=== PATIENT | female | born 1950 | race Caucasian/White ===

== ENCOUNTER 2019-11-10 22:50 | Inpatient (IN) | payer MEDICARE ==
[~2019-11-10] VITALS: Ht 160 cm; Wt 106.5 kg
[2019-11-10 23:00] VITALS: BP 131/72
[2019-11-10] MEDS ORDERED: SUCCINYLCHOLINE 200 MG/10 ML VIAL. ONE (23:00)
[2019-11-10] MEDS ORDERED: PROPOFOL 10 MG/ML (20ML) VIAL. IV ONE (23:00)
[2019-11-10] MEDS ORDERED: ETOMIDATE 20 MG/10 ML VIAL. IV ONE (23:00)
[2019-11-10 23:45] VITALS: BP 112/58
[2019-11-10 23:59] VITALS: BP 92/88
[2019-11-11] VITALS (24 sets, daily range): BP systolic 91–134; BP diastolic 45–70
[2019-11-11] MEDS: PROPOFOL 100 ML IV PRN ×5 (00:05→21:39)
[2019-11-11] MEDS ORDERED: CITA40TA12 PO (01:50)
[2019-11-11] MEDS ORDERED: SUCR1TAB35 PO (01:50)
[2019-11-11] MEDS ORDERED: METF10007 PO (01:50)
[2019-11-11] MEDS ORDERED: LEVO100T5 PO (01:50)
[2019-11-11] MEDS ORDERED: TRAM50TA PO (01:50)
[2019-11-11] MEDS ORDERED: NIFE30TA15 PO (01:50)
[2019-11-11] MEDS ORDERED: ONDA4TAB7 PO (01:50)
[2019-11-11] MEDS ORDERED: PANT40TA77 PO (01:50)
[2019-11-11] MEDS ORDERED: PRED-220 PO (01:50)
[2019-11-11] MEDS ORDERED: CEVI30CA5 PO (01:50)
[2019-11-11] MEDS ORDERED: FAMO20TA5 PO (01:50)
[2019-11-11] MEDS ORDERED: METH4TAB6 PO (01:50)
[2019-11-11] MEDS ORDERED: 0.9 % SODIUM CHLORIDE 10 ML DISP.SYRIN. IV PRN (02:00)
[2019-11-11] MEDS ORDERED: DEXTROSE 50% 25 GM / 50ML DISP.SYRIN. IV PRN (02:00)
--- NOTE | 2019-11-11 02:05 | RAD ---
AP chest x-ray HISTORY: Endotracheal tube placement, Covid pneumonia. FINDINGS: Endotracheal tube tip 2 cm above the gisela. Nasogastric tube tip left upper quadrant abdomen radiographic region of the stomach. Right jugular central venous catheter tip right atrium. Heart size normal. No pneumothorax. No pleural effusions. Extensive pulmonary opacities bilaterally. IMPRESSION: Lines and tubes as described above. Extensive bilateral pulmonary opacities which could represent pulmonary edema or an infectious/inflammatory process including extensive viral pneumonitis. Electronically signed by: Robbie Hogan MD (11/11/2019 2:02 AM) [facility]
[2019-11-11] MEDS: IV NORMAL SALINE 1000ML BAG 1,000 ML IV SCH ×2 (02:22→16:24)
[2019-11-11] MEDS ORDERED: INFLUENZA VAX SCREEN BY RX. MC ONE (04:45)
[2019-11-11 05:28] LABS: BASO % 0 % (0-3); EOS % 0 % (0-3); HEMATOCRIT 24.6 % (39.0-53.0); LYMPH # 0.5 x10^3/uL (1.0-4.8); LYMPH % 4 % (24-48); MEAN CORPUSCULAR HEMOGLOBIN 26 pg (25-35); MEAN CORPUSCULAR HGB CONC 33 g/dL (31-37); MEAN CORPUSCULAR VOLUME 78 fL (79-100); MONO # 0.7 x10^3/uL (0.0-1.1); MONO % 5 % (0-9); NEUT # 12.4 x10^3/uL (1.8-7.7); NEUT % 91 % (31-73); PLATELET COUNT 298 x10^3/uL (140-400); RED BLOOD COUNT 3.15 x10^6/uL (4.30-5.70); RED CELL DISTRIBUTION WIDTH 15.6 % (11.5-14.5); WHITE BLOOD COUNT 13.6 x10^3/uL (4.0-11.0)
[2019-11-11 05:45] LABS: VANC TR 10.5 mcg/mL (10.0-20.0)
[2019-11-11] MEDS: INSULIN LISPRO 300 UNITS/3 ML VIAL. SQ SCH ×3 (06:00→17:21)
[2019-11-11] MEDS: NIFEdipine 10 MG CAPSULE PO SCH ×3 (06:02→21:41)
[2019-11-11] MEDS: LEVOTHYROXINE 100 MCG TABLET PO SCH (06:07)
[2019-11-11 06:12] LABS: ALBUMIN 2.4 g/dL (3.4-5.0); ALBUMIN/GLOBULIN RATIO 0.6 (1.0-1.7); CREATININE 0.9 mg/dL (0.7-1.3); GFR 83.9; TOTAL BILIRUBIN 0.2 mg/dL (0.2-1.0); TOTAL PROTEIN 6.4 g/dL (6.4-8.2)
[2019-11-11] MEDS: VANCOMYCIN PER PHARMACY MC PRN ×3 (06:30→11:55)
--- NOTE | 2019-11-11 06:38 | NUR ---
Pharmacy Vancomycin Dosing Note S:Consulted to monitor and dose vancomycin started 11/11/19. O:ULI MORALES is a 69 year old M with Pneumonia . Height: 5 feet, 3 inches Weight: 101.6 kg [place] Body Weight: 56.90 Adjusted Body Weight: 74.78 Dosing Weight: Actual Other Antibiotics: LEVOFLOXACIN 750MG IV Q24H LABS: Last BUN: 17 Last Creatinine: 0.9 Creatinine Clearance: 74 mL/min Last WBC: 13.6 Last Procalcitonin: Tmax (past 24 hours): Microbiology: I/O: Drug Levels: Last Trough level: 10.1 on 11/11/19 at 0500 Last dose given 11/10/19 at 1500 Vancomycin Dosing: Loading Dose: NO LOADING DOSE/PT TRANSFERED FROM [facility] x1 Pt is(Covid-19)(+) Dosing Weight: Actual Target Trough: 15-20 A: Based on: Trough, Actual Wt and CrCl P: 1. 11/11/19 0700 Begin Vancomycin 1500 mg IV q12h 2. Follow up Trough level on 11/12/19 at 1830 3. Pharmacy will continue to monitor, follow and adjust therapy as needed. PAWEL DANIELS RPH, 11/11/19 0638 Signed: 11/11/19 at 0640 by PAWEL DANIELS RPH PHA
[2019-11-11] MEDS ORDERED: SUCRALFATE 1 GM TABLET. PO SCH (07:30)
[2019-11-11] MEDS ORDERED: PANTOPRAZOLE IV PUSH 40 MG VIAL. IVP SCH (07:30)
[2019-11-11 07:42] LABS: % LYMPHS 1 % (24-48); % MONOS 2 % (0-10); % SEGS 97 % (35-66); PLT ESTIMATE ADEQUATE (ADEQUATE)
[2019-11-11] MEDS ORDERED: INSULIN LISPRO 300 UNITS/3 ML VIAL. SQ SCH (08:00)
[2019-11-11] MEDS: VANCOMYCIN 1.5 GM in IV NORMAL SALINE 500ML BAG 500 ML IV SCH ×2 (08:13→18:46)
[2019-11-11] MEDS: FAMOTIDINE 20 MG/2 ML VIAL IVP SCH ×2 (08:13→21:40)
[2019-11-11] MEDS: DEXAMETHASONE SOD PHOS 4 MG/ML VIAL IVP SCH (08:13)
[2019-11-11] MEDS: CITALOPRAM 20 MG TABLET. PO SCH (08:14)
[2019-11-11] MEDS: ENOXAPARIN 40 MG/0.4 ML SYRINGE. SQ SCH ×2 (08:14→21:39)
--- NOTE | 2019-11-11 08:22 | RAD ---
EXAM: PORTABLE CHEST 1V 11/11/2019 5:00 AM CLINICAL INDICATION: ETT placement, COVID + COMPARISON:11/11/2019 TECHNIQUE: AP upright chest radiograph FINDINGS: The endotracheal tube terminates 3 cm above the gisela. A NG tube terminates in the gastric fundus. A right IJ catheter is unchanged terminating at the inferior cavoatrial junction. The heart is normal in size. Bilateral pulmonary opacities are redemonstrated, slightly improved on the right. No pleural effusion or pneumothorax. No acute osseous abnormality. IMPRESSION: Unchanged lines and tubes. Bilateral pulmonary opacities, slightly improved on the right. Electronically signed by: Nicole Bernabe MD (11/11/2019 8:19 AM) [id number]
[2019-11-11 08:47] LABS: BASE EXCESS ABG -5 mmol/L (-3-3); HCO3 ABG 20 mmol/L (21-28); PCO2 ABG 36 mmHg (35-46); PO2 ABG 111 mmHg (65-108); SAT O2 ABG 98 % (92-99)
[2019-11-11 08:49] LABS: FIO2 ABG 100
--- NOTE | 2019-11-11 10:38 | PDOC1 ---
History and Physical Date of Admission Date of Admission 11/11/2019 Identification/Chief Complaint Chief Complaint Respiratory failure Source Source: Chart review History of Present Illness History of Present Illness Patient is a 69-year-old female with past medical history of asthma Raynaud's phenomenon syncope history of systemic lupus erythematosus was in her usual state of health until couple days prior to her visit to the ER when she was diagnosed with COVID-19. Apparently the patient had attended a wedding and most likely is where they contracted the disease. Her is at our institution on the ventilator as well as reported by nursing staff. The patient at the time my evaluation is on mechanical ventilation and sedated. Most of this is from review of outside facility documentation. Bill the patient had described in the review of systems at the outside facility that she had some altered taste in her mouth she did not have any headache visual changes blurred vision double vision she did have some shortness of breath and chest discomfort in her chest whenever she took a deep breath otherwise no other complaints she did not have any diarrhea abdominal pain no neurological deficits were reported. Patient is being admitted for further evaluation and treatment Past Medical History Past Medical History Asthma, syncope, Raynaud's phenomenon, history of pneumonia, osteoarthritis, endocrine disorders, systemic lupus erythematous, Past Surgical History Past Surgical History: No pertinent history Family History Family History: No Significant Social History Smoke: No ALCOHOL: none Drugs: None Current Medications Current Medications Current Medications Medications (Trade) Dose Ordered Sig/Diego Start Time Stop Time Status Last Admin Dose Admin Citalopram Hydrobromide (CeleXA) 40 mg DAILY 11/11/19 09:00 11/11/19 08:14 40 MG Dexamethasone Sodium Phosphate (Decadron) 8 mg DAILY 11/11/19 09:00 11/11/19 08:13 8 MG Dextrose (Dextrose 50%-Water Syringe) 12.5 gm PRN Q15MIN PRN 11/11/19 02:00 Enoxaparin Sodium (Lovenox 40mg Syringe) 40 mg Q12HR 11/11/19 09:00 11/11/19 08:14 40 MG Famotidine (Pepcid Vial) 20 mg BID 11/11/19 09:00 11/11/19 08:13 20 MG Fentanyl Citrate 30 ml @ 0 mls/hr CONT PRN 11/10/19 23:45 11/11/19 06:19 2.5 MLS/HR Influenza Virus Vaccine Quadrival (Fluzone Quad Syringe) 0.5 ml ONCE ONCE 11/13/19 09:00 11/13/19 09:01 Info (FLU VACCINE SCREEN per RX) 1 each 1X ONCE 11/11/19 04:45 11/11/19 04:46 UNV Insulin Human Lispro (HumaLOG) 0-5 UNITS Q6HRS 11/11/19 06:00 Levofloxacin/ Dextrose 150 ml @ 100 mls/hr Q24H 11/11/19 20:00 Levothyroxine Sodium (Synthroid) 100 mcg DAILY06 11/11/19 06:00 11/11/19 06:07 100 MCG Midazolam HCl 100 ml @ 0 mls/hr CONT PRN 11/10/19 23:45 Nifedipine (Procardia) 10 mg Q8HRS 11/11/19 06:00 11/11/19 06:02 10 MG Pantoprazole Sodium (PROTONIX VIAL for IV PUSH) 40 mg BIDAC 11/11/19 07:30 11/11/19 08:13 40 MG Propofol 100 ml @ 0 mls/hr CONT PRN 11/10/19 23:45 11/11/19 06:23 21 MLS/HR Sodium Chloride 1,000 ml @ 65 mls/hr [id number] 11/11/19 02:00 11/11/19 02:22 65 MLS/HR Sodium Chloride (Normal Saline Flush) 3 ml QSHIFT PRN 11/11/19 02:00 Sucralfate (Carafate) 1 gm Q6HRS 11/11/19 12:00 Vancomycin HCl (Vanco Per Pharmacy) 1 each PRN DAILY PRN 11/11/19 02:00 11/11/19 06:36 1 EACH Vancomycin HCl (Vancomycin Trough Level) 1 each 1X ONCE 11/12/19 18:30 11/12/19 18:31 Vancomycin HCl 1.5 gm/Sodium Chloride 500 ml @ 250 mls/hr Q12H 11/11/19 07:00 11/11/19 08:13 250 MLS/HR Allergies Allergies Allergies Coded Allergies Type Severity Reaction Last Updated Verified Penicillins Allergy Unknown 11/10/19 Yes Sulfa (Sulfonamide Antibiotics) Allergy Unknown 11/10/19 Yes clindamycin Allergy Unknown 11/10/19 Yes ROS Review of System Unable to obtain due to critical illness only pertinent as per HPI Physical Exam Physical Exam GEN.: No apparent distress. Sedated on mechanical ventilation HEENT: Head is normocephalic, atraumatic NECK: Supple. LUNGS: Coarse breath sounds HEART: RRR, S1, S2 present. Peripheral pulses intact ABDOMEN: Soft, nontender. Positive bowel sounds. EXTREMITIES: Without any cyanosis. NEUROLOGIC: Sedated PSYCHIATRIC: Unable to assess SKIN: No ulcerations Vitals Vitals Vital Signs Date Time Temp Pulse Resp B/P (MAP) Pulse Ox O2 Delivery O2 Flow Rate FiO2 11/11/19 08:15 100 Ventilator 11/11/19 06:02 58 134/70 11/11/19 06:00 18 11/11/19 04:00 98.4 98.4 11/10/19 23:30 10.0 Labs Labs Laboratory Tests Test 11/11/19 05:00 11/11/19 08:00 White Blood Count 13.6 x10^3/uL (4.0-11.0) Red Blood Count 3.15 x10^6/uL (4.30-5.70) Hemoglobin 8.0 g/dL (13.0-17.5) Hematocrit 24.6 % (39.0-53.0) Mean Corpuscular Volume 78 fL (79-100) Mean Corpuscular Hemoglobin 26 pg (25-35) Mean Corpuscular Hemoglobin Concent 33 g/dL (31-37) Red Cell Distribution Width 15.6 % (11.5-14.5) Platelet Count 298 x10^3/uL (140-400) Neutrophils (%) (Auto) 91 % (31-73) Lymphocytes (%) (Auto) 4 % (24-48) Monocytes (%) (Auto) 5 % (0-9) Eosinophils (%) (Auto) 0 % (0-3) Basophils (%) (Auto) 0 % (0-3) Neutrophils # (Auto) 12.4 x10^3/uL (1.8-7.7) Lymphocytes # (Auto) 0.5 x10^3/uL (1.0-4.8) Monocytes # (Auto) 0.7 x10^3/uL (0.0-1.1) Eosinophils # (Auto) 0.0 x10^3/uL (0.0-0.7) Basophils # (Auto) 0.0 x10^3/uL (0.0-0.2) Segmented Neutrophils % 97 % (35-66) Lymphocytes % 1 % (24-48) Monocytes % 2 % (0-10) Platelet Estimate Adequate (ADEQUATE) Sodium Level 134 mmol/L (136-145) Potassium Level 5.0 mmol/L (3.5-5.1) Chloride Level 102 mmol/L (98-107) Carbon Dioxide Level 26 mmol/L (21-32) Anion Gap 6 (6-14) Blood Urea Nitrogen 17 mg/dL (8-26) Creatinine 0.9 mg/dL (0.7-1.3) Estimated GFR (Cockcroft-Gault) 83.9 BUN/Creatinine Ratio 19 (6-20) Glucose Level 126 mg/dL (70-99) Calcium Level 8.0 mg/dL (8.5-10.1) Ferritin 53 ng/mL (26-388) Total Bilirubin 0.2 mg/dL (0.2-1.0) Aspartate Amino Transf (AST/SGOT) 33 U/L (15-37) Alanine Aminotransferase (ALT/SGPT) 20 U/L (16-63) Alkaline Phosphatase 65 U/L (46-116) Total Protein 6.4 g/dL (6.4-8.2) Albumin 2.4 g/dL (3.4-5.0) Albumin/Globulin Ratio 0.6 (1.0-1.7) Procalcitonin < 0.10 ng/mL (0.00-0.10) Vancomycin Level Trough 10.5 mcg/mL (10.0-20.0) Vancomycin Last Dose Date 11/10/2019 Vancomycin Last Dose Time 1500 O2 Saturation 98 % (92-99) Arterial Blood pH 7.36 (7.35-7.45) Arterial Blood pCO2 at Patient Temp 36 mmHg (35-46) Arterial Blood pO2 at Patient Temp 111 mmHg (65-108) Arterial Blood HCO3 20 mmol/L (21-28) Arterial Blood Base Excess -5 mmol/L (-3-3) FiO2 100 Laboratory Tests Test 11/11/19 05:00 11/11/19 08:00 White Blood Count 13.6 x10^3/uL (4.0-11.0) Red Blood Count 3.15 x10^6/uL (4.30-5.70) Hemoglobin 8.0 g/dL (13.0-17.5) Hematocrit 24.6 % (39.0-53.0) Mean Corpuscular Volume 78 fL (79-100) Mean Corpuscular Hemoglobin 26 pg (25-35) Mean Corpuscular Hemoglobin Concent 33 g/dL (31-37) Red Cell Distribution Width 15.6 % (11.5-14.5) Platelet Count 298 x10^3/uL (140-400) Neutrophils (%) (Auto) 91 % (31-73) Lymphocytes (%) (Auto) 4 % (24-48) Monocytes (%) (Auto) 5 % (0-9) Eosinophils (%) (Auto) 0 % (0-3) Basophils (%) (Auto) 0 % (0-3) Neutrophils # (Auto) 12.4 x10^3/uL (1.8-7.7) Lymphocytes # (Auto) 0.5 x10^3/uL (1.0-4.8) Monocytes # (Auto) 0.7 x10^3/uL (0.0-1.1) Eosinophils # (Auto) 0.0 x10^3/uL (0.0-0.7) Basophils # (Auto) 0.0 x10^3/uL (0.0-0.2) Segmented Neutrophils % 97 % (35-66) Lymphocytes % 1 % (24-48) Monocytes % 2 % (0-10) Platelet Estimate Adequate (ADEQUATE) Sodium Level 134 mmol/L (136-145) Potassium Level 5.0 mmol/L (3.5-5.1) Chloride Level 102 mmol/L (98-107) Carbon Dioxide Level 26 mmol/L (21-32) Anion Gap 6 (6-14) Blood Urea Nitrogen 17 mg/dL (8-26) Creatinine 0.9 mg/dL (0.7-1.3) Estimated GFR (Cockcroft-Gault) 83.9 BUN/Creatinine Ratio 19 (6-20) Glucose Level 126 mg/dL (70-99) Calcium Level 8.0 mg/dL (8.5-10.1) Ferritin 53 ng/mL (26-388) Total Bilirubin 0.2 mg/dL (0.2-1.0) Aspartate Amino Transf (AST/SGOT) 33 U/L (15-37) Alanine Aminotransferase (ALT/SGPT) 20 U/L (16-63) Alkaline Phosphatase 65 U/L (46-116) Total Protein 6.4 g/dL (6.4-8.2) Albumin 2.4 g/dL (3.4-5.0) Albumin/Globulin Ratio 0.6 (1.0-1.7) Procalcitonin < 0.10 ng/mL (0.00-0.10) Vancomycin Level Trough 10.5 mcg/mL (10.0-20.0) Vancomycin Last Dose Date 11/10/2019 Vancomycin Last Dose Time 1500 O2 Saturation 98 % (92-99) Arterial Blood pH 7.36 (7.35-7.45) Arterial Blood pCO2 at Patient Temp 36 mmHg (35-46) Arterial Blood pO2 at Patient Temp 111 mmHg (65-108) Arterial Blood HCO3 20 mmol/L (21-28) Arterial Blood Base Excess -5 mmol/L (-3-3) FiO2 100 VTE Prophylaxis Ordered VTE Prophylaxis Devices: No VTE Pharmacological Prophylaxi: Yes Assessment/Plan Assessment/Plan Acute hypoxemic respiratory failure secondary to COVID-19 infection COVID-19 pneumonia Leukocytosis secondary to the above Microcytic anemia Hyponatremia Severe protein calorie malnutrition Plan Supportive measures Ventilatory support as per pulmonology customer service sales consultant OG tube for nutrition We will start vitamin C vitamin D and zinc Continue steroids Broad-spectrum antibiotics as per ID customer service sales consultant Further recommendations based on the clinical course DVT prophylaxis: Patient will be fully anticoagulated Justifications for Admission Other Justification FILIPPO ROBIN MD Nov 11, 2019 10:38
--- NOTE | 2019-11-11 11:12 | NUR ---
SS following for discharge planning. SS reviewed pt chart and discussed with pt RN. Pt is from home with spouse and is currently on the vent at 100%. COVID19 positive. Pt on IV Levaquin and IV Vancomycin. Pt's spouse also admitted with COVID19 and on the vent. SS will continue to follow for discharge planning.
--- NOTE | 2019-11-11 11:45 | CONS ---
DATE OF CONSULTATION: LOCATION: She is in ICU, bed 16. REFERRING PHYSICIAN: Richard Newton MD REASON FOR CONSULTATION: COVID-19 infection. HISTORY OF PRESENT ILLNESS: A 69-year-old female with history of asthma, Raynaud's, history of SLE, presented to the ER at [facility] with worsening respiratory failure. The patient was diagnosed with COVID-19. I do not have any information as the patient is on mechanical ventilation, sedated in ICU at [facility]. The patient had attended a wedding and likely contacted the illness with COVID-19 there. Her is intubated in ICU at our facility. The patient went into respiratory failure and was intubated. The patient is on Decadron, Lovenox, levofloxacin and IV vancomycin. ID consult has been requested for antibiotic management. REVIEW OF SYSTEMS: Unable to obtain. PAST MEDICAL HISTORY: Asthma, SLE, Raynaud's, osteoarthritis. FAMILY HISTORY: Unobtainable. SOCIAL HISTORY: No smoking or alcohol. , in ICU, currently at [facility] intubated with COVID. CURRENT MEDICATIONS: Dexamethasone, citalopram, famotidine, fentanyl, levothyroxine, IV vancomycin, nifedipine. Other medications reviewed in medication list. ALLERGIES: PENICILLIN, UNKNOWN REACTION; SULFA, UNKNOWN REACTION; CLINDAMYCIN, UNKNOWN REACTION. PHYSICAL EXAMINATION: GENERAL: Intubated, sedated on mechanical ventilation. HEENT: Normocephalic, atraumatic. Anicteric. NECK: Supple. Right IJ line looks clean. LUNGS: Coarse breath sounds bilaterally. No wheezing. HEART: S1, S2 present. No murmurs. ABDOMEN: Soft, nontender, positive bowel sounds. EXTREMITIES: No edema, no cyanosis. DERMATOLOGIC: Warm and dry. No generalized rash. NEUROLOGIC: Sedated. PSYCHIATRIC: Unable to assess. LABORATORY DATA: WBC 13.6, hemoglobin 8.0, hematocrit 26, platelets 298, lymphocyte 0.5. Sodium 134, potassium 5.0, chloride 102, bicarb 26, BUN 17, creatinine 0.9, albumin 2.4. Vancomycin 10.5. RADIOLOGY: Chest x-ray, unchanged lines and tubes; bilateral pulmonary opacities, slightly improved on the right. IMPRESSION: 1. COVID-19 pneumonia. 2. Acute hypoxic respiratory failure, status post intubation. 3. Leukocytosis, likely from steroids. 4. Asthma. 5. History of systemic lupus erythematosus. 6. History of Raynaud's. 7. PCN,Sulfa and Clindamycin allergies unknown reaction RECOMMENDATIONS: 1. Continue empiric IV vancomycin and Levaquin. 2. Follow up labs and cultures. 3. Monitor renal functions closely. Pharmacy to assist with dosing of Vanco according to protocol 4. Continue supportive care. 5. On steroids. 6. Discussed with nursing staff. Thank you for allowing me to participate in this patient's care. If you have any questions, do not hesitate to contact me. GEORGINA ARBOLEDA MD DR: LOI/brock JOB#: [id number] / [id number] SAMAN
[2019-11-11] MEDS: SUCRALFATE 1 GM TABLET. PO SCH ×3 (12:00→23:50)
[2019-11-11] MEDS: ASCORBIC ACID 500 MG TABLET PO SCH ×3 (12:16→23:50)
[2019-11-11] MEDS: CHOLECALCIFEROL (VITAMIN D3) 1,000 UNIT TABLET PO SCH (12:16)
[2019-11-11] MEDS: ZINC SULFATE 220 MG CAPSULE. PO SCH (12:16)
--- NOTE | 2019-11-11 15:25 | PDOC ---
PULMONARY PROGRESS NOTES DATE: 11/11/19 TIME: 15:24 Vitals Vital Signs Date Time Temp Pulse Resp B/P (MAP) Pulse Ox O2 Delivery O2 Flow Rate FiO2 11/11/19 14:00 50 22 112/61 (78) 99 Ventilator 11/11/19 12:00 98.2 98.2 11/10/19 23:30 10.0 Labs Laboratory Tests Test 11/11/19 05:00 11/11/19 08:00 11/11/19 12:35 White Blood Count 13.6 x10^3/uL (4.0-11.0) Red Blood Count 3.15 x10^6/uL (4.30-5.70) Hemoglobin 8.0 g/dL (13.0-17.5) Hematocrit 24.6 % (39.0-53.0) Mean Corpuscular Volume 78 fL (79-100) Mean Corpuscular Hemoglobin 26 pg (25-35) Mean Corpuscular Hemoglobin Concent 33 g/dL (31-37) Red Cell Distribution Width 15.6 % (11.5-14.5) Platelet Count 298 x10^3/uL (140-400) Neutrophils (%) (Auto) 91 % (31-73) Lymphocytes (%) (Auto) 4 % (24-48) Monocytes (%) (Auto) 5 % (0-9) Eosinophils (%) (Auto) 0 % (0-3) Basophils (%) (Auto) 0 % (0-3) Neutrophils # (Auto) 12.4 x10^3/uL (1.8-7.7) Lymphocytes # (Auto) 0.5 x10^3/uL (1.0-4.8) Monocytes # (Auto) 0.7 x10^3/uL (0.0-1.1) Eosinophils # (Auto) 0.0 x10^3/uL (0.0-0.7) Basophils # (Auto) 0.0 x10^3/uL (0.0-0.2) Segmented Neutrophils % 97 % (35-66) Lymphocytes % 1 % (24-48) Monocytes % 2 % (0-10) Platelet Estimate Adequate (ADEQUATE) Sodium Level 134 mmol/L (136-145) Potassium Level 5.0 mmol/L (3.5-5.1) Chloride Level 102 mmol/L (98-107) Carbon Dioxide Level 26 mmol/L (21-32) Anion Gap 6 (6-14) Blood Urea Nitrogen 17 mg/dL (8-26) Creatinine 0.9 mg/dL (0.7-1.3) Estimated GFR (Cockcroft-Gault) 83.9 BUN/Creatinine Ratio 19 (6-20) Glucose Level 126 mg/dL (70-99) Calcium Level 8.0 mg/dL (8.5-10.1) Ferritin 53 ng/mL (26-388) Total Bilirubin 0.2 mg/dL (0.2-1.0) Aspartate Amino Transf (AST/SGOT) 33 U/L (15-37) Alanine Aminotransferase (ALT/SGPT) 20 U/L (16-63) Alkaline Phosphatase 65 U/L (46-116) Total Protein 6.4 g/dL (6.4-8.2) Albumin 2.4 g/dL (3.4-5.0) Albumin/Globulin Ratio 0.6 (1.0-1.7) Procalcitonin < 0.10 ng/mL (0.00-0.10) Vancomycin Level Trough 10.5 mcg/mL (10.0-20.0) Vancomycin Last Dose Date 11/10/2019 Vancomycin Last Dose Time 1500 O2 Saturation 98 % (92-99) Arterial Blood pH 7.36 (7.35-7.45) Arterial Blood pCO2 at Patient Temp 36 mmHg (35-46) Arterial Blood pO2 at Patient Temp 111 mmHg (65-108) Arterial Blood HCO3 20 mmol/L (21-28) Arterial Blood Base Excess -5 mmol/L (-3-3) FiO2 100 Glucose (Fingerstick) 138 mg/dL (70-99) Laboratory Tests Test 11/11/19 05:00 11/11/19 08:00 11/11/19 12:35 White Blood Count 13.6 x10^3/uL (4.0-11.0) Red Blood Count 3.15 x10^6/uL (4.30-5.70) Hemoglobin 8.0 g/dL (13.0-17.5) Hematocrit 24.6 % (39.0-53.0) Mean Corpuscular Volume 78 fL (79-100) Mean Corpuscular Hemoglobin 26 pg (25-35) Mean Corpuscular Hemoglobin Concent 33 g/dL (31-37) Red Cell Distribution Width 15.6 % (11.5-14.5) Platelet Count 298 x10^3/uL (140-400) Neutrophils (%) (Auto) 91 % (31-73) Lymphocytes (%) (Auto) 4 % (24-48) Monocytes (%) (Auto) 5 % (0-9) Eosinophils (%) (Auto) 0 % (0-3) Basophils (%) (Auto) 0 % (0-3) Neutrophils # (Auto) 12.4 x10^3/uL (1.8-7.7) Lymphocytes # (Auto) 0.5 x10^3/uL (1.0-4.8) Monocytes # (Auto) 0.7 x10^3/uL (0.0-1.1) Eosinophils # (Auto) 0.0 x10^3/uL (0.0-0.7) Basophils # (Auto) 0.0 x10^3/uL (0.0-0.2) Segmented Neutrophils % 97 % (35-66) Lymphocytes % 1 % (24-48) Monocytes % 2 % (0-10) Platelet Estimate Adequate (ADEQUATE) Sodium Level 134 mmol/L (136-145) Potassium Level 5.0 mmol/L (3.5-5.1) Chloride Level 102 mmol/L (98-107) Carbon Dioxide Level 26 mmol/L (21-32) Anion Gap 6 (6-14) Blood Urea Nitrogen 17 mg/dL (8-26) Creatinine 0.9 mg/dL (0.7-1.3) Estimated GFR (Cockcroft-Gault) 83.9 BUN/Creatinine Ratio 19 (6-20) Glucose Level 126 mg/dL (70-99) Calcium Level 8.0 mg/dL (8.5-10.1) Ferritin 53 ng/mL (26-388) Total Bilirubin 0.2 mg/dL (0.2-1.0) Aspartate Amino Transf (AST/SGOT) 33 U/L (15-37) Alanine Aminotransferase (ALT/SGPT) 20 U/L (16-63) Alkaline Phosphatase 65 U/L (46-116) Total Protein 6.4 g/dL (6.4-8.2) Albumin 2.4 g/dL (3.4-5.0) Albumin/Globulin Ratio 0.6 (1.0-1.7) Procalcitonin < 0.10 ng/mL (0.00-0.10) Vancomycin Level Trough 10.5 mcg/mL (10.0-20.0) Vancomycin Last Dose Date 11/10/2019 Vancomycin Last Dose Time 1500 O2 Saturation 98 % (92-99) Arterial Blood pH 7.36 (7.35-7.45) Arterial Blood pCO2 at Patient Temp 36 mmHg (35-46) Arterial Blood pO2 at Patient Temp 111 mmHg (65-108) Arterial Blood HCO3 20 mmol/L (21-28) Arterial Blood Base Excess -5 mmol/L (-3-3) FiO2 100 Glucose (Fingerstick) 138 mg/dL (70-99) Medications Active Scripts Medications Dose Route/Sig Max Daily Dose Days Date Category Tramadol Hcl 50 Mg Tablet 50 Mg PO Q8HRS PRN 11/11/19 Reported Carafate (Sucralfate) 1 Gm Tablet 1 Gm PO TIDACHC 11/11/19 Reported Prednisone (Prednisone) 10 Mg Tablet 10 Mg PO DAILY 11/11/19 Reported Pantoprazole Sodium (Pantoprazole Sodium) 40 Mg Tablet.dr 40 Mg PO BIDAC 11/11/19 Reported Zofran (Ondansetron Hcl) 4 Mg Tablet 1 Tab PO Q8HRS 11/11/19 Reported Nifedipine Er (Nifedipine) 30 Mg Tablet.er 30 Mg PO DAILY 11/11/19 Reported Methylprednisolone 4 Mg Tab.ds.pk 4 Mg PO DAILY 11/11/19 Reported Metformin Hcl 1,000 Mg Tablet 1,000 Mg PO BIDWMEALS 11/11/19 Reported Levothyroxine Sodium 100 Mcg Tablet 100 Mcg PO DAILYAC 11/11/19 Reported Famotidine 20 Mg Tablet 20 Mg PO BID 11/11/19 Reported Celexa (Citalopram Hydrobromide) 40 Mg Tablet 40 Mg PO DAILY 11/11/19 Reported Evoxac (Cevimeline Hcl) 30 Mg Capsule 30 Mg PO TID 11/11/19 Reported Impression . Full note dictated Will add convalescence serum and Remdesivir Low tidal volume volumes at 400 mL increased rate MARITZA HAZEL MD Nov 11, 2019 15:25
[2019-11-11] MEDS ORDERED: REMDESIVIR LOAD in IV NORMAL SALINE 250ML TV IV ONE (16:00)
[2019-11-11 18:22] LABS: D-DIMER 0.98 ug/mlFEU (0.00-0.50)
[2019-11-11] MEDS: PANTOPRAZOLE IV PUSH 40 MG VIAL. IVP SCH (21:42)
[2019-11-11] MEDS: MIDAZOLAM 100mg/100ml NS BAG 100 ML IV PRN (23:50)
[2019-11-12] VITALS (25 sets, daily range): BP systolic 98–165; BP diastolic 46–72
--- NOTE | 2019-11-12 00:41 | CONS ---
DATE OF CONSULTATION: 11/11/2019 ATTENDING PHYSICIAN: Dr. Emerson. REASON FOR CONSULTATION: The patient is seen in pulmonary consultation at the request of Dr. Emerson for vent management, COVID-19 viral pneumonia. HISTORY OF PRESENT ILLNESS: The patient is a 69-year-old female with a history of asthma, Raynaud's, lupus, presented to the Emergency Room after worsening respiratory failure. Apparently, the patient was diagnosed with SARS COVID-2. In fact, her who is currently on mechanical ventilation here at [facility] is also my patient. The patient had attended a wedding, likely contact illness COVID-19 at the wedding. Her was intubated several days ago. She progressed to respiratory failure, requiring intubation. She is currently on Decadron and Lovenox and received some IV antibiotics. She has been seen by the Infectious Disease Service. She is currently being supported with the above. PAST MEDICAL HISTORY: As indicated above, osteoarthritis, Raynaud's, lupus and asthma. REVIEW OF SYSTEMS: Unobtainable secondary to the patient's condition. FAMILY HISTORY: Unknown. SOCIAL HISTORY: There is no history of tobacco. She is . Her is currently in the intensive care unit on mechanical ventilation. CURRENT MEDICATIONS: List was reviewed. ALLERGIES: PENICILLIN, SULFA, CLINDAMYCIN. PHYSICAL EXAMINATION: GENERAL: The patient was sedated. VITAL SIGNS: Noted. O2 saturation was greater than 92%. LUNGS: Anteriorly were clear. CARDIOVASCULAR: Regular rate and rhythm with S1, S2. No S3. ABDOMEN: Soft, obese. EXTREMITIES: No clubbing, cyanosis or edema. NEUROLOGICAL: The patient was sedated. LABORATORY DATA: White count was 13,000, hemoglobin of 8, hematocrit of 24, platelet count was noted. Arterial blood gas; pH of 7.36, PaCO2 of 36, pO2 111. Electrolytes were noted. BUN and creatinine were noted. Albumin was 2.4. Chest x-ray revealed bilateral pulmonary infiltrates. IMPRESSION: 1. Acute hypoxemic respiratory failure secondary to COVID-19 viral pneumonia. 2. COVID-19 viral pneumonia. 3. Acute respiratory distress syndrome. 4. Leukocytosis. 5. History of systemic lupus erythematosus. 6. Raynaud's. PLAN: 1. We will continue current support with low tidal volume and increasing respiratory rate. 2. Continue IV vancomycin and Levaquin. 3. We will add remdesivir and convalescent serum. 4. Monitor D-dimer. 5. Continue steroids. 6. DVT and GI prophylaxis. 7. Nutritional support. I do appreciate the privilege in sharing in the patient's care. Total cumulative critical care time of 55 minutes from noon to 12:55. MARITZA HAZEL MD DR: WANDA/brock JOB#: [id number] / [id number]
[2019-11-12 05:57] LABS: CREATININE 0.8 mg/dL (0.6-1.0); GFR 71.3
[2019-11-12] MEDS: INSULIN LISPRO 300 UNITS/3 ML VIAL. SQ SCH ×5 (06:00→23:56)
[2019-11-12] MEDS: NIFEdipine 10 MG CAPSULE PO SCH ×3 (06:00→21:59)
[2019-11-12] MEDS: LEVOTHYROXINE 100 MCG TABLET PO SCH (06:14)
[2019-11-12] MEDS: ASCORBIC ACID 500 MG TABLET PO SCH ×4 (06:14→23:56)
[2019-11-12] MEDS: SUCRALFATE 1 GM TABLET. PO SCH ×4 (06:14→23:56)
[2019-11-12] MEDS: VANCOMYCIN 1.5 GM in IV NORMAL SALINE 500ML BAG 500 ML IV SCH (06:23)
--- NOTE | 2019-11-12 07:14 | PDOC ---
Infectious Disease Note Subjective: Subjective Pt intubated and sedated blood tinged resp secretions Vital Signs: Vital Signs Vital Signs Date Time Temp Pulse Resp B/P (MAP) Pulse Ox O2 Delivery O2 Flow Rate FiO2 11/12/19 06:00 56 28 114/59 (77) 99 Ventilator 11/12/19 05:00 98.6 98.6 11/11/19 19:31 10.0 Physical Exam: PHYSICAL EXAM GENERAL: Intubated, sedated on mechanical ventilation. HEENT: Normocephalic, atraumatic. Anicteric. NG tube present NECK: Supple. Right IJ line looks clean. LUNGS: Coarse breath sounds bilaterally. No wheezing. HEART: S1, S2 present. No murmurs. ABDOMEN: Soft, nontender, positive bowel sounds. EXTREMITIES: No edema, no cyanosis. DERMATOLOGIC: Warm and dry. No generalized rash. NEUROLOGIC: Sedated. PSYCHIATRIC: Unable to assess. Medications: Inpatient Meds: Current Medications Medications (Trade) Dose Ordered Sig/Diego Start Time Stop Time Status Last Admin Dose Admin Ascorbic Acid (Vitamin C) 500 mg Q6HRS 11/11/19 12:00 11/12/19 06:14 500 MG Citalopram Hydrobromide (CeleXA) 40 mg DAILY 11/11/19 09:00 11/11/19 08:14 40 MG Dexamethasone Sodium Phosphate (Decadron) 8 mg DAILY 11/11/19 09:00 11/11/19 08:13 8 MG Dextrose (Dextrose 50%-Water Syringe) 12.5 gm PRN Q15MIN PRN 11/11/19 02:00 Enoxaparin Sodium (Lovenox 40mg Syringe) 40 mg Q12HR 11/11/19 09:00 11/11/19 21:39 40 MG Etomidate (Amidate) 20 mg STK-MED ONCE 11/10/19 23:00 11/11/19 12:49 DC Famotidine (Pepcid Vial) 20 mg BID 11/11/19 09:00 11/11/19 21:40 20 MG Fentanyl Citrate 30 ml @ 0 mls/hr CONT PRN 11/10/19 23:45 11/12/19 03:32 2.5 MLS/HR Influenza Virus Vaccine Quadrival (Fluzone Quad Syringe) 0.5 ml ONCE ONCE 11/13/19 09:00 10/8/20 09:01 Info (FLU VACCINE SCREEN per RX) 1 each 1X ONCE 11/11/19 04:45 11/11/19 04:46 UNV Insulin Human Lispro (HumaLOG) 0-5 UNITS Q6HRS 11/11/19 06:00 Levofloxacin/ Dextrose 150 ml @ 100 mls/hr Q24H 11/11/19 20:00 11/11/19 21:38 100 MLS/HR Levothyroxine Sodium (Synthroid) 100 mcg DAILY06 11/11/19 06:00 11/12/19 06:14 100 MCG Midazolam HCl 100 ml @ 0 mls/hr CONT PRN 11/10/19 23:45 11/11/19 23:50 1 MLS/HR Nifedipine (Procardia) 10 mg Q8HRS 11/11/19 06:00 11/11/19 21:41 10 MG Non-Formulary Medication 1 ea/ Sodium Chloride 230 ml @ 460 mls/hr Q24H 11/12/19 16:00 11/20/19 16:29 Pantoprazole Sodium (PROTONIX VIAL for IV PUSH) 40 mg Q12HR 11/11/19 21:00 11/11/19 21:42 40 MG Propofol (Diprivan) 200 mg STK-MED ONCE 11/10/19 23:00 11/11/19 12:49 DC Sodium Chloride 1,000 ml @ 65 mls/hr [id number] 11/11/19 02:00 11/11/19 16:24 65 MLS/HR Sodium Chloride (Normal Saline Flush) 3 ml QSHIFT PRN 11/11/19 02:00 Succinylcholine Chloride (Anectine) 200 mg STK-MED ONCE 11/10/19 23:00 11/11/19 12:49 DC Sucralfate (Carafate) 1 gm Q6HRS 11/11/19 12:00 11/12/19 06:14 1 GM Vancomycin HCl (Vanco Per Pharmacy) 1 each PRN DAILY PRN 11/11/19 02:00 11/11/19 11:55 1 EACH Vancomycin HCl (Vancomycin Trough Level) 1 each 1X ONCE 11/12/19 18:30 11/12/19 18:31 Vancomycin HCl 1.5 gm/Sodium Chloride 500 ml @ 250 mls/hr Q12H 11/11/19 07:00 11/12/19 06:23 250 MLS/HR Vitamin D (Vitamin D3) 2,000 unit DAILY 11/11/19 11:00 11/11/19 12:16 2,000 UNIT Zinc Sulfate (Orazinc) 220 mg DAILY 11/11/19 11:00 11/11/19 12:16 220 MG Labs: Lab Laboratory Tests Test 11/11/19 08:00 11/11/19 12:35 11/11/19 17:17 11/11/19 17:45 O2 Saturation 98 % (92-99) Arterial Blood pH 7.36 (7.35-7.45) Arterial Blood pCO2 at Patient Temp 36 mmHg (35-46) Arterial Blood pO2 at Patient Temp 111 mmHg (65-108) Arterial Blood HCO3 20 mmol/L (21-28) Arterial Blood Base Excess -5 mmol/L (-3-3) FiO2 100 Glucose (Fingerstick) 138 mg/dL (70-99) 133 mg/dL (70-99) Fibrinogen 417 mg/dL (200-440) D-Dimer (Bridgette) 0.98 ug/mlFEU (0.00-0.50) Test 11/12/19 00:09 11/12/19 05:35 Glucose (Fingerstick) 110 mg/dL (70-99) Creatinine 0.8 mg/dL (0.6-1.0) Estimated GFR (Cockcroft-Gault) 71.3 Objective: Assessment: 1. COVID-19 pneumonia. 2. Acute hypoxic respiratory failure, status post intubation. 3. Leukocytosis, likely from steroids. 4. Asthma. 5. History of systemic lupus erythematosus. 6. History of Raynaud's. 7. PCN,Sulfa and Clindamycin allergies unknown reaction Plan: Plan of Care Continue supportive care. Continue Levaquin.DC IV Vanc Monitor renal functions closely. Pharmacy to assist with dosing of Vanco accor ding to protocol Follow up labs and cultures. On steroids. Critically ill Discussed with nursing staff. GEORGINA ARBOLEDA MD Nov 12, 2019 07:14
[2019-11-12] MEDS: MIDAZOLAM 100mg/100ml NS BAG 100 ML IV PRN ×2 (07:43→15:58)
--- NOTE | 2019-11-12 07:49 | PDOC ---
PROGRESS NOTES Date of Service: DATE: 11/12/19 TIME: 07:31 Chief Complaint Chief Complaint Assessment/Plan Acute hypoxemic respiratory failure secondary to COVID-19 infection COVID-19 pneumonia Leukocytosis secondary to the above Microcytic anemia Hyponatremia Severe protein calorie malnutrition Plan Supportive measures Ventilatory support as per pulmonology computer systems consultant OG tube for nutrition We will start vitamin C vitamin D and zinc Continue steroids Broad-spectrum antibiotics as per ID computer systems consultant Further recommendations based on the clinical course DVT prophylaxis: Patient will be fully anticoagulated History of Present Illness History of Present Illness History of Present Illness Patient is a 69-year-old female with past medical history of asthma Raynaud's phenomenon syncope history of systemic lupus erythematosus was in her usual state of health until couple days prior to her visit to the ER when she was d iagnosed with COVID-19. Apparently the patient had attended a wedding and most likely is where they contracted the disease. Her is at our institution on the ventilator as well as reported by nursing staff. The patient at the time my evaluation is on mechanical ventilation and sedated. Most of this is from review of outside facility documentation. Bill the patient had described in the review of systems at the outside facility that she had some altered taste in her mouth she did not have any headache visual changes blurred vision double vision she did have some shortness of breath and chest discomfort in her chest whenever she took a deep breath otherwise no other complaints she did not have any diarrhea abdominal pain no neurological deficits were reported. Patient is being admitted for further evaluation and treatment Vitals Vitals Vital Signs Date Time Temp Pulse Resp B/P (MAP) Pulse Ox O2 Delivery O2 Flow Rate FiO2 11/12/19 06:00 56 28 114/59 (77) 99 Ventilator 11/12/19 05:00 98.6 98.6 11/11/19 19:31 10.0 Physical Exam Physical Exam GENERAL: Intubated, sedated on mechanical ventilation. HEENT: Normocephalic, atraumatic. Anicteric. NG tube present NECK: Supple. Right IJ line looks clean. LUNGS: Coarse breath sounds bilaterally. No wheezing. HEART: S1, S2 present. No murmurs. ABDOMEN: Soft, nontender, positive bowel sounds. EXTREMITIES: No edema, no cyanosis. DERMATOLOGIC: Warm and dry. No generalized rash. NEUROLOGIC: Sedated. PSYCHIATRIC: Unable to assess. Labs LABS Laboratory Tests Test 11/11/19 08:00 11/11/19 12:35 11/11/19 17:17 11/11/19 17:45 O2 Saturation 98 % (92-99) Arterial Blood pH 7.36 (7.35-7.45) Arterial Blood pCO2 at Patient Temp 36 mmHg (35-46) Arterial Blood pO2 at Patient Temp 111 mmHg (65-108) Arterial Blood HCO3 20 mmol/L (21-28) Arterial Blood Base Excess -5 mmol/L (-3-3) FiO2 100 Glucose (Fingerstick) 138 mg/dL (70-99) 133 mg/dL (70-99) Fibrinogen 417 mg/dL (200-440) D-Dimer (Bridgette) 0.98 ug/mlFEU (0.00-0.50) Test 11/12/19 00:09 11/12/19 05:35 Glucose (Fingerstick) 110 mg/dL (70-99) Creatinine 0.8 mg/dL (0.6-1.0) Estimated GFR (Cockcroft-Gault) 71.3 Comment Review of Relevant I have reviewed the following items clive (where applicable) has been applied. Labs Laboratory Tests Test 11/11/19 05:00 11/11/19 08:00 11/11/19 12:35 11/11/19 17:17 White Blood Count 13.6 x10^3/uL (4.0-11.0) Red Blood Count 3.15 x10^6/uL (4.30-5.70) Hemoglobin 8.0 g/dL (13.0-17.5) Hematocrit 24.6 % (39.0-53.0) Mean Corpuscular Volume 78 fL (79-100) Mean Corpuscular Hemoglobin 26 pg (25-35) Mean Corpuscular Hemoglobin Concent 33 g/dL (31-37) Red Cell Distribution Width 15.6 % (11.5-14.5) Platelet Count 298 x10^3/uL (140-400) Neutrophils (%) (Auto) 91 % (31-73) Lymphocytes (%) (Auto) 4 % (24-48) Monocytes (%) (Auto) 5 % (0-9) Eosinophils (%) (Auto) 0 % (0-3) Basophils (%) (Auto) 0 % (0-3) Neutrophils # (Auto) 12.4 x10^3/uL (1.8-7.7) Lymphocytes # (Auto) 0.5 x10^3/uL (1.0-4.8) Monocytes # (Auto) 0.7 x10^3/uL (0.0-1.1) Eosinophils # (Auto) 0.0 x10^3/uL (0.0-0.7) Basophils # (Auto) 0.0 x10^3/uL (0.0-0.2) Segmented Neutrophils % 97 % (35-66) Lymphocytes % 1 % (24-48) Monocytes % 2 % (0-10) Platelet Estimate Adequate (ADEQUATE) Sodium Level 134 mmol/L (136-145) Potassium Level 5.0 mmol/L (3.5-5.1) Chloride Level 102 mmol/L (98-107) Carbon Dioxide Level 26 mmol/L (21-32) Anion Gap 6 (6-14) Blood Urea Nitrogen 17 mg/dL (8-26) Creatinine 0.9 mg/dL (0.7-1.3) Estimated GFR (Cockcroft-Gault) 83.9 BUN/Creatinine Ratio 19 (6-20) Glucose Level 126 mg/dL (70-99) Calcium Level 8.0 mg/dL (8.5-10.1) Ferritin 53 ng/mL (26-388) Total Bilirubin 0.2 mg/dL (0.2-1.0) Aspartate Amino Transf (AST/SGOT) 33 U/L (15-37) Alanine Aminotransferase (ALT/SGPT) 20 U/L (16-63) Alkaline Phosphatase 65 U/L (46-116) Total Protein 6.4 g/dL (6.4-8.2) Albumin 2.4 g/dL (3.4-5.0) Albumin/Globulin Ratio 0.6 (1.0-1.7) Procalcitonin < 0.10 ng/mL (0.00-0.10) Vancomycin Level Trough 10.5 mcg/mL (10.0-20.0) Vancomycin Last Dose Date 11/10/2019 Vancomycin Last Dose Time 1500 O2 Saturation 98 % (92-99) Arterial Blood pH 7.36 (7.35-7.45) Arterial Blood pCO2 at Patient Temp 36 mmHg (35-46) Arterial Blood pO2 at Patient Temp 111 mmHg (65-108) Arterial Blood HCO3 20 mmol/L (21-28) Arterial Blood Base Excess -5 mmol/L (-3-3) FiO2 100 Glucose (Fingerstick) 138 mg/dL (70-99) 133 mg/dL (70-99) Test 11/11/19 17:45 11/12/19 00:09 11/12/19 05:35 Fibrinogen 417 mg/dL (200-440) D-Dimer (Bridgette) 0.98 ug/mlFEU (0.00-0.50) Glucose (Fingerstick) 110 mg/dL (70-99) Creatinine 0.8 mg/dL (0.6-1.0) Estimated GFR (Cockcroft-Gault) 71.3 Laboratory Tests Test 11/11/19 08:00 11/11/19 12:35 11/11/19 17:17 11/11/19 17:45 O2 Saturation 98 % (92-99) Arterial Blood pH 7.36 (7.35-7.45) Arterial Blood pCO2 at Patient Temp 36 mmHg (35-46) Arterial Blood pO2 at Patient Temp 111 mmHg (65-108) Arterial Blood HCO3 20 mmol/L (21-28) Arterial Blood Base Excess -5 mmol/L (-3-3) FiO2 100 Glucose (Fingerstick) 138 mg/dL (70-99) 133 mg/dL (70-99) Fibrinogen 417 mg/dL (200-440) D-Dimer (Bridgette) 0.98 ug/mlFEU (0.00-0.50) Test 11/12/19 00:09 11/12/19 05:35 Glucose (Fingerstick) 110 mg/dL (70-99) Creatinine 0.8 mg/dL (0.6-1.0) Estimated GFR (Cockcroft-Gault) 71.3 Medications Current Medications Fentanyl Citrate 30 ml @ 0 mls/hr CONT PRN IV SEE PROTOCOL Last administered on 11/12/19at 03:32; Start 11/10/19 at 23:45 Propofol 100 ml @ 0 mls/hr CONT PRN IV SEE PROTOCOL Last administered on 11/11/19at 21:39; Start 11/10/19 at 23:45 Midazolam HCl 100 ml @ 0 mls/hr CONT PRN IV SEE PROTOCOL Last administered on 11/11/19at 23:50; Start 11/10/19 at 23:45 Levothyroxine Sodium (Synthroid) 100 mcg DAILY06 PO Last administered on 11/12/19at 06:14; Start 11/11/19 at 06:00 Sucralfate (Carafate) 1 gm TIDACHC PO ; Start 11/11/19 at 07:30; Stop 11/11/19 at 07:55; Status DC Citalopram Hydrobromide (CeleXA) 40 mg DAILY PO Last administered on 11/11/19at 08:14; Start 11/11/19 at 09:00 Famotidine (Pepcid Vial) 20 mg BID IVP Last administered on 11/11/19at 21:40; Start 11/11/19 at 09:00 Enoxaparin Sodium (Lovenox 40mg Syringe) 40 mg Q12HR SQ Last administered on 11/11/19at 21:39; Start 11/11/19 at 09:00 Sodium Chloride (Normal Saline Flush) 3 ml QSHIFT PRN IV AFTER MEDS AND BLOOD DRAWS; Start 11/11/19 at 02:00 Sodium Chloride 1,000 ml @ 65 mls/hr [id number] IV Last administered on 11/11/19at 16:24; Start 11/11/19 at 02:00 Pantoprazole Sodium (PROTONIX VIAL for IV PUSH) 40 mg BIDAC IVP Last administered on 11/11/19at 08:13; Start 11/11/19 at 07:30; Stop 11/11/19 at 12:27; Status DC Insulin Human Lispro (HumaLOG) 0-5 UNITS TIDWMEALS SQ ; Start 11/11/19 at 08:00; Stop 11/11/19 at 05:57; Status DC Dextrose (Dextrose 50%-Water Syringe) 12.5 gm PRN Q15MIN PRN IV SEE COMMENTS; Start 11/11/19 at 02:00 Dexamethasone Sodium Phosphate (Decadron) 8 mg DAILY IVP Last administered on 11/11/19at 08:13; Start 11/11/19 at 09:00 Nifedipine (Procardia) 10 mg Q8HRS PO Last administered on 11/11/19at 21:41; Start 11/11/19 at 06:00 Vancomycin HCl (Vanco Per Pharmacy) 1 each PRN DAILY PRN MC SEE COMMENTS Last administered on 11/11/19at 11:55; Start 11/11/19 at 02:00 Levofloxacin/ Dextrose 150 ml @ 100 mls/hr Q24H IV Last administered on 11/11/19at 21:38; Start 11/11/19 at 20:00 Vancomycin HCl (Vancomycin Trough Level) 1 each 1X ONCE MC Last administered on 11/11/19at 06:19; Start 11/11/19 at 06:30; Stop 11/11/19 at 06:31; Status DC Info (FLU VACCINE SCREEN per RX) 1 each 1X ONCE MC ; Start 11/11/19 at 04:45; Stop 11/11/19 at 04:46; Status UNV Insulin Human Lispro (HumaLOG) 0-5 UNITS Q6HRS SQ ; Start 11/11/19 at 06:00 Influenza Virus Vaccine Quadrival (Fluzone Quad [id number] Syringe) 0.5 ml ONCE ONCE VAX IM ; Start 11/13/19 at 09:00; Stop 11/13/19 at 09:01 Vancomycin HCl 1.5 gm/Sodium Chloride 500 ml @ 250 mls/hr Q12H IV Last administered on 11/12/19at 06:23; Start 11/11/19 at 07:00 Vancomycin HCl (Vancomycin Trough Level) 1 each 1X ONCE MC ; Start 11/12/19 at 18:30; Stop 11/12/19 at 18:31 Sucralfate (Carafate) 1 gm Q6HRS PO Last administered on 11/12/19at 06:14; Start 11/11/19 at 12:00 Vitamin D (Vitamin D3) 2,000 unit DAILY PO Last administered on 11/11/19at 12:16; Start 11/11/19 at 11:00 Ascorbic Acid (Vitamin C) 500 mg Q6HRS PO Last administered on 11/12/19at 06:14; Start 11/11/19 at 12:00 Zinc Sulfate (Orazinc) 220 mg DAILY PO Last administered on 11/11/19at 12:16; Start 11/11/19 at 11:00 Pantoprazole Sodium (PROTONIX VIAL for IV PUSH) 40 mg Q12HR IVP Last administered on 11/11/19at 21:42; Start 11/11/19 at 21:00 Propofol (Diprivan) 200 mg STK-MED ONCE IV ; Start 11/10/19 at 23:00; Stop 11/11/19 at 12:49; Status DC Succinylcholine Chloride (Anectine) 200 mg STK-MED ONCE .ROUTE ; Start 11/10/19 at 23:00; Stop 11/11/19 at 12:49; Status DC Etomidate (Amidate) 20 mg STK-MED ONCE IV ; Start 11/10/19 at 23:00; Stop 11/11/19 at 12:49; Status DC Non-Formulary Medication 1 ea/ Sodium Chloride 210 ml @ 210 mls/hr 1X ONCE IV Last administered on 11/11/19at 16:45; Start 11/11/19 at 16:00; Stop 11/11/19 at 16:59; Status DC Non-Formulary Medication 1 ea/ Sodium Chloride 230 ml @ 460 mls/hr Q24H IV ; Start 11/12/19 at 16:00; Stop 11/20/19 at 16:29 Active Scripts Active Reported Tramadol Hcl 50 Mg Tablet 50 Mg PO Q8HRS PRN Carafate (Sucralfate) 1 Gm Tablet 1 Gm PO TIDACHC Prednisone (Prednisone) 10 Mg Tablet 10 Mg PO DAILY Pantoprazole Sodium (Pantoprazole Sodium) 40 Mg Tablet.dr 40 Mg PO BIDAC Zofran (Ondansetron Hcl) 4 Mg Tablet 1 Tab PO Q8HRS Nifedipine Er (Nifedipine) 30 Mg Tablet.er 30 Mg PO DAILY Methylprednisolone 4 Mg Tab.ds.pk 4 Mg PO DAILY Metformin Hcl 1,000 Mg Tablet 1,000 Mg PO BIDWMEALS Levothyroxine Sodium 100 Mcg Tablet 100 Mcg PO DAILYAC Famotidine 20 Mg Tablet 20 Mg PO BID Celexa (Citalopram Hydrobromide) 40 Mg Tablet 40 Mg PO DAILY Evoxac (Cevimeline Hcl) 30 Mg Capsule 30 Mg PO TID Vitals/I & O Vital Sign - Last 24 Hours 11/11/19 11/11/19 11/11/19 11/11/19 08:00 08:00 08:15 09:00 Temp 98.7 98.7 Pulse 48 52 Resp 18 19 B/P (MAP) 133/64 (87) 119/68 (85) Pulse Ox 100 100 100 O2 Delivery Mechanical Ventilator Ventilator Ventilator Ventilator 11/11/19 11/11/19 11/11/19 11/11/19 10:00 11:00 12:00 12:00 Temp 98.2 98.2 Pulse 44 40 40 Resp 18 18 20 B/P (MAP) 116/68 (84) 106/64 (78) 104/58 (73) Pulse Ox 99 99 99 O2 Delivery Ventilator Ventilator Ventilator Mechanical Ventilator 11/11/19 11/11/19 11/11/19 11/11/19 12:15 12:17 13:00 13:31 Pulse 39 46 Resp 22 B/P (MAP) 104/55 116/64 (81) Pulse Ox 100 99 94 O2 Delivery Ventilator Ventilator Ventilator 11/11/19 11/11/19 11/11/19 11/11/19 14:00 15:00 15:40 16:00 Pulse 50 42 Resp 22 24 B/P (MAP) 112/61 (78) 101/49 (66) Pulse Ox 99 94 97 O2 Delivery Ventilator Ventilator Ventilator Mechanical Ventilator 11/11/19 11/11/19 11/11/19 11/11/19 16:00 17:00 18:00 19:00 Temp 98.0 98.0 Pulse 44 44 56 42 Resp 26 22 24 24 B/P (MAP) 110/60 (77) 114/60 (78) 114/58 (76) 104/50 (68) Pulse Ox 99 100 96 96 O2 Delivery Ventilator Ventilator Ventilator Ventilator 11/11/19 11/11/19 11/11/19 11/11/19 19:27 19:31 20:00 20:00 Pulse 42 Resp 22 B/P (MAP) 112/56 (74) Pulse Ox 100 100 96 O2 Delivery Ventilator Ventilator Mechanical Ventilator O2 Flow Rate 10.0 11/11/19 11/11/19 11/11/19 11/11/19 21:00 21:41 22:00 23:00 Temp 98.6 98.6 Pulse 42 41 40 40 Resp 22 26 25 B/P (MAP) 110/54 (72) 112/53 110/52 (71) 91/45 (60) Pulse Ox 96 96 93 O2 Delivery Ventilator Ventilator Ventilator 11/12/19 11/12/19 11/12/19 11/12/19 00:00 00:00 00:24 01:00 Temp 98.3 98.3 Pulse 48 60 Resp 27 30 B/P (MAP) 111/58 (75) 104/54 (71) Pulse Ox 96 91 90 O2 Delivery Mechanical Ventilator Ventilator Ventilator Ventilator 11/12/19 11/12/19 11/12/19 11/12/19 02:00 03:00 04:00 04:00 Pulse 65 55 53 Resp 28 29 27 B/P (MAP) 103/53 (70) 98/48 (65) 104/50 (68) Pulse Ox 96 97 100 O2 Delivery Ventilator Ventilator Mechanical Ventilator Ventilator 11/12/19 11/12/19 11/12/19 11/12/19 04:39 05:00 06:00 06:00 Temp 98.6 98.6 Pulse 51 51 56 Resp 27 28 B/P (MAP) 118/57 (77) 106/52 114/59 (77) Pulse Ox 96 98 99 O2 Delivery Ventilator Ventilator Ventilator Intake and Output 11/11/19 11/11/19 11/12/19 15:00 23:00 07:00 Intake Total 560 ml 1909 ml 1342.38 ml Output Total 325 ml 425 ml 290 ml Balance 235 ml 1484 ml 1052.38 ml Justicifation of Admission Dx: Justifications for Admission: Justification of Admission Dx: Yes Respiratory Failure: Mechanical Ventilation FILIPPO ROBIN MD Nov 12, 2019 07:49
[2019-11-12] MEDS: VECURONIUM BOLUS 10 MG VIAL. IV PRN ×4 (08:01→22:04)
--- NOTE | 2019-11-12 08:37 | PDOC ---
PULMONARY PROGRESS NOTES DATE: 11/12/19 TIME: 08:37 Vitals Vital Signs Date Time Temp Pulse Resp B/P (MAP) Pulse Ox O2 Delivery O2 Flow Rate FiO2 11/12/19 06:00 56 28 114/59 (77) 99 Ventilator 11/12/19 05:00 98.6 98.6 11/11/19 19:31 10.0 Labs Laboratory Tests Test 11/11/19 05:00 11/11/19 08:00 11/11/19 12:35 11/11/19 17:17 White Blood Count 13.6 x10^3/uL (4.0-11.0) Red Blood Count 3.15 x10^6/uL (4.30-5.70) Hemoglobin 8.0 g/dL (13.0-17.5) Hematocrit 24.6 % (39.0-53.0) Mean Corpuscular Volume 78 fL (79-100) Mean Corpuscular Hemoglobin 26 pg (25-35) Mean Corpuscular Hemoglobin Concent 33 g/dL (31-37) Red Cell Distribution Width 15.6 % (11.5-14.5) Platelet Count 298 x10^3/uL (140-400) Neutrophils (%) (Auto) 91 % (31-73) Lymphocytes (%) (Auto) 4 % (24-48) Monocytes (%) (Auto) 5 % (0-9) Eosinophils (%) (Auto) 0 % (0-3) Basophils (%) (Auto) 0 % (0-3) Neutrophils # (Auto) 12.4 x10^3/uL (1.8-7.7) Lymphocytes # (Auto) 0.5 x10^3/uL (1.0-4.8) Monocytes # (Auto) 0.7 x10^3/uL (0.0-1.1) Eosinophils # (Auto) 0.0 x10^3/uL (0.0-0.7) Basophils # (Auto) 0.0 x10^3/uL (0.0-0.2) Segmented Neutrophils % 97 % (35-66) Lymphocytes % 1 % (24-48) Monocytes % 2 % (0-10) Platelet Estimate Adequate (ADEQUATE) Sodium Level 134 mmol/L (136-145) Potassium Level 5.0 mmol/L (3.5-5.1) Chloride Level 102 mmol/L (98-107) Carbon Dioxide Level 26 mmol/L (21-32) Anion Gap 6 (6-14) Blood Urea Nitrogen 17 mg/dL (8-26) Creatinine 0.9 mg/dL (0.7-1.3) Estimated GFR (Cockcroft-Gault) 83.9 BUN/Creatinine Ratio 19 (6-20) Glucose Level 126 mg/dL (70-99) Calcium Level 8.0 mg/dL (8.5-10.1) Ferritin 53 ng/mL (26-388) Total Bilirubin 0.2 mg/dL (0.2-1.0) Aspartate Amino Transf (AST/SGOT) 33 U/L (15-37) Alanine Aminotransferase (ALT/SGPT) 20 U/L (16-63) Alkaline Phosphatase 65 U/L (46-116) Total Protein 6.4 g/dL (6.4-8.2) Albumin 2.4 g/dL (3.4-5.0) Albumin/Globulin Ratio 0.6 (1.0-1.7) Procalcitonin < 0.10 ng/mL (0.00-0.10) Vancomycin Level Trough 10.5 mcg/mL (10.0-20.0) Vancomycin Last Dose Date 11/10/2019 Vancomycin Last Dose Time 1500 O2 Saturation 98 % (92-99) Arterial Blood pH 7.36 (7.35-7.45) Arterial Blood pCO2 at Patient Temp 36 mmHg (35-46) Arterial Blood pO2 at Patient Temp 111 mmHg (65-108) Arterial Blood HCO3 20 mmol/L (21-28) Arterial Blood Base Excess -5 mmol/L (-3-3) FiO2 100 Glucose (Fingerstick) 138 mg/dL (70-99) 133 mg/dL (70-99) Test 11/11/19 17:45 11/12/19 00:09 11/12/19 05:35 Fibrinogen 417 mg/dL (200-440) D-Dimer (Bridgette) 0.98 ug/mlFEU (0.00-0.50) Glucose (Fingerstick) 110 mg/dL (70-99) Creatinine 0.8 mg/dL (0.6-1.0) Estimated GFR (Cockcroft-Gault) 71.3 Laboratory Tests Test 11/11/19 12:35 11/11/19 17:17 11/11/19 17:45 11/12/19 00:09 Glucose (Fingerstick) 138 mg/dL (70-99) 133 mg/dL (70-99) 110 mg/dL (70-99) Fibrinogen 417 mg/dL (200-440) D-Dimer (Bridgette) 0.98 ug/mlFEU (0.00-0.50) Test 11/12/19 05:35 Creatinine 0.8 mg/dL (0.6-1.0) Estimated GFR (Cockcroft-Gault) 71.3 Medications Active Scripts Medications Dose Route/Sig Max Daily Dose Days Date Category Tramadol Hcl 50 Mg Tablet 50 Mg PO Q8HRS PRN 11/11/19 Reported Carafate (Sucralfate) 1 Gm Tablet 1 Gm PO TIDACHC 11/11/19 Reported Prednisone (Prednisone) 10 Mg Tablet 10 Mg PO DAILY 11/11/19 Reported Pantoprazole Sodium (Pantoprazole Sodium) 40 Mg Tablet.dr 40 Mg PO BIDAC 11/11/19 Reported Zofran (Ondansetron Hcl) 4 Mg Tablet 1 Tab PO Q8HRS 11/11/19 Reported Nifedipine Er (Nifedipine) 30 Mg Tablet.er 30 Mg PO DAILY 11/11/19 Reported Methylprednisolone 4 Mg Tab.ds.pk 4 Mg PO DAILY 11/11/19 Reported Metformin Hcl 1,000 Mg Tablet 1,000 Mg PO BIDWMEALS 11/11/19 Reported Levothyroxine Sodium 100 Mcg Tablet 100 Mcg PO DAILYAC 11/11/19 Reported Famotidine 20 Mg Tablet 20 Mg PO BID 11/11/19 Reported Celexa (Citalopram Hydrobromide) 40 Mg Tablet 40 Mg PO DAILY 11/11/19 Reported Evoxac (Cevimeline Hcl) 30 Mg Capsule 30 Mg PO TID 11/11/19 Reported Impression . Full note dictated Will add convalescence serum and Remdesivir Low tidal volume volumes at 400 mL increased rate MARITZA HAZEL MD Nov 12, 2019 08:37
[2019-11-12] MEDS: ZINC SULFATE 220 MG CAPSULE. PO SCH (08:39)
[2019-11-12] MEDS: CITALOPRAM 20 MG TABLET. PO SCH (08:39)
[2019-11-12] MEDS: CHOLECALCIFEROL (VITAMIN D3) 1,000 UNIT TABLET PO SCH (08:39)
[2019-11-12] MEDS: DEXAMETHASONE SOD PHOS 4 MG/ML VIAL IVP SCH (08:40)
[2019-11-12] MEDS: FAMOTIDINE 20 MG/2 ML VIAL IVP SCH ×2 (08:40→21:58)
[2019-11-12] MEDS: ENOXAPARIN 40 MG/0.4 ML SYRINGE. SQ SCH ×2 (08:40→21:58)
[2019-11-12 08:45] LABS: BASE EXCESS ABG -6 mmol/L (-3-3); HCO3 ABG 20 mmol/L (21-28); PCO2 ABG 39 mmHg (35-46); PO2 ABG 144 mmHg (65-108); SAT O2 ABG 98 % (92-99)
[2019-11-12 08:46] LABS: FIO2 ABG 80/VENT
[2019-11-12] MEDS: PANTOPRAZOLE IV PUSH 40 MG VIAL. IVP SCH ×2 (09:00→21:58)
--- NOTE | 2019-11-12 14:08 | NUR ---
SS following up with discharge planning. SS reviewed pt chart and discussed with pt RN. Pt remains on the vent at this time. COVID19 positive. Pt on IV Levaquin. SS will continue to follow for discharge planning.
[2019-11-12] MEDS: HALOPERIDOL LACTATE 5 MG/ML VIAL. IVP SCH ×2 (14:22→21:58)
[2019-11-12] MEDS: REMDESIVIR 100mg in NORMAL SALINE 250ML X 9 DAYS IV SCH (15:59)
[2019-11-12] MEDS: IV NORMAL SALINE 1000ML BAG 1,000 ML IV SCH (16:01)
[2019-11-13] VITALS (22 sets, daily range): BP systolic 97–127; BP diastolic 48–63
[2019-11-13] MEDS: VECURONIUM BOLUS 10 MG VIAL. IV PRN ×4 (03:01→21:30)
[2019-11-13] MEDS: MIDAZOLAM 100mg/100ml NS BAG 100 ML IV PRN ×2 (03:19→11:57)
[2019-11-13] MEDS: LEVOTHYROXINE 100 MCG TABLET PO SCH (05:50)
[2019-11-13] MEDS: SUCRALFATE 1 GM TABLET. PO SCH ×2 (05:51→11:15)
[2019-11-13] MEDS: INSULIN LISPRO 300 UNITS/3 ML VIAL. SQ SCH ×3 (05:52→18:20)
[2019-11-13] MEDS: ASCORBIC ACID 500 MG TABLET PO SCH ×4 (05:52→20:39)
[2019-11-13] MEDS: NIFEdipine 10 MG CAPSULE PO SCH ×3 (05:52→20:40)
[2019-11-13] MEDS: HALOPERIDOL LACTATE 5 MG/ML VIAL. IVP SCH ×3 (05:53→20:40)
[2019-11-13 06:27] LABS: CREATININE 0.7 mg/dL (0.6-1.0); GFR 83.2
--- NOTE | 2019-11-13 07:32 | PDOC ---
Infectious Disease Note Subjective: Subjective Pt intubated and sedated Discussed with RN Vital Signs: Vital Signs Vital Signs Date Time Temp Pulse Resp B/P (MAP) Pulse Ox O2 Delivery O2 Flow Rate FiO2 11/13/19 06:00 62 22 127/62 (83) 100 Ventilator 11/13/19 04:00 97.6 97.6 11/12/19 21:59 10.0 Physical Exam: PHYSICAL EXAM GENERAL: Intubated, sedated on mechanical ventilation. HEENT: Normocephalic, atraumatic. Anicteric. NG tube present NECK: Supple. Right IJ line looks clean. LUNGS: Coarse breath sounds bilaterally. No wheezing. HEART: S1, S2 present. No murmurs. ABDOMEN: Soft, nontender, positive bowel sounds. EXTREMITIES: No edema, no cyanosis. DERMATOLOGIC: Warm and dry. No generalized rash. NEUROLOGIC: Sedated. PSYCHIATRIC: Unable to assess. Medications: Inpatient Meds: Current Medications Medications (Trade) Dose Ordered Sig/Diego Start Time Stop Time Status Last Admin Dose Admin Ascorbic Acid (Vitamin C) 500 mg Q6HRS 11/11/19 12:00 11/13/19 05:52 500 MG Citalopram Hydrobromide (CeleXA) 40 mg DAILY 11/11/19 09:00 11/12/19 08:39 40 MG Dexamethasone Sodium Phosphate (Decadron) 8 mg DAILY 11/11/19 09:00 11/12/19 08:40 8 MG Dextrose (Dextrose 50%-Water Syringe) 12.5 gm PRN Q15MIN PRN 11/11/19 02:00 Enoxaparin Sodium (Lovenox 40mg Syringe) 40 mg Q12HR 11/11/19 09:00 11/12/19 21:58 40 MG Etomidate (Amidate) 20 mg STK-MED ONCE 11/10/19 23:00 11/11/19 12:49 DC Famotidine (Pepcid Vial) 20 mg BID 11/11/19 09:00 11/12/19 21:58 20 MG Fentanyl Citrate 30 ml @ 0 mls/hr CONT PRN 11/10/19 23:45 11/12/19 21:08 2.5 MLS/HR Haloperidol Lactate (Haldol Inj) 5 mg Q8HRS 11/12/19 14:00 11/13/19 05:53 5 MG Influenza Virus Vaccine Quadrival (Fluzone Quad 1705-0838 Syringe) 0.5 ml ONCE ONCE 11/13/19 09:00 11/13/19 09:01 Info (FLU VACCINE SCREEN per RX) 1 each 1X ONCE 11/11/19 04:45 11/11/19 04:46 UNV Insulin Human Lispro (HumaLOG) 0-5 UNITS Q6HRS 11/11/19 06:00 11/12/19 17:39 2 UNITS Levofloxacin/ Dextrose 150 ml @ 100 mls/hr Q24H 11/11/19 20:00 11/12/19 21:54 100 MLS/HR Levothyroxine Sodium (Synthroid) 100 mcg DAILY06 11/11/19 06:00 11/13/19 05:50 100 MCG Midazolam HCl 100 ml @ 0 mls/hr CONT PRN 11/10/19 23:45 11/13/19 03:19 10 MLS/HR Nifedipine (Procardia) 10 mg Q8HRS 11/11/19 06:00 11/13/19 05:52 10 MG Non-Formulary Medication 1 ea/ Sodium Chloride 230 ml @ 460 mls/hr Q24H 11/12/19 16:00 11/20/19 16:29 11/12/19 15:59 460 MLS/HR Pantoprazole Sodium (PROTONIX VIAL for IV PUSH) 40 mg Q12HR 11/11/19 21:00 11/12/19 21:58 40 MG Propofol (Diprivan) 200 mg STK-MED ONCE 11/10/19 23:00 11/11/19 12:49 DC Sodium Chloride 1,000 ml @ 65 mls/hr [id number] 11/11/19 02:00 11/12/19 16:01 65 MLS/HR Sodium Chloride (Normal Saline Flush) 3 ml QSHIFT PRN 11/11/19 02:00 Succinylcholine Chloride (Anectine) 200 mg STK-MED ONCE 11/10/19 23:00 11/11/19 12:49 DC Sucralfate (Carafate) 1 gm Q6HRS 11/11/19 12:00 11/13/19 05:51 1 GM Vancomycin HCl (Vanco Per Pharmacy) 1 each PRN DAILY PRN 11/11/19 02:00 11/12/19 08:09 DC 11/11/19 11:55 1 EACH Vancomycin HCl (Vancomycin Trough Level) 1 each 1X ONCE 11/12/19 18:30 11/12/19 08:09 DC Vancomycin HCl 1.5 gm/Sodium Chloride 500 ml @ 250 mls/hr Q12H 11/11/19 07:00 11/12/19 08:03 DC 11/12/19 06:23 250 MLS/HR Vecuronium [place] (Norcuron Bolus) 6 mg PRN Q4HRS PRN 11/12/19 08:00 11/13/19 03:01 6 MG Vitamin D (Vitamin D3) 2,000 unit DAILY 11/11/19 11:00 11/12/19 08:39 2,000 UNIT Zinc Sulfate (Orazinc) 220 mg DAILY 11/11/19 11:00 11/12/19 08:39 220 MG Labs: Lab Laboratory Tests Test 11/12/19 08:00 11/12/19 11:48 11/12/19 17:38 11/12/19 23:55 O2 Saturation 98 % (92-99) Arterial Blood pH 7.33 (7.35-7.45) Arterial Blood pCO2 at Patient Temp 39 mmHg (35-46) Arterial Blood pO2 at Patient Temp 144 mmHg (65-108) Arterial Blood HCO3 20 mmol/L (21-28) Arterial Blood Base Excess -6 mmol/L (-3-3) FiO2 80/vent Glucose (Fingerstick) 110 mg/dL (70-99) 158 mg/dL (70-99) 122 mg/dL (70-99) Test 11/13/19 05:49 11/13/19 06:00 Glucose (Fingerstick) 106 mg/dL (70-99) Creatinine 0.7 mg/dL (0.6-1.0) Estimated GFR (Cockcroft-Gault) 83.2 Objective: Assessment: 1. COVID-19 pneumonia. 2. Acute hypoxic respiratory failure, status post intubation. 3. Leukocytosis, likely from steroids. 4. Asthma. 5. History of systemic lupus erythematosus. 6. History of Raynaud's. 7. PCN,Sulfa and Clindamycin allergies unknown reaction Plan: Plan of Care Continue supportive care. Continue Levaquin.DC IV Vanc Follow up labs and cultures. On steroids. Critically ill Discussed with nursing staff. GEORGINA ARBOLEDA MD Nov 13, 2019 07:32
[2019-11-13 08:23] LABS: BASE EXCESS ABG -5 mmol/L (-3-3); HCO3 ABG 21 mmol/L (21-28); PCO2 ABG 42 mmHg (35-46); PO2 ABG 57 mmHg (65-108); SAT O2 ABG 86 % (92-99)
[2019-11-13 08:25] LABS: FIO2 ABG 80
[2019-11-13] MEDS: CHOLECALCIFEROL (VITAMIN D3) 1,000 UNIT TABLET PO SCH (08:41)
[2019-11-13] MEDS: FAMOTIDINE 20 MG/2 ML VIAL IVP SCH ×2 (08:42→20:39)
[2019-11-13] MEDS: DEXAMETHASONE SOD PHOS 4 MG/ML VIAL IVP SCH (08:42)
[2019-11-13] MEDS: ZINC SULFATE 220 MG CAPSULE. PO SCH (08:42)
[2019-11-13] MEDS: CITALOPRAM 20 MG TABLET. PO SCH (08:42)
[2019-11-13] MEDS: ENOXAPARIN 40 MG/0.4 ML SYRINGE. SQ SCH ×2 (08:42→20:42)
--- NOTE | 2019-11-13 09:39 | PDOC ---
PROGRESS NOTES Date of Service: DATE: 11/13/19 TIME: 09:37 Chief Complaint Chief Complaint Assessment/Plan Acute hypoxemic respiratory failure secondary to COVID-19 infection COVID-19 pneumonia Leukocytosis secondary to the above Microcytic anemia Hyponatremia Severe protein calorie malnutrition Plan Supportive measures Ventilatory support as per pulmonology specialty development consultant OG tube for nutrition We will start vitamin C vitamin D and zinc Continue steroids Broad-spectrum antibiotics as per ID specialty development consultant Further recommendations based on the clinical course DVT prophylaxis: Patient will be fully anticoagulated History of Present Illness History of Present Illness History of Present Illness Patient is a 69-year-old female with past medical history of asthma Raynaud's phenomenon syncope history of systemic lupus erythematosus was in her usual state of health until couple days prior to her visit to the ER when she was d iagnosed with COVID-19. Apparently the patient had attended a wedding and most likely is where they contracted the disease. Her is at our institution on the ventilator as well as reported by nursing staff. The patient at the time my evaluation is on mechanical ventilation and sedated. Most of this is from review of outside facility documentation. Bill the patient had described in the review of systems at the outside facility that she had some altered taste in her mouth she did not have any headache visual changes blurred vision double vision she did have some shortness of breath and chest discomfort in her chest whenever she took a deep breath otherwise no other complaints she did not have any diarrhea abdominal pain no neurological deficits were reported. Patient is being admitted for further evaluation and treatment 11/12/2019: Patient requiring paralytics noted to allow vent to be synchronized with the patient is breathing. No other obvious issues at the present time. Continues to be a guarded prognosis. 11/13/2019: Patient seems to be improving, oxygen requirements have not increased. All concerns were addressed to the best of my abilities. Discussed with nursing staff Vitals Vitals Vital Signs Date Time Temp Pulse Resp B/P (MAP) Pulse Ox O2 Delivery O2 Flow Rate FiO2 11/13/19 08:12 100 Ventilator 11/13/19 07:00 55 23 119/58 (78) 11/13/19 04:00 97.6 97.6 11/12/19 21:59 10.0 Physical Exam Physical Exam GENERAL: Intubated, sedated on mechanical ventilation. HEENT: Normocephalic, atraumatic. Anicteric. NG tube present NECK: Supple. Right IJ line looks clean. LUNGS: Coarse breath sounds bilaterally. No wheezing. HEART: S1, S2 present. No murmurs. ABDOMEN: Soft, nontender, positive bowel sounds. EXTREMITIES: No edema, no cyanosis. DERMATOLOGIC: Warm and dry. No generalized rash. NEUROLOGIC: Sedated. PSYCHIATRIC: Unable to assess. Labs LABS Laboratory Tests Test 11/12/19 11:48 11/12/19 17:38 11/12/19 23:55 11/13/19 05:49 Glucose (Fingerstick) 110 mg/dL (70-99) 158 mg/dL (70-99) 122 mg/dL (70-99) 106 mg/dL (70-99) Test 11/13/19 06:00 11/13/19 08:18 Creatinine 0.7 mg/dL (0.6-1.0) Estimated GFR (Cockcroft-Gault) 83.2 O2 Saturation 86 % (92-99) Arterial Blood pH 7.32 (7.35-7.45) Arterial Blood pCO2 at Patient Temp 42 mmHg (35-46) Arterial Blood pO2 at Patient Temp 57 mmHg (65-108) Arterial Blood HCO3 21 mmol/L (21-28) Arterial Blood Base Excess -5 mmol/L (-3-3) FiO2 80 Comment Review of Relevant I have reviewed the following items clive (where applicable) has been applied. Labs Laboratory Tests Test 11/11/19 12:35 11/11/19 17:17 11/11/19 17:45 11/12/19 00:09 Glucose (Fingerstick) 138 mg/dL (70-99) 133 mg/dL (70-99) 110 mg/dL (70-99) Fibrinogen 417 mg/dL (200-440) D-Dimer (Bridgette) 0.98 ug/mlFEU (0.00-0.50) Test 11/12/19 05:35 11/12/19 08:00 11/12/19 11:48 11/12/19 17:38 Creatinine 0.8 mg/dL (0.6-1.0) Estimated GFR (Cockcroft-Gault) 71.3 O2 Saturation 98 % (92-99) Arterial Blood pH 7.33 (7.35-7.45) Arterial Blood pCO2 at Patient Temp 39 mmHg (35-46) Arterial Blood pO2 at Patient Temp 144 mmHg (65-108) Arterial Blood HCO3 20 mmol/L (21-28) Arterial Blood Base Excess -6 mmol/L (-3-3) FiO2 80/vent Glucose (Fingerstick) 110 mg/dL (70-99) 158 mg/dL (70-99) Test 11/12/19 23:55 11/13/19 05:49 11/13/19 06:00 11/13/19 08:18 Glucose (Fingerstick) 122 mg/dL (70-99) 106 mg/dL (70-99) Creatinine 0.7 mg/dL (0.6-1.0) Estimated GFR (Cockcroft-Gault) 83.2 O2 Saturation 86 % (92-99) Arterial Blood pH 7.32 (7.35-7.45) Arterial Blood pCO2 at Patient Temp 42 mmHg (35-46) Arterial Blood pO2 at Patient Temp 57 mmHg (65-108) Arterial Blood HCO3 21 mmol/L (21-28) Arterial Blood Base Excess -5 mmol/L (-3-3) FiO2 80 Laboratory Tests Test 11/12/19 11:48 11/12/19 17:38 11/12/19 23:55 11/13/19 05:49 Glucose (Fingerstick) 110 mg/dL (70-99) 158 mg/dL (70-99) 122 mg/dL (70-99) 106 mg/dL (70-99) Test 11/13/19 06:00 11/13/19 08:18 Creatinine 0.7 mg/dL (0.6-1.0) Estimated GFR (Cockcroft-Gault) 83.2 O2 Saturation 86 % (92-99) Arterial Blood pH 7.32 (7.35-7.45) Arterial Blood pCO2 at Patient Temp 42 mmHg (35-46) Arterial Blood pO2 at Patient Temp 57 mmHg (65-108) Arterial Blood HCO3 21 mmol/L (21-28) Arterial Blood Base Excess -5 mmol/L (-3-3) FiO2 80 Medications Current Medications Fentanyl Citrate 30 ml @ 0 mls/hr CONT PRN IV SEE PROTOCOL Last administered on 11/13/19at 08:41; Start 11/10/19 at 23:45 Propofol 100 ml @ 0 mls/hr CONT PRN IV SEE PROTOCOL Last administered on 11/11/19 21:39; Start 11/10/19 at 23:45 Midazolam HCl 100 ml @ 0 mls/hr CONT PRN IV SEE PROTOCOL Last administered on 11/13/19at 03:19; Start 11/10/19 at 23:45 Levothyroxine Sodium (Synthroid) 100 mcg DAILY06 PO Last administered on 11/13/19 05:50; Start 11/11/19 at 06:00 Sucralfate (Carafate) 1 gm TIDACHC PO ; Start 11/11/19 at 07:30; Stop 11/11/19 at 07:55; Status DC Citalopram Hydrobromide (CeleXA) 40 mg DAILY PO Last administered on 11/13/19 08:42; Start 11/11/19 at 09:00 Famotidine (Pepcid Vial) 20 mg BID IVP Last administered on 11/13/19 08:42; Start 11/11/19 at 09:00 Enoxaparin Sodium (Lovenox 40mg Syringe) 40 mg Q12HR SQ Last administered on 11/13/19 08:42; Start 11/11/19 at 09:00 Sodium Chloride (Normal Saline Flush) 3 ml QSHIFT PRN IV AFTER MEDS AND BLOOD DRAWS; Start 11/11/19 at 02:00 Sodium Chloride 1,000 ml @ 65 mls/hr [id number] IV Last administered on 11/12/19at 16:01; Start 11/11/19 at 02:00 Pantoprazole Sodium (PROTONIX VIAL for IV PUSH) 40 mg BIDAC IVP Last administered on 11/11/19at 08:13; Start 11/11/19 at 07:30; Stop 11/11/19 at 12:27; Status DC Insulin Human Lispro (HumaLOG) 0-5 UNITS TIDWMEALS SQ ; Start 11/11/19 at 08:00; Stop 11/11/19 at 05:57; Status DC Dextrose (Dextrose 50%-Water Syringe) 12.5 gm PRN Q15MIN PRN IV SEE COMMENTS; Start 11/11/19 at 02:00 Dexamethasone Sodium Phosphate (Decadron) 8 mg DAILY IVP Last administered on 11/13/19at 08:42; Start 11/11/19 at 09:00 Nifedipine (Procardia) 10 mg Q8HRS PO Last administered on 11/13/19 05:52; Start 11/11/19 at 06:00 Vancomycin HCl (Vanco Per Pharmacy) 1 each PRN DAILY PRN MC SEE COMMENTS Last administered on 11/11/19at 11:55; Start 11/11/19 at 02:00; Stop 11/12/19 at 08:09; Status DC Levofloxacin/ Dextrose 150 ml @ 100 mls/hr Q24H IV Last administered on 11/12/19at 21:54; Start 11/11/19 at 20:00 Vancomycin HCl (Vancomycin Trough Level) 1 each 1X ONCE MC Last administered on 11/11/19at 06:19; Start 11/11/19 at 06:30; Stop 11/11/19 at 06:31; Status DC Info (FLU VACCINE SCREEN per RX) 1 each 1X ONCE MC ; Start 11/11/19 at 04:45; Stop 11/11/19 at 04:46; Status UNV Insulin Human Lispro (HumaLOG) 0-5 UNITS Q6HRS SQ Last administered on 11/12/19at 17:39; Start 11/11/19 at 06:00 Influenza Virus Vaccine Quadrival (Fluzone Quad [id number] Syringe) 0.5 ml ONCE ONCE VAX IM ; Start 11/16/19 at 09:00; Stop 11/16/19 at 09:01 Vancomycin HCl 1.5 gm/Sodium Chloride 500 ml @ 250 mls/hr Q12H IV Last administered on 11/12/19at 06:23; Start 11/11/19 at 07:00; Stop 11/12/19 at 08:03; Status DC Vancomycin HCl (Vancomycin Trough Level) 1 each 1X ONCE MC ; Start 11/12/19 at 18:30; Stop 11/12/19 at 08:09; Status DC Sucralfate (Carafate) 1 gm Q6HRS PO Last administered on 11/13/19at 05:51; Start 11/11/19 at 12:00 Vitamin D (Vitamin D3) 2,000 unit DAILY PO Last administered on 11/13/19at 08:41; Start 11/11/19 at 11:00 Ascorbic Acid (Vitamin C) 500 mg Q6HRS PO Last administered on 11/13/19at 05:52; Start 11/11/19 at 12:00 Zinc Sulfate (Orazinc) 220 mg DAILY PO Last administered on 11/13/19at 08:42; Start 11/11/19 at 11:00 Pantoprazole Sodium (PROTONIX VIAL for IV PUSH) 40 mg Q12HR IVP Last administered on 11/12/19at 21:58; Start 11/11/19 at 21:00; Stop 11/13/19 at 09:20; Status DC Propofol (Diprivan) 200 mg STK-MED ONCE IV ; Start 11/10/19 at 23:00; Stop 11/11/19 at 12:49; Status DC Succinylcholine Chloride (Anectine) 200 mg STK-MED ONCE .ROUTE ; Start 11/10/19 at 23:00; Stop 11/11/19 at 12:49; Status DC Etomidate (Amidate) 20 mg STK-MED ONCE IV ; Start 11/10/19 at 23:00; Stop 11/11/19 at 12:49; Status DC Non-Formulary Medication 1 ea/ Sodium Chloride 210 ml @ 210 mls/hr 1X ONCE IV Last administered on 11/11/19at 16:45; Start 11/11/19 at 16:00; Stop 11/11/19 at 16:59; Status DC Non-Formulary Medication 1 ea/ Sodium Chloride 230 ml @ 460 mls/hr Q24H IV Last administered on 11/12/19at 15:59; Start 11/12/19 at 16:00; Stop 11/20/19 at 16:29 Vecuronium [place] (Norcuron Bolus) 6 mg PRN Q4HRS PRN IV SHORTNESS OF BREATH Last administered on 11/13/19at 08:48; Start 11/12/19 at 08:00 Haloperidol Lactate (Haldol Inj) 5 mg Q8HRS IVP Last administered on 11/13/19at 05:53; Start 11/12/19 at 14:00 Active Scripts Active Reported Tramadol Hcl 50 Mg Tablet 50 Mg PO Q8HRS PRN Carafate (Sucralfate) 1 Gm Tablet 1 Gm PO TIDACHC Prednisone (Prednisone) 10 Mg Tablet 10 Mg PO DAILY Pantoprazole Sodium (Pantoprazole Sodium) 40 Mg Tablet.dr 40 Mg PO BIDAC Zofran (Ondansetron Hcl) 4 Mg Tablet 1 Tab PO Q8HRS Nifedipine Er (Nifedipine) 30 Mg Tablet.er 30 Mg PO DAILY Methylprednisolone 4 Mg Tab.ds.pk 4 Mg PO DAILY Metformin Hcl 1,000 Mg Tablet 1,000 Mg PO BIDWMEALS Levothyroxine Sodium 100 Mcg Tablet 100 Mcg PO DAILYAC Famotidine 20 Mg Tablet 20 Mg PO BID Celexa (Citalopram Hydrobromide) 40 Mg Tablet 40 Mg PO DAILY Evoxac (Cevimeline Hcl) 30 Mg Capsule 30 Mg PO TID Vitals/I & O Vital Sign - Last 24 Hours 11/12/19 11/12/19 11/12/19 11/12/19 10:00 11:00 12:00 12:00 Temp 98.6 98.6 Pulse 74 72 59 Resp 23 28 22 B/P (MAP) 165/69 (101) 159/72 (101) 118/54 (75) Pulse Ox 100 92 100 O2 Delivery Ventilator Ventilator Mechanical Ventilator Ventilator 11/12/19 11/12/19 11/12/19 11/12/19 12:04 13:00 14:00 14:23 Pulse 58 51 53 Resp 22 22 B/P (MAP) 109/54 (72) 113/54 (73) 113/54 Pulse Ox 100 98 100 O2 Delivery Ventilator Ventilator Ventilator 11/12/19 11/12/19 11/12/19 11/12/19 15:00 16:00 16:00 16:19 Temp 97.6 97.6 Pulse 54 49 Resp 22 22 B/P (MAP) 102/57 (72) 107/54 (71) Pulse Ox 99 99 98 O2 Delivery Ventilator Ventilator Mechanical Ventilator Ventilator 11/12/19 11/12/19 11/12/19 11/12/19 17:00 18:00 19:00 20:00 Pulse 47 48 46 Resp 22 22 22 B/P (MAP) 106/52 (70) 110/52 (71) 107/58 (74) Pulse Ox 98 99 100 O2 Delivery Ventilator Ventilator Ventilator Mechanical Ventilator 11/12/19 11/12/19 11/12/19 11/12/19 20:00 20:27 21:00 21:08 Temp 97.6 97.6 Pulse 42 40 Resp 22 22 22 B/P (MAP) 112/54 (73) 111/56 (74) Pulse Ox 100 99 100 100 O2 Delivery Ventilator Ventilator Ventilator Ventilator 11/12/19 11/12/19 11/12/19 11/12/19 21:59 21:59 22:00 23:00 Pulse 46 48 44 Resp 22 22 B/P (MAP) 101/53 105/54 (71) 102/47 (65) Pulse Ox 100 100 100 O2 Delivery Ventilator Ventilator O2 Flow Rate 10.0 11/12/19 11/13/19 11/13/19 11/13/19 23:59 00:00 00:45 01:00 Temp 97.4 97.4 Pulse 40 42 Resp 22 22 B/P (MAP) 101/46 (64) 100/49 (66) Pulse Ox 100 99 100 O2 Delivery Ventilator Mechanical Ventilator Ventilator Ventilator 11/13/19 11/13/19 11/13/19 11/13/19 02:00 03:00 03:30 04:00 Temp 97.6 97.6 Pulse 44 43 46 Resp 22 22 22 B/P (MAP) 97/48 (64) 109/63 (78) 110/61 (77) Pulse Ox 100 100 100 O2 Delivery Ventilator Ventilator Mechanical Ventilator Ventilator 11/13/19 11/13/19 11/13/19 11/13/19 05:00 05:25 05:52 06:00 Pulse 54 55 62 Resp 22 22 B/P (MAP) 119/55 (76) 134/71 127/62 (83) Pulse Ox 100 100 100 O2 Delivery Ventilator Ventilator Ventilator 11/13/19 11/13/19 07:00 08:12 Pulse 55 Resp 23 B/P (MAP) 119/58 (78) Pulse Ox 98 100 O2 Delivery Ventilator Ventilator Intake and Output 11/12/19 11/12/19 11/13/19 15:00 23:00 07:00 Intake Total 800 ml 2084 ml 2327 ml Output Total 365 ml 395 ml 400 ml Balance 435 ml 1689 ml 1927 ml Justicifation of Admission Dx: Justifications for Admission: Justification of Admission Dx: Yes Respiratory Failure: Mechanical Ventilation FILIPPO ROBIN MD Nov 13, 2019 09:39
--- NOTE | 2019-11-13 10:25 | PDOC ---
PULMONARY PROGRESS NOTES DATE: 11/13/19 TIME: 10:25 Subjective Patient currently on 100% FiO2 8 of PEEP Vitals Vital Signs Date Time Temp Pulse Resp B/P (MAP) Pulse Ox O2 Delivery O2 Flow Rate FiO2 11/13/19 10:00 62 24 118/59 (78) 100 Ventilator 11/13/19 08:00 97.6 97.6 11/12/19 21:59 10.0 Comments Patient seen doing the pandemic, visual exam, in sync with the ventilator, no increasing pedal edema, no paroxysmal breathing pattern. Labs Laboratory Tests Test 11/11/19 12:35 11/11/19 17:17 11/11/19 17:45 11/12/19 00:09 Glucose (Fingerstick) 138 mg/dL (70-99) 133 mg/dL (70-99) 110 mg/dL (70-99) Fibrinogen 417 mg/dL (200-440) D-Dimer (Bridgette) 0.98 ug/mlFEU (0.00-0.50) Test 11/12/19 05:35 11/12/19 08:00 11/12/19 11:48 11/12/19 17:38 Creatinine 0.8 mg/dL (0.6-1.0) Estimated GFR (Cockcroft-Gault) 71.3 O2 Saturation 98 % (92-99) Arterial Blood pH 7.33 (7.35-7.45) Arterial Blood pCO2 at Patient Temp 39 mmHg (35-46) Arterial Blood pO2 at Patient Temp 144 mmHg (65-108) Arterial Blood HCO3 20 mmol/L (21-28) Arterial Blood Base Excess -6 mmol/L (-3-3) FiO2 80/vent Glucose (Fingerstick) 110 mg/dL (70-99) 158 mg/dL (70-99) Test 11/12/19 23:55 11/13/19 05:49 11/13/19 06:00 11/13/19 08:18 Glucose (Fingerstick) 122 mg/dL (70-99) 106 mg/dL (70-99) Creatinine 0.7 mg/dL (0.6-1.0) Estimated GFR (Cockcroft-Gault) 83.2 O2 Saturation 86 % (92-99) Arterial Blood pH 7.32 (7.35-7.45) Arterial Blood pCO2 at Patient Temp 42 mmHg (35-46) Arterial Blood pO2 at Patient Temp 57 mmHg (65-108) Arterial Blood HCO3 21 mmol/L (21-28) Arterial Blood Base Excess -5 mmol/L (-3-3) FiO2 80 Laboratory Tests Test 11/12/19 11:48 11/12/19 17:38 11/12/19 23:55 11/13/19 05:49 Glucose (Fingerstick) 110 mg/dL (70-99) 158 mg/dL (70-99) 122 mg/dL (70-99) 106 mg/dL (70-99) Test 11/13/19 06:00 11/13/19 08:18 Creatinine 0.7 mg/dL (0.6-1.0) Estimated GFR (Cockcroft-Gault) 83.2 O2 Saturation 86 % (92-99) Arterial Blood pH 7.32 (7.35-7.45) Arterial Blood pCO2 at Patient Temp 42 mmHg (35-46) Arterial Blood pO2 at Patient Temp 57 mmHg (65-108) Arterial Blood HCO3 21 mmol/L (21-28) Arterial Blood Base Excess -5 mmol/L (-3-3) FiO2 80 Medications Active Scripts Medications Dose Route/Sig Max Daily Dose Days Date Category Tramadol Hcl 50 Mg Tablet 50 Mg PO Q8HRS PRN 11/11/19 Reported Carafate (Sucralfate) 1 Gm Tablet 1 Gm PO TIDACHC 11/11/19 Reported Prednisone (Prednisone) 10 Mg Tablet 10 Mg PO DAILY 11/11/19 Reported Pantoprazole Sodium (Pantoprazole Sodium) 40 Mg Tablet.dr 40 Mg PO BIDAC 11/11/19 Reported Zofran (Ondansetron Hcl) 4 Mg Tablet 1 Tab PO Q8HRS 11/11/19 Reported Nifedipine Er (Nifedipine) 30 Mg Tablet.er 30 Mg PO DAILY 11/11/19 Reported Methylprednisolone 4 Mg Tab.ds.pk 4 Mg PO DAILY 11/11/19 Reported Metformin Hcl 1,000 Mg Tablet 1,000 Mg PO BIDWMEALS 11/11/19 Reported Levothyroxine Sodium 100 Mcg Tablet 100 Mcg PO DAILYAC 11/11/19 Reported Famotidine 20 Mg Tablet 20 Mg PO BID 11/11/19 Reported Celexa (Citalopram Hydrobromide) 40 Mg Tablet 40 Mg PO DAILY 11/11/19 Reported Evoxac (Cevimeline Hcl) 30 Mg Capsule 30 Mg PO TID 11/11/19 Reported Impression . IMPRESSION: 1. Acute hypoxemic respiratory failure secondary to COVID-19 viral pneumonia. 2. COVID-19 viral pneumonia. 3. Acute respiratory distress syndrome. 4. Leukocytosis. 5. History of systemic lupus erythematosus. 6. Raynaud's. Plan . Continue support see below 1. We will continue current support with low tidal volume and increasing respiratory rate. 2. Continue IV vancomycin and Levaquin. 3. We will add remdesivir and convalescent serum. 4. Monitor D-dimer. 5. Continue steroids. 6. DVT and GI prophylaxis. 7. Nutritional support. Critical care time start at 12:44 PM and at 1:16 PM MARITZA HAZEL MD Nov 13, 2019 10:25
[2019-11-13] MEDS: IV NORMAL SALINE 1000ML BAG 1,000 ML IV SCH (11:16)
--- NOTE | 2019-11-13 12:36 | NUR ---
SS following up with discharge planning. SS reviewed pt chart and discussed with pt RN. Pt remains on the vent at this time at 100%. COVID19 positive. Pt on IV Levaquin. SS will continue to follow for discharge planning.
[2019-11-13] MEDS: REMDESIVIR 100mg in NORMAL SALINE 250ML X 9 DAYS IV SCH (15:54)
[2019-11-13] MEDS: SUCRALFATE 1 GM/10 ML ORAL.SUSP. PEG SCH ×2 (18:07→20:39)
[2019-11-14] VITALS (23 sets, daily range): BP systolic 92–182; BP diastolic 42–98
[2019-11-14] MEDS: MIDAZOLAM 100mg/100ml NS BAG 100 ML IV PRN ×3 (00:45→21:48)
[2019-11-14] MEDS: IV NORMAL SALINE 1000ML BAG 1,000 ML IV SCH ×2 (00:47→14:23)
[2019-11-14] MEDS: HALOPERIDOL LACTATE 5 MG/ML VIAL. IVP SCH ×3 (05:17→21:38)
[2019-11-14] MEDS: NIFEdipine 10 MG CAPSULE PO SCH ×3 (05:18→21:40)
[2019-11-14] MEDS: LEVOTHYROXINE 100 MCG TABLET PO SCH (05:18)
[2019-11-14] MEDS: ASCORBIC ACID 500 MG TABLET PO SCH ×4 (05:19→23:45)
[2019-11-14] MEDS: INSULIN LISPRO 300 UNITS/3 ML VIAL. SQ SCH ×4 (05:42→17:39)
[2019-11-14 05:50] LABS: BASO # 0.1 x10^3/uL (0.0-0.2); BASO % 1 % (0-3); EOS # 0.1 x10^3/uL (0.0-0.7); EOS % 1 % (0-3); HEMATOCRIT 25.2 % (36.0-47.0); HEMOGLOBIN 7.9 g/dL (12.0-15.5); LYMPH # 0.7 x10^3/uL (1.0-4.8); LYMPH % 5 % (24-48); MEAN CORPUSCULAR HEMOGLOBIN 25 pg (25-35); MEAN CORPUSCULAR HGB CONC 32 g/dL (31-37); MEAN CORPUSCULAR VOLUME 80 fL (79-100); MONO # 1.1 x10^3/uL (0.0-1.1); MONO % 8 % (0-9); NEUT # 11.7 x10^3/uL (1.8-7.7); NEUT % 86 % (31-73); PLATELET COUNT 317 x10^3/uL (140-400); RED BLOOD COUNT 3.17 x10^6/uL (3.50-5.40); RED CELL DISTRIBUTION WIDTH 15.8 % (11.5-14.5); WHITE BLOOD COUNT 13.6 x10^3/uL (4.0-11.0)
[2019-11-14 06:18] LABS: CALCIUM 7.8 mg/dL (8.5-10.1); CREATININE 0.6 mg/dL (0.6-1.0); GFR 99.4; PHOSPHORUS 3.1 mg/dL (2.6-4.7); POTASSIUM 4.6 mmol/L (3.5-5.1)
--- NOTE | 2019-11-14 08:08 | PDOC ---
Infectious Disease Note Subjective: Subjective Pt intubated and sedated Discussed with RN Vital Signs: Vital Signs Vital Signs Date Time Temp Pulse Resp B/P (MAP) Pulse Ox O2 Delivery O2 Flow Rate FiO2 11/14/19 07:00 45 24 108/60 (76) 100 Ventilator 11/14/19 04:00 97.8 97.8 11/13/19 20:00 10.0 Physical Exam: PHYSICAL EXAM GENERAL: Intubated, sedated on mechanical ventilation. HEENT: Normocephalic, atraumatic. Anicteric. NG tube present NECK: Supple. Right IJ line looks clean. LUNGS: Coarse breath sounds bilaterally. No wheezing. HEART: S1, S2 present. No murmurs. ABDOMEN: Soft, nontender, positive bowel sounds. EXTREMITIES: No edema, no cyanosis. DERMATOLOGIC: Warm and dry. No generalized rash. NEUROLOGIC: Sedated. PSYCHIATRIC: Unable to assess. Medications: Inpatient Meds: Current Medications Medications (Trade) Dose Ordered Sig/Diego Start Time Stop Time Status Last Admin Dose Admin Ascorbic Acid (Vitamin C) 500 mg Q6HRS 11/11/19 12:00 11/14/19 05:19 500 MG Citalopram Hydrobromide (CeleXA) 40 mg DAILY 11/11/19 09:00 11/13/19 08:42 40 MG Dexamethasone Sodium Phosphate (Decadron) 8 mg DAILY 11/11/19 09:00 11/13/19 08:42 8 MG Dextrose (Dextrose 50%-Water Syringe) 12.5 gm PRN Q15MIN PRN 11/11/19 02:00 Enoxaparin Sodium (Lovenox 40mg Syringe) 40 mg Q12HR 11/11/19 09:00 11/13/19 20:42 40 MG Etomidate (Amidate) 20 mg STK-MED ONCE 11/10/19 23:00 11/11/19 12:49 DC Famotidine (Pepcid Vial) 20 mg BID 11/11/19 09:00 11/13/19 20:39 20 MG Fentanyl Citrate 30 ml @ 0 mls/hr CONT PRN 11/10/19 23:45 11/13/19 20:09 2.5 MLS/HR Haloperidol Lactate (Haldol Inj) 5 mg Q8HRS 11/12/19 14:00 11/14/19 05:17 5 MG Influenza Virus Vaccine Quadrival (Fluzone Quad [id number] Syringe) 0.5 ml ONCE ONCE 11/16/19 09:00 11/16/19 09:01 Info (FLU VACCINE SCREEN per RX) 1 each 1X ONCE 11/11/19 04:45 11/11/19 04:46 UNV Insulin Human Lispro (HumaLOG) 0-5 UNITS Q6HRS 11/11/19 06:00 11/13/19 18:20 2 UNITS Levofloxacin/ Dextrose 150 ml @ 100 mls/hr Q24H 11/11/19 20:00 11/13/19 20:39 100 MLS/HR Levothyroxine Sodium (Synthroid) 100 mcg DAILY06 11/11/19 06:00 11/14/19 05:18 100 MCG Midazolam HCl 100 ml @ 0 mls/hr CONT PRN 11/10/19 23:45 11/14/19 00:45 10 MLS/HR Nifedipine (Procardia) 10 mg Q8HRS 11/11/19 06:00 11/13/19 05:52 10 MG Non-Formulary Medication 1 ea/ Sodium Chloride 230 ml @ 460 mls/hr Q24H 11/12/19 16:00 11/20/19 16:29 11/13/19 15:54 460 MLS/HR Pantoprazole Sodium (PROTONIX VIAL for IV PUSH) 40 mg Q12HR 11/11/19 21:00 11/13/19 09:20 DC 11/12/19 21:58 40 MG Propofol (Diprivan) 200 mg STK-MED ONCE 11/10/19 23:00 11/11/19 12:49 DC Sodium Chloride 1,000 ml @ 65 mls/hr [id number] 11/11/19 02:00 11/14/19 00:47 65 MLS/HR Sodium Chloride (Normal Saline Flush) 3 ml QSHIFT PRN 11/11/19 02:00 Succinylcholine Chloride (Anectine) 200 mg STK-MED ONCE 11/10/19 23:00 11/11/19 12:49 DC Sucralfate (Carafate) 1 gm QIDACHS 11/13/19 16:30 11/13/19 20:39 1 GM Vancomycin HCl (Vanco Per Pharmacy) 1 each PRN DAILY PRN 11/11/19 02:00 11/12/19 08:09 DC 11/11/19 11:55 1 EACH Vancomycin HCl (Vancomycin Trough Level) 1 each 1X ONCE 11/12/19 18:30 11/12/19 08:09 DC Vancomycin HCl 1.5 gm/Sodium Chloride 500 ml @ 250 mls/hr Q12H 11/11/19 07:00 11/12/19 08:03 DC 11/12/19 06:23 250 MLS/HR Vecuronium [place] (Norcuron Bolus) 6 mg PRN Q4HRS PRN 11/12/19 08:00 11/13/19 21:30 6 MG Vitamin D (Vitamin D3) 2,000 unit DAILY 11/11/19 11:00 11/13/19 08:41 2,000 UNIT Zinc Sulfate (Orazinc) 220 mg DAILY 11/11/19 11:00 11/13/19 08:42 220 MG Labs: Lab Laboratory Tests Test 11/13/19 08:18 11/13/19 11:46 11/13/19 18:12 11/14/19 00:25 O2 Saturation 86 % (92-99) Arterial Blood pH 7.32 (7.35-7.45) Arterial Blood pCO2 at Patient Temp 42 mmHg (35-46) Arterial Blood pO2 at Patient Temp 57 mmHg (65-108) Arterial Blood HCO3 21 mmol/L (21-28) Arterial Blood Base Excess -5 mmol/L (-3-3) FiO2 80 Glucose (Fingerstick) 179 mg/dL (70-99) 177 mg/dL (70-99) 109 mg/dL (70-99) Test 11/14/19 05:30 11/14/19 05:40 White Blood Count 13.6 x10^3/uL (4.0-11.0) Red Blood Count 3.17 x10^6/uL (3.50-5.40) Hemoglobin 7.9 g/dL (12.0-15.5) Hematocrit 25.2 % (36.0-47.0) Mean Corpuscular Volume 80 fL (79-100) Mean Corpuscular Hemoglobin 25 pg (25-35) Mean Corpuscular Hemoglobin Concent 32 g/dL (31-37) Red Cell Distribution Width 15.8 % (11.5-14.5) Platelet Count 317 x10^3/uL (140-400) Neutrophils (%) (Auto) 86 % (31-73) Lymphocytes (%) (Auto) 5 % (24-48) Monocytes (%) (Auto) 8 % (0-9) Eosinophils (%) (Auto) 1 % (0-3) Basophils (%) (Auto) 1 % (0-3) Neutrophils # (Auto) 11.7 x10^3/uL (1.8-7.7) Lymphocytes # (Auto) 0.7 x10^3/uL (1.0-4.8) Monocytes # (Auto) 1.1 x10^3/uL (0.0-1.1) Eosinophils # (Auto) 0.1 x10^3/uL (0.0-0.7) Basophils # (Auto) 0.1 x10^3/uL (0.0-0.2) Sodium Level 139 mmol/L (136-145) Potassium Level 4.6 mmol/L (3.5-5.1) Chloride Level 106 mmol/L (98-107) Carbon Dioxide Level 25 mmol/L (21-32) Anion Gap 8 (6-14) Blood Urea Nitrogen 19 mg/dL (7-20) Creatinine 0.6 mg/dL (0.6-1.0) Estimated GFR (Cockcroft-Gault) 99.4 Glucose Level 130 mg/dL (70-99) Calcium Level 7.8 mg/dL (8.5-10.1) Phosphorus Level 3.1 mg/dL (2.6-4.7) Magnesium Level 2.0 mg/dL (1.8-2.4) Glucose (Fingerstick) 118 mg/dL (70-99) Objective: Assessment: 1. COVID-19 pneumonia. 2. Acute hypoxic respiratory failure, status post intubation. 3. Leukocytosis, likely from steroids. 4. Asthma. 5. History of systemic lupus erythematosus. 6. History of Raynaud's. 7. PCN,Sulfa and Clindamycin allergies per pharmacy pt has tolerated ceftriaxone well in the past Plan: Plan of Care Continue supportive care. DC Levaquin start ceftriaxone Off IV Vanc Follow up labs and cultures. On steroids. Critically ill Discussed with nursing staff. GEORGINA ARBOLEDA MD Nov 14, 2019 08:08
[2019-11-14] MEDS: DEXAMETHASONE SOD PHOS 4 MG/ML VIAL IVP SCH (08:30)
[2019-11-14] MEDS: CHOLECALCIFEROL (VITAMIN D3) 1,000 UNIT TABLET PO SCH (08:30)
[2019-11-14] MEDS: CITALOPRAM 20 MG TABLET. PO SCH (08:30)
[2019-11-14] MEDS: SUCRALFATE 1 GM/10 ML ORAL.SUSP. PEG SCH ×4 (08:30→20:59)
[2019-11-14] MEDS: ZINC SULFATE 220 MG CAPSULE. PO SCH (08:30)
[2019-11-14] MEDS: FAMOTIDINE 20 MG/2 ML VIAL IVP SCH ×2 (08:30→20:59)
[2019-11-14] MEDS: ENOXAPARIN 40 MG/0.4 ML SYRINGE. SQ SCH ×2 (08:31→20:59)
--- NOTE | 2019-11-14 09:45 | PDOC ---
PULMONARY PROGRESS NOTES DATE: 11/14/19 TIME: 09:45 Subjective Patient remains on mechanical ventilation Febrile overnight Mild bradycardia on the monitor Overnight concerns per nursing Vitals Vital Signs Date Time Temp Pulse Resp B/P (MAP) Pulse Ox O2 Delivery O2 Flow Rate FiO2 11/14/19 09:00 48 28 105/50 (68) 100 Ventilator 11/14/19 08:00 98.7 98.7 11/13/19 20:00 10.0 Comments Patient seen doing the pandemic, visual exam, in sync with the ventilator, no increasing pedal edema, no paroxysmal breathing pattern. No obvious rash Labs Laboratory Tests Test 11/12/19 11:48 11/12/19 17:38 11/12/19 23:55 11/13/19 05:49 Glucose (Fingerstick) 110 mg/dL (70-99) 158 mg/dL (70-99) 122 mg/dL (70-99) 106 mg/dL (70-99) Test 11/13/19 06:00 11/13/19 08:18 11/13/19 11:46 11/13/19 18:12 Creatinine 0.7 mg/dL (0.6-1.0) Estimated GFR (Cockcroft-Gault) 83.2 O2 Saturation 86 % (92-99) Arterial Blood pH 7.32 (7.35-7.45) Arterial Blood pCO2 at Patient Temp 42 mmHg (35-46) Arterial Blood pO2 at Patient Temp 57 mmHg (65-108) Arterial Blood HCO3 21 mmol/L (21-28) Arterial Blood Base Excess -5 mmol/L (-3-3) FiO2 80 Glucose (Fingerstick) 179 mg/dL (70-99) 177 mg/dL (70-99) Test 11/14/19 00:25 11/14/19 05:30 11/14/19 05:40 Glucose (Fingerstick) 109 mg/dL (70-99) 118 mg/dL (70-99) White Blood Count 13.6 x10^3/uL (4.0-11.0) Red Blood Count 3.17 x10^6/uL (3.50-5.40) Hemoglobin 7.9 g/dL (12.0-15.5) Hematocrit 25.2 % (36.0-47.0) Mean Corpuscular Volume 80 fL (79-100) Mean Corpuscular Hemoglobin 25 pg (25-35) Mean Corpuscular Hemoglobin Concent 32 g/dL (31-37) Red Cell Distribution Width 15.8 % (11.5-14.5) Platelet Count 317 x10^3/uL (140-400) Neutrophils (%) (Auto) 86 % (31-73) Lymphocytes (%) (Auto) 5 % (24-48) Monocytes (%) (Auto) 8 % (0-9) Eosinophils (%) (Auto) 1 % (0-3) Basophils (%) (Auto) 1 % (0-3) Neutrophils # (Auto) 11.7 x10^3/uL (1.8-7.7) Lymphocytes # (Auto) 0.7 x10^3/uL (1.0-4.8) Monocytes # (Auto) 1.1 x10^3/uL (0.0-1.1) Eosinophils # (Auto) 0.1 x10^3/uL (0.0-0.7) Basophils # (Auto) 0.1 x10^3/uL (0.0-0.2) Sodium Level 139 mmol/L (136-145) Potassium Level 4.6 mmol/L (3.5-5.1) Chloride Level 106 mmol/L (98-107) Carbon Dioxide Level 25 mmol/L (21-32) Anion Gap 8 (6-14) Blood Urea Nitrogen 19 mg/dL (7-20) Creatinine 0.6 mg/dL (0.6-1.0) Estimated GFR (Cockcroft-Gault) 99.4 Glucose Level 130 mg/dL (70-99) Calcium Level 7.8 mg/dL (8.5-10.1) Phosphorus Level 3.1 mg/dL (2.6-4.7) Magnesium Level 2.0 mg/dL (1.8-2.4) Laboratory Tests Test 11/13/19 11:46 11/13/19 18:12 11/14/19 00:25 11/14/19 05:30 Glucose (Fingerstick) 179 mg/dL (70-99) 177 mg/dL (70-99) 109 mg/dL (70-99) White Blood Count 13.6 x10^3/uL (4.0-11.0) Red Blood Count 3.17 x10^6/uL (3.50-5.40) Hemoglobin 7.9 g/dL (12.0-15.5) Hematocrit 25.2 % (36.0-47.0) Mean Corpuscular Volume 80 fL (79-100) Mean Corpuscular Hemoglobin 25 pg (25-35) Mean Corpuscular Hemoglobin Concent 32 g/dL (31-37) Red Cell Distribution Width 15.8 % (11.5-14.5) Platelet Count 317 x10^3/uL (140-400) Neutrophils (%) (Auto) 86 % (31-73) Lymphocytes (%) (Auto) 5 % (24-48) Monocytes (%) (Auto) 8 % (0-9) Eosinophils (%) (Auto) 1 % (0-3) Basophils (%) (Auto) 1 % (0-3) Neutrophils # (Auto) 11.7 x10^3/uL (1.8-7.7) Lymphocytes # (Auto) 0.7 x10^3/uL (1.0-4.8) Monocytes # (Auto) 1.1 x10^3/uL (0.0-1.1) Eosinophils # (Auto) 0.1 x10^3/uL (0.0-0.7) Basophils # (Auto) 0.1 x10^3/uL (0.0-0.2) Sodium Level 139 mmol/L (136-145) Potassium Level 4.6 mmol/L (3.5-5.1) Chloride Level 106 mmol/L (98-107) Carbon Dioxide Level 25 mmol/L (21-32) Anion Gap 8 (6-14) Blood Urea Nitrogen 19 mg/dL (7-20) Creatinine 0.6 mg/dL (0.6-1.0) Estimated GFR (Cockcroft-Gault) 99.4 Glucose Level 130 mg/dL (70-99) Calcium Level 7.8 mg/dL (8.5-10.1) Phosphorus Level 3.1 mg/dL (2.6-4.7) Magnesium Level 2.0 mg/dL (1.8-2.4) Test 11/14/19 05:40 Glucose (Fingerstick) 118 mg/dL (70-99) Medications Active Scripts Medications Dose Route/Sig Max Daily Dose Days Date Category Tramadol Hcl 50 Mg Tablet 50 Mg PO Q8HRS PRN 11/11/19 Reported Carafate (Sucralfate) 1 Gm Tablet 1 Gm PO TIDACHC 11/11/19 Reported Prednisone (Prednisone) 10 Mg Tablet 10 Mg PO DAILY 11/11/19 Reported Pantoprazole Sodium (Pantoprazole Sodium) 40 Mg Tablet.dr 40 Mg PO BIDAC 11/11/19 Reported Zofran (Ondansetron Hcl) 4 Mg Tablet 1 Tab PO Q8HRS 11/11/19 Reported Nifedipine Er (Nifedipine) 30 Mg Tablet.er 30 Mg PO DAILY 11/11/19 Reported Methylprednisolone 4 Mg Tab.ds.pk 4 Mg PO DAILY 11/11/19 Reported Metformin Hcl 1,000 Mg Tablet 1,000 Mg PO BIDWMEALS 11/11/19 Reported Levothyroxine Sodium 100 Mcg Tablet 100 Mcg PO DAILYAC 11/11/19 Reported Famotidine 20 Mg Tablet 20 Mg PO BID 11/11/19 Reported Celexa (Citalopram Hydrobromide) 40 Mg Tablet 40 Mg PO DAILY 11/11/19 Reported Evoxac (Cevimeline Hcl) 30 Mg Capsule 30 Mg PO TID 11/11/19 Reported Impression . IMPRESSION: 1. Acute hypoxemic respiratory failure secondary to COVID-19 viral pneumonia.-- improving 2. COVID-19 viral pneumonia. 3. Acute respiratory distress syndrome. 4. Leukocytosis. 5. History of systemic lupus erythematosus. 6. Raynaud's. Plan . Continue current ventilatory support patient is currently on 100% and a PEEP of 8, ABG reviewed will reduce FiO2 to 80% Chest x-ray and ABG Continue empiric antibiotics Status post convalescent plasma, finished course of remdesivir Continue dexamethasone Continue tube feeding for nutritional support Follow clinical course DVT/GI prophylaxis Discussed with RN and RT Critical care time start at 0935AM to 1005 AM MARITZA HAZEL MD Nov 14, 2019 09:45
[2019-11-14 09:59] LABS: HCO3 ABG 21 mmol/L (21-28); PCO2 ABG 37 mmHg (35-46); PO2 ABG 142 mmHg (65-108)
[2019-11-14 10:00] LABS: BASE EXCESS ABG -3 mmol/L (-3-3); FIO2 ABG 100; SAT O2 ABG 99 % (92-99)
--- NOTE | 2019-11-14 10:01 | PDOC ---
PROGRESS NOTES Date of Service: DATE: 11/14/19 TIME: 09:59 Chief Complaint Chief Complaint Assessment/Plan Acute hypoxemic respiratory failure secondary to COVID-19 infection COVID-19 pneumonia Leukocytosis secondary to the above Microcytic anemia Hyponatremia Severe protein calorie malnutrition Plan Supportive measures Ventilatory support as per pulmonology government operations consultant OG tube for nutrition Vitamin C vitamin D and zinc Continue steroids Broad-spectrum antibiotics as per ID government operations consultant Further recommendations based on the clinical course DVT prophylaxis: Patient will be fully anticoagulated History of Present Illness History of Present Illness History of Present Illness Patient is a 69-year-old female with past medical history of asthma Raynaud's phenomenon syncope history of systemic lupus erythematosus was in her usual state of health until couple days prior to her visit to the ER when she was diagnosed with COVID-19. Apparently the patient had attended a wedding and most likely is where they contracted the disease. Her is at our institution on the ventilator as well as reported by nursing staff. The patient at the time my evaluation is on mechanical ventilation and sedated. Most of this is from review of outside facility documentation. Bill the patient had described in the review of systems at the outside facility that she had some altered taste in her mouth she did not have any headache visual changes blurred vision double vision she did have some shortness of breath and chest discomfort in her chest whenever she took a deep breath otherwise no other complaints she did not have any diarrhea abdominal pain no neurological deficits were reported. Patient is being admitted for further evaluation and treatment 11/12/2019: Patient requiring paralytics noted to allow vent to be synchronized with the patient is breathing. No other obvious issues at the present time. Continues to be a guarded prognosis. 11/13/2019: Patient seems to be improving, oxygen requirements have not increased. All concerns were addressed to the best of my abilities. Discussed with nursing staff :: Patient with no acute events reported overnight, patient seems better on the vent today. Prognosis guarded. Vitals Vitals Vital Signs Date Time Temp Pulse Resp B/P (MAP) Pulse Ox O2 Delivery O2 Flow Rate FiO2 11/14/19 09:00 48 28 105/50 (68) 100 Ventilator 11/14/19 08:00 98.7 98.7 11/13/19 20:00 10.0 Physical Exam Physical Exam GENERAL: Intubated, sedated on mechanical ventilation. HEENT: Normocephalic, atraumatic. Anicteric. NG tube present NECK: Supple. Right IJ line looks clean. LUNGS: Coarse breath sounds bilaterally. No wheezing. HEART: S1, S2 present. No murmurs. ABDOMEN: Soft, nontender, positive bowel sounds. EXTREMITIES: No edema, no cyanosis. DERMATOLOGIC: Warm and dry. No generalized rash. NEUROLOGIC: Sedated. PSYCHIATRIC: Unable to assess. Labs LABS Laboratory Tests Test 11/13/19 11:46 11/13/19 18:12 11/14/19 00:25 11/14/19 05:30 Glucose (Fingerstick) 179 mg/dL (70-99) 177 mg/dL (70-99) 109 mg/dL (70-99) White Blood Count 13.6 x10^3/uL (4.0-11.0) Red Blood Count 3.17 x10^6/uL (3.50-5.40) Hemoglobin 7.9 g/dL (12.0-15.5) Hematocrit 25.2 % (36.0-47.0) Mean Corpuscular Volume 80 fL (79-100) Mean Corpuscular Hemoglobin 25 pg (25-35) Mean Corpuscular Hemoglobin Concent 32 g/dL (31-37) Red Cell Distribution Width 15.8 % (11.5-14.5) Platelet Count 317 x10^3/uL (140-400) Neutrophils (%) (Auto) 86 % (31-73) Lymphocytes (%) (Auto) 5 % (24-48) Monocytes (%) (Auto) 8 % (0-9) Eosinophils (%) (Auto) 1 % (0-3) Basophils (%) (Auto) 1 % (0-3) Neutrophils # (Auto) 11.7 x10^3/uL (1.8-7.7) Lymphocytes # (Auto) 0.7 x10^3/uL (1.0-4.8) Monocytes # (Auto) 1.1 x10^3/uL (0.0-1.1) Eosinophils # (Auto) 0.1 x10^3/uL (0.0-0.7) Basophils # (Auto) 0.1 x10^3/uL (0.0-0.2) Sodium Level 139 mmol/L (136-145) Potassium Level 4.6 mmol/L (3.5-5.1) Chloride Level 106 mmol/L (98-107) Carbon Dioxide Level 25 mmol/L (21-32) Anion Gap 8 (6-14) Blood Urea Nitrogen 19 mg/dL (7-20) Creatinine 0.6 mg/dL (0.6-1.0) Estimated GFR (Cockcroft-Gault) 99.4 Glucose Level 130 mg/dL (70-99) Calcium Level 7.8 mg/dL (8.5-10.1) Phosphorus Level 3.1 mg/dL (2.6-4.7) Magnesium Level 2.0 mg/dL (1.8-2.4) Test 11/14/19 05:40 Glucose (Fingerstick) 118 mg/dL (70-99) Comment Review of Relevant I have reviewed the following items clive (where applicable) has been applied. Labs Laboratory Tests Test 11/12/19 11:48 11/12/19 17:38 11/12/19 23:55 11/13/19 05:49 Glucose (Fingerstick) 110 mg/dL (70-99) 158 mg/dL (70-99) 122 mg/dL (70-99) 106 mg/dL (70-99) Test 11/13/19 06:00 11/13/19 08:18 11/13/19 11:46 11/13/19 18:12 Creatinine 0.7 mg/dL (0.6-1.0) Estimated GFR (Cockcroft-Gault) 83.2 O2 Saturation 86 % (92-99) Arterial Blood pH 7.32 (7.35-7.45) Arterial Blood pCO2 at Patient Temp 42 mmHg (35-46) Arterial Blood pO2 at Patient Temp 57 mmHg (65-108) Arterial Blood HCO3 21 mmol/L (21-28) Arterial Blood Base Excess -5 mmol/L (-3-3) FiO2 80 Glucose (Fingerstick) 179 mg/dL (70-99) 177 mg/dL (70-99) Test 11/14/19 00:25 11/14/19 05:30 11/14/19 05:40 Glucose (Fingerstick) 109 mg/dL (70-99) 118 mg/dL (70-99) White Blood Count 13.6 x10^3/uL (4.0-11.0) Red Blood Count 3.17 x10^6/uL (3.50-5.40) Hemoglobin 7.9 g/dL (12.0-15.5) Hematocrit 25.2 % (36.0-47.0) Mean Corpuscular Volume 80 fL (79-100) Mean Corpuscular Hemoglobin 25 pg (25-35) Mean Corpuscular Hemoglobin Concent 32 g/dL (31-37) Red Cell Distribution Width 15.8 % (11.5-14.5) Platelet Count 317 x10^3/uL (140-400) Neutrophils (%) (Auto) 86 % (31-73) Lymphocytes (%) (Auto) 5 % (24-48) Monocytes (%) (Auto) 8 % (0-9) Eosinophils (%) (Auto) 1 % (0-3) Basophils (%) (Auto) 1 % (0-3) Neutrophils # (Auto) 11.7 x10^3/uL (1.8-7.7) Lymphocytes # (Auto) 0.7 x10^3/uL (1.0-4.8) Monocytes # (Auto) 1.1 x10^3/uL (0.0-1.1) Eosinophils # (Auto) 0.1 x10^3/uL (0.0-0.7) Basophils # (Auto) 0.1 x10^3/uL (0.0-0.2) Sodium Level 139 mmol/L (136-145) Potassium Level 4.6 mmol/L (3.5-5.1) Chloride Level 106 mmol/L (98-107) Carbon Dioxide Level 25 mmol/L (21-32) Anion Gap 8 (6-14) Blood Urea Nitrogen 19 mg/dL (7-20) Creatinine 0.6 mg/dL (0.6-1.0) Estimated GFR (Cockcroft-Gault) 99.4 Glucose Level 130 mg/dL (70-99) Calcium Level 7.8 mg/dL (8.5-10.1) Phosphorus Level 3.1 mg/dL (2.6-4.7) Magnesium Level 2.0 mg/dL (1.8-2.4) Laboratory Tests Test 11/13/19 11:46 11/13/19 18:12 11/14/19 00:25 11/14/19 05:30 Glucose (Fingerstick) 179 mg/dL (70-99) 177 mg/dL (70-99) 109 mg/dL (70-99) White Blood Count 13.6 x10^3/uL (4.0-11.0) Red Blood Count 3.17 x10^6/uL (3.50-5.40) Hemoglobin 7.9 g/dL (12.0-15.5) Hematocrit 25.2 % (36.0-47.0) Mean Corpuscular Volume 80 fL (79-100) Mean Corpuscular Hemoglobin 25 pg (25-35) Mean Corpuscular Hemoglobin Concent 32 g/dL (31-37) Red Cell Distribution Width 15.8 % (11.5-14.5) Platelet Count 317 x10^3/uL (140-400) Neutrophils (%) (Auto) 86 % (31-73) Lymphocytes (%) (Auto) 5 % (24-48) Monocytes (%) (Auto) 8 % (0-9) Eosinophils (%) (Auto) 1 % (0-3) Basophils (%) (Auto) 1 % (0-3) Neutrophils # (Auto) 11.7 x10^3/uL (1.8-7.7) Lymphocytes # (Auto) 0.7 x10^3/uL (1.0-4.8) Monocytes # (Auto) 1.1 x10^3/uL (0.0-1.1) Eosinophils # (Auto) 0.1 x10^3/uL (0.0-0.7) Basophils # (Auto) 0.1 x10^3/uL (0.0-0.2) Sodium Level 139 mmol/L (136-145) Potassium Level 4.6 mmol/L (3.5-5.1) Chloride Level 106 mmol/L (98-107) Carbon Dioxide Level 25 mmol/L (21-32) Anion Gap 8 (6-14) Blood Urea Nitrogen 19 mg/dL (7-20) Creatinine 0.6 mg/dL (0.6-1.0) Estimated GFR (Cockcroft-Gault) 99.4 Glucose Level 130 mg/dL (70-99) Calcium Level 7.8 mg/dL (8.5-10.1) Phosphorus Level 3.1 mg/dL (2.6-4.7) Magnesium Level 2.0 mg/dL (1.8-2.4) Test 11/14/19 05:40 Glucose (Fingerstick) 118 mg/dL (70-99) Medications Current Medications Fentanyl Citrate 30 ml @ 0 mls/hr CONT PRN IV SEE PROTOCOL Last administered on 11/14/19 08:32; Start 11/10/19 at 23:45 Propofol 100 ml @ 0 mls/hr CONT PRN IV SEE PROTOCOL Last administered on 11/11/19 21:39; Start 11/10/19 at 23:45 Midazolam HCl 100 ml @ 0 mls/hr CONT PRN IV SEE PROTOCOL Last administered on 11/14/19 00:45; Start 11/10/19 at 23:45 Levothyroxine Sodium (Synthroid) 100 mcg DAILY06 PO Last administered on 11/14/19 05:18; Start 11/11/19 at 06:00 Sucralfate (Carafate) 1 gm TIDACHC PO ; Start 11/11/19 at 07:30; Stop 11/11/19 at 07:55; Status DC Citalopram Hydrobromide (CeleXA) 40 mg DAILY PO Last administered on 11/14/19 08:30; Start 11/11/19 at 09:00 Famotidine (Pepcid Vial) 20 mg BID IVP Last administered on 11/14/19 08:30; Start 11/11/19 at 09:00 Enoxaparin Sodium (Lovenox 40mg Syringe) 40 mg Q12HR SQ Last administered on 11/14/19 08:31; Start 11/11/19 at 09:00 Sodium Chloride (Normal Saline Flush) 3 ml QSHIFT PRN IV AFTER MEDS AND BLOOD DRAWS; Start 11/11/19 at 02:00 Sodium Chloride 1,000 ml @ 65 mls/hr [id number] IV Last administered on 11/14/19at 00:47; Start 11/11/19 at 02:00 Pantoprazole Sodium (PROTONIX VIAL for IV PUSH) 40 mg BIDAC IVP Last administered on 11/11/19 08:13; Start 11/11/19 at 07:30; Stop 11/11/19 at 12:27; Status DC Insulin Human Lispro (HumaLOG) 0-5 UNITS TIDWMEALS SQ ; Start 11/11/19 at 08:00; Stop 11/11/19 at 05:57; Status DC Dextrose (Dextrose 50%-Water Syringe) 12.5 gm PRN Q15MIN PRN IV SEE COMMENTS; Start 11/11/19 at 02:00 Dexamethasone Sodium Phosphate (Decadron) 8 mg DAILY IVP Last administered on 11/14/19at 08:30; Start 11/11/19 at 09:00 Nifedipine (Procardia) 10 mg Q8HRS PO Last administered on 11/13/19at 05:52; Start 11/11/19 at 06:00 Vancomycin HCl (Vanco Per Pharmacy) 1 each PRN DAILY PRN MC SEE COMMENTS Last administered on 11/11/19at 11:55; Start 11/11/19 at 02:00; Stop 11/12/19 at 08:09; Status DC Levofloxacin/ Dextrose 150 ml @ 100 mls/hr Q24H IV Last administered on 11/13/19at 20:39; Start 11/11/19 at 20:00; Stop 11/14/19 at 09:35; Status DC Vancomycin HCl (Vancomycin Trough Level) 1 each 1X ONCE MC Last administered on 11/11/19at 06:19; Start 11/11/19 at 06:30; Stop 11/11/19 at 06:31; Status DC Info (FLU VACCINE SCREEN per RX) 1 each 1X ONCE MC ; Start 11/11/19 at 04:45; Stop 11/11/19 at 04:46; Status UNV Insulin Human Lispro (HumaLOG) 0-5 UNITS Q6HRS SQ Last administered on 11/13/19at 18:20; Start 11/11/19 at 06:00 Influenza Virus Vaccine Quadrival (Fluzone Quad [id number] Syringe) 0.5 ml ONCE ONCE VAX IM ; Start 11/16/19 at 09:00; Stop 11/16/19 at 09:01 Vancomycin HCl 1.5 gm/Sodium Chloride 500 ml @ 250 mls/hr Q12H IV Last administered on 11/12/19at 06:23; Start 11/11/19 at 07:00; Stop 10/7/20 at 08:03; Status DC Vancomycin HCl (Vancomycin Trough Level) 1 each 1X ONCE MC ; Start 11/12/19 at 18:30; Stop 11/12/19 at 08:09; Status DC Sucralfate (Carafate) 1 gm Q6HRS PO Last administered on 11/13/19at 11:15; St art 11/11/19 at 12:00; Stop 11/13/19 at 12:24; Status DC Vitamin D (Vitamin D3) 2,000 unit DAILY PO Last administered on 11/14/19at 08:30; Start 11/11/19 at 11:00 Ascorbic Acid (Vitamin C) 500 mg Q6HRS PO Last administered on 11/14/19at 05:19; Start 11/11/19 at 12:00 Zinc Sulfate (Orazinc) 220 mg DAILY PO Last administered on 11/14/19at 08:30; Start 11/11/19 at 11:00 Pantoprazole Sodium (PROTONIX VIAL for IV PUSH) 40 mg Q12HR IVP Last administered on 11/12/19at 21:58; Start 11/11/19 at 21:00; Stop 11/13/19 at 09:20; Status DC Propofol (Diprivan) 200 mg STK-MED ONCE IV ; Start 11/10/19 at 23:00; Stop 11/11/19 at 12:49; Status DC Succinylcholine Chloride (Anectine) 200 mg STK-MED ONCE .ROUTE ; Start 11/10/19 at 23:00; Stop 11/11/19 at 12:49; Status DC Etomidate (Amidate) 20 mg STK-MED ONCE IV ; Start 11/10/19 at 23:00; Stop 11/11/19 at 12:49; Status DC Non-Formulary Medication 1 ea/ Sodium Chloride 210 ml @ 210 mls/hr 1X ONCE IV Last administered on 11/11/19at 16:45; Start 11/11/19 at 16:00; Stop 11/11/19 at 16:59; Status DC Non-Formulary Medication 1 ea/ Sodium Chloride 230 ml @ 460 mls/hr Q24H IV Last administered on 11/13/19at 15:54; Start 11/12/19 at 16:00; Stop 11/20/19 at 16:29 Vecuronium [place] (Norcuron Bolus) 6 mg PRN Q4HRS PRN IV SHORTNESS OF BREATH Last administered on 11/13/19at 21:30; Start 11/12/19 at 08:00 Haloperidol Lactate (Haldol Inj) 5 mg Q8HRS IVP Last administered on 11/14/19at 05:17; Start 11/12/19 at 14:00 Sucralfate (Carafate) 1 gm QIDACHS PEG Last administered on 11/14/19at 08:30; Start 11/13/19 at 16:30 Ceftriaxone Sodium (Rocephin) 2 gm Q24H IVP ; Start 11/14/19 at 10:00 Active Scripts Active Reported Tramadol Hcl 50 Mg Tablet 50 Mg PO Q8HRS PRN Carafate (Sucralfate) 1 Gm Tablet 1 Gm PO TIDACHC Prednisone (Prednisone) 10 Mg Tablet 10 Mg PO DAILY Pantoprazole Sodium (Pantoprazole Sodium) 40 Mg Tablet.dr 40 Mg PO BIDAC Zofran (Ondansetron Hcl) 4 Mg Tablet 1 Tab PO Q8HRS Nifedipine Er (Nifedipine) 30 Mg Tablet.er 30 Mg PO DAILY Methylprednisolone 4 Mg Tab.ds.pk 4 Mg PO DAILY Metformin Hcl 1,000 Mg Tablet 1,000 Mg PO BIDWMEALS Levothyroxine Sodium 100 Mcg Tablet 100 Mcg PO DAILYAC Famotidine 20 Mg Tablet 20 Mg PO BID Celexa (Citalopram Hydrobromide) 40 Mg Tablet 40 Mg PO DAILY Evoxac (Cevimeline Hcl) 30 Mg Capsule 30 Mg PO TID Vitals/I & O Vital Sign - Last 24 Hours 11/13/19 11/13/19 11/13/19 11/13/19 10:00 11:00 11:52 12:00 Temp 97.7 97.7 Pulse 62 56 54 Resp 24 24 24 B/P (MAP) 118/59 (78) 111/63 (79) 117/54 (75) Pulse Ox 100 100 100 100 O2 Delivery Ventilator Ventilator Ventilator Ventilator 11/13/19 11/13/19 11/13/19 11/13/19 12:00 13:00 14:00 14:00 Pulse 47 42 45 Resp 24 24 B/P (MAP) 112/53 (72) 106/55 106/55 (72) Pulse Ox 100 100 O2 Delivery Mechanical Ventilator Ventilator Ventilator 11/13/19 11/13/19 11/13/19 11/13/19 15:00 15:35 16:00 16:00 Temp 98.3 98.3 Pulse 43 51 Resp 24 24 B/P (MAP) 107/51 (69) 114/55 (74) Pulse Ox 100 100 100 O2 Delivery Ventilator Ventilator Mechanical Ventilator Ventilator 11/13/19 11/13/19 11/13/19 11/13/19 17:00 18:00 20:00 20:00 Temp 97.3 97.3 Pulse 50 44 42 Resp 24 24 25 B/P (MAP) 110/56 (74) 108/54 (72) 112/56 (74) Pulse Ox 100 100 100 O2 Delivery Ventilator Ventilator Mechanical Ventilator Ventilator O2 Flow Rate 10.0 11/13/19 11/13/19 11/13/19 11/13/19 20:09 20:33 20:40 20:42 Pulse 42 Resp 20 18 B/P (MAP) 112/56 Pulse Ox 100 100 100 O2 Delivery Ventilator Ventilator Ventilator 11/13/19 11/13/19 11/13/19 11/14/19 21:00 22:00 23:00 00:00 Pulse 40 46 40 Resp 20 24 22 B/P (MAP) 109/52 (71) 125/62 (83) 119/58 (78) Pulse Ox 94 100 100 O2 Delivery Ventilator Ventilator Ventilator Mechanical Ventilator 11/14/19 11/14/19 11/14/19 11/14/19 00:00 00:25 01:00 02:00 Temp 97.8 97.8 Pulse 40 40 42 Resp 24 23 23 B/P (MAP) 115/62 (79) 115/55 (75) 113/53 (73) Pulse Ox 100 100 100 100 O2 Delivery Ventilator Ventilator Ventilator Ventilator 11/14/19 11/14/19 11/14/19 11/14/19 03:00 04:00 04:00 05:00 Temp 97.8 97.8 Pulse 41 50 50 Resp 23 24 23 B/P (MAP) 110/46 (67) 110/62 (78) Pulse Ox 100 100 100 O2 Delivery Ventilator Ventilator Mechanical Ventilator Ventilator 11/14/19 11/14/19 11/14/19 11/14/19 05:18 05:18 06:00 07:00 Pulse 45 48 45 Resp 23 24 B/P (MAP) 110/57 114/66 (82) 108/60 (76) Pulse Ox 100 100 100 O2 Delivery Ventilator Ventilator Ventilator 11/14/19 11/14/19 11/14/19 08:00 08:00 09:00 Temp 98.7 98.7 Pulse 47 48 Resp 24 28 B/P (MAP) 96/47 (63) 105/50 (68) Pulse Ox 100 100 O2 Delivery Mechanical Ventilator Ventilator Ventilator Intake and Output 11/13/19 11/13/19 11/14/19 14:59 22:59 06:59 Intake Total 300 ml 3106 ml 2124 ml Output Total 600 ml 675 ml 725 ml Balance -300 ml 2431 ml 1399 ml Justicifation of Admission Dx: Justifications for Admission: Justification of Admission Dx: Yes Respiratory Failure: Mechanical Ventilation FILIPPO ROBIN MD Nov 14, 2019 10:01
[2019-11-14] MEDS: cefTRIAXone IV Push 2 GM VIAL. IVP SCH (10:07)
[2019-11-14 13:48] LABS: % BANDS 5 % (0-9); % LYMPHS 5 % (24-48); % MONOS 4 % (0-10); % MYELOS 1 % (0-0); % SEGS 85 % (35-66)
[2019-11-14 13:53] LABS: ANISOCYTOSIS SLIGHT; PLT ESTIMATE ADEQUATE (ADEQUATE); TOXIC GRANULATION SLIGHT
[2019-11-14] MEDS: VECURONIUM BOLUS 10 MG VIAL. IV PRN (14:22)
--- NOTE | 2019-11-14 15:12 | NUR ---
SS following up with discharge planning. SS reviewed pt chart and discussed with pt RN. Pt remains on the vent at 80% at this time. COVID19 positive. Pt on IV Rocephin. SS will continue to follow for discharge planning.
[2019-11-14] MEDS: REMDESIVIR 100mg in NORMAL SALINE 250ML X 9 DAYS IV SCH (15:25)
--- NOTE | 2019-11-14 16:36 | NUR ---
Pt's 4 rings removed due to swelling. 1 gold band with 1 yefri ring, then 1 silver band with a dangle heart ring, and 1 gold colored band sent to security.
[2019-11-15] VITALS (24 sets, daily range): BP systolic 91–122; BP diastolic 51–65
[2019-11-15] MEDS: VECURONIUM BOLUS 10 MG VIAL. IV PRN ×4 (00:59→23:46)
[2019-11-15] MEDS: fentaNYL HIGH DOSE PCA 55 ML IV PRN (02:21)
[2019-11-15] MEDS: INSULIN LISPRO 300 UNITS/3 ML VIAL. SQ SCH ×2 (06:00)
[2019-11-15] MEDS: ASCORBIC ACID 500 MG TABLET PO SCH ×4 (06:15→23:46)
[2019-11-15] MEDS: LEVOTHYROXINE 100 MCG TABLET PO SCH (06:15)
[2019-11-15] MEDS: HALOPERIDOL LACTATE 5 MG/ML VIAL. IVP SCH ×3 (06:15→21:49)
[2019-11-15] MEDS: NIFEdipine 10 MG CAPSULE PO SCH ×3 (07:00→21:49)
[2019-11-15] MEDS: IV NORMAL SALINE 1000ML BAG 1,000 ML IV SCH ×2 (07:31→23:54)
--- NOTE | 2019-11-15 08:33 | PDOC ---
Infectious Disease Note Subjective: Subjective Pt intubated and sedated Discussed with RN Vital Signs: Vital Signs Vital Signs Date Time Temp Pulse Resp B/P (MAP) Pulse Ox O2 Delivery O2 Flow Rate FiO2 11/15/19 08:00 98.7 45 24 97/54 (68) 100 Ventilator 98.7 Physical Exam: PHYSICAL EXAM GENERAL: Intubated, sedated on mechanical ventilation. HEENT: Normocephalic, atraumatic. Anicteric. NG tube present NECK: Supple. Right IJ line looks clean. LUNGS: Coarse breath sounds bilaterally. No wheezing. HEART: S1, S2 present. No murmurs. ABDOMEN: Soft, nontender, positive bowel sounds. EXTREMITIES: No edema, no cyanosis. DERMATOLOGIC: Warm and dry. No generalized rash. NEUROLOGIC: Sedated. PSYCHIATRIC: Unable to assess. Medications: Inpatient Meds: Current Medications Medications (Trade) Dose Ordered Sig/Diego Start Time Stop Time Status Last Admin Dose Admin Ascorbic Acid (Vitamin C) 500 mg Q6HRS 11/11/19 12:00 11/15/19 06:15 500 MG Ceftriaxone Sodium (Rocephin) 2 gm Q24H 11/14/19 10:00 11/14/19 10:07 2 GM Citalopram Hydrobromide (CeleXA) 40 mg DAILY 11/11/19 09:00 11/14/19 08:30 40 MG Dexamethasone Sodium Phosphate (Decadron) 8 mg DAILY 11/11/19 09:00 11/14/19 08:30 8 MG Dextrose (Dextrose 50%-Water Syringe) 12.5 gm PRN Q15MIN PRN 11/11/19 02:00 Enoxaparin Sodium (Lovenox 40mg Syringe) 40 mg Q12HR 11/11/19 09:00 11/14/19 20:59 40 MG Etomidate (Amidate) 20 mg STK-MED ONCE 11/10/19 23:00 11/11/19 12:49 DC Famotidine (Pepcid Vial) 20 mg BID 11/11/19 09:00 11/14/19 20:59 20 MG Fentanyl Citrate 55 ml @ 0 mls/hr CONT PRN PRN 11/15/19 01:00 11/15/19 02:21 2 MLS/HR Haloperidol Lactate (Haldol Inj) 5 mg Q8HRS 11/12/19 14:00 11/15/19 06:15 5 MG Influenza Virus Vaccine Quadrival (Fluzone Quad Syringe) 0.5 ml ONCE ONCE 11/16/19 09:00 11/16/19 09:01 Info (FLU VACCINE SCREEN per RX) 1 each 1X ONCE 11/11/19 04:45 11/11/19 04:46 UNV Insulin Human Lispro (HumaLOG) 0-5 UNITS Q6HRS 11/11/19 06:00 11/14/19 17:39 2 UNITS Levofloxacin/ Dextrose 150 ml @ 100 mls/hr Q24H 11/11/19 20:00 11/14/19 09:35 DC 11/13/19 20:39 100 MLS/HR Levothyroxine Sodium (Synthroid) 100 mcg DAILY06 11/11/19 06:00 11/15/19 06:15 100 MCG Midazolam HCl 100 ml @ 0 mls/hr CONT PRN 11/10/19 23:45 11/14/19 21:48 10 MLS/HR Nifedipine (Procardia) 10 mg Q8HRS 11/11/19 06:00 11/14/19 21:40 10 MG Non-Formulary Medication 1 ea/ Sodium Chloride 230 ml @ 460 mls/hr Q24H 11/12/19 16:00 11/20/19 16:29 11/14/19 15:25 460 MLS/HR Pantoprazole Sodium (PROTONIX VIAL for IV PUSH) 40 mg Q12HR 11/11/19 21:00 11/13/19 09:20 DC 11/12/19 21:58 40 MG Propofol (Diprivan) 200 mg STK-MED ONCE 11/10/19 23:00 11/11/19 12:49 DC Sodium Chloride 1,000 ml @ 65 mls/hr [id number] 11/11/19 02:00 11/15/19 07:31 65 MLS/HR Sodium Chloride (Normal Saline Flush) 3 ml QSHIFT PRN 11/11/19 02:00 Succinylcholine Chloride (Anectine) 200 mg STK-MED ONCE 11/10/19 23:00 11/11/19 12:49 DC Sucralfate (Carafate) 1 gm QIDACHS 11/13/19 16:30 11/14/19 20:59 1 GM Vancomycin HCl (Vanco Per Pharmacy) 1 each PRN DAILY PRN 11/11/19 02:00 11/12/19 08:09 DC 11/11/19 11:55 1 EACH Vancomycin HCl (Vancomycin Trough Level) 1 each 1X ONCE 11/12/19 18:30 11/12/19 08:09 DC Vancomycin HCl 1.5 gm/Sodium Chloride 500 ml @ 250 mls/hr Q12H 11/11/19 07:00 11/12/19 08:03 DC 11/12/19 06:23 250 MLS/HR Vecuronium [place] (Norcuron Bolus) 6 mg PRN Q4HRS PRN 11/12/19 08:00 11/15/19 00:59 6 MG Vitamin D (Vitamin D3) 2,000 unit DAILY 11/11/19 11:00 11/14/19 08:30 2,000 UNIT Zinc Sulfate (Orazinc) 220 mg DAILY 11/11/19 11:00 11/14/19 08:30 220 MG Labs: Lab Laboratory Tests Test 11/14/19 09:45 11/14/19 11:45 11/14/19 17:26 11/14/19 23:50 O2 Saturation 99 % (92-99) Arterial Blood pH 7.38 (7.35-7.45) Arterial Blood pCO2 at Patient Temp 37 mmHg (35-46) Arterial Blood pO2 at Patient Temp 142 mmHg (65-108) Arterial Blood HCO3 21 mmol/L (21-28) Arterial Blood Base Excess -3 mmol/L (-3-3) FiO2 100 Glucose (Fingerstick) 136 mg/dL (70-99) 179 mg/dL (70-99) 150 mg/dL (70-99) Test 11/15/19 05:24 Glucose (Fingerstick) 131 mg/dL (70-99) Objective: Assessment: 1. COVID-19 pneumonia. 2. Acute hypoxic respiratory failure, status post intubation. 3. Leukocytosis, likely from steroids. 4. Asthma. 5. History of systemic lupus erythematosus. 6. History of Raynaud's. 7. PCN,Sulfa and Clindamycin allergies per pharmacy pt has tolerated ceftriaxone well in the past 8. Bradycardia Plan: Plan of Care Continue supportive care. On steroids Continue ceftriaxone November 14, 2019, was on Levaquin On Remdesivir 11/10, discussed with pharmacy and convalescent plasma per pulmonary Was on IV Vanco and Levaquin Follow up labs and cultures. On steroids. Critically ill Discussed with nursing staff. GEORGINA ARBOLEDA MD Nov 15, 2019 08:33
--- NOTE | 2019-11-15 09:14 | PDOC ---
PROGRESS NOTES Date of Service: DATE: 11/15/19 TIME: 09:12 Chief Complaint Chief Complaint Assessment/Plan Acute hypoxemic respiratory failure secondary to COVID-19 infection COVID-19 pneumonia Leukocytosis secondary to the above Microcytic anemia Hyponatremia Severe protein calorie malnutrition Plan Supportive measures Ventilatory support as per pulmonology business analysis consultant OG tube for nutrition Vitamin C vitamin D and zinc Continue steroids Broad-spectrum antibiotics as per ID business analysis consultant Further recommendations based on the clinical course DVT prophylaxis: Patient will be fully anticoagulated History of Present Illness History of Present Illness History of Present Illness Patient is a 69-year-old female with past medical history of asthma Raynaud's phenomenon syncope history of systemic lupus erythematosus was in her usual state of health until couple days prior to her visit to the ER when she was diagnosed with COVID-19. Apparently the patient had attended a wedding and most likely is where they contracted the disease. Her is at our institution on the ventilator as well as reported by nursing staff. The patient at the time my evaluation is on mechanical ventilation and sedated. Most of this is from review of outside facility documentation. Bill the patient had described in the review of systems at the outside facility that she had some altered taste in her mouth she did not have any headache visual changes blurred vision double vision she did have some shortness of breath and chest discomfort in her chest whenever she took a deep breath otherwise no other complaints she did not have any diarrhea abdominal pain no neurological deficits were reported. Patient is being admitted for further evaluation and treatment 11/12/2019: Patient requiring paralytics noted to allow vent to be synchronized with the patient is breathing. No other obvious issues at the present time. Continues to be a guarded prognosis. 11/13/2019: Patient seems to be improving, oxygen requirements have not increased. All concerns were addressed to the best of my abilities. Discussed with nursing staff 11/14/2019: Patient with no acute events reported overnight, patient seems better on the vent today. Prognosis guarded. 11/15/2019: Patient remains hemodynamically stable still requiring quite a bit of ventilatory support with 8 of PEEP and FiO2 of 80% she had convalescent plasma and a course of parenteral severe no acute events reported overnight Vitals Vitals Vital Signs Date Time Temp Pulse Resp B/P (MAP) Pulse Ox O2 Delivery O2 Flow Rate FiO2 11/15/19 09:00 42 24 91/52 (65) 99 Ventilator 11/15/19 08:00 98.7 98.7 Physical Exam Physical Exam GENERAL: Intubated, sedated on mechanical ventilation. HEENT: Normocephalic, atraumatic. Anicteric. NG tube present NECK: Supple. Right IJ line looks clean. LUNGS: Coarse breath sounds bilaterally. No wheezing. HEART: S1, S2 present. No murmurs. ABDOMEN: Soft, nontender, positive bowel sounds. EXTREMITIES: No edema, no cyanosis. DERMATOLOGIC: Warm and dry. No generalized rash. NEUROLOGIC: Sedated. PSYCHIATRIC: Unable to assess. Labs LABS Laboratory Tests Test 11/14/19 09:45 11/14/19 11:45 11/14/19 17:26 11/14/19 23:50 O2 Saturation 99 % (92-99) Arterial Blood pH 7.38 (7.35-7.45) Arterial Blood pCO2 at Patient Temp 37 mmHg (35-46) Arterial Blood pO2 at Patient Temp 142 mmHg (65-108) Arterial Blood HCO3 21 mmol/L (21-28) Arterial Blood Base Excess -3 mmol/L (-3-3) FiO2 100 Glucose (Fingerstick) 136 mg/dL (70-99) 179 mg/dL (70-99) 150 mg/dL (70-99) Test 11/15/19 05:24 Glucose (Fingerstick) 131 mg/dL (70-99) Comment Review of Relevant I have reviewed the following items clive (where applicable) has been applied. Labs Laboratory Tests Test 11/13/19 11:46 11/13/19 18:12 11/14/19 00:25 11/14/19 05:30 Glucose (Fingerstick) 179 mg/dL (70-99) 177 mg/dL (70-99) 109 mg/dL (70-99) White Blood Count 13.6 x10^3/uL (4.0-11.0) Red Blood Count 3.17 x10^6/uL (3.50-5.40) Hemoglobin 7.9 g/dL (12.0-15.5) Hematocrit 25.2 % (36.0-47.0) Mean Corpuscular Volume 80 fL (79-100) Mean Corpuscular Hemoglobin 25 pg (25-35) Mean Corpuscular Hemoglobin Concent 32 g/dL (31-37) Red Cell Distribution Width 15.8 % (11.5-14.5) Platelet Count 317 x10^3/uL (140-400) Neutrophils (%) (Auto) 86 % (31-73) Lymphocytes (%) (Auto) 5 % (24-48) Monocytes (%) (Auto) 8 % (0-9) Eosinophils (%) (Auto) 1 % (0-3) Basophils (%) (Auto) 1 % (0-3) Neutrophils # (Auto) 11.7 x10^3/uL (1.8-7.7) Lymphocytes # (Auto) 0.7 x10^3/uL (1.0-4.8) Monocytes # (Auto) 1.1 x10^3/uL (0.0-1.1) Eosinophils # (Auto) 0.1 x10^3/uL (0.0-0.7) Basophils # (Auto) 0.1 x10^3/uL (0.0-0.2) Segmented Neutrophils % 85 % (35-66) Band Neutrophils % 5 % (0-9) Lymphocytes % 5 % (24-48) Monocytes % 4 % (0-10) Myelocytes % 1 % (0-0) Toxic Granulation Slight Platelet Estimate Adequate (ADEQUATE) Anisocytosis Slight Sodium Level 139 mmol/L (136-145) Potassium Level 4.6 mmol/L (3.5-5.1) Chloride Level 106 mmol/L (98-107) Carbon Dioxide Level 25 mmol/L (21-32) Anion Gap 8 (6-14) Blood Urea Nitrogen 19 mg/dL (7-20) Creatinine 0.6 mg/dL (0.6-1.0) Estimated GFR (Cockcroft-Gault) 99.4 Glucose Level 130 mg/dL (70-99) Calcium Level 7.8 mg/dL (8.5-10.1) Phosphorus Level 3.1 mg/dL (2.6-4.7) Magnesium Level 2.0 mg/dL (1.8-2.4) Test 11/14/19 05:40 11/14/19 09:45 11/14/19 11:45 11/14/19 17:26 Glucose (Fingerstick) 118 mg/dL (70-99) 136 mg/dL (70-99) 179 mg/dL (70-99) O2 Saturation 99 % (92-99) Arterial Blood pH 7.38 (7.35-7.45) Arterial Blood pCO2 at Patient Temp 37 mmHg (35-46) Arterial Blood pO2 at Patient Temp 142 mmHg (65-108) Arterial Blood HCO3 21 mmol/L (21-28) Arterial Blood Base Excess -3 mmol/L (-3-3) FiO2 100 Test 11/14/19 23:50 11/15/19 05:24 Glucose (Fingerstick) 150 mg/dL (70-99) 131 mg/dL (70-99) Laboratory Tests Test 11/14/19 09:45 11/14/19 11:45 11/14/19 17:26 11/14/19 23:50 O2 Saturation 99 % (92-99) Arterial Blood pH 7.38 (7.35-7.45) Arterial Blood pCO2 at Patient Temp 37 mmHg (35-46) Arterial Blood pO2 at Patient Temp 142 mmHg (65-108) Arterial Blood HCO3 21 mmol/L (21-28) Arterial Blood Base Excess -3 mmol/L (-3-3) FiO2 100 Glucose (Fingerstick) 136 mg/dL (70-99) 179 mg/dL (70-99) 150 mg/dL (70-99) Test 11/15/19 05:24 Glucose (Fingerstick) 131 mg/dL (70-99) Medications Current Medications Fentanyl Citrate 30 ml @ 0 mls/hr CONT PRN IV SEE PROTOCOL Last administered on 11/14/19at 20:21; Start 11/10/19 at 23:45; Stop 11/15/19 at 00:50; Status DC Propofol 100 ml @ 0 mls/hr CONT PRN IV SEE PROTOCOL Last administered on 11/11/19at 21:39; Start 11/10/19 at 23:45 Midazolam HCl 100 ml @ 0 mls/hr CONT PRN IV SEE PROTOCOL Last administered on 11/14/19at 21:48; Start 11/10/19 at 23:45 Levothyroxine Sodium (Synthroid) 100 mcg DAILY06 PO Last administered on 11/15/19at 06:15; Start 11/11/19 at 06:00 Sucralfate (Carafate) 1 gm TIDACHC PO ; Start 11/11/19 at 07:30; Stop 11/11/19 at 07:55; Status DC Citalopram Hydrobromide (CeleXA) 40 mg DAILY PO Last administered on 11/14/19 08:30; Start 11/11/19 at 09:00 Famotidine (Pepcid Vial) 20 mg BID IVP Last administered on 11/14/19 20:59; Start 11/11/19 at 09:00 Enoxaparin Sodium (Lovenox 40mg Syringe) 40 mg Q12HR SQ Last administered on 11/14/19 20:59; Start 11/11/19 at 09:00 Sodium Chloride (Normal Saline Flush) 3 ml QSHIFT PRN IV AFTER MEDS AND BLOOD DRAWS; Start 11/11/19 at 02:00 Sodium Chloride 1,000 ml @ 65 mls/hr [id number] IV Last administered on 11/15/19 07:31; Start 11/11/19 at 02:00 Pantoprazole Sodium (PROTONIX VIAL for IV PUSH) 40 mg BIDAC IVP Last administered on 11/11/19 08:13; Start 11/11/19 at 07:30; Stop 11/11/19 at 12:27; Status DC Insulin Human Lispro (HumaLOG) 0-5 UNITS TIDWMEALS SQ ; Start 11/11/19 at 08:00; Stop 11/11/19 at 05:57; Status DC Dextrose (Dextrose 50%-Water Syringe) 12.5 gm PRN Q15MIN PRN IV SEE COMMENTS; Start 11/11/19 at 02:00 Dexamethasone Sodium Phosphate (Decadron) 8 mg DAILY IVP Last administered on 11/14/19 08:30; Start 11/11/19 at 09:00 Nifedipine (Procardia) 10 mg Q8HRS PO Last administered on 11/14/19 21:40; Start 11/11/19 at 06:00 Vancomycin HCl (Vanco Per Pharmacy) 1 each PRN DAILY PRN MC SEE COMMENTS Last administered on 11/11/19 11:55; Start 11/11/19 at 02:00; Stop 11/12/19 at 08:09; Status DC Levofloxacin/ Dextrose 150 ml @ 100 mls/hr Q24H IV Last administered on 11/13/19 20:39; Start 11/11/19 at 20:00; Stop 11/14/19 at 09:35; Status DC Vancomycin HCl (Vancomycin Trough Level) 1 each 1X ONCE MC Last administered on 11/11/19at 06:19; Start 11/11/19 at 06:30; Stop 11/11/19 at 06:31; Status DC Info (FLU VACCINE SCREEN per RX) 1 each 1X ONCE MC ; Start 11/11/19 at 04:45; Stop 11/11/19 at 04:46; Status UNV Insulin Human Lispro (HumaLOG) 0-5 UNITS Q6HRS SQ Last administered on 11/14/19at 17:39; Start 11/11/19 at 06:00 Influenza Virus Vaccine Quadrival (Fluzone Quad Syringe) 0.5 ml ONCE ONCE VAX IM ; Start 11/16/19 at 09:00; Stop 11/16/19 at 09:01 Vancomycin HCl 1.5 gm/Sodium Chloride 500 ml @ 250 mls/hr Q12H IV Last administered on 11/12/19at 06:23; Start 11/11/19 at 07:00; Stop 11/12/19 at 08:03; Status DC Vancomycin HCl (Vancomycin Trough Level) 1 each 1X ONCE MC ; Start 11/12/19 at 18:30; Stop 11/12/19 at 08:09; Status DC Sucralfate (Carafate) 1 gm Q6HRS PO Last administered on 11/13/19at 11:15; Start 11/11/19 at 12:00; Stop 11/13/19 at 12:24; Status DC Vitamin D (Vitamin D3) 2,000 unit DAILY PO Last administered on 11/14/19at 08:30; Start 11/11/19 at 11:00 Ascorbic Acid (Vitamin C) 500 mg Q6HRS PO Last administered on 11/15/19at 06:15; Start 11/11/19 at 12:00 Zinc Sulfate (Orazinc) 220 mg DAILY PO Last administered on 11/14/19at 08:30; Start 11/11/19 at 11:00 Pantoprazole Sodium (PROTONIX VIAL for IV PUSH) 40 mg Q12HR IVP Last administered on 11/12/19at 21:58; Start 11/11/19 at 21:00; Stop 11/13/19 at 09:20; Status DC Propofol (Diprivan) 200 mg STK-MED ONCE IV ; Start 11/10/19 at 23:00; Stop 11/11/19 at 12:49; Status DC Succinylcholine Chloride (Anectine) 200 mg STK-MED ONCE .ROUTE ; Start 11/10/19 at 23:00; Stop 11/11/19 at 12:49; Status DC Etomidate (Amidate) 20 mg STK-MED ONCE IV ; Start 11/10/19 at 23:00; Stop 11/11/19 at 12:49; Status DC Non-Formulary Medication 1 ea/ Sodium Chloride 210 ml @ 210 mls/hr 1X ONCE IV Last administered on 11/11/19at 16:45; Start 11/11/19 at 16:00; Stop 11/11/19 at 16:59; Status DC Non-Formulary Medication 1 ea/ Sodium Chloride 230 ml @ 460 mls/hr Q24H IV Last administered on 11/14/19at 15:25; Start 11/12/19 at 16:00; Stop 11/20/19 at 16:29 Vecuronium Guthrie (Norcuron Bolus) 6 mg PRN Q4HRS PRN IV SHORTNESS OF BREATH Last administered on 11/15/19at 00:59; Start 11/12/19 at 08:00 Haloperidol Lactate (Haldol Inj) 5 mg Q8HRS IVP Last administered on 11/15/19at 06:15; Start 11/12/19 at 14:00 Sucralfate (Carafate) 1 gm QIDACHS PEG Last administered on 11/14/19at 20:59; Start 11/13/19 at 16:30 Ceftriaxone Sodium (Rocephin) 2 gm Q24H IVP Last administered on 11/14/19at 10 :07; Start 11/14/19 at 10:00 Fentanyl Citrate 55 ml @ 0 mls/hr CONT PRN PRN IV PAIN Last administered on 11/15/19at 02:21; Start 11/15/19 at 01:00 Active Scripts Active Reported Tramadol Hcl 50 Mg Tablet 50 Mg PO Q8HRS PRN Carafate (Sucralfate) 1 Gm Tablet 1 Gm PO TIDACHC Prednisone (Prednisone) 10 Mg Tablet 10 Mg PO DAILY Pantoprazole Sodium (Pantoprazole Sodium) 40 Mg Tablet.dr 40 Mg PO BIDAC Zofran (Ondansetron Hcl) 4 Mg Tablet 1 Tab PO Q8HRS Nifedipine Er (Nifedipine) 30 Mg Tablet.er 30 Mg PO DAILY Methylprednisolone 4 Mg Tab.ds.pk 4 Mg PO DAILY Metformin Hcl 1,000 Mg Tablet 1,000 Mg PO BIDWMEALS Levothyroxine Sodium 100 Mcg Tablet 100 Mcg PO DAILYAC Famotidine 20 Mg Tablet 20 Mg PO BID Celexa (Citalopram Hydrobromide) 40 Mg Tablet 40 Mg PO DAILY Evoxac (Cevimeline Hcl) 30 Mg Capsule 30 Mg PO TID Vitals/I & O Vital Sign - Last 24 Hours 11/14/19 11/14/19 11/14/19 11/14/19 09:40 10:00 11:00 12:00 Pulse 46 74 Resp 28 28 B/P (MAP) 106/55 (72) 182/98 (126) Pulse Ox 100 100 100 O2 Delivery Ventilator Ventilator Ventilator Mechanical Ventilator 11/14/19 11/14/19 11/14/19 11/14/19 12:00 13:00 13:02 14:00 Temp 98.8 98.8 Pulse 56 93 88 Resp 28 28 B/P (MAP) 125/62 (83) 132/71 (91) 105/49 Pulse Ox 100 95 100 O2 Delivery Ventilator Ventilator Ventilator 11/14/19 11/14/19 11/14/19 11/14/19 14:00 15:00 16:00 16:00 Temp 98.9 98.9 Pulse 88 50 44 Resp 30 28 24 B/P (MAP) 132/62 (85) 105/49 (67) 102/61 (75) Pulse Ox 93 100 100 O2 Delivery Ventilator Ventilator Mechanical Ventilator Ventilator 11/14/19 11/14/19 11/14/19 11/14/19 16:43 17:00 18:00 19:00 Pulse 41 50 50 Resp 24 24 24 B/P (MAP) 92/42 (59) 108/55 (72) 99/55 (70) Pulse Ox 100 100 100 100 O2 Delivery Ventilator Ventilator Ventilator Ventilator 11/14/19 11/14/19 11/14/19 11/14/19 20:00 20:00 20:02 21:00 Temp 99.0 99.0 Pulse 42 42 Resp 24 24 B/P (MAP) 102/50 (67) 99/51 (67) Pulse Ox 100 100 100 O2 Delivery Mechanical Ventilator Ventilator Ventilator Ventilator 11/14/19 11/14/19 11/14/19 11/15/19 21:40 22:00 23:00 00:00 Pulse 52 44 40 Resp 24 24 B/P (MAP) 102/50 97/47 (64) 95/48 (64) Pulse Ox 100 100 O2 Delivery Ventilator Ventilator Mechanical Ventilator 11/15/19 11/15/19 11/15/19 11/15/19 00:00 00:05 01:00 02:00 Temp 98.7 98.7 Pulse 42 57 53 Resp 24 24 24 B/P (MAP) 99/53 (68) 105/53 (70) 102/53 (69) Pulse Ox 100 100 100 100 O2 Delivery Ventilator Ventilator Ventilator Ventilator 11/15/19 11/15/19 11/15/19 11/15/19 03:00 03:39 04:00 04:00 Temp 98.8 98.8 Pulse 57 60 Resp 24 24 B/P (MAP) 111/60 (77) 99/52 (68) Pulse Ox 100 100 100 O2 Delivery Ventilator Ventilator Ventilator Mechanical Ventilator 11/15/19 11/15/19 11/15/19 11/15/19 05:00 06:00 07:00 08:00 Pulse 46 46 44 Resp 24 24 24 B/P (MAP) 105/59 (74) 95/52 (66) 94/53 (67) Pulse Ox 100 100 100 O2 Delivery Ventilator Ventilator Ventilator Mechanical Ventilator 11/15/19 11/15/19 08:00 09:00 Temp 98.7 98.7 Pulse 45 42 Resp 24 24 B/P (MAP) 97/54 (68) 91/52 (65) Pulse Ox 100 99 O2 Delivery Ventilator Ventilator Intake and Output 11/14/19 11/14/19 11/15/19 15:00 23:00 07:00 Intake Total 300 ml 2328 ml 1243 ml Output Total 635 ml 325 ml 350 ml Balance -335 ml 2003 ml 893 ml Justicifation of Admission Dx: Justifications for Admission: Justification of Admission Dx: Yes Respiratory Failure: Mechanical Ventilation FILIPPO ROBIN MD Nov 15, 2019 09:14
[2019-11-15] MEDS: CHOLECALCIFEROL (VITAMIN D3) 1,000 UNIT TABLET PO SCH (09:28)
[2019-11-15] MEDS: SUCRALFATE 1 GM/10 ML ORAL.SUSP. PEG SCH ×4 (09:28→20:45)
[2019-11-15] MEDS: FAMOTIDINE 20 MG/2 ML VIAL IVP SCH ×2 (09:28→20:46)
[2019-11-15] MEDS: ENOXAPARIN 40 MG/0.4 ML SYRINGE. SQ SCH ×2 (09:28→20:47)
[2019-11-15] MEDS: CITALOPRAM 20 MG TABLET. PO SCH (09:28)
[2019-11-15] MEDS: DEXAMETHASONE SOD PHOS 4 MG/ML VIAL IVP SCH (09:28)
[2019-11-15] MEDS: ZINC SULFATE 220 MG CAPSULE. PO SCH (09:28)
[2019-11-15] MEDS: cefTRIAXone IV Push 2 GM VIAL. IVP SCH (09:28)
[2019-11-15 09:29] LABS: BASE EXCESS ABG -3 mmol/L (-3-3); HCO3 ABG 22 mmol/L (21-28); PCO2 ABG 39 mmHg (35-46); PO2 ABG 88 mmHg (65-108); SAT O2 ABG 96 % (92-99)
[2019-11-15 09:33] LABS: FIO2 ABG 80
[2019-11-15] MEDS: MIDAZOLAM 100mg/100ml NS BAG 100 ML IV PRN ×2 (09:38→19:20)
--- NOTE | 2019-11-15 09:51 | PDOC ---
PULMONARY PROGRESS NOTES DATE: 11/15/19 TIME: 09:48 Subjective Patient remains on mechanical ventilation a-febrile overnight Overnight concerns per nursing Vitals Vital Signs Date Time Temp Pulse Resp B/P (MAP) Pulse Ox O2 Delivery O2 Flow Rate FiO2 11/15/19 09:00 42 24 91/52 (65) 99 Ventilator 11/15/19 08:00 98.7 98.7 Comments Patient seen doing the ID- pandemic, visual exam, in sync with the ventilator, no increasing pedal edema, no paroxysmal breathing pattern. No obvious rash Labs Laboratory Tests Test 11/13/19 11:46 11/13/19 18:12 11/14/19 00:25 11/14/19 05:30 Glucose (Fingerstick) 179 mg/dL (70-99) 177 mg/dL (70-99) 109 mg/dL (70-99) White Blood Count 13.6 x10^3/uL (4.0-11.0) Red Blood Count 3.17 x10^6/uL (3.50-5.40) Hemoglobin 7.9 g/dL (12.0-15.5) Hematocrit 25.2 % (36.0-47.0) Mean Corpuscular Volume 80 fL (79-100) Mean Corpuscular Hemoglobin 25 pg (25-35) Mean Corpuscular Hemoglobin Concent 32 g/dL (31-37) Red Cell Distribution Width 15.8 % (11.5-14.5) Platelet Count 317 x10^3/uL (140-400) Neutrophils (%) (Auto) 86 % (31-73) Lymphocytes (%) (Auto) 5 % (24-48) Monocytes (%) (Auto) 8 % (0-9) Eosinophils (%) (Auto) 1 % (0-3) Basophils (%) (Auto) 1 % (0-3) Neutrophils # (Auto) 11.7 x10^3/uL (1.8-7.7) Lymphocytes # (Auto) 0.7 x10^3/uL (1.0-4.8) Monocytes # (Auto) 1.1 x10^3/uL (0.0-1.1) Eosinophils # (Auto) 0.1 x10^3/uL (0.0-0.7) Basophils # (Auto) 0.1 x10^3/uL (0.0-0.2) Segmented Neutrophils % 85 % (35-66) Band Neutrophils % 5 % (0-9) Lymphocytes % 5 % (24-48) Monocytes % 4 % (0-10) Myelocytes % 1 % (0-0) Toxic Granulation Slight Platelet Estimate Adequate (ADEQUATE) Anisocytosis Slight Sodium Level 139 mmol/L (136-145) Potassium Level 4.6 mmol/L (3.5-5.1) Chloride Level 106 mmol/L (98-107) Carbon Dioxide Level 25 mmol/L (21-32) Anion Gap 8 (6-14) Blood Urea Nitrogen 19 mg/dL (7-20) Creatinine 0.6 mg/dL (0.6-1.0) Estimated GFR (Cockcroft-Gault) 99.4 Glucose Level 130 mg/dL (70-99) Calcium Level 7.8 mg/dL (8.5-10.1) Phosphorus Level 3.1 mg/dL (2.6-4.7) Magnesium Level 2.0 mg/dL (1.8-2.4) Test 11/14/19 05:40 11/14/19 09:45 11/14/19 11:45 11/14/19 17:26 Glucose (Fingerstick) 118 mg/dL (70-99) 136 mg/dL (70-99) 179 mg/dL (70-99) O2 Saturation 99 % (92-99) Arterial Blood pH 7.38 (7.35-7.45) Arterial Blood pCO2 at Patient Temp 37 mmHg (35-46) Arterial Blood pO2 at Patient Temp 142 mmHg (65-108) Arterial Blood HCO3 21 mmol/L (21-28) Arterial Blood Base Excess -3 mmol/L (-3-3) FiO2 100 Test 11/14/19 23:50 11/15/19 05:24 11/15/19 09:10 Glucose (Fingerstick) 150 mg/dL (70-99) 131 mg/dL (70-99) O2 Saturation 96 % (92-99) Arterial Blood pH 7.37 (7.35-7.45) Arterial Blood pCO2 at Patient Temp 39 mmHg (35-46) Arterial Blood pO2 at Patient Temp 88 mmHg (65-108) Arterial Blood HCO3 22 mmol/L (21-28) Arterial Blood Base Excess -3 mmol/L (-3-3) FiO2 80 Laboratory Tests Test 11/14/19 11:45 11/14/19 17:26 11/14/19 23:50 11/15/19 05:24 Glucose (Fingerstick) 136 mg/dL (70-99) 179 mg/dL (70-99) 150 mg/dL (70-99) 131 mg/dL (70-99) Test 11/15/19 09:10 O2 Saturation 96 % (92-99) Arterial Blood pH 7.37 (7.35-7.45) Arterial Blood pCO2 at Patient Temp 39 mmHg (35-46) Arterial Blood pO2 at Patient Temp 88 mmHg (65-108) Arterial Blood HCO3 22 mmol/L (21-28) Arterial Blood Base Excess -3 mmol/L (-3-3) FiO2 80 Medications Active Scripts Medications Dose Route/Sig Max Daily Dose Days Date Category Tramadol Hcl 50 Mg Tablet 50 Mg PO Q8HRS PRN 11/11/19 Reported Carafate (Sucralfate) 1 Gm Tablet 1 Gm PO TIDACHC 11/11/19 Reported Prednisone (Prednisone) 10 Mg Tablet 10 Mg PO DAILY 11/11/19 Reported Pantoprazole Sodium (Pantoprazole Sodium) 40 Mg Tablet.dr 40 Mg PO BIDAC 11/11/19 Reported Zofran (Ondansetron Hcl) 4 Mg Tablet 1 Tab PO Q8HRS 11/11/19 Reported Nifedipine Er (Nifedipine) 30 Mg Tablet.er 30 Mg PO DAILY 11/11/19 Reported Methylprednisolone 4 Mg Tab.ds.pk 4 Mg PO DAILY 11/11/19 Reported Metformin Hcl 1,000 Mg Tablet 1,000 Mg PO BIDWMEALS 11/11/19 Reported Levothyroxine Sodium 100 Mcg Tablet 100 Mcg PO DAILYAC 11/11/19 Reported Famotidine 20 Mg Tablet 20 Mg PO BID 11/11/19 Reported Celexa (Citalopram Hydrobromide) 40 Mg Tablet 40 Mg PO DAILY 11/11/19 Reported Evoxac (Cevimeline Hcl) 30 Mg Capsule 30 Mg PO TID 11/11/19 Reported Impression . IMPRESSION: 1. Acute hypoxemic respiratory failure secondary to COVID-19 viral pneumonia.-- improving 2. COVID-19 viral pneumonia. 3. Acute respiratory distress syndrome. 4. Leukocytosis. 5. History of systemic lupus erythematosus. 6. Raynaud's. Plan . Continue current ventilatory support patient is currently on 80% and a PEEP of 8, ABG reviewed will reduce FiO2 to 70% Chest x-ray and ABG Continue empiric antibiotics Status post convalescent plasma, finished course of remdesivir Continue dexamethasone Continue tube feeding for nutritional support Follow clinical course DVT/GI prophylaxis Discussed with RN and RT Critical care time start at 0600AM to 0635 AM MARITZA HAZEL MD Nov 15, 2019 09:50
--- NOTE | 2019-11-15 16:30 | NUR ---
RT decreased FIO2 to 70% from 80%. Shortly after, patient's SPO2 decreased to the low 80s, so RT increased FIO2 back to 80%.
[2019-11-15] MEDS: REMDESIVIR 100mg in NORMAL SALINE 250ML X 9 DAYS IV SCH (16:50)
[2019-11-16] VITALS (23 sets, daily range): BP systolic 98–139; BP diastolic 51–70
[2019-11-16] MEDS: fentaNYL HIGH DOSE PCA 55 ML IV PRN (02:03)
[2019-11-16] MEDS: VECURONIUM BOLUS 10 MG VIAL. IV PRN ×4 (04:01→22:00)
[2019-11-16] MEDS: NIFEdipine 10 MG CAPSULE PO SCH ×3 (06:00→20:53)
[2019-11-16] MEDS: ASCORBIC ACID 500 MG TABLET PO SCH ×3 (06:12→17:29)
[2019-11-16] MEDS: HALOPERIDOL LACTATE 5 MG/ML VIAL. IVP SCH ×3 (06:12→20:48)
[2019-11-16] MEDS: LEVOTHYROXINE 100 MCG TABLET PO SCH (06:12)
--- NOTE | 2019-11-16 07:51 | PDOC ---
Infectious Disease Note Subjective: Subjective Pt intubated and sedated FiO2 80% Discussed with RN Vital Signs: Vital Signs Vital Signs Date Time Temp Pulse Resp B/P (MAP) Pulse Ox O2 Delivery O2 Flow Rate FiO2 11/16/19 07:00 42 24 99/56 (70) 95 Ventilator 11/16/19 04:00 98.4 98.4 Physical Exam: PHYSICAL EXAM GENERAL: Intubated, sedated on mechanical ventilation. HEENT: Normocephalic, atraumatic. Anicteric. NG tube present NECK: Supple. Right IJ line looks clean. LUNGS: Coarse breath sounds bilaterally. No wheezing. HEART: S1, S2 present. No murmurs. ABDOMEN: Soft, nontender, positive bowel sounds. EXTREMITIES: No edema, no cyanosis. DERMATOLOGIC: Warm and dry. No generalized rash. NEUROLOGIC: Sedated. PSYCHIATRIC: Unable to assess. Medications: Inpatient Meds: Current Medications Medications (Trade) Dose Ordered Sig/Diego Start Time Stop Time Status Last Admin Dose Admin Ascorbic Acid (Vitamin C) 500 mg Q6HRS 11/11/19 12:00 11/16/19 06:12 500 MG Ceftriaxone Sodium (Rocephin) 2 gm Q24H 11/14/19 10:00 11/15/19 09:28 2 GM Citalopram Hydrobromide (CeleXA) 40 mg DAILY 11/11/19 09:00 11/15/19 09:28 40 MG Dexamethasone Sodium Phosphate (Decadron) 8 mg DAILY 11/11/19 09:00 11/15/19 09:28 8 MG Dextrose (Dextrose 50%-Water Syringe) 12.5 gm PRN Q15MIN PRN 11/11/19 02:00 Enoxaparin Sodium (Lovenox 40mg Syringe) 40 mg Q12HR 11/11/19 09:00 11/15/19 20:47 40 MG Etomidate (Amidate) 20 mg STK-MED ONCE 11/10/19 23:00 11/11/19 12:49 DC Famotidine (Pepcid Vial) 20 mg BID 11/11/19 09:00 11/15/19 20:46 20 MG Fentanyl Citrate 55 ml @ 0 mls/hr CONT PRN PRN 11/15/19 01:00 11/16/19 02:03 2 MLS/HR Haloperidol Lactate (Haldol Inj) 5 mg Q8HRS 11/12/19 14:00 11/16/19 06:12 5 MG Influenza Virus Vaccine Quadrival (Fluzone Quad Syringe) 0.5 ml ONCE ONCE 11/16/19 09:00 11/16/19 09:01 Info (FLU VACCINE SCREEN per RX) 1 each 1X ONCE 11/11/19 04:45 11/11/19 04:46 UNV Insulin Human Lispro (HumaLOG) 0-5 UNITS Q6HRS 11/11/19 06:00 11/15/19 11:04 DC 11/14/19 17:39 2 UNITS Levofloxacin/ Dextrose 150 ml @ 100 mls/hr Q24H 11/11/19 20:00 11/14/19 09:35 DC 11/13/19 20:39 100 MLS/HR Levothyroxine Sodium (Synthroid) 100 mcg DAILY06 11/11/19 06:00 11/16/19 06:12 100 MCG Midazolam HCl 100 ml @ 0 mls/hr CONT PRN 11/10/19 23:45 11/15/19 19:20 10 MLS/HR Nifedipine (Procardia) 10 mg Q8HRS 11/11/19 06:00 11/15/19 21:49 10 MG Non-Formulary Medication 1 ea/ Sodium Chloride 230 ml @ 460 mls/hr Q24H 11/12/19 16:00 11/20/19 16:29 11/15/19 16:50 460 MLS/HR Pantoprazole Sodium (PROTONIX VIAL for IV PUSH) 40 mg Q12HR 11/11/19 21:00 11/13/19 09:20 DC 11/12/19 21:58 40 MG Propofol (Diprivan) 200 mg STK-MED ONCE 11/10/19 23:00 11/11/19 12:49 DC Sodium Chloride 1,000 ml @ 65 mls/hr [id number] 11/11/19 02:00 11/15/19 23:54 65 MLS/HR Sodium Chloride (Normal Saline Flush) 3 ml QSHIFT PRN 11/11/19 02:00 Succinylcholine Chloride (Anectine) 200 mg STK-MED ONCE 11/10/19 23:00 11/11/19 12:49 DC Sucralfate (Carafate) 1 gm QIDACHS 11/13/19 16:30 11/15/19 20:45 1 GM Vancomycin HCl (Vanco Per Pharmacy) 1 each PRN DAILY PRN 11/11/19 02:00 11/12/19 08:09 DC 11/11/19 11:55 1 EACH Vancomycin HCl (Vancomycin Trough Level) 1 each 1X ONCE 11/12/19 18:30 11/12/19 08:09 DC Vancomycin HCl 1.5 gm/Sodium Chloride 500 ml @ 250 mls/hr Q12H 11/11/19 07:00 11/12/19 08:03 DC 11/12/19 06:23 250 MLS/HR Vecuronium Alborn (Norcuron Bolus) 6 mg PRN Q4HRS PRN 11/12/19 08:00 11/16/19 04:01 6 MG Vitamin D (Vitamin D3) 2,000 unit DAILY 11/11/19 11:00 11/15/19 09:28 2,000 UNIT Zinc Sulfate (Orazinc) 220 mg DAILY 11/11/19 11:00 11/15/19 09:28 220 MG Labs: Lab Laboratory Tests Test 11/15/19 09:10 O2 Saturation 96 % (92-99) Arterial Blood pH 7.37 (7.35-7.45) Arterial Blood pCO2 at Patient Temp 39 mmHg (35-46) Arterial Blood pO2 at Patient Temp 88 mmHg (65-108) Arterial Blood HCO3 22 mmol/L (21-28) Arterial Blood Base Excess -3 mmol/L (-3-3) FiO2 80 Objective: Assessment: 1. COVID-19 pneumonia. 2. Acute hypoxic respiratory failure, status post intubation. 3. Leukocytosis, likely from steroids. 4. Asthma. 5. History of systemic lupus erythematosus. 6. History of Raynaud's. 7. PCN,Sulfa and Clindamycin allergies per pharmacy pt has tolerated ceftriaxone well in the past 8. Bradycardia likely from sedation Plan: Plan of Care Continue supportive care. On steroids Continue ceftriaxone November 14, 2019, was on Levaquin and IV Levaquin Remdesivir 11/10 Status post convalescent plasma Follow up labs and cultures. On steroids. Critically ill Discussed with nursing staff. GEORGINA ARBOLEDA MD Nov 16, 2019 07:51
[2019-11-16] MEDS: SUCRALFATE 1 GM/10 ML ORAL.SUSP. PEG SCH ×4 (08:15→20:48)
[2019-11-16] MEDS: ENOXAPARIN 40 MG/0.4 ML SYRINGE. SQ SCH ×2 (08:16→20:50)
[2019-11-16] MEDS: ZINC SULFATE 220 MG CAPSULE. PO SCH (08:16)
[2019-11-16] MEDS: DEXAMETHASONE SOD PHOS 4 MG/ML VIAL IVP SCH (08:16)
[2019-11-16] MEDS: CHOLECALCIFEROL (VITAMIN D3) 1,000 UNIT TABLET PO SCH (08:16)
[2019-11-16] MEDS: FAMOTIDINE 20 MG/2 ML VIAL IVP SCH ×2 (08:16→20:48)
[2019-11-16] MEDS: CITALOPRAM 20 MG TABLET. PO SCH (08:16)
[2019-11-16] MEDS: MIDAZOLAM 100mg/100ml NS BAG 100 ML IV PRN ×2 (08:45→17:50)
[2019-11-16] MEDS ORDERED: FLU VACC QS 2020-21(6MOS+)/PF 0.5 ML SYRINGE. VAX IM ONE (09:00)
[2019-11-16] MEDS: cefTRIAXone IV Push 2 GM VIAL. IVP SCH (10:22)
[2019-11-16 10:33] LABS: BASE EXCESS ABG -1 mmol/L (-3-3); HCO3 ABG 24 mmol/L (21-28); PCO2 ABG 41 mmHg (35-46); PO2 ABG 81 mmHg (65-108); SAT O2 ABG 95 % (92-99)
--- NOTE | 2019-11-16 11:03 | PDOC ---
PROGRESS NOTES Date of Service: DATE: 11/16/19 TIME: 10:54 Chief Complaint Chief Complaint Assessment/Plan Acute hypoxemic respiratory failure secondary to COVID-19 infection COVID-19 pneumonia Leukocytosis secondary to the above Microcytic anemia Hyponatremia Severe protein calorie malnutrition Plan Supportive measures Ventilatory support as per pulmonology hearing consultant OG tube for nutrition Vitamin C vitamin D and zinc Continue steroids Broad-spectrum antibiotics as per ID hearing consultant Further recommendations based on the clinical course DVT prophylaxis: Patient will be fully anticoagulated History of Present Illness History of Present Illness History of Present Illness Patient is a 69-year-old female with past medical history of asthma Raynaud's phenomenon syncope history of systemic lupus erythematosus was in her usual state of health until couple days prior to her visit to the ER when she was diagnosed with COVID-19. Apparently the patient had attended a wedding and most likely is where they contracted the disease. Her is at our institution on the ventilator as well as reported by nursing staff. The patient at the time my evaluation is on mechanical ventilation and sedated. Most of this is from review of outside facility documentation. Bill the patient had described in the review of systems at the outside facility that she had some altered taste in her mouth she did not have any headache visual changes blurred vision double vision she did have some shortness of breath and chest discomfort in her chest whenever she took a deep breath otherwise no other complaints she did not have any diarrhea abdominal pain no neurological deficits were reported. Patient is being admitted for further evaluation and treatment 11/12/2019: Patient requiring paralytics noted to allow vent to be synchronized with the patient is breathing. No other obvious issues at the present time. Continues to be a guarded prognosis. 11/13/2019: Patient seems to be improving, oxygen requirements have not increased. All concerns were addressed to the best of my abilities. Discussed with nursing staff 11/14/2019: Patient with no acute events reported overnight, patient seems better on the vent today. Prognosis guarded. 11/15/2019: Patient remains hemodynamically stable still requiring quite a bit of ventilatory support with 8 of PEEP and FiO2 of 80% she had convalescent plasma and a course of parenteral severe no acute events reported overnight 11/16/2019: No acute events reported overnight, case discussed with nursing staff patient in no acute distress no complaints during my visit, patient seems to be stacking her breaths and breathing over the vent, will follow recs from pulmonology Vitals Vitals Vital Signs Date Time Temp Pulse Resp B/P (MAP) Pulse Ox O2 Delivery O2 Flow Rate FiO2 11/16/19 10:00 46 24 109/52 (71) 93 Ventilator 11/16/19 08:00 98.7 98.7 Physical Exam Physical Exam GENERAL: Intubated, sedated on mechanical ventilation. HEENT: Normocephalic, atraumatic. Anicteric. NG tube present NECK: Supple. Right IJ line looks clean. LUNGS: Coarse breath sounds bilaterally. No wheezing. HEART: S1, S2 present. No murmurs. ABDOMEN: Soft, nontender, positive bowel sounds. EXTREMITIES: No edema, no cyanosis. DERMATOLOGIC: Warm and dry. No generalized rash. NEUROLOGIC: Sedated. PSYCHIATRIC: Unable to assess. Comment Review of Relevant I have reviewed the following items clive (where applicable) has been applied. Labs Laboratory Tests Test 11/14/19 11:45 11/14/19 17:26 11/14/19 23:50 11/15/19 05:24 Glucose (Fingerstick) 136 mg/dL (70-99) 179 mg/dL (70-99) 150 mg/dL (70-99) 131 mg/dL (70-99) Test 11/15/19 09:10 O2 Saturation 96 % (92-99) Arterial Blood pH 7.37 (7.35-7.45) Arterial Blood pCO2 at Patient Temp 39 mmHg (35-46) Arterial Blood pO2 at Patient Temp 88 mmHg (65-108) Arterial Blood HCO3 22 mmol/L (21-28) Arterial Blood Base Excess -3 mmol/L (-3-3) FiO2 80 Medications Current Medications Fentanyl Citrate 30 ml @ 0 mls/hr CONT PRN IV SEE PROTOCOL Last administered on 11/14/19at 20:21; Start 11/10/19 at 23:45; Stop 11/15/19 at 00:50; Status DC Propofol 100 ml @ 0 mls/hr CONT PRN IV SEE PROTOCOL Last administered on 11/11/19at 21:39; Start 11/10/19 at 23:45 Midazolam HCl 100 ml @ 0 mls/hr CONT PRN IV SEE PROTOCOL Last administered on 11/16/19at 08:45; Start 11/10/19 at 23:45 Levothyroxine Sodium (Synthroid) 100 mcg DAILY06 PO Last administered on 11/16/19 06:12; Start 11/11/19 at 06:00 Sucralfate (Carafate) 1 gm TIDACHC PO ; Start 11/11/19 at 07:30; Stop 11/11/19 at 07:55; Status DC Citalopram Hydrobromide (CeleXA) 40 mg DAILY PO Last administered on 11/16/19 08:16; Start 11/11/19 at 09:00 Famotidine (Pepcid Vial) 20 mg BID IVP Last administered on 11/16/19at 08:16; Start 11/11/19 at 09:00 Enoxaparin Sodium (Lovenox 40mg Syringe) 40 mg Q12HR SQ Last administered on 11/16/19 08:16; Start 11/11/19 at 09:00 Sodium Chloride (Normal Saline Flush) 3 ml QSHIFT PRN IV AFTER MEDS AND BLOOD DRAWS; Start 11/11/19 at 02:00 Sodium Chloride 1,000 ml @ 65 mls/hr [id number] IV Last administered on 11/15/19at 23:54; Start 11/11/19 at 02:00 Pantoprazole Sodium (PROTONIX VIAL for IV PUSH) 40 mg BIDAC IVP Last administered on 11/11/19at 08:13; Start 11/11/19 at 07:30; Stop 11/11/19 at 12:27; Status DC Insulin Human Lispro (HumaLOG) 0-5 UNITS TIDWMEALS SQ ; Start 11/11/19 at 08:00; Stop 11/11/19 at 05:57; Status DC Dextrose (Dextrose 50%-Water Syringe) 12.5 gm PRN Q15MIN PRN IV SEE COMMENTS; Start 11/11/19 at 02:00 Dexamethasone Sodium Phosphate (Decadron) 8 mg DAILY IVP Last administered on 11/16/19at 08:16; Start 11/11/19 at 09:00 Nifedipine (Procardia) 10 mg Q8HRS PO Last administered on 11/15/19at 21:49; Start 11/11/19 at 06:00 Vancomycin HCl (Vanco Per Pharmacy) 1 each PRN DAILY PRN MC SEE COMMENTS Last administered on 11/11/19at 11:55; Start 11/11/19 at 02:00; Stop 11/12/19 at 08:09; Status DC Levofloxacin/ Dextrose 150 ml @ 100 mls/hr Q24H IV Last administered on 11/13/19at 20:39; Start 11/11/19 at 20:00; Stop 11/14/19 at 09:35; Status DC Vancomycin HCl (Vancomycin Trough Level) 1 each 1X ONCE MC Last administered on 11/11/19at 06:19; Start 11/11/19 at 06:30; Stop 11/11/19 at 06:31; Status DC Info (FLU VACCINE SCREEN per RX) 1 each 1X ONCE MC ; Start 11/11/19 at 04:45; Stop 11/11/19 at 04:46; Status UNV Insulin Human Lispro (HumaLOG) 0-5 UNITS Q6HRS SQ Last administered on 11/14/19at 17:39; Start 11/11/19 at 06:00; Stop 11/15/19 at 11:04; Status DC Influenza Virus Vaccine Quadrival (Fluzone Quad Syringe) 0.5 ml ONCE ONCE VAX IM ; Start 11/16/19 at 09:00; Stop 11/16/19 at 09:01; Status DC Vancomycin HCl 1.5 gm/Sodium Chloride 500 ml @ 250 mls/hr Q12H IV Last administered on 11/12/19at 06:23; Start 11/11/19 at 07:00; Stop 11/12/19 at 08:03; Status DC Vancomycin HCl (Vancomycin Trough Level) 1 each 1X ONCE MC ; Start 11/12/19 at 18:30; Stop 11/12/19 at 08:09; Status DC Sucralfate (Carafate) 1 gm Q6HRS PO Last administered on 11/13/19at 11:15; Start 11/11/19 at 12:00; Stop 11/13/19 at 12:24; Status DC Vitamin D (Vitamin D3) 2,000 unit DAILY PO Last administered on 11/16/19at 08:16; Start 11/11/19 at 11:00 Ascorbic Acid (Vitamin C) 500 mg Q6HRS PO Last administered on 11/16/19at 06:12; Start 11/11/19 at 12:00 Zinc Sulfate (Orazinc) 220 mg DAILY PO Last administered on 11/16/19 08:16; Start 11/11/19 at 11:00 Pantoprazole Sodium (PROTONIX VIAL for IV PUSH) 40 mg Q12HR IVP Last administered on 11/12/19at 21:58; Start 11/11/19 at 21:00; Stop 11/13/19 at 09:20; Status DC Propofol (Diprivan) 200 mg STK-MED ONCE IV ; Start 11/10/19 at 23:00; Stop 11/11/19 at 12:49; Status DC Succinylcholine Chloride (Anectine) 200 mg STK-MED ONCE .ROUTE ; Start 11/10/19 at 23:00; Stop 11/11/19 at 12:49; Status DC Etomidate (Amidate) 20 mg STK-MED ONCE IV ; Start 11/10/19 at 23:00; Stop 11/11/19 at 12:49; Status DC Non-Formulary Medication 1 ea/ Sodium Chloride 210 ml @ 210 mls/hr 1X ONCE IV Last administered on 11/11/19at 16:45; Start 11/11/19 at 16:00; Stop 11/11/19 at 16:59; Status DC Non-Formulary Medication 1 ea/ Sodium Chloride 230 ml @ 460 mls/hr Q24H IV Last administered on 11/15/19at 16:50; Start 11/12/19 at 16:00; Stop 11/20/19 at 16:29 Vecuronium [place] (Norcuron Bolus) 6 mg PRN Q4HRS PRN IV SHORTNESS OF BREATH Last administered on 11/16/19 10:22; Start 11/12/19 at 08:00 Haloperidol Lactate (Haldol Inj) 5 mg Q8HRS IVP Last administered on 11/16/19 06:12; Start 11/12/19 at 14:00 Sucralfate (Carafate) 1 gm QIDACHS PEG Last administered on 11/16/19 08:15; Start 11/13/19 at 16:30 Ceftriaxone Sodium (Rocephin) 2 gm Q24H IVP Last administered on 11/16/19at 10:22; Start 11/14/19 at 10:00 Fentanyl Citrate 55 ml @ 0 mls/hr CONT PRN PRN IV PAIN Last administered on 10/11/20at 02:03; Start 11/15/19 at 01:00 Active Scripts Active Reported Tramadol Hcl 50 Mg Tablet 50 Mg PO Q8HRS PRN Carafate (Sucralfate) 1 Gm Tablet 1 Gm PO TIDACHC Prednisone (Prednisone) 10 Mg Tablet 10 Mg PO DAILY Pantoprazole Sodium (Pantoprazole Sodium) 40 Mg Tablet.dr 40 Mg PO BIDAC Zofran (Ondansetron Hcl) 4 Mg Tablet 1 Tab PO Q8HRS Nifedipine Er (Nifedipine) 30 Mg Tablet.er 30 Mg PO DAILY Methylprednisolone 4 Mg Tab.ds.pk 4 Mg PO DAILY Metformin Hcl 1,000 Mg Tablet 1,000 Mg PO BIDWMEALS Levothyroxine Sodium 100 Mcg Tablet 100 Mcg PO DAILYAC Famotidine 20 Mg Tablet 20 Mg PO BID Celexa (Citalopram Hydrobromide) 40 Mg Tablet 40 Mg PO DAILY Evoxac (Cevimeline Hcl) 30 Mg Capsule 30 Mg PO TID Vitals/I & O Vital Sign - Last 24 Hours 11/15/19 11/15/19 11/15/19 11/15/19 11:00 11:36 12:00 12:30 Temp 98.8 98.8 Pulse 62 55 Resp 24 24 B/P (MAP) 115/60 (78) 109/58 (75) Pulse Ox 99 99 99 O2 Delivery Ventilator Mechanical Ventilator Ventilator Ventilator 11/15/19 11/15/19 11/15/19 11/15/19 13:00 14:00 15:00 15:43 Pulse 59 55 43 Resp 24 24 24 B/P (MAP) 118/58 (78) 113/57 (75) 104/58 (73) Pulse Ox 90 93 94 O2 Delivery Ventilator Ventilator Ventilator Mechanical Ventilator 11/15/19 11/15/19 11/15/19 11/15/19 16:00 16:05 17:00 18:00 Temp 98.6 98.6 Pulse 49 42 54 Resp 24 24 24 B/P (MAP) 108/56 (73) 106/51 (69) 122/65 (84) Pulse Ox 96 96 92 92 O2 Delivery Ventilator Ventilator Ventilator Ventilator 11/15/19 11/15/19 11/15/19 11/15/19 19:00 19:45 20:00 20:00 Pulse 42 50 Resp 24 24 B/P (MAP) 110/57 (74) 110/59 (76) Pulse Ox 95 97 95 O2 Delivery Ventilator Ventilator Ventilator Mechanical Ventilator 11/15/19 11/15/19 11/15/19 11/15/19 21:00 21:49 22:00 23:00 Temp 98.4 98.4 Pulse 40 44 42 41 Resp 24 24 24 B/P (MAP) 110/60 (77) 110/60 103/52 (69) 109/61 (77) Pulse Ox 95 95 95 O2 Delivery Ventilator Ventilator Ventilator 11/15/19 11/16/19 11/16/19 11/16/19 23:16 00:00 00:00 01:00 Temp 98.3 98.3 Pulse 56 48 Resp 24 24 B/P (MAP) 132/62 (85) 112/62 (79) Pulse Ox 93 95 95 O2 Delivery Ventilator Ventilator Mechanical Ventilator Ventilator 11/16/19 11/16/19 11/16/19 11/16/19 02:00 02:40 04:00 04:00 Temp 98.4 98.4 Pulse 45 46 Resp 24 24 B/P (MAP) 112/61 (78) 114/64 (81) Pulse Ox 95 95 95 O2 Delivery Ventilator Ventilator Ventilator Mechanical Ventilator 11/16/19 11/16/19 11/16/19 11/16/19 05:00 06:00 07:00 08:00 Temp 98.7 98.7 Pulse 46 40 42 54 Resp 24 24 24 30 B/P (MAP) 110/60 (77) 100/51 (67) 99/56 (70) 98/52 (67) Pulse Ox 98 98 95 88 O2 Delivery Ventilator Ventilator Ventilator Ventilator 11/16/19 11/16/19 11/16/19 11/16/19 08:00 09:00 09:46 10:00 Pulse 48 46 Resp 24 24 B/P (MAP) 109/70 (83) 109/52 (71) Pulse Ox 96 95 93 O2 Delivery Mechanical Ventilator Ventilator Ventilator Ventilator Intake and Output 11/15/19 11/15/19 11/16/19 15:00 23:00 07:00 Intake Total 300 ml 2995 ml 1313.87 ml Output Total 650 ml 435 ml 440 ml Balance -350 ml 2560 ml 873.87 ml Justicifation of Admission Dx: Justifications for Admission: Justification of Admission Dx: Yes Respiratory Failure: Mechanical Ventilation FILIPPO ROBIN MD Nov 16, 2019 11:03
[2019-11-16 11:18] LABS: FIO2 ABG 80
--- NOTE | 2019-11-16 12:25 | PDOC ---
PULMONARY PROGRESS NOTES DATE: 11/16/19 TIME: 12:23 Subjective Patient remains on mechanical ventilation a-febrile overnight Overnight concerns per nursing Vitals Vital Signs Date Time Temp Pulse Resp B/P (MAP) Pulse Ox O2 Delivery O2 Flow Rate FiO2 11/16/19 11:50 95 Ventilator 11/16/19 11:00 51 24 113/57 (75) 11/16/19 08:00 98.7 98.7 Comments Patient seen doing the , visual exam, in sync with the ventilator, no increasing pedal edema, no paroxysmal breathing pattern. No obvious rash Labs Laboratory Tests Test 11/14/19 17:26 11/14/19 23:50 11/15/19 05:24 11/15/19 09:10 Glucose (Fingerstick) 179 mg/dL (70-99) 150 mg/dL (70-99) 131 mg/dL (70-99) O2 Saturation 96 % (92-99) Arterial Blood pH 7.37 (7.35-7.45) Arterial Blood pCO2 at Patient Temp 39 mmHg (35-46) Arterial Blood pO2 at Patient Temp 88 mmHg (65-108) Arterial Blood HCO3 22 mmol/L (21-28) Arterial Blood Base Excess -3 mmol/L (-3-3) FiO2 80 Test 11/16/19 09:50 O2 Saturation 95 % (92-99) Arterial Blood pH 7.38 (7.35-7.45) Arterial Blood pCO2 at Patient Temp 41 mmHg (35-46) Arterial Blood pO2 at Patient Temp 81 mmHg (65-108) Arterial Blood HCO3 24 mmol/L (21-28) Arterial Blood Base Excess -1 mmol/L (-3-3) FiO2 80 Laboratory Tests Test 11/16/19 09:50 O2 Saturation 95 % (92-99) Arterial Blood pH 7.38 (7.35-7.45) Arterial Blood pCO2 at Patient Temp 41 mmHg (35-46) Arterial Blood pO2 at Patient Temp 81 mmHg (65-108) Arterial Blood HCO3 24 mmol/L (21-28) Arterial Blood Base Excess -1 mmol/L (-3-3) FiO2 80 Medications Active Scripts Medications Dose Route/Sig Max Daily Dose Days Date Category Tramadol Hcl 50 Mg Tablet 50 Mg PO Q8HRS PRN 11/11/19 Reported Carafate (Sucralfate) 1 Gm Tablet 1 Gm PO TIDACHC 11/11/19 Reported Prednisone (Prednisone) 10 Mg Tablet 10 Mg PO DAILY 11/11/19 Reported Pantoprazole Sodium (Pantoprazole Sodium) 40 Mg Tablet.dr 40 Mg PO BIDAC 11/11/19 Reported Zofran (Ondansetron Hcl) 4 Mg Tablet 1 Tab PO Q8HRS 11/11/19 Reported Nifedipine Er (Nifedipine) 30 Mg Tablet.er 30 Mg PO DAILY 11/11/19 Reported Methylprednisolone 4 Mg Tab.ds.pk 4 Mg PO DAILY 11/11/19 Reported Metformin Hcl 1,000 Mg Tablet 1,000 Mg PO BIDWMEALS 11/11/19 Reported Levothyroxine Sodium 100 Mcg Tablet 100 Mcg PO DAILYAC 11/11/19 Reported Famotidine 20 Mg Tablet 20 Mg PO BID 11/11/19 Reported Celexa (Citalopram Hydrobromide) 40 Mg Tablet 40 Mg PO DAILY 11/11/19 Reported Evoxac (Cevimeline Hcl) 30 Mg Capsule 30 Mg PO TID 11/11/19 Reported Comments CXR IMPRESSION: Unchanged lines and tubes. Bilateral pulmonary opacities, slightly improved on the right Impression . IMPRESSION: 1. Acute hypoxemic respiratory failure secondary to COVID-19 viral pneumonia.-- improving 2. COVID-19 viral pneumonia. 3. Acute respiratory distress syndrome. 4. Leukocytosis. 5. History of systemic lupus erythematosus. 6. Raynaud's. Plan . Continue current ventilatory support patient is currently on 80% and a PEEP of 8, ABG reviewed will reduce FiO2 to 75% Chest x-ray and ABG Continue empiric antibiotics per ID Status post convalescent plasma, finished course of remdesivir Continue dexamethasone Continue tube feeding for nutritional support Follow clinical course DVT/GI prophylaxis: lovenox/pepcid Discussed with RN and RT Critical care time start at 0935AM to 1005 AM MARITZA HAZEL MD Nov 16, 2019 12:25
[2019-11-16] MEDS: IV NORMAL SALINE 1000ML BAG 1,000 ML IV SCH ×2 (14:29→15:22)
[2019-11-16] MEDS: REMDESIVIR 100mg in NORMAL SALINE 250ML X 9 DAYS IV SCH (15:22)
[2019-11-17] VITALS (24 sets, daily range): BP systolic 102–124; BP diastolic 50–70
[2019-11-17] MEDS: ASCORBIC ACID 500 MG TABLET PO SCH ×5 (00:22→23:47)
[2019-11-17] MEDS: fentaNYL HIGH DOSE PCA 55 ML IV PRN (03:04)
[2019-11-17] MEDS: VECURONIUM BOLUS 10 MG VIAL. IV PRN ×3 (04:17→20:06)
[2019-11-17] MEDS: MIDAZOLAM 100mg/100ml NS BAG 100 ML IV PRN ×2 (05:10→15:49)
--- NOTE | 2019-11-17 05:56 | RAD ---
EXAM: CHEST AP ONLY 11/17/2019 5:00 AM CLINICAL INDICATION:Respiratory failure COMPARISON:Chest radiograph 11/11/2019 TECHNIQUE:AP semiupright view of the chest FINDINGS:The endotracheal tube terminates 2.8 cm above the gisela. A right internal jugular central venous catheter is present with the tip not well visualized due to superimposed wires/leads. Nasogastric tube terminates high with tip in the gastric fundus and sidehole near the GE junction or distal esophagus. The cardiomediastinal silhouette is unchanged. The lungs are mildly hypoexpanded. There are increased bilateral airspace opacities. Small right pleural effusion. No pneumothorax. No acute osseous abnormality. IMPRESSION:Increased bilateral pulmonary opacities. Electronically signed by: Nicole Bernabe MD (11/17/2019 5:53 AM) [id number]
[2019-11-17] MEDS: NIFEdipine 10 MG CAPSULE PO SCH (06:18)
[2019-11-17] MEDS: LEVOTHYROXINE 100 MCG TABLET PO SCH (06:18)
[2019-11-17] MEDS: HALOPERIDOL LACTATE 5 MG/ML VIAL. IVP SCH ×3 (06:18→20:41)
[2019-11-17 06:45] LABS: BASO # 0.1 x10^3/uL (0.0-0.2); BASO % 1 % (0-3); EOS % 0 % (0-3); HEMATOCRIT 23.3 % (36.0-47.0); HEMOGLOBIN 7.4 g/dL (12.0-15.5); LYMPH # 0.8 x10^3/uL (1.0-4.8); LYMPH % 6 % (24-48); MEAN CORPUSCULAR HEMOGLOBIN 25 pg (25-35); MEAN CORPUSCULAR HGB CONC 32 g/dL (31-37); MEAN CORPUSCULAR VOLUME 80 fL (79-100); MONO # 1.5 x10^3/uL (0.0-1.1); MONO % 12 % (0-9); NEUT % 81 % (31-73); PLATELET COUNT 324 x10^3/uL (140-400); RED BLOOD COUNT 2.92 x10^6/uL (3.50-5.40); RED CELL DISTRIBUTION WIDTH 16.4 % (11.5-14.5); WHITE BLOOD COUNT 12.3 x10^3/uL (4.0-11.0)
[2019-11-17 06:52] LABS: CREATININE 0.6 mg/dL (0.6-1.0); GFR 99.4; POTASSIUM 5.1 mmol/L (3.5-5.1)
[2019-11-17] MEDS: SUCRALFATE 1 GM/10 ML ORAL.SUSP. PEG SCH (07:21)
[2019-11-17] MEDS: FAMOTIDINE 20 MG/2 ML VIAL IVP SCH ×2 (07:22→20:41)
[2019-11-17] MEDS: ENOXAPARIN 40 MG/0.4 ML SYRINGE. SQ SCH ×2 (07:22→20:41)
[2019-11-17] MEDS: DEXAMETHASONE SOD PHOS 4 MG/ML VIAL IVP SCH (07:22)
[2019-11-17] MEDS: CITALOPRAM 20 MG TABLET. PO SCH (07:22)
[2019-11-17] MEDS: CHOLECALCIFEROL (VITAMIN D3) 1,000 UNIT TABLET PO SCH (07:22)
[2019-11-17] MEDS: ZINC SULFATE 220 MG CAPSULE. PO SCH (07:23)
[2019-11-17] MEDS: IV NORMAL SALINE 1000ML BAG 1,000 ML IV SCH (07:27)
--- NOTE | 2019-11-17 07:50 | PDOC ---
Infectious Disease Note Subjective Subjective Pt intubated and sedated FiO2 80% Discussed with RN Vital Sign Vital Signs Vital Signs Date Time Temp Pulse Resp B/P (MAP) Pulse Ox O2 Delivery O2 Flow Rate FiO2 11/17/19 07:00 41 24 108/56 (73) 94 Ventilator 11/17/19 04:00 98.9 98.9 Physical Exam PHYSICAL EXAM GENERAL: Intubated, sedated on mechanical ventilation. HEENT: Normocephalic, atraumatic. Anicteric. NG tube present NECK: Supple. Right IJ line looks clean. LUNGS: Coarse breath sounds bilaterally. No wheezing. HEART: S1, S2 present. No murmurs. ABDOMEN: Soft, nontender, positive bowel sounds. EXTREMITIES: No edema, no cyanosis. DERMATOLOGIC: Warm and dry. No generalized rash. NEUROLOGIC: Sedated. PSYCHIATRIC: Unable to assess. Labs Lab Laboratory Tests Test 11/16/19 09:50 11/16/19 23:55 11/17/19 06:00 O2 Saturation 95 % (92-99) Arterial Blood pH 7.38 (7.35-7.45) Arterial Blood pCO2 at Patient Temp 41 mmHg (35-46) Arterial Blood pO2 at Patient Temp 81 mmHg (65-108) Arterial Blood HCO3 24 mmol/L (21-28) Arterial Blood Base Excess -1 mmol/L (-3-3) FiO2 80 Glucose (Fingerstick) 165 mg/dL (70-99) White Blood Count 12.3 x10^3/uL (4.0-11.0) Red Blood Count 2.92 x10^6/uL (3.50-5.40) Hemoglobin 7.4 g/dL (12.0-15.5) Hematocrit 23.3 % (36.0-47.0) Mean Corpuscular Volume 80 fL (79-100) Mean Corpuscular Hemoglobin 25 pg (25-35) Mean Corpuscular Hemoglobin Concent 32 g/dL (31-37) Red Cell Distribution Width 16.4 % (11.5-14.5) Platelet Count 324 x10^3/uL (140-400) Neutrophils (%) (Auto) 81 % (31-73) Lymphocytes (%) (Auto) 6 % (24-48) Monocytes (%) (Auto) 12 % (0-9) Eosinophils (%) (Auto) 0 % (0-3) Basophils (%) (Auto) 1 % (0-3) Neutrophils # (Auto) 10.0 x10^3/uL (1.8-7.7) Lymphocytes # (Auto) 0.8 x10^3/uL (1.0-4.8) Monocytes # (Auto) 1.5 x10^3/uL (0.0-1.1) Eosinophils # (Auto) 0.0 x10^3/uL (0.0-0.7) Basophils # (Auto) 0.1 x10^3/uL (0.0-0.2) Sodium Level 139 mmol/L (136-145) Potassium Level 5.1 mmol/L (3.5-5.1) Chloride Level 107 mmol/L (98-107) Carbon Dioxide Level 28 mmol/L (21-32) Anion Gap 4 (6-14) Blood Urea Nitrogen 28 mg/dL (7-20) Creatinine 0.6 mg/dL (0.6-1.0) Estimated GFR (Cockcroft-Gault) 99.4 Glucose Level 156 mg/dL (70-99) Calcium Level 8.0 mg/dL (8.5-10.1) Objective Assessment 1. COVID-19 pneumonia. 2. Acute hypoxic respiratory failure, status post intubation. 3. Leukocytosis, likely from steroids. 4. Asthma. 5. History of systemic lupus erythematosus. 6. History of Raynaud's. 7. PCN,Sulfa and Clindamycin allergies per pharmacy pt has tolerated ceftriaxone well in the past 8. Bradycardia likely from sedation Plan Plan of Care Continue supportive care. On steroids Continue ceftriaxone November 14, 2019, was on Levaquin and IV Levaquin Remdesivir 11/10 Status post convalescent plasma Follow up labs and cultures. On steroids. Critically ill Discussed with nursing staff. APRYL ARBOLEDA MD Nov 17, 2019 07:50
--- NOTE | 2019-11-17 08:14 | PDOC ---
[facility] PROGRESS NOTE Date of Service DOS: DATE: 11/17/19 TIME: 08:12 Chief Complaint Chief Complaint A/P: Acute hypoxemic respiratory failure secondary to COVID-19 infection COVID-19 pneumonia Leukocytosis secondary to the above Microcytic anemia Hyponatremia Severe protein calorie malnutrition Plan Supportive measures Ventilatory support as per pulmonology merchandising consultant OG tube for nutrition Vitamin C vitamin D and zinc Continue steroids Broad-spectrum antibiotics as per ID merchandising consultant Further recommendations based on the clinical course DVT prophylaxis: Patient will be fully anticoagulated History of Present Illness History of Present Illness Ms Galicia is a 69-year-old female with past medical history of asthma Raynaud's phenomenon syncope history of systemic lupus erythematosus was in her usual state of health until couple days prior to her visit to the ER when she was diagnosed with COVID-19. Apparently the patient had attended a wedding and most likely is where they contracted the disease. Her is at our institution on the ventilator as well as reported by nursing staff. The patient at the time my evaluation is on mechanical ventilation and sedated. Most of this is from review of outside facility documentation. Bill the patient had described in the review of systems at the outside facility that she had some altered taste in her mouth she did not have any headache visual changes blurred vision double vision she did have some shortness of breath and chest discomfort in her chest whenever she took a deep breath otherwise no other complaints she did not have any diarrhea abdominal pain no neurological deficits were reported. Patient is being admitted for further evaluation and treatment 11/11: Patient requiring paralytics noted to allow vent to be synchronized with the patient is breathing. Critically ill. Remdesivir experimental therapy initiated 11/12: On vent, critically ill 11/13: Patient with no acute events reported overnight, patient seems better on the vent today. Prognosis guarded. 11/14: Patient remains hemodynamically stable still requiring quite a bit of ventilatory support with 8 of PEEP and FiO2 of 80% she had convalescent plasma. 11/15: On vent, critically ill. On Vent, sedated. FiO2 80%, PEEP 8. On day 6 remdesivir. WBC 12.3, Hb 7.4 Vitals/I&O Vitals/I&O: Vital Signs Date Time Temp Pulse Resp B/P (MAP) Pulse Ox O2 Delivery O2 Flow Rate FiO2 11/17/19 08:00 98.9 37 24 102/53 (69) 91 Ventilator 98.9 I & O 11/16/19 11/16/19 11/17/19 15:00 23:00 07:00 Intake Total 300 ml 2732 ml 2417 ml Output Total 365 ml 475 ml 825 ml Balance -65 ml 2257 ml 1592 ml Physical Exam Physical Exam: GENERAL: Intubated, sedated on mechanical ventilation. HEENT: Normocephalic, atraumatic. Anicteric. NG tube present NECK: Supple. Right IJ line looks clean. LUNGS: Coarse breath sounds bilaterally. No wheezing. HEART: S1, S2 present. No murmurs. ABDOMEN: Soft, nontender, positive bowel sounds. EXTREMITIES: No edema, no cyanosis. DERMATOLOGIC: Warm and dry. No generalized rash. NEUROLOGIC: Sedated. PSYCHIATRIC: Unable to assess. Labs Labs: Laboratory Tests Test 11/16/19 09:50 11/16/19 23:55 11/17/19 06:00 O2 Saturation 95 % (92-99) Arterial Blood pH 7.38 (7.35-7.45) Arterial Blood pCO2 at Patient Temp 41 mmHg (35-46) Arterial Blood pO2 at Patient Temp 81 mmHg (65-108) Arterial Blood HCO3 24 mmol/L (21-28) Arterial Blood Base Excess -1 mmol/L (-3-3) FiO2 80 Glucose (Fingerstick) 165 mg/dL (70-99) White Blood Count 12.3 x10^3/uL (4.0-11.0) Red Blood Count 2.92 x10^6/uL (3.50-5.40) Hemoglobin 7.4 g/dL (12.0-15.5) Hematocrit 23.3 % (36.0-47.0) Mean Corpuscular Volume 80 fL (79-100) Mean Corpuscular Hemoglobin 25 pg (25-35) Mean Corpuscular Hemoglobin Concent 32 g/dL (31-37) Red Cell Distribution Width 16.4 % (11.5-14.5) Platelet Count 324 x10^3/uL (140-400) Neutrophils (%) (Auto) 81 % (31-73) Lymphocytes (%) (Auto) 6 % (24-48) Monocytes (%) (Auto) 12 % (0-9) Eosinophils (%) (Auto) 0 % (0-3) Basophils (%) (Auto) 1 % (0-3) Neutrophils # (Auto) 10.0 x10^3/uL (1.8-7.7) Lymphocytes # (Auto) 0.8 x10^3/uL (1.0-4.8) Monocytes # (Auto) 1.5 x10^3/uL (0.0-1.1) Eosinophils # (Auto) 0.0 x10^3/uL (0.0-0.7) Basophils # (Auto) 0.1 x10^3/uL (0.0-0.2) Sodium Level 139 mmol/L (136-145) Potassium Level 5.1 mmol/L (3.5-5.1) Chloride Level 107 mmol/L (98-107) Carbon Dioxide Level 28 mmol/L (21-32) Anion Gap 4 (6-14) Blood Urea Nitrogen 28 mg/dL (7-20) Creatinine 0.6 mg/dL (0.6-1.0) Estimated GFR (Cockcroft-Gault) 99.4 Glucose Level 156 mg/dL (70-99) Calcium Level 8.0 mg/dL (8.5-10.1) Comment Review of Relevant I have reviewed the following items clive (where applicable) has been applied. Medications: Current Medications Medications (Trade) Dose Ordered Sig/Diego Route PRN Reason Start Time Stop Time Status Last Admin Dose Admin Vecuronium [place] (Norcuron Bolus) 6 mg PRN Q1HR PRN IV SHORTNESS OF BREATH 11/16/19 22:00 11/17/19 04:17 Justifications for Admission Other Justification HANY AMIN MD Nov 17, 2019 08:14
[2019-11-17 09:24] LABS: BASE EXCESS ABG -2 mmol/L (-3-3); HCO3 ABG 24 mmol/L (21-28); PCO2 ABG 43 mmHg (35-46); PO2 ABG 66 mmHg (65-108); SAT O2 ABG 90 % (92-99)
[2019-11-17] MEDS: cefTRIAXone IV Push 2 GM VIAL. IVP SCH (09:26)
--- NOTE | 2019-11-17 09:30 | PDOC ---
PULMONARY PROGRESS NOTES DATE: 11/17/19 TIME: 09:25 Subjective Patient remains on mechanical ventilation a-febrile overnight Bradycardia noted on monitor No other concerns from nursing overnight, family is coming to visit today Vitals Vital Signs Date Time Temp Pulse Resp B/P (MAP) Pulse Ox O2 Delivery O2 Flow Rate FiO2 11/17/19 09:00 37 24 108/52 (70) 92 Ventilator 11/17/19 08:00 98.9 98.9 Comments Patient seen doing the - pandemic, visual exam, in sync with the ventilator, no increasing pedal edema, no paroxysmal breathing pattern. No obvious rash Labs Laboratory Tests Test 11/16/19 09:50 11/16/19 23:55 11/17/19 06:00 O2 Saturation 95 % (92-99) Arterial Blood pH 7.38 (7.35-7.45) Arterial Blood pCO2 at Patient Temp 41 mmHg (35-46) Arterial Blood pO2 at Patient Temp 81 mmHg (65-108) Arterial Blood HCO3 24 mmol/L (21-28) Arterial Blood Base Excess -1 mmol/L (-3-3) FiO2 80 Glucose (Fingerstick) 165 mg/dL (70-99) White Blood Count 12.3 x10^3/uL (4.0-11.0) Red Blood Count 2.92 x10^6/uL (3.50-5.40) Hemoglobin 7.4 g/dL (12.0-15.5) Hematocrit 23.3 % (36.0-47.0) Mean Corpuscular Volume 80 fL (79-100) Mean Corpuscular Hemoglobin 25 pg (25-35) Mean Corpuscular Hemoglobin Concent 32 g/dL (31-37) Red Cell Distribution Width 16.4 % (11.5-14.5) Platelet Count 324 x10^3/uL (140-400) Neutrophils (%) (Auto) 81 % (31-73) Lymphocytes (%) (Auto) 6 % (24-48) Monocytes (%) (Auto) 12 % (0-9) Eosinophils (%) (Auto) 0 % (0-3) Basophils (%) (Auto) 1 % (0-3) Neutrophils # (Auto) 10.0 x10^3/uL (1.8-7.7) Lymphocytes # (Auto) 0.8 x10^3/uL (1.0-4.8) Monocytes # (Auto) 1.5 x10^3/uL (0.0-1.1) Eosinophils # (Auto) 0.0 x10^3/uL (0.0-0.7) Basophils # (Auto) 0.1 x10^3/uL (0.0-0.2) Sodium Level 139 mmol/L (136-145) Potassium Level 5.1 mmol/L (3.5-5.1) Chloride Level 107 mmol/L (98-107) Carbon Dioxide Level 28 mmol/L (21-32) Anion Gap 4 (6-14) Blood Urea Nitrogen 28 mg/dL (7-20) Creatinine 0.6 mg/dL (0.6-1.0) Estimated GFR (Cockcroft-Gault) 99.4 Glucose Level 156 mg/dL (70-99) Calcium Level 8.0 mg/dL (8.5-10.1) Laboratory Tests Test 11/16/19 09:50 11/16/19 23:55 11/17/19 06:00 O2 Saturation 95 % (92-99) Arterial Blood pH 7.38 (7.35-7.45) Arterial Blood pCO2 at Patient Temp 41 mmHg (35-46) Arterial Blood pO2 at Patient Temp 81 mmHg (65-108) Arterial Blood HCO3 24 mmol/L (21-28) Arterial Blood Base Excess -1 mmol/L (-3-3) FiO2 80 Glucose (Fingerstick) 165 mg/dL (70-99) White Blood Count 12.3 x10^3/uL (4.0-11.0) Red Blood Count 2.92 x10^6/uL (3.50-5.40) Hemoglobin 7.4 g/dL (12.0-15.5) Hematocrit 23.3 % (36.0-47.0) Mean Corpuscular Volume 80 fL (79-100) Mean Corpuscular Hemoglobin 25 pg (25-35) Mean Corpuscular Hemoglobin Concent 32 g/dL (31-37) Red Cell Distribution Width 16.4 % (11.5-14.5) Platelet Count 324 x10^3/uL (140-400) Neutrophils (%) (Auto) 81 % (31-73) Lymphocytes (%) (Auto) 6 % (24-48) Monocytes (%) (Auto) 12 % (0-9) Eosinophils (%) (Auto) 0 % (0-3) Basophils (%) (Auto) 1 % (0-3) Neutrophils # (Auto) 10.0 x10^3/uL (1.8-7.7) Lymphocytes # (Auto) 0.8 x10^3/uL (1.0-4.8) Monocytes # (Auto) 1.5 x10^3/uL (0.0-1.1) Eosinophils # (Auto) 0.0 x10^3/uL (0.0-0.7) Basophils # (Auto) 0.1 x10^3/uL (0.0-0.2) Sodium Level 139 mmol/L (136-145) Potassium Level 5.1 mmol/L (3.5-5.1) Chloride Level 107 mmol/L (98-107) Carbon Dioxide Level 28 mmol/L (21-32) Anion Gap 4 (6-14) Blood Urea Nitrogen 28 mg/dL (7-20) Creatinine 0.6 mg/dL (0.6-1.0) Estimated GFR (Cockcroft-Gault) 99.4 Glucose Level 156 mg/dL (70-99) Calcium Level 8.0 mg/dL (8.5-10.1) Medications Active Scripts Medications Dose Route/Sig Max Daily Dose Days Date Category Tramadol Hcl 50 Mg Tablet 50 Mg PO Q8HRS PRN 11/11/19 Reported Carafate (Sucralfate) 1 Gm Tablet 1 Gm PO TIDACHC 11/11/19 Reported Prednisone (Prednisone) 10 Mg Tablet 10 Mg PO DAILY 11/11/19 Reported Pantoprazole Sodium (Pantoprazole Sodium) 40 Mg Tablet.dr 40 Mg PO BIDAC 11/11/19 Reported Zofran (Ondansetron Hcl) 4 Mg Tablet 1 Tab PO Q8HRS 11/11/19 Reported Nifedipine Er (Nifedipine) 30 Mg Tablet.er 30 Mg PO DAILY 11/11/19 Reported Methylprednisolone 4 Mg Tab.ds.pk 4 Mg PO DAILY 11/11/19 Reported Metformin Hcl 1,000 Mg Tablet 1,000 Mg PO BIDWMEALS 11/11/19 Reported Levothyroxine Sodium 100 Mcg Tablet 100 Mcg PO DAILYAC 11/11/19 Reported Famotidine 20 Mg Tablet 20 Mg PO BID 11/11/19 Reported Celexa (Citalopram Hydrobromide) 40 Mg Tablet 40 Mg PO DAILY 11/11/19 Reported Evoxac (Cevimeline Hcl) 30 Mg Capsule 30 Mg PO TID 11/11/19 Reported Comments CXR IMPRESSION: Unchanged lines and tubes. Bilateral pulmonary opacities, slightly improved on the right CXR 11/17/19 IMPRESSION:Increased bilateral pulmonary opacities. Impression . IMPRESSION: 1. Acute hypoxemic respiratory failure secondary to COVID-19 viral pneumonia.-- intubated 2. COVID-19 viral pneumonia. 3. Acute respiratory distress syndrome. 4. Leukocytosis-- ongoing 5. History of systemic lupus erythematosus. 6. Raynaud's. Plan . Continue current ventilatory support patient is currently on 70% and a PEEP of 8, no additional changes ABG reviewed Chest x-ray and ABG Continue empiric antibiotics per ID Status post convalescent plasma, finished course of remdesivir Continue dexamethasone Continue tube feeding for nutritional support Follow clinical course DVT/GI prophylaxis: lovenox/pepcid Discussed with RN and RT Discussed with family as well Critical care time start at 0700AM to 0735 AM MARITZA HAZEL MD Nov 17, 2019 09:30
[2019-11-17 09:42] LABS: FIO2 ABG 80%
[2019-11-17] MEDS: REMDESIVIR 100mg in NORMAL SALINE 250ML X 9 DAYS IV SCH (16:15)
--- NOTE | 2019-11-17 18:52 | NUR ---
Patient's son, Eddie, took patient's belongings home with him.
[2019-11-18] VITALS (24 sets, daily range): BP systolic 100–124; BP diastolic 53–66
[2019-11-18] MEDS: fentaNYL HIGH DOSE PCA 55 ML IV PRN ×2 (00:37→22:14)
[2019-11-18] MEDS: IV NORMAL SALINE 1000ML BAG 1,000 ML IV SCH ×2 (00:44→15:52)
[2019-11-18] MEDS: MIDAZOLAM 100mg/100ml NS BAG 100 ML IV PRN ×3 (03:46→23:54)
[2019-11-18] MEDS: LEVOTHYROXINE 100 MCG TABLET PO SCH (05:30)
[2019-11-18] MEDS: ASCORBIC ACID 500 MG TABLET PO SCH ×4 (05:30→23:32)
[2019-11-18] MEDS: HALOPERIDOL LACTATE 5 MG/ML VIAL. IVP SCH ×3 (05:31→20:19)
[2019-11-18] MEDS: VECURONIUM BOLUS 10 MG VIAL. IV PRN ×2 (06:15→23:37)
--- NOTE | 2019-11-18 07:36 | PDOC ---
Infectious Disease Note Subjective Subjective Pt intubated and sedated FiO2 80% ROS ROS no n/v/d/ Vital Sign Vital Signs Vital Signs Date Time Temp Pulse Resp B/P (MAP) Pulse Ox O2 Delivery O2 Flow Rate FiO2 11/18/19 06:00 42 24 107/53 (71) 98 Ventilator 11/18/19 04:00 98.0 98.0 Physical Exam PHYSICAL EXAM GENERAL: Intubated, sedated on mechanical ventilation. HEENT: Normocephalic, atraumatic. Anicteric. NG tube present NECK: Supple. Right IJ line looks clean. LUNGS: Coarse breath sounds bilaterally. No wheezing. HEART: S1, S2 present. No murmurs. ABDOMEN: Soft, nontender, positive bowel sounds. EXTREMITIES: No edema, no cyanosis. DERMATOLOGIC: Warm and dry. No generalized rash. NEUROLOGIC: Sedated. PSYCHIATRIC: Unable to assess. Labs Lab Laboratory Tests Test 11/17/19 08:00 11/18/19 05:29 O2 Saturation 90 % (92-99) Arterial Blood pH 7.36 (7.35-7.45) Arterial Blood pCO2 at Patient Temp 43 mmHg (35-46) Arterial Blood pO2 at Patient Temp 66 mmHg (65-108) Arterial Blood HCO3 24 mmol/L (21-28) Arterial Blood Base Excess -2 mmol/L (-3-3) FiO2 80% Glucose (Fingerstick) 141 mg/dL (70-99) Objective Assessment 1. COVID-19 pneumonia. 2. Acute hypoxic respiratory failure, status post intubation. 3. Leukocytosis, likely from steroids. 4. Asthma. 5. History of systemic lupus erythematosus. 6. History of Raynaud's. 7. PCN,Sulfa and Clindamycin allergies per pharmacy pt has tolerated ceftriaxone well in the past 8. Bradycardia likely from sedation Plan Plan of Care Continue supportive care. On steroids Continue ceftriaxone November 14, 2019, was on Levaquin and IV Levaquin Remdesivir 11/10 Status post convalescent plasma Follow up labs and cultures. On steroids. Critically ill Discussed with nursing staff. APRYL ARBOLEDA MD Nov 18, 2019 07:36
[2019-11-18] MEDS: CHOLECALCIFEROL (VITAMIN D3) 1,000 UNIT TABLET PO SCH (09:00)
[2019-11-18] MEDS: FAMOTIDINE 20 MG/2 ML VIAL IVP SCH ×2 (09:00→20:19)
[2019-11-18] MEDS: DEXAMETHASONE SOD PHOS 4 MG/ML VIAL IVP SCH (09:01)
[2019-11-18] MEDS: CITALOPRAM 20 MG TABLET. PO SCH (09:01)
[2019-11-18] MEDS: ENOXAPARIN 40 MG/0.4 ML SYRINGE. SQ SCH ×2 (09:01→20:20)
[2019-11-18] MEDS: ZINC SULFATE 220 MG CAPSULE. PO SCH (09:01)
[2019-11-18 09:04] LABS: BASE EXCESS ABG -2 mmol/L (-3-3); HCO3 ABG 23 mmol/L (21-28); PCO2 ABG 38 mmHg (35-46); PO2 ABG 67 mmHg (65-108); SAT O2 ABG 91 % (92-99)
[2019-11-18 09:07] LABS: FIO2 ABG 60
--- NOTE | 2019-11-18 10:17 | PDOC ---
PULMONARY PROGRESS NOTES DATE: 11/18/19 TIME: 10:14 Subjective Patient remains on mechanical ventilation a-febrile overnight Continues to have Bradycardia noted on monitor No other concerns from nursing overnight Vitals Vital Signs Date Time Temp Pulse Resp B/P (MAP) Pulse Ox O2 Delivery O2 Flow Rate FiO2 11/18/19 09:00 96 Ventilator 11/18/19 06:00 42 24 107/53 (71) 11/18/19 04:00 98.0 98.0 Comments Patient seen doing the ID- pandemic, visual exam, in sync with the ventilator, no increasing pedal edema, no paroxysmal breathing pattern. No obvious rash lucille on monitor Labs Laboratory Tests Test 11/16/19 23:55 11/17/19 06:00 11/17/19 08:00 11/18/19 05:29 Glucose (Fingerstick) 165 mg/dL (70-99) 141 mg/dL (70-99) White Blood Count 12.3 x10^3/uL (4.0-11.0) Red Blood Count 2.92 x10^6/uL (3.50-5.40) Hemoglobin 7.4 g/dL (12.0-15.5) Hematocrit 23.3 % (36.0-47.0) Mean Corpuscular Volume 80 fL (79-100) Mean Corpuscular Hemoglobin 25 pg (25-35) Mean Corpuscular Hemoglobin Concent 32 g/dL (31-37) Red Cell Distribution Width 16.4 % (11.5-14.5) Platelet Count 324 x10^3/uL (140-400) Neutrophils (%) (Auto) 81 % (31-73) Lymphocytes (%) (Auto) 6 % (24-48) Monocytes (%) (Auto) 12 % (0-9) Eosinophils (%) (Auto) 0 % (0-3) Basophils (%) (Auto) 1 % (0-3) Neutrophils # (Auto) 10.0 x10^3/uL (1.8-7.7) Lymphocytes # (Auto) 0.8 x10^3/uL (1.0-4.8) Monocytes # (Auto) 1.5 x10^3/uL (0.0-1.1) Eosinophils # (Auto) 0.0 x10^3/uL (0.0-0.7) Basophils # (Auto) 0.1 x10^3/uL (0.0-0.2) Sodium Level 139 mmol/L (136-145) Potassium Level 5.1 mmol/L (3.5-5.1) Chloride Level 107 mmol/L (98-107) Carbon Dioxide Level 28 mmol/L (21-32) Anion Gap 4 (6-14) Blood Urea Nitrogen 28 mg/dL (7-20) Creatinine 0.6 mg/dL (0.6-1.0) Estimated GFR (Cockcroft-Gault) 99.4 Glucose Level 156 mg/dL (70-99) Calcium Level 8.0 mg/dL (8.5-10.1) O2 Saturation 90 % (92-99) Arterial Blood pH 7.36 (7.35-7.45) Arterial Blood pCO2 at Patient Temp 43 mmHg (35-46) Arterial Blood pO2 at Patient Temp 66 mmHg (65-108) Arterial Blood HCO3 24 mmol/L (21-28) Arterial Blood Base Excess -2 mmol/L (-3-3) FiO2 80% Test 11/18/19 08:00 O2 Saturation 91 % (92-99) Arterial Blood pH 7.39 (7.35-7.45) Arterial Blood pCO2 at Patient Temp 38 mmHg (35-46) Arterial Blood pO2 at Patient Temp 67 mmHg (65-108) Arterial Blood HCO3 23 mmol/L (21-28) Arterial Blood Base Excess -2 mmol/L (-3-3) FiO2 60 Laboratory Tests Test 11/18/19 05:29 11/18/19 08:00 Glucose (Fingerstick) 141 mg/dL (70-99) O2 Saturation 91 % (92-99) Arterial Blood pH 7.39 (7.35-7.45) Arterial Blood pCO2 at Patient Temp 38 mmHg (35-46) Arterial Blood pO2 at Patient Temp 67 mmHg (65-108) Arterial Blood HCO3 23 mmol/L (21-28) Arterial Blood Base Excess -2 mmol/L (-3-3) FiO2 60 Medications Active Scripts Medications Dose Route/Sig Max Daily Dose Days Date Category Tramadol Hcl 50 Mg Tablet 50 Mg PO Q8HRS PRN 11/11/19 Reported Carafate (Sucralfate) 1 Gm Tablet 1 Gm PO TIDACHC 11/11/19 Reported Prednisone (Prednisone) 10 Mg Tablet 10 Mg PO DAILY 11/11/19 Reported Pantoprazole Sodium (Pantoprazole Sodium) 40 Mg Tablet.dr 40 Mg PO BIDAC 11/11/19 Reported Zofran (Ondansetron Hcl) 4 Mg Tablet 1 Tab PO Q8HRS 11/11/19 Reported Nifedipine Er (Nifedipine) 30 Mg Tablet.er 30 Mg PO DAILY 11/11/19 Reported Methylprednisolone 4 Mg Tab.ds.pk 4 Mg PO DAILY 11/11/19 Reported Metformin Hcl 1,000 Mg Tablet 1,000 Mg PO BIDWMEALS 11/11/19 Reported Levothyroxine Sodium 100 Mcg Tablet 100 Mcg PO DAILYAC 11/11/19 Reported Famotidine 20 Mg Tablet 20 Mg PO BID 11/11/19 Reported Celexa (Citalopram Hydrobromide) 40 Mg Tablet 40 Mg PO DAILY 11/11/19 Reported Evoxac (Cevimeline Hcl) 30 Mg Capsule 30 Mg PO TID 11/11/19 Reported Comments CXR IMPRESSION: Unchanged lines and tubes. Bilateral pulmonary opacities, slightly improved on the right CXR 11/17/19 IMPRESSION:Increased bilateral pulmonary opacities. Impression . IMPRESSION: 1. Acute hypoxemic respiratory failure secondary to COVID-19 viral pneumonia.-- intubated/ongoing 2. COVID-19 viral pneumonia. 3. Acute respiratory distress syndrome. 4. Leukocytosis-- ongoing 5. History of systemic lupus erythematosus. 6. Raynaud's. Plan . Continue current ventilatory support patient is currently on 70% and a PEEP of 8, no additional changes ABG reviewed Chest x-ray and ABG Continue empiric antibiotics per ID Status post convalescent plasma, finished course of remdesivir Continue dexamethasone Continue tube feeding for nutritional support Follow clinical course DVT/GI prophylaxis: lovenox/pepcid Discussed with RN and RT Critical care time start at 0600AM to 0635AM MANJULA NARAYAN MD Nov 18, 2019 10:17
[2019-11-18] MEDS: cefTRIAXone IV Push 2 GM VIAL. IVP SCH (10:30)
--- NOTE | 2019-11-18 13:36 | PDOC ---
[facility] PROGRESS NOTE Date of Service DOS: DATE: 11/18/19 TIME: 13:33 Chief Complaint Chief Complaint A/P: Acute hypoxemic respiratory failure secondary to COVID-19 infection COVID-19 pneumonia Leukocytosis secondary to the above Microcytic anemia Hyponatremia Severe protein calorie malnutrition Plan Supportive measures Ventilatory support as per pulmonology clinical documentation consultant OG tube for nutrition Vitamin C vitamin D and zinc Continue steroids Broad-spectrum antibiotics as per ID clinical documentation consultant Further recommendations based on the clinical course DVT prophylaxis: Patient will be fully anticoagulated History of Present Illness History of Present Illness Ms Galicia is a 69-year-old female with past medical history of asthma Raynaud's phenomenon syncope history of systemic lupus erythematosus was in her usual state of health until couple days prior to her visit to the ER when she was diagnosed with COVID-19. Apparently the patient had attended a wedding and most likely is where they contracted the disease. Her is at our institution on the ventilator as well as reported by nursing staff. The patient at the time my evaluation is on mechanical ventilation and sedated. Most of this is from review of outside facility documentation. Bill the patient had described in the review of systems at the outside facility that she had some altered taste in her mouth she did not have any headache visual changes blurred vision double vision she did have some shortness of breath and chest discomfort in her chest whenever she took a deep breath otherwise no other complaints she did not have any diarrhea abdominal pain no neurological deficits were reported. Patient is being admitted for further evaluation and treatment 11/11: Patient requiring paralytics noted to allow vent to be synchronized with the patient is breathing. Critically ill. Remdesivir experimental therapy initiated 11/12: On vent, critically ill 11/13: Patient with no acute events reported overnight, patient seems better on the vent today. Prognosis guarded. 11/14: Patient remains hemodynamically stable still requiring quite a bit of ventilatory support with 8 of PEEP and FiO2 of 80% she had convalescent plasma. 11/15: On vent, critically ill. 11/16: On Vent, sedated. FiO2 80%, PEEP 8. On day 6 remdesivir. WBC 12.3, Hb 7.4 Sedated on vent FiO2 70%, PEEP 8. Status post room to severe and convalescent plasma. Afebrile. Unfortunately her her on 11/17/2019. Vitals/I&O Vitals/I&O: Vital Signs Date Time Temp Pulse Resp B/P (MAP) Pulse Ox O2 Delivery O2 Flow Rate FiO2 11/18/19 13:18 93 Ventilator 11/18/19 13:00 36 24 107/61 (76) 11/18/19 12:00 98.5 98.5 I & O 11/17/19 11/17/19 11/18/19 15:00 23:00 07:00 Intake Total 300 ml 2552 ml 1982 ml Output Total 775 ml 875 ml 675 ml Balance -475 ml 1677 ml 1307 ml Physical Exam Physical Exam: GENERAL: Intubated, sedated on mechanical ventilation. HEENT: Normocephalic, atraumatic. Anicteric. NG tube present NECK: Supple. Right IJ line looks clean. LUNGS: Coarse breath sounds bilaterally. No wheezing. HEART: S1, S2 present. No murmurs. ABDOMEN: Soft, nontender, positive bowel sounds. EXTREMITIES: No edema, no cyanosis. DERMATOLOGIC: Warm and dry. No generalized rash. NEUROLOGIC: Sedated. PSYCHIATRIC: Unable to assess. Labs Labs: Laboratory Tests Test 11/18/19 05:29 11/18/19 08:00 Glucose (Fingerstick) 141 mg/dL (70-99) O2 Saturation 91 % (92-99) Arterial Blood pH 7.39 (7.35-7.45) Arterial Blood pCO2 at Patient Temp 38 mmHg (35-46) Arterial Blood pO2 at Patient Temp 67 mmHg (65-108) Arterial Blood HCO3 23 mmol/L (21-28) Arterial Blood Base Excess -2 mmol/L (-3-3) FiO2 60 Comment Review of Relevant I have reviewed the following items clive (where applicable) has been applied. Justifications for Admission Other Justification HANY AMIN MD Nov 18, 2019 13:36
[2019-11-18] MEDS: REMDESIVIR 100mg in NORMAL SALINE 250ML X 9 DAYS IV SCH (15:50)
--- NOTE | 2019-11-18 15:53 | NUR ---
SS following up with discharge planning. SS reviewed pt chart and discussed with pt RN. Pt remains on the vent at this time at 70%. Pt on IV Rocephin. COVID19 positive. SS will continue to follow for discharge planning.
[2019-11-19] VITALS (24 sets, daily range): BP systolic 94–140; BP diastolic 48–83
[2019-11-19] MEDS: VECURONIUM BOLUS 10 MG VIAL. IV PRN (02:31)
[2019-11-19] MEDS: ASCORBIC ACID 500 MG TABLET PO SCH ×3 (05:12→18:00)
[2019-11-19] MEDS: LEVOTHYROXINE 100 MCG TABLET PO SCH (05:12)
[2019-11-19] MEDS: HALOPERIDOL LACTATE 5 MG/ML VIAL. IVP SCH (05:13)
[2019-11-19 05:50] LABS: ALBUMIN 1.7 g/dL (3.4-5.0); ALBUMIN/GLOBULIN RATIO 0.5 (1.0-1.7); CALCIUM 7.7 mg/dL (8.5-10.1); CREATININE 0.7 mg/dL (0.6-1.0); GFR 83.2; POTASSIUM 5.1 mmol/L (3.5-5.1); TOTAL BILIRUBIN 0.1 mg/dL (0.2-1.0); TOTAL PROTEIN 4.9 g/dL (6.4-8.2)
[2019-11-19 06:41] LABS: BASO % 0 % (0-3); EOS % 0 % (0-3); HEMATOCRIT 24.1 % (36.0-47.0); HEMOGLOBIN 7.4 g/dL (12.0-15.5); LYMPH # 0.9 x10^3/uL (1.0-4.8); LYMPH % 6 % (24-48); MEAN CORPUSCULAR HEMOGLOBIN 25 pg (25-35); MEAN CORPUSCULAR HGB CONC 31 g/dL (31-37); MEAN CORPUSCULAR VOLUME 80 fL (79-100); MONO # 1.5 x10^3/uL (0.0-1.1); MONO % 10 % (0-9); NEUT # 13.1 x10^3/uL (1.8-7.7); NEUT % 84 % (31-73); PLATELET COUNT 336 x10^3/uL (140-400); RED CELL DISTRIBUTION WIDTH 16.7 % (11.5-14.5); WHITE BLOOD COUNT 15.6 x10^3/uL (4.0-11.0)
--- NOTE | 2019-11-19 07:11 | PDOC ---
Infectious Disease Note Subjective Subjective Pt intubated and sedated ROS ROS no n/v/d/ Vital Sign Vital Signs Vital Signs Date Time Temp Pulse Resp B/P (MAP) Pulse Ox O2 Delivery O2 Flow Rate FiO2 11/19/19 06:00 34 24 106/55 (72) 95 Ventilator 11/19/19 04:00 98.0 98.0 Physical Exam PHYSICAL EXAM GENERAL: Intubated, sedated on mechanical ventilation. HEENT: Normocephalic, atraumatic. Anicteric. NG tube present NECK: Supple. Right IJ line looks clean. LUNGS: Coarse breath sounds bilaterally. No wheezing. HEART: S1, S2 present. No murmurs. ABDOMEN: Soft, nontender, positive bowel sounds. EXTREMITIES: No edema, no cyanosis. DERMATOLOGIC: Warm and dry. No generalized rash. NEUROLOGIC: Sedated. PSYCHIATRIC: Unable to assess. Labs Lab Laboratory Tests Test 11/18/19 08:00 11/19/19 05:05 O2 Saturation 91 % (92-99) Arterial Blood pH 7.39 (7.35-7.45) Arterial Blood pCO2 at Patient Temp 38 mmHg (35-46) Arterial Blood pO2 at Patient Temp 67 mmHg (65-108) Arterial Blood HCO3 23 mmol/L (21-28) Arterial Blood Base Excess -2 mmol/L (-3-3) FiO2 60 White Blood Count 15.6 x10^3/uL (4.0-11.0) Red Blood Count 3.00 x10^6/uL (3.50-5.40) Hemoglobin 7.4 g/dL (12.0-15.5) Hematocrit 24.1 % (36.0-47.0) Mean Corpuscular Volume 80 fL (79-100) Mean Corpuscular Hemoglobin 25 pg (25-35) Mean Corpuscular Hemoglobin Concent 31 g/dL (31-37) Red Cell Distribution Width 16.7 % (11.5-14.5) Platelet Count 336 x10^3/uL (140-400) Neutrophils (%) (Auto) 84 % (31-73) Lymphocytes (%) (Auto) 6 % (24-48) Monocytes (%) (Auto) 10 % (0-9) Eosinophils (%) (Auto) 0 % (0-3) Basophils (%) (Auto) 0 % (0-3) Neutrophils # (Auto) 13.1 x10^3/uL (1.8-7.7) Lymphocytes # (Auto) 0.9 x10^3/uL (1.0-4.8) Monocytes # (Auto) 1.5 x10^3/uL (0.0-1.1) Eosinophils # (Auto) 0.0 x10^3/uL (0.0-0.7) Basophils # (Auto) 0.0 x10^3/uL (0.0-0.2) Sodium Level 141 mmol/L (136-145) Potassium Level 5.1 mmol/L (3.5-5.1) Chloride Level 107 mmol/L (98-107) Carbon Dioxide Level 29 mmol/L (21-32) Anion Gap 5 (6-14) Blood Urea Nitrogen 33 mg/dL (7-20) Creatinine 0.7 mg/dL (0.6-1.0) Estimated GFR (Cockcroft-Gault) 83.2 BUN/Creatinine Ratio 47 (6-20) Glucose Level 182 mg/dL (70-99) Calcium Level 7.7 mg/dL (8.5-10.1) Total Bilirubin 0.1 mg/dL (0.2-1.0) Aspartate Amino Transf (AST/SGOT) 15 U/L (15-37) Alanine Aminotransferase (ALT/SGPT) 19 U/L (14-59) Alkaline Phosphatase 57 U/L (46-116) Total Protein 4.9 g/dL (6.4-8.2) Albumin 1.7 g/dL (3.4-5.0) Albumin/Globulin Ratio 0.5 (1.0-1.7) Objective Assessment 1. COVID-19 pneumonia. 2. Acute hypoxic respiratory failure, status post intubation. 3. Leukocytosis, likely from steroids. 4. Asthma. 5. History of systemic lupus erythematosus. 6. History of Raynaud's. 7. PCN,Sulfa and Clindamycin allergies per pharmacy pt has tolerated ceftriaxone well in the past 8. Bradycardia likely from sedation Plan Plan of Care Continue supportive care. On steroids Continue ceftriaxone November 14, 2019, was on Levaquin and IV Levaquin Remdesivir 11/10 Status post convalescent plasma Follow up labs and cultures. On steroids. Critically ill Discussed with nursing staff. APRYL ARBOLEDA MD Nov 19, 2019 07:11
--- NOTE | 2019-11-19 07:12 | RAD ---
EXAM: CHEST AP ONLY 11/19/2019 5:00 AM CLINICAL INDICATION:Covid COMPARISON:Chest radiograph 11/17/2019 TECHNIQUE:AP semiupright chest radiograph FINDINGS:The endotracheal tube terminates low, 1 cm above the gisela. A right IJ catheter is unchanged with tip in the right atrium. An NG tube terminates high in the gastric fundus, with the sidehole likely in the distal esophagus. Cardiomegaly is unchanged. Extensive patchy bilateral pulmonary opacities are redemonstrated. These have minimally decreased in the right lung base. No large pleural effusion or pneumothorax. IMPRESSION: 1. Low termination of endotracheal tube. Recommend retracting 2 cm. 2. Minimally decreased opacities in the right lung base. Otherwise unchanged bilateral opacities.. Electronically signed by: Nicole Bernabe MD (11/19/2019 7:10 AM) [id number]
[2019-11-19 08:52] LABS: BASE EXCESS ABG 0 mmol/L (-3-3); HCO3 ABG 23 mmol/L (21-28); PCO2 ABG 33 mmHg (35-46); PO2 ABG 72 mmHg (65-108); SAT O2 ABG 94 % (92-99)
--- NOTE | 2019-11-19 09:00 | NUR ---
Pt does not tolerate full turns-- drops oxygen and takes awhile to recover. Rotation therapy initiated to turn pt 50% every 30 minutes.
[2019-11-19 09:10] LABS: FIO2 ABG 70% VENT
[2019-11-19] MEDS: CITALOPRAM 20 MG TABLET. PO SCH (09:14)
[2019-11-19] MEDS: ZINC SULFATE 220 MG CAPSULE. PO SCH (09:14)
[2019-11-19] MEDS: FAMOTIDINE 20 MG/2 ML VIAL IVP SCH ×2 (09:14→21:01)
[2019-11-19] MEDS: DEXAMETHASONE SOD PHOS 4 MG/ML VIAL IVP SCH (09:14)
[2019-11-19] MEDS: CHOLECALCIFEROL (VITAMIN D3) 1,000 UNIT TABLET PO SCH (09:14)
[2019-11-19] MEDS: ENOXAPARIN 40 MG/0.4 ML SYRINGE. SQ SCH ×2 (09:15→21:01)
--- NOTE | 2019-11-19 09:30 | PDOC ---
[employer] [facility] PROGRESS NOTE Date of Service DOS: DATE: 11/19/19 TIME: 09:29 Chief Complaint Chief Complaint A/P: Acute hypoxemic respiratory failure secondary to COVID-19 infection COVID-19 pneumonia Leukocytosis secondary to the above Microcytic anemia Hyponatremia Severe protein calorie malnutrition Plan Supportive measures Ventilatory support as per pulmonology sap payroll consultant OG tube for nutrition Vitamin C vitamin D and zinc Continue steroids Broad-spectrum antibiotics as per ID sap payroll consultant Further recommendations based on the clinical course DVT prophylaxis: Patient will be fully anticoagulated History of Present Illness History of Present Illness Ms Galicia is a 69-year-old female with past medical history of asthma Raynaud's phenomenon syncope history of systemic lupus erythematosus was in her usual state of health until couple days prior to her visit to the ER when she was diagnosed with COVID-19. Apparently the patient had attended a wedding and most likely is where they contracted the disease. Her is at our institution on the ventilator as well as reported by nursing staff. The patient at the time my evaluation is on mechanical ventilation and sedated. Most of this is from review of outside facility documentation. Bill the patient had described in the review of systems at the outside facility that she had some altered taste in her mouth she did not have any headache visual changes blurred vision double vision she did have some shortness of breath and chest discomfort in her chest whenever she took a deep breath otherwise no other complaints she did not have any diarrhea abdominal pain no neurological deficits were reported. Patient is being admitted for further evaluation and treatment 11/11: Patient requiring paralytics noted to allow vent to be synchronized with the patient is breathing. Critically ill. Remdesivir experimental therapy initiated 11/12: On vent, critically ill 11/13: Patient with no acute events reported overnight, patient seems better on the vent today. Prognosis guarded. 11/14: Patient remains hemodynamically stable still requiring quite a bit of ventilatory support with 8 of PEEP and FiO2 of 80% she had convalescent plasma. 11/15: On vent, critically ill. 11/16: On Vent, sedated. FiO2 80%, PEEP 8. On day 6 remdesivir. WBC 12.3, Hb 7.4 11/17: Sedated on vent FiO2 70%, PEEP 8. Status post remdesivir and convalescent plasma. Afebrile. Unfortunately her her on 11/17/2019. Sedated on vent AC mode FiO2 70% PEEP of 8. Afebrile. Good urine output. ABG with pH 7.47. WBC 15.6. Vitals/I&O Vitals/I&O: Vital Signs Date Time Temp Pulse Resp B/P (MAP) Pulse Ox O2 Delivery O2 Flow Rate FiO2 11/19/19 08:45 95 Ventilator 11/19/19 07:00 36 24 107/54 (71) 11/19/19 04:00 98.0 98.0 I & O 11/18/19 11/18/19 11/19/19 14:59 22:59 06:59 Intake Total 300 ml 2533 ml 1941 ml Output Total 930 ml 855 ml 825 ml Balance -630 ml 1678 ml 1116 ml Physical Exam Physical Exam: GENERAL: Intubated, sedated on mechanical ventilation. HEENT: Normocephalic, atraumatic. Anicteric. NG tube present NECK: Supple. Right IJ line looks clean. LUNGS: Coarse breath sounds bilaterally. No wheezing. HEART: S1, S2 present. No murmurs. ABDOMEN: Soft, nontender, positive bowel sounds. EXTREMITIES: No edema, no cyanosis. DERMATOLOGIC: Warm and dry. No generalized rash. NEUROLOGIC: Sedated. PSYCHIATRIC: Unable to assess. Labs Labs: Laboratory Tests Test 11/19/19 05:05 11/19/19 08:45 White Blood Count 15.6 x10^3/uL (4.0-11.0) Red Blood Count 3.00 x10^6/uL (3.50-5.40) Hemoglobin 7.4 g/dL (12.0-15.5) Hematocrit 24.1 % (36.0-47.0) Mean Corpuscular Volume 80 fL (79-100) Mean Corpuscular Hemoglobin 25 pg (25-35) Mean Corpuscular Hemoglobin Concent 31 g/dL (31-37) Red Cell Distribution Width 16.7 % (11.5-14.5) Platelet Count 336 x10^3/uL (140-400) Neutrophils (%) (Auto) 84 % (31-73) Lymphocytes (%) (Auto) 6 % (24-48) Monocytes (%) (Auto) 10 % (0-9) Eosinophils (%) (Auto) 0 % (0-3) Basophils (%) (Auto) 0 % (0-3) Neutrophils # (Auto) 13.1 x10^3/uL (1.8-7.7) Lymphocytes # (Auto) 0.9 x10^3/uL (1.0-4.8) Monocytes # (Auto) 1.5 x10^3/uL (0.0-1.1) Eosinophils # (Auto) 0.0 x10^3/uL (0.0-0.7) Basophils # (Auto) 0.0 x10^3/uL (0.0-0.2) Sodium Level 141 mmol/L (136-145) Potassium Level 5.1 mmol/L (3.5-5.1) Chloride Level 107 mmol/L (98-107) Carbon Dioxide Level 29 mmol/L (21-32) Anion Gap 5 (6-14) Blood Urea Nitrogen 33 mg/dL (7-20) Creatinine 0.7 mg/dL (0.6-1.0) Estimated GFR (Cockcroft-Gault) 83.2 BUN/Creatinine Ratio 47 (6-20) Glucose Level 182 mg/dL (70-99) Calcium Level 7.7 mg/dL (8.5-10.1) Total Bilirubin 0.1 mg/dL (0.2-1.0) Aspartate Amino Transf (AST/SGOT) 15 U/L (15-37) Alanine Aminotransferase (ALT/SGPT) 19 U/L (14-59) Alkaline Phosphatase 57 U/L (46-116) Total Protein 4.9 g/dL (6.4-8.2) Albumin 1.7 g/dL (3.4-5.0) Albumin/Globulin Ratio 0.5 (1.0-1.7) O2 Saturation 94 % (92-99) Arterial Blood pH 7.47 (7.35-7.45) Arterial Blood pCO2 at Patient Temp 33 mmHg (35-46) Arterial Blood pO2 at Patient Temp 72 mmHg (65-108) Arterial Blood HCO3 23 mmol/L (21-28) Arterial Blood Base Excess 0 mmol/L (-3-3) FiO2 70% vent Comment Review of Relevant I have reviewed the following items clive (where applicable) has been applied. Justifications for Admission Other Justification HANY AMIN MD Nov 19, 2019 09:30
[2019-11-19] MEDS: IV NORMAL SALINE 1000ML BAG 1,000 ML IV SCH (10:12)
[2019-11-19] MEDS: MIDAZOLAM 100mg/100ml NS BAG 100 ML IV PRN ×2 (10:36→22:11)
--- NOTE | 2019-11-19 10:36 | PDOC ---
PULMONARY PROGRESS NOTES DATE: 11/19/19 TIME: 10:33 Subjective Patient remains on mechanical ventilation a-febrile overnight No other concerns from nursing overnight Vitals Vital Signs Date Time Temp Pulse Resp B/P (MAP) Pulse Ox O2 Delivery O2 Flow Rate FiO2 11/19/19 08:45 95 Ventilator 11/19/19 07:00 36 24 107/54 (71) 11/19/19 04:00 98.0 98.0 Comments Patient seen doing the pandemic, visual exam, in sync with the ventilator, no increasing pedal edema, no paroxysmal breathing pattern. No obvious rash lucille on monitor Labs Laboratory Tests Test 11/18/19 05:29 11/18/19 08:00 11/19/19 05:05 11/19/19 08:45 Glucose (Fingerstick) 141 mg/dL (70-99) O2 Saturation 91 % (92-99) 94 % (92-99) Arterial Blood pH 7.39 (7.35-7.45) 7.47 (7.35-7.45) Arterial Blood pCO2 at Patient Temp 38 mmHg (35-46) 33 mmHg (35-46) Arterial Blood pO2 at Patient Temp 67 mmHg (65-108) 72 mmHg (65-108) Arterial Blood HCO3 23 mmol/L (21-28) 23 mmol/L (21-28) Arterial Blood Base Excess -2 mmol/L (-3-3) 0 mmol/L (-3-3) FiO2 60 70% vent White Blood Count 15.6 x10^3/uL (4.0-11.0) Red Blood Count 3.00 x10^6/uL (3.50-5.40) Hemoglobin 7.4 g/dL (12.0-15.5) Hematocrit 24.1 % (36.0-47.0) Mean Corpuscular Volume 80 fL (79-100) Mean Corpuscular Hemoglobin 25 pg (25-35) Mean Corpuscular Hemoglobin Concent 31 g/dL (31-37) Red Cell Distribution Width 16.7 % (11.5-14.5) Platelet Count 336 x10^3/uL (140-400) Neutrophils (%) (Auto) 84 % (31-73) Lymphocytes (%) (Auto) 6 % (24-48) Monocytes (%) (Auto) 10 % (0-9) Eosinophils (%) (Auto) 0 % (0-3) Basophils (%) (Auto) 0 % (0-3) Neutrophils # (Auto) 13.1 x10^3/uL (1.8-7.7) Lymphocytes # (Auto) 0.9 x10^3/uL (1.0-4.8) Monocytes # (Auto) 1.5 x10^3/uL (0.0-1.1) Eosinophils # (Auto) 0.0 x10^3/uL (0.0-0.7) Basophils # (Auto) 0.0 x10^3/uL (0.0-0.2) Sodium Level 141 mmol/L (136-145) Potassium Level 5.1 mmol/L (3.5-5.1) Chloride Level 107 mmol/L (98-107) Carbon Dioxide Level 29 mmol/L (21-32) Anion Gap 5 (6-14) Blood Urea Nitrogen 33 mg/dL (7-20) Creatinine 0.7 mg/dL (0.6-1.0) Estimated GFR (Cockcroft-Gault) 83.2 BUN/Creatinine Ratio 47 (6-20) Glucose Level 182 mg/dL (70-99) Calcium Level 7.7 mg/dL (8.5-10.1) Total Bilirubin 0.1 mg/dL (0.2-1.0) Aspartate Amino Transf (AST/SGOT) 15 U/L (15-37) Alanine Aminotransferase (ALT/SGPT) 19 U/L (14-59) Alkaline Phosphatase 57 U/L (46-116) Total Protein 4.9 g/dL (6.4-8.2) Albumin 1.7 g/dL (3.4-5.0) Albumin/Globulin Ratio 0.5 (1.0-1.7) Laboratory Tests Test 11/19/19 05:05 11/19/19 08:45 White Blood Count 15.6 x10^3/uL (4.0-11.0) Red Blood Count 3.00 x10^6/uL (3.50-5.40) Hemoglobin 7.4 g/dL (12.0-15.5) Hematocrit 24.1 % (36.0-47.0) Mean Corpuscular Volume 80 fL (79-100) Mean Corpuscular Hemoglobin 25 pg (25-35) Mean Corpuscular Hemoglobin Concent 31 g/dL (31-37) Red Cell Distribution Width 16.7 % (11.5-14.5) Platelet Count 336 x10^3/uL (140-400) Neutrophils (%) (Auto) 84 % (31-73) Lymphocytes (%) (Auto) 6 % (24-48) Monocytes (%) (Auto) 10 % (0-9) Eosinophils (%) (Auto) 0 % (0-3) Basophils (%) (Auto) 0 % (0-3) Neutrophils # (Auto) 13.1 x10^3/uL (1.8-7.7) Lymphocytes # (Auto) 0.9 x10^3/uL (1.0-4.8) Monocytes # (Auto) 1.5 x10^3/uL (0.0-1.1) Eosinophils # (Auto) 0.0 x10^3/uL (0.0-0.7) Basophils # (Auto) 0.0 x10^3/uL (0.0-0.2) Sodium Level 141 mmol/L (136-145) Potassium Level 5.1 mmol/L (3.5-5.1) Chloride Level 107 mmol/L (98-107) Carbon Dioxide Level 29 mmol/L (21-32) Anion Gap 5 (6-14) Blood Urea Nitrogen 33 mg/dL (7-20) Creatinine 0.7 mg/dL (0.6-1.0) Estimated GFR (Cockcroft-Gault) 83.2 BUN/Creatinine Ratio 47 (6-20) Glucose Level 182 mg/dL (70-99) Calcium Level 7.7 mg/dL (8.5-10.1) Total Bilirubin 0.1 mg/dL (0.2-1.0) Aspartate Amino Transf (AST/SGOT) 15 U/L (15-37) Alanine Aminotransferase (ALT/SGPT) 19 U/L (14-59) Alkaline Phosphatase 57 U/L (46-116) Total Protein 4.9 g/dL (6.4-8.2) Albumin 1.7 g/dL (3.4-5.0) Albumin/Globulin Ratio 0.5 (1.0-1.7) O2 Saturation 94 % (92-99) Arterial Blood pH 7.47 (7.35-7.45) Arterial Blood pCO2 at Patient Temp 33 mmHg (35-46) Arterial Blood pO2 at Patient Temp 72 mmHg (65-108) Arterial Blood HCO3 23 mmol/L (21-28) Arterial Blood Base Excess 0 mmol/L (-3-3) FiO2 70% vent Medications Active Scripts Medications Dose Route/Sig Max Daily Dose Days Date Category Tramadol Hcl 50 Mg Tablet 50 Mg PO Q8HRS PRN 11/11/19 Reported Carafate (Sucralfate) 1 Gm Tablet 1 Gm PO TIDACHC 11/11/19 Reported Prednisone (Prednisone) 10 Mg Tablet 10 Mg PO DAILY 11/11/19 Reported Pantoprazole Sodium (Pantoprazole Sodium) 40 Mg Tablet.dr 40 Mg PO BIDAC 11/11/19 Reported Zofran (Ondansetron Hcl) 4 Mg Tablet 1 Tab PO Q8HRS 11/11/19 Reported Nifedipine Er (Nifedipine) 30 Mg Tablet.er 30 Mg PO DAILY 11/11/19 Reported Methylprednisolone 4 Mg Tab.ds.pk 4 Mg PO DAILY 11/11/19 Reported Metformin Hcl 1,000 Mg Tablet 1,000 Mg PO BIDWMEALS 11/11/19 Reported Levothyroxine Sodium 100 Mcg Tablet 100 Mcg PO DAILYAC 11/11/19 Reported Famotidine 20 Mg Tablet 20 Mg PO BID 11/11/19 Reported Celexa (Citalopram Hydrobromide) 40 Mg Tablet 40 Mg PO DAILY 11/11/19 Reported Evoxac (Cevimeline Hcl) 30 Mg Capsule 30 Mg PO TID 11/11/19 Reported Comments cxr 11/18 1. Low termination of endotracheal tube. Recommend retracting 2 cm. 2. Minimally decreased opacities in the right lung base. Otherwise unchanged bilateral opacities.. Electronically signed by: Nicole Bernabe MD (11/19/2019 7:10 AM) [id number] Impression . IMPRESSION: 1. Acute hypoxemic respiratory failure secondary to COVID-19 viral pneumonia.-- AC mode 2. COVID-19 viral pneumonia. 3. Acute respiratory distress syndrome. 4. Leukocytosis-- ongoing 5. History of systemic lupus erythematosus. 6. Raynaud's. 7. Abnormal cxr with bilateral infiltrates, mild improvement. Plan . Continue current ventilatory support patient is currently on 70% and a PEEP of 8, no additional changes ABG reviewed Chest x-ray and ABG reviewed. will pull back ET tube today Continue empiric antibiotics per ID Status post convalescent plasma, finished course of remdesivir Continue dexamethasone Continue tube feeding for nutritional support Follow clinical course DVT/GI prophylaxis: lovenox/pepcid Discussed with RN and RT prognosis guarded Critical care time start at 0700AM to 7.30AM MANJULA NARAYAN MD Nov 19, 2019 10:36
[2019-11-19] MEDS: cefTRIAXone IV Push 2 GM VIAL. IVP SCH (11:02)
[2019-11-19] MEDS: REMDESIVIR 100mg in NORMAL SALINE 250ML X 9 DAYS IV SCH (15:45)
[2019-11-19] MEDS: fentaNYL HIGH DOSE PCA 55 ML IV PRN (18:40)
[2019-11-20] VITALS (24 sets, daily range): BP systolic 98–121; BP diastolic 51–66
[2019-11-20] MEDS: ASCORBIC ACID 500 MG TABLET PO SCH ×4 (00:13→18:03)
[2019-11-20] MEDS: IV NORMAL SALINE 1000ML BAG 1,000 ML IV SCH ×2 (00:14→18:03)
[2019-11-20] MEDS: LEVOTHYROXINE 100 MCG TABLET PO SCH (05:36)
--- NOTE | 2019-11-20 07:43 | PDOC ---
Infectious Disease Note Subjective Subjective Pt intubated and sedated ROS ROS Unable to do Vital Sign Vital Signs Vital Signs Date Time Temp Pulse Resp B/P (MAP) Pulse Ox O2 Delivery O2 Flow Rate FiO2 11/20/19 06:00 39 23 100/59 (73) 89 Ventilator 11/20/19 04:00 98.3 98.3 Physical Exam PHYSICAL EXAM GENERAL: Intubated, sedated on mechanical ventilation. HEENT: Normocephalic, atraumatic. Anicteric. NG tube present NECK: Supple. Right IJ line looks clean. LUNGS: Coarse breath sounds bilaterally. No wheezing. HEART: S1, S2 present. No murmurs. ABDOMEN: Soft, nontender, positive bowel sounds. EXTREMITIES: No edema, no cyanosis. DERMATOLOGIC: Warm and dry. No generalized rash. NEUROLOGIC: Sedated. PSYCHIATRIC: Unable to assess. Labs Lab Laboratory Tests Test 11/19/19 08:45 O2 Saturation 94 % (92-99) Arterial Blood pH 7.47 (7.35-7.45) Arterial Blood pCO2 at Patient Temp 33 mmHg (35-46) Arterial Blood pO2 at Patient Temp 72 mmHg (65-108) Arterial Blood HCO3 23 mmol/L (21-28) Arterial Blood Base Excess 0 mmol/L (-3-3) FiO2 70% vent Objective Assessment 1. COVID-19 pneumonia. 2. Acute hypoxic respiratory failure, status post intubation. 3. Leukocytosis, likely from steroids. 4. Asthma. 5. History of systemic lupus erythematosus. 6. History of Raynaud's. 7. PCN,Sulfa and Clindamycin allergies per pharmacy pt has tolerated ceftriaxone well in the past 8. Bradycardia likely from sedation Plan Plan of Care Continue supportive care. On steroids Continue ceftriaxone November 14, 2019, was on Levaquin and IV Levaquin Remdesivir 11/10 Status post convalescent plasma Follow up labs and cultures. On steroids. Critically ill Discussed with nursing staff. APRYL ARBOLEDA MD Nov 20, 2019 07:43
[2019-11-20] MEDS: MIDAZOLAM 100mg/100ml NS BAG 100 ML IV PRN ×2 (08:43→20:31)
[2019-11-20] MEDS: ZINC SULFATE 220 MG CAPSULE. PO SCH (08:44)
[2019-11-20] MEDS: CHOLECALCIFEROL (VITAMIN D3) 1,000 UNIT TABLET PO SCH (08:44)
[2019-11-20] MEDS: CITALOPRAM 20 MG TABLET. PO SCH (08:44)
[2019-11-20] MEDS: ENOXAPARIN 40 MG/0.4 ML SYRINGE. SQ SCH ×2 (08:44→20:42)
[2019-11-20] MEDS: DEXAMETHASONE SOD PHOS 4 MG/ML VIAL IVP SCH (08:44)
[2019-11-20] MEDS: FAMOTIDINE 20 MG/2 ML VIAL IVP SCH ×2 (08:44→20:42)
[2019-11-20 08:54] LABS: BASE EXCESS ABG 2 mmol/L (-3-3); HCO3 ABG 26 mmol/L (21-28); PCO2 ABG 35 mmHg (35-46); PO2 ABG 73 mmHg (65-108); SAT O2 ABG 95 % (92-99)
[2019-11-20] MEDS: cefTRIAXone IV Push 2 GM VIAL. IVP SCH (10:30)
[2019-11-20 10:58] LABS: FIO2 ABG 70
--- NOTE | 2019-11-20 11:24 | PDOC ---
PULMONARY PROGRESS NOTES DATE: 11/20/19 TIME: 11:22 Subjective Patient remains on mechanical ventilation a-febrile overnight No other concerns from nursing overnight Vitals Vital Signs Date Time Temp Pulse Resp B/P (MAP) Pulse Ox O2 Delivery O2 Flow Rate FiO2 11/20/19 10:00 36 24 105/51 (69) 95 Ventilator 11/20/19 08:00 98.7 98.7 Comments Patient seen doing the ID- pandemic, visual exam, in sync with the ventilator, no increasing pedal edema, no paroxysmal breathing pattern. No obvious rash lucille on monitor Labs Laboratory Tests Test 11/19/19 05:05 11/19/19 08:45 11/20/19 08:45 White Blood Count 15.6 x10^3/uL (4.0-11.0) Red Blood Count 3.00 x10^6/uL (3.50-5.40) Hemoglobin 7.4 g/dL (12.0-15.5) Hematocrit 24.1 % (36.0-47.0) Mean Corpuscular Volume 80 fL (79-100) Mean Corpuscular Hemoglobin 25 pg (25-35) Mean Corpuscular Hemoglobin Concent 31 g/dL (31-37) Red Cell Distribution Width 16.7 % (11.5-14.5) Platelet Count 336 x10^3/uL (140-400) Neutrophils (%) (Auto) 84 % (31-73) Lymphocytes (%) (Auto) 6 % (24-48) Monocytes (%) (Auto) 10 % (0-9) Eosinophils (%) (Auto) 0 % (0-3) Basophils (%) (Auto) 0 % (0-3) Neutrophils # (Auto) 13.1 x10^3/uL (1.8-7.7) Lymphocytes # (Auto) 0.9 x10^3/uL (1.0-4.8) Monocytes # (Auto) 1.5 x10^3/uL (0.0-1.1) Eosinophils # (Auto) 0.0 x10^3/uL (0.0-0.7) Basophils # (Auto) 0.0 x10^3/uL (0.0-0.2) Sodium Level 141 mmol/L (136-145) Potassium Level 5.1 mmol/L (3.5-5.1) Chloride Level 107 mmol/L (98-107) Carbon Dioxide Level 29 mmol/L (21-32) Anion Gap 5 (6-14) Blood Urea Nitrogen 33 mg/dL (7-20) Creatinine 0.7 mg/dL (0.6-1.0) Estimated GFR (Cockcroft-Gault) 83.2 BUN/Creatinine Ratio 47 (6-20) Glucose Level 182 mg/dL (70-99) Calcium Level 7.7 mg/dL (8.5-10.1) Total Bilirubin 0.1 mg/dL (0.2-1.0) Aspartate Amino Transf (AST/SGOT) 15 U/L (15-37) Alanine Aminotransferase (ALT/SGPT) 19 U/L (14-59) Alkaline Phosphatase 57 U/L (46-116) Total Protein 4.9 g/dL (6.4-8.2) Albumin 1.7 g/dL (3.4-5.0) Albumin/Globulin Ratio 0.5 (1.0-1.7) O2 Saturation 94 % (92-99) 95 % (92-99) Arterial Blood pH 7.47 (7.35-7.45) 7.48 (7.35-7.45) Arterial Blood pCO2 at Patient Temp 33 mmHg (35-46) 35 mmHg (35-46) Arterial Blood pO2 at Patient Temp 72 mmHg (65-108) 73 mmHg (65-108) Arterial Blood HCO3 23 mmol/L (21-28) 26 mmol/L (21-28) Arterial Blood Base Excess 0 mmol/L (-3-3) 2 mmol/L (-3-3) FiO2 70% vent 70 Laboratory Tests Test 11/20/19 08:45 O2 Saturation 95 % (92-99) Arterial Blood pH 7.48 (7.35-7.45) Arterial Blood pCO2 at Patient Temp 35 mmHg (35-46) Arterial Blood pO2 at Patient Temp 73 mmHg (65-108) Arterial Blood HCO3 26 mmol/L (21-28) Arterial Blood Base Excess 2 mmol/L (-3-3) FiO2 70 Medications Active Scripts Medications Dose Route/Sig Max Daily Dose Days Date Category Tramadol Hcl 50 Mg Tablet 50 Mg PO Q8HRS PRN 11/11/19 Reported Carafate (Sucralfate) 1 Gm Tablet 1 Gm PO TIDACHC 11/11/19 Reported Prednisone (Prednisone) 10 Mg Tablet 10 Mg PO DAILY 11/11/19 Reported Pantoprazole Sodium (Pantoprazole Sodium) 40 Mg Tablet.dr 40 Mg PO BIDAC 11/11/19 Reported Zofran (Ondansetron Hcl) 4 Mg Tablet 1 Tab PO Q8HRS 11/11/19 Reported Nifedipine Er (Nifedipine) 30 Mg Tablet.er 30 Mg PO DAILY 11/11/19 Reported Methylprednisolone 4 Mg Tab.ds.pk 4 Mg PO DAILY 11/11/19 Reported Metformin Hcl 1,000 Mg Tablet 1,000 Mg PO BIDWMEALS 11/11/19 Reported Levothyroxine Sodium 100 Mcg Tablet 100 Mcg PO DAILYAC 11/11/19 Reported Famotidine 20 Mg Tablet 20 Mg PO BID 11/11/19 Reported Celexa (Citalopram Hydrobromide) 40 Mg Tablet 40 Mg PO DAILY 11/11/19 Reported Evoxac (Cevimeline Hcl) 30 Mg Capsule 30 Mg PO TID 11/11/19 Reported Comments cxr 11/18 1. Low termination of endotracheal tube. Recommend retracting 2 cm. 2. Minimally decreased opacities in the right lung base. Otherwise unchanged bilateral opacities.. Electronically signed by: Nicole Bernabe MD (11/19/2019 7:10 AM) [id number] Impression . IMPRESSION: 1. Acute hypoxemic respiratory failure secondary to COVID-19 viral pneumonia.-- continue to require vent support 2. COVID-19 viral pneumonia. 3. Acute respiratory distress syndrome. 4. Leukocytosis-- ongoing 5. History of systemic lupus erythematosus. 6. Raynaud's. 7. Abnormal cxr with bilateral infiltrates, mild improvement. Plan . Continue current ventilatory support patient is currently on 70% and a PEEP of 8, no additional changes ABG reviewed Chest x-ray and ABG reviewed Continue empiric antibiotics per ID Status post convalescent plasma, finished course of remdesivir Continue dexamethasone, for ten day course Continue tube feeding for nutritional support Follow clinical course DVT/GI prophylaxis: lovenox/pepcid Discussed with RN and RT prognosis guarded Critical care time start at 1030AM to 1100AM, no overlap MANJULA NARAYAN MD Nov 20, 2019 11:24
--- NOTE | 2019-11-20 13:47 | PDOC ---
[employer] PROGRESS NOTE Date of Service DOS: DATE: 11/20/19 TIME: 13:46 Chief Complaint Chief Complaint A/P: Acute hypoxemic respiratory failure secondary to COVID-19 infection COVID-19 pneumonia Leukocytosis secondary to the above Microcytic anemia Hyponatremia Severe protein calorie malnutrition Plan Supportive measures Ventilatory support as per pulmonology solutions consultant OG tube for nutrition Vitamin C vitamin D and zinc Continue steroids Broad-spectrum antibiotics as per ID solutions consultant Further recommendations based on the clinical course DVT prophylaxis: Patient will be fully anticoagulated History of Present Illness History of Present Illness Ms Galicia is a 69-year-old female with past medical history of asthma Raynaud's phenomenon syncope history of systemic lupus erythematosus was in her usual state of health until couple days prior to her visit to the ER when she was diagnosed with COVID-19. Apparently the patient had attended a wedding and most likely is where they contracted the disease. Her is at our institution on the ventilator as well as reported by nursing staff. The patient at the time my evaluation is on mechanical ventilation and sedated. Most of this is from review of outside facility documentation. Bill the patient had described in the review of systems at the outside facility that she had some altered taste in her mouth she did not have any headache visual changes blurred vision double vision she did have some shortness of breath and chest discomfort in her chest whenever she took a deep breath otherwise no other complaints she did not have any diarrhea abdominal pain no neurological deficits were reported. Patient is being admitted for further evaluation and treatment 11/11: Patient requiring paralytics noted to allow vent to be synchronized with the patient is breathing. Critically ill. Remdesivir experimental therapy initiated 11/12: On vent, critically ill 11/13: Patient with no acute events reported overnight, patient seems better on the vent today. Prognosis guarded. 11/14: Patient remains hemodynamically stable still requiring quite a bit of ventilatory support with 8 of PEEP and FiO2 of 80% she had convalescent plasma. 11/15: On vent, critically ill. 11/16: On Vent, sedated. FiO2 80%, PEEP 8. On day 6 remdesivir. WBC 12.3, Hb 7.4 11/17: Sedated on vent FiO2 70%, PEEP 8. Status post remdesivir and convalescent plasma. Afebrile. Unfortunately her her on 11/17/2019. 11/18: Sedated on vent AC mode FiO2 70% PEEP of 8. Afebrile. Good urine output. ABG with pH 7.47. WBC 15.6. Afebrile. Sedated on vent AC mode FiO2 70% PEEP of 8. ABG reviewed pH 7.4., PCO2 35, PO2 78. Vitals/I&O Vitals/I&O: Vital Signs Date Time Temp Pulse Resp B/P (MAP) Pulse Ox O2 Delivery O2 Flow Rate FiO2 11/20/19 12:00 98.6 35 24 113/62 (79) 93 Ventilator 98.6 I & O 11/19/19 11/19/19 11/20/19 15:00 23:00 07:00 Intake Total 300 ml 2304 ml 2263.46 ml Output Total 895 ml 760 ml 775 ml Balance -595 ml 1544 ml 1488.46 ml Physical Exam Physical Exam: GENERAL: Intubated, sedated on mechanical ventilation. HEENT: Normocephalic, atraumatic. Anicteric. NG tube present NECK: Supple. Right IJ line looks clean. LUNGS: Coarse breath sounds bilaterally. No wheezing. HEART: S1, S2 present. No murmurs. ABDOMEN: Soft, nontender, positive bowel sounds. EXTREMITIES: No edema, no cyanosis. DERMATOLOGIC: Warm and dry. No generalized rash. NEUROLOGIC: Sedated. PSYCHIATRIC: Unable to assess. Labs Labs: Laboratory Tests Test 11/20/19 08:45 O2 Saturation 95 % (92-99) Arterial Blood pH 7.48 (7.35-7.45) Arterial Blood pCO2 at Patient Temp 35 mmHg (35-46) Arterial Blood pO2 at Patient Temp 73 mmHg (65-108) Arterial Blood HCO3 26 mmol/L (21-28) Arterial Blood Base Excess 2 mmol/L (-3-3) FiO2 70 Comment Review of Relevant I have reviewed the following items clive (where applicable) has been applied. Justifications for Admission Other Justification HANY AMIN MD Nov 20, 2019 13:47
[2019-11-20] MEDS: REMDESIVIR 100mg in NORMAL SALINE 250ML X 9 DAYS IV SCH (15:53)
[2019-11-20] MEDS: fentaNYL HIGH DOSE PCA 55 ML IV PRN (16:06)
[2019-11-21] VITALS (24 sets, daily range): BP systolic 100–123; BP diastolic 51–61
[2019-11-21] MEDS: ASCORBIC ACID 500 MG TABLET PO SCH ×5 (00:13→23:57)
[2019-11-21] MEDS: LEVOTHYROXINE 100 MCG TABLET PO SCH (05:09)
[2019-11-21 05:37] LABS: BASO % 0 % (0-3); EOS % 0 % (0-3); HEMATOCRIT 25.7 % (36.0-47.0); HEMOGLOBIN 7.9 g/dL (12.0-15.5); LYMPH # 1.1 x10^3/uL (1.0-4.8); LYMPH % 4 % (24-48); MEAN CORPUSCULAR HEMOGLOBIN 24 pg (25-35); MEAN CORPUSCULAR HGB CONC 31 g/dL (31-37); MEAN CORPUSCULAR VOLUME 79 fL (79-100); MONO # 1.8 x10^3/uL (0.0-1.1); MONO % 7 % (0-9); NEUT # 21.7 x10^3/uL (1.8-7.7); NEUT % 88 % (31-73); PLATELET COUNT 356 x10^3/uL (140-400); RED BLOOD COUNT 3.25 x10^6/uL (3.50-5.40); RED CELL DISTRIBUTION WIDTH 16.1 % (11.5-14.5); WHITE BLOOD COUNT 24.6 x10^3/uL (4.0-11.0)
[2019-11-21 05:55] LABS: ALBUMIN 1.8 g/dL (3.4-5.0); ALBUMIN/GLOBULIN RATIO 0.5 (1.0-1.7); CALCIUM 7.8 mg/dL (8.5-10.1); CREATININE 0.7 mg/dL (0.6-1.0); GFR 83.2; POTASSIUM 4.9 mmol/L (3.5-5.1); TOTAL BILIRUBIN 0.2 mg/dL (0.2-1.0); TOTAL PROTEIN 5.1 g/dL (6.4-8.2)
[2019-11-21] MEDS: MIDAZOLAM 100mg/100ml NS BAG 100 ML IV PRN ×3 (07:18→19:16)
--- NOTE | 2019-11-21 07:35 | PDOC ---
Infectious Disease Note Subjective Subjective Pt intubated and sedated ROS ROS No nausea vomiting Vital Sign Vital Signs Vital Signs Date Time Temp Pulse Resp B/P (MAP) Pulse Ox O2 Delivery O2 Flow Rate FiO2 11/21/19 06:00 36 24 100/54 (69) 96 Ventilator 11/21/19 04:00 98.8 98.8 Physical Exam PHYSICAL EXAM GENERAL: Intubated, sedated on mechanical ventilation. HEENT: Normocephalic, atraumatic. Anicteric. NG tube present NECK: Supple. Right IJ line looks clean. LUNGS: Coarse breath sounds bilaterally. No wheezing. HEART: S1, S2 present. No murmurs. ABDOMEN: Soft, nontender, positive bowel sounds. EXTREMITIES: No edema, no cyanosis. DERMATOLOGIC: Warm and dry. No generalized rash. NEUROLOGIC: Sedated. PSYCHIATRIC: Unable to assess. Labs Lab Laboratory Tests Test 11/20/19 08:45 11/21/19 05:10 O2 Saturation 95 % (92-99) Arterial Blood pH 7.48 (7.35-7.45) Arterial Blood pCO2 at Patient Temp 35 mmHg (35-46) Arterial Blood pO2 at Patient Temp 73 mmHg (65-108) Arterial Blood HCO3 26 mmol/L (21-28) Arterial Blood Base Excess 2 mmol/L (-3-3) FiO2 70 White Blood Count 24.6 x10^3/uL (4.0-11.0) Red Blood Count 3.25 x10^6/uL (3.50-5.40) Hemoglobin 7.9 g/dL (12.0-15.5) Hematocrit 25.7 % (36.0-47.0) Mean Corpuscular Volume 79 fL (79-100) Mean Corpuscular Hemoglobin 24 pg (25-35) Mean Corpuscular Hemoglobin Concent 31 g/dL (31-37) Red Cell Distribution Width 16.1 % (11.5-14.5) Platelet Count 356 x10^3/uL (140-400) Neutrophils (%) (Auto) 88 % (31-73) Lymphocytes (%) (Auto) 4 % (24-48) Monocytes (%) (Auto) 7 % (0-9) Eosinophils (%) (Auto) 0 % (0-3) Basophils (%) (Auto) 0 % (0-3) Neutrophils # (Auto) 21.7 x10^3/uL (1.8-7.7) Lymphocytes # (Auto) 1.1 x10^3/uL (1.0-4.8) Monocytes # (Auto) 1.8 x10^3/uL (0.0-1.1) Eosinophils # (Auto) 0.0 x10^3/uL (0.0-0.7) Basophils # (Auto) 0.0 x10^3/uL (0.0-0.2) D-Dimer (Bridgette) 1.37 ug/mlFEU (0.00-0.50) Sodium Level 140 mmol/L (136-145) Potassium Level 4.9 mmol/L (3.5-5.1) Chloride Level 106 mmol/L (98-107) Carbon Dioxide Level 30 mmol/L (21-32) Anion Gap 4 (6-14) Blood Urea Nitrogen 34 mg/dL (7-20) Creatinine 0.7 mg/dL (0.6-1.0) Estimated GFR (Cockcroft-Gault) 83.2 BUN/Creatinine Ratio 49 (6-20) Glucose Level 161 mg/dL (70-99) Calcium Level 7.8 mg/dL (8.5-10.1) Total Bilirubin 0.2 mg/dL (0.2-1.0) Aspartate Amino Transf (AST/SGOT) 17 U/L (15-37) Alanine Aminotransferase (ALT/SGPT) 32 U/L (14-59) Alkaline Phosphatase 62 U/L (46-116) Total Protein 5.1 g/dL (6.4-8.2) Albumin 1.8 g/dL (3.4-5.0) Albumin/Globulin Ratio 0.5 (1.0-1.7) Objective Assessment 1. COVID-19 pneumonia. 2. Acute hypoxic respiratory failure, status post intubation. 3. Leukocytosis, likely from steroids. 4. Asthma. 5. History of systemic lupus erythematosus. 6. History of Raynaud's. 7. PCN,Sulfa and Clindamycin allergies per pharmacy pt has tolerated ceftriaxone well in the past 8. Bradycardia likely from sedation Plan Plan of Care Continue supportive care. On steroids Continue ceftriaxone November 14, 2019, was on Levaquin and IV Levaquin Remdesivir 11/10 Status post convalescent plasma Follow up labs and cultures. Critically ill Discussed with nursing staff. Secretion we will get culture done APRYL ARBOLEDA MD Nov 21, 2019 07:35
--- NOTE | 2019-11-21 08:21 | RAD ---
EXAM: CHEST 1 VIEW History: Ventilation COMPARISON: 11/19/2019. TECHNIQUE: Single portable radiograph of the chest FINDINGS: Mild cardiomegaly. The ET tube is identified in the distal trachea, feeding tube, right internal jugular line again identified. There is diffuse patchy airspace opacities identified in the bilateral lungs similar to prior exam. Impression: 1. Diffuse patchy airspace opacities identified in the bilateral lungs likely atelectasis or infiltrates. Electronically signed by: Orestes Boyer MD (11/21/2019 8:18 AM) [id number]
[2019-11-21 08:47] LABS: BASE EXCESS ABG 0 mmol/L (-3-3); HCO3 ABG 25 mmol/L (21-28); PCO2 ABG 43 mmHg (35-46); PO2 ABG 59 mmHg (65-108); SAT O2 ABG 87 % (92-99)
[2019-11-21 09:15] LABS: FIO2 ABG 70
[2019-11-21] MEDS: CHOLECALCIFEROL (VITAMIN D3) 1,000 UNIT TABLET PO SCH (09:32)
[2019-11-21] MEDS: DEXAMETHASONE SOD PHOS 4 MG/ML VIAL IVP SCH (09:32)
[2019-11-21] MEDS: CITALOPRAM 20 MG TABLET. PO SCH (09:32)
[2019-11-21] MEDS: ZINC SULFATE 220 MG CAPSULE. PO SCH (09:32)
[2019-11-21] MEDS: FAMOTIDINE 20 MG/2 ML VIAL IVP SCH ×2 (09:33→21:11)
[2019-11-21] MEDS: ENOXAPARIN 40 MG/0.4 ML SYRINGE. SQ SCH ×2 (09:50→21:12)
[2019-11-21] MEDS: IV NORMAL SALINE 1000ML BAG 1,000 ML IV SCH ×2 (09:50→23:57)
--- NOTE | 2019-11-21 09:57 | PDOC ---
PULMONARY PROGRESS NOTES DATE: 11/21/19 TIME: 09:53 Subjective Patient remains on mechanical ventilation a-febrile overnight no clinical improvement No other concerns from nursing overnight Vitals Vital Signs Date Time Temp Pulse Resp B/P (MAP) Pulse Ox O2 Delivery O2 Flow Rate FiO2 11/21/19 08:00 38 24 105/56 (72) 95 Ventilator 11/21/19 07:00 98.0 98.0 Comments Patient seen doing the pandemic, visual exam, in sync with the ventilator, no increasing pedal edema, no paroxysmal breathing pattern. No obvious rash lucille on monitor Labs Laboratory Tests Test 11/20/19 08:45 11/21/19 05:10 11/21/19 07:25 O2 Saturation 95 % (92-99) 87 % (92-99) Arterial Blood pH 7.48 (7.35-7.45) 7.39 (7.35-7.45) Arterial Blood pCO2 at Patient Temp 35 mmHg (35-46) 43 mmHg (35-46) Arterial Blood pO2 at Patient Temp 73 mmHg (65-108) 59 mmHg (65-108) Arterial Blood HCO3 26 mmol/L (21-28) 25 mmol/L (21-28) Arterial Blood Base Excess 2 mmol/L (-3-3) 0 mmol/L (-3-3) FiO2 70 70 White Blood Count 24.6 x10^3/uL (4.0-11.0) Red Blood Count 3.25 x10^6/uL (3.50-5.40) Hemoglobin 7.9 g/dL (12.0-15.5) Hematocrit 25.7 % (36.0-47.0) Mean Corpuscular Volume 79 fL (79-100) Mean Corpuscular Hemoglobin 24 pg (25-35) Mean Corpuscular Hemoglobin Concent 31 g/dL (31-37) Red Cell Distribution Width 16.1 % (11.5-14.5) Platelet Count 356 x10^3/uL (140-400) Neutrophils (%) (Auto) 88 % (31-73) Lymphocytes (%) (Auto) 4 % (24-48) Monocytes (%) (Auto) 7 % (0-9) Eosinophils (%) (Auto) 0 % (0-3) Basophils (%) (Auto) 0 % (0-3) Neutrophils # (Auto) 21.7 x10^3/uL (1.8-7.7) Lymphocytes # (Auto) 1.1 x10^3/uL (1.0-4.8) Monocytes # (Auto) 1.8 x10^3/uL (0.0-1.1) Eosinophils # (Auto) 0.0 x10^3/uL (0.0-0.7) Basophils # (Auto) 0.0 x10^3/uL (0.0-0.2) D-Dimer (Bridgette) 1.37 ug/mlFEU (0.00-0.50) Sodium Level 140 mmol/L (136-145) Potassium Level 4.9 mmol/L (3.5-5.1) Chloride Level 106 mmol/L (98-107) Carbon Dioxide Level 30 mmol/L (21-32) Anion Gap 4 (6-14) Blood Urea Nitrogen 34 mg/dL (7-20) Creatinine 0.7 mg/dL (0.6-1.0) Estimated GFR (Cockcroft-Gault) 83.2 BUN/Creatinine Ratio 49 (6-20) Glucose Level 161 mg/dL (70-99) Calcium Level 7.8 mg/dL (8.5-10.1) Total Bilirubin 0.2 mg/dL (0.2-1.0) Aspartate Amino Transf (AST/SGOT) 17 U/L (15-37) Alanine Aminotransferase (ALT/SGPT) 32 U/L (14-59) Alkaline Phosphatase 62 U/L (46-116) Total Protein 5.1 g/dL (6.4-8.2) Albumin 1.8 g/dL (3.4-5.0) Albumin/Globulin Ratio 0.5 (1.0-1.7) Laboratory Tests Test 11/21/19 05:10 11/21/19 07:25 White Blood Count 24.6 x10^3/uL (4.0-11.0) Red Blood Count 3.25 x10^6/uL (3.50-5.40) Hemoglobin 7.9 g/dL (12.0-15.5) Hematocrit 25.7 % (36.0-47.0) Mean Corpuscular Volume 79 fL (79-100) Mean Corpuscular Hemoglobin 24 pg (25-35) Mean Corpuscular Hemoglobin Concent 31 g/dL (31-37) Red Cell Distribution Width 16.1 % (11.5-14.5) Platelet Count 356 x10^3/uL (140-400) Neutrophils (%) (Auto) 88 % (31-73) Lymphocytes (%) (Auto) 4 % (24-48) Monocytes (%) (Auto) 7 % (0-9) Eosinophils (%) (Auto) 0 % (0-3) Basophils (%) (Auto) 0 % (0-3) Neutrophils # (Auto) 21.7 x10^3/uL (1.8-7.7) Lymphocytes # (Auto) 1.1 x10^3/uL (1.0-4.8) Monocytes # (Auto) 1.8 x10^3/uL (0.0-1.1) Eosinophils # (Auto) 0.0 x10^3/uL (0.0-0.7) Basophils # (Auto) 0.0 x10^3/uL (0.0-0.2) D-Dimer (Bridgette) 1.37 ug/mlFEU (0.00-0.50) Sodium Level 140 mmol/L (136-145) Potassium Level 4.9 mmol/L (3.5-5.1) Chloride Level 106 mmol/L (98-107) Carbon Dioxide Level 30 mmol/L (21-32) Anion Gap 4 (6-14) Blood Urea Nitrogen 34 mg/dL (7-20) Creatinine 0.7 mg/dL (0.6-1.0) Estimated GFR (Cockcroft-Gault) 83.2 BUN/Creatinine Ratio 49 (6-20) Glucose Level 161 mg/dL (70-99) Calcium Level 7.8 mg/dL (8.5-10.1) Total Bilirubin 0.2 mg/dL (0.2-1.0) Aspartate Amino Transf (AST/SGOT) 17 U/L (15-37) Alanine Aminotransferase (ALT/SGPT) 32 U/L (14-59) Alkaline Phosphatase 62 U/L (46-116) Total Protein 5.1 g/dL (6.4-8.2) Albumin 1.8 g/dL (3.4-5.0) Albumin/Globulin Ratio 0.5 (1.0-1.7) O2 Saturation 87 % (92-99) Arterial Blood pH 7.39 (7.35-7.45) Arterial Blood pCO2 at Patient Temp 43 mmHg (35-46) Arterial Blood pO2 at Patient Temp 59 mmHg (65-108) Arterial Blood HCO3 25 mmol/L (21-28) Arterial Blood Base Excess 0 mmol/L (-3-3) FiO2 70 Medications Active Scripts Medications Dose Route/Sig Max Daily Dose Days Date Category Tramadol Hcl 50 Mg Tablet 50 Mg PO Q8HRS PRN 11/11/19 Reported Carafate (Sucralfate) 1 Gm Tablet 1 Gm PO TIDACHC 11/11/19 Reported Prednisone (Prednisone) 10 Mg Tablet 10 Mg PO DAILY 11/11/19 Reported Pantoprazole Sodium (Pantoprazole Sodium) 40 Mg Tablet.dr 40 Mg PO BIDAC 11/11/19 Reported Zofran (Ondansetron Hcl) 4 Mg Tablet 1 Tab PO Q8HRS 11/11/19 Reported Nifedipine Er (Nifedipine) 30 Mg Tablet.er 30 Mg PO DAILY 11/11/19 Reported Methylprednisolone 4 Mg Tab.ds.pk 4 Mg PO DAILY 11/11/19 Reported Metformin Hcl 1,000 Mg Tablet 1,000 Mg PO BIDWMEALS 11/11/19 Reported Levothyroxine Sodium 100 Mcg Tablet 100 Mcg PO DAILYAC 11/11/19 Reported Famotidine 20 Mg Tablet 20 Mg PO BID 11/11/19 Reported Celexa (Citalopram Hydrobromide) 40 Mg Tablet 40 Mg PO DAILY 11/11/19 Reported Evoxac (Cevimeline Hcl) 30 Mg Capsule 30 Mg PO TID 11/11/19 Reported Comments cxr 11/18 1. Low termination of endotracheal tube. Recommend retracting 2 cm. 2. Minimally decreased opacities in the right lung base. Otherwise unchanged bilateral opacities.. Electronically signed by: Nicole Bernabe MD (11/19/2019 7:10 AM) [id number] CXR 11/20 Impression: 1. Diffuse patchy airspace opacities identified in the bilateral lungs likely atelectasis or infiltrates Impression . IMPRESSION: 1. Acute hypoxemic respiratory failure secondary to COVID-19 viral pneumonia.-- continue to require vent support, no clinical improvement 2. COVID-19 viral pneumonia. 3. Acute respiratory distress syndrome. 4. Leukocytosis-- worsening 5. History of systemic lupus erythematosus. 6. Raynaud's. 7. Abnormal cxr with bilateral infiltrates, Plan . Continue current ventilatory support patient is currently on 70% and a PEEP of 8, no additional changes ABG reviewed Once Fi02 to 60% and PEEP of 6 we will consult surgery for possible trach Chest x-ray and ABG reviewed, CXR: ongoing bilateral infiltrates Continue empiric antibiotics per ID Status post convalescent plasma, finished course of remdesivir D/C dexamethasone Continue tube feeding for nutritional support Follow clinical course DVT/GI prophylaxis: lovenox/pepcid Discussed with RN and RT prognosis guarded Critical care time start at 0700AM to 0730AM, no overlap MANJULA NARAYAN MD Nov 21, 2019 09:57
[2019-11-21 10:02] LABS: % BANDS 1 % (0-9); % LYMPHS 3 % (24-48); % MONOS 4 % (0-10); % SEGS 92 % (35-66); ANISOCYTOSIS PRESENT; HYPOCHROMIA PRESENT; PLT ESTIMATE ADEQUATE (ADEQUATE)
--- NOTE | 2019-11-21 10:34 | PDOC ---
[facility] [facility] PROGRESS NOTE Date of Service DOS: DATE: 11/21/19 TIME: 10:32 Chief Complaint Chief Complaint A/P: Acute hypoxemic respiratory failure secondary to COVID-19 infection COVID-19 pneumonia Leukocytosis secondary to the above Microcytic anemia Hyponatremia Severe protein calorie malnutrition Plan Supportive measures Ventilatory support as per pulmonology websphere consultant OG tube for nutrition Vitamin C vitamin D and zinc Continue steroids Broad-spectrum antibiotics as per ID websphere consultant Further recommendations based on the clinical course DVT prophylaxis: Patient will be fully anticoagulated History of Present Illness History of Present Illness Ms Galicia is a 69-year-old female with past medical history of asthma Raynaud's phenomenon syncope history of systemic lupus erythematosus was in her usual state of health until couple days prior to her visit to the ER when she was diagnosed with COVID-19. Apparently the patient had attended a wedding and most likely is where they contracted the disease. Her is at our institution on the ventilator as well as reported by nursing staff. The patient at the time my evaluation is on mechanical ventilation and sedated. Most of this is from review of outside facility documentation. Bill the patient had described in the review of systems at the outside facility that she had some altered taste in her mouth she did not have any headache visual changes blurred vision double vision she did have some shortness of breath and chest discomfort in her chest whenever she took a deep breath otherwise no other complaints she did not have any diarrhea abdominal pain no neurological deficits were reported. Patient is being admitted for further evaluation and treatment 11/11: Patient requiring paralytics noted to allow vent to be synchronized with the patient is breathing. Critically ill. Remdesivir experimental therapy initiated 11/12: On vent, critically ill 11/13: Patient with no acute events reported overnight, patient seems better on the vent today. Prognosis guarded. 11/14: Patient remains hemodynamically stable still requiring quite a bit of ventilatory support with 8 of PEEP and FiO2 of 80% she had convalescent plasma. 11/15: On vent, critically ill. 11/16: On Vent, sedated. FiO2 80%, PEEP 8. On day 6 remdesivir. WBC 12.3, Hb 7.4 11/17: Sedated on vent FiO2 70%, PEEP 8. Status post remdesivir and convalescent plasma. Afebrile. Unfortunately her her on 11/17/2019. 11/18: Sedated on vent AC mode FiO2 70% PEEP of 8. Afebrile. Good urine output. ABG with pH 7.47. WBC 15.6. 11/19: Afebrile. Sedated on vent AC mode FiO2 70% PEEP of 8. ABG reviewed pH 7.4., PCO2 35, PO2 78. Afebrile. Sedated on vent AC mode FiO2 70% PEEP of 8, ABG pH 7.39 PCO2 43 PO2 down to 59. CXR reviewed with bilateral patchy infiltrates. D-dimer climbing to 1.37. WBC up to 24.6 Hb stable at 7.9. Vitals/I&O Vitals/I&O: Vital Signs Date Time Temp Pulse Resp B/P (MAP) Pulse Ox O2 Delivery O2 Flow Rate FiO2 11/21/19 08:00 38 24 105/56 (72) 95 Ventilator 11/21/19 07:00 98.0 98.0 I & O 11/20/19 11/20/19 11/21/19 15:00 23:00 07:00 Intake Total 340 ml 1200 ml 1975.92 ml Output Total 800 ml 1050 ml 1350 ml Balance -460 ml 150 ml 625.92 ml Physical Exam Physical Exam: GENERAL: Intubated, sedated on mechanical ventilation. HEENT: Normocephalic, atraumatic. Anicteric. NG tube present NECK: Supple. Right IJ line looks clean. LUNGS: Coarse breath sounds bilaterally. No wheezing. HEART: S1, S2 present. No murmurs. ABDOMEN: Soft, nontender, positive bowel sounds. EXTREMITIES: No edema, no cyanosis. DERMATOLOGIC: Warm and dry. No generalized rash. NEUROLOGIC: Sedated. PSYCHIATRIC: Unable to assess. Labs Labs: Laboratory Tests Test 11/21/19 05:10 11/21/19 07:25 White Blood Count 24.6 x10^3/uL (4.0-11.0) Red Blood Count 3.25 x10^6/uL (3.50-5.40) Hemoglobin 7.9 g/dL (12.0-15.5) Hematocrit 25.7 % (36.0-47.0) Mean Corpuscular Volume 79 fL (79-100) Mean Corpuscular Hemoglobin 24 pg (25-35) Mean Corpuscular Hemoglobin Concent 31 g/dL (31-37) Red Cell Distribution Width 16.1 % (11.5-14.5) Platelet Count 356 x10^3/uL (140-400) Neutrophils (%) (Auto) 88 % (31-73) Lymphocytes (%) (Auto) 4 % (24-48) Monocytes (%) (Auto) 7 % (0-9) Eosinophils (%) (Auto) 0 % (0-3) Basophils (%) (Auto) 0 % (0-3) Neutrophils # (Auto) 21.7 x10^3/uL (1.8-7.7) Lymphocytes # (Auto) 1.1 x10^3/uL (1.0-4.8) Monocytes # (Auto) 1.8 x10^3/uL (0.0-1.1) Eosinophils # (Auto) 0.0 x10^3/uL (0.0-0.7) Basophils # (Auto) 0.0 x10^3/uL (0.0-0.2) Segmented Neutrophils % 92 % (35-66) Band Neutrophils % 1 % (0-9) Lymphocytes % 3 % (24-48) Monocytes % 4 % (0-10) Platelet Estimate Adequate (ADEQUATE) Giant Platelets Few Hypochromasia Present Anisocytosis Present D-Dimer (Bridgette) 1.37 ug/mlFEU (0.00-0.50) Sodium Level 140 mmol/L (136-145) Potassium Level 4.9 mmol/L (3.5-5.1) Chloride Level 106 mmol/L (98-107) Carbon Dioxide Level 30 mmol/L (21-32) Anion Gap 4 (6-14) Blood Urea Nitrogen 34 mg/dL (7-20) Creatinine 0.7 mg/dL (0.6-1.0) Estimated GFR (Cockcroft-Gault) 83.2 BUN/Creatinine Ratio 49 (6-20) Glucose Level 161 mg/dL (70-99) Calcium Level 7.8 mg/dL (8.5-10.1) Total Bilirubin 0.2 mg/dL (0.2-1.0) Aspartate Amino Transf (AST/SGOT) 17 U/L (15-37) Alanine Aminotransferase (ALT/SGPT) 32 U/L (14-59) Alkaline Phosphatase 62 U/L (46-116) Total Protein 5.1 g/dL (6.4-8.2) Albumin 1.8 g/dL (3.4-5.0) Albumin/Globulin Ratio 0.5 (1.0-1.7) O2 Saturation 87 % (92-99) Arterial Blood pH 7.39 (7.35-7.45) Arterial Blood pCO2 at Patient Temp 43 mmHg (35-46) Arterial Blood pO2 at Patient Temp 59 mmHg (65-108) Arterial Blood HCO3 25 mmol/L (21-28) Arterial Blood Base Excess 0 mmol/L (-3-3) FiO2 70 Comment Review of Relevant I have reviewed the following items clive (where applicable) has been applied. Justifications for Admission Other Justification HANY AMIN MD Nov 21, 2019 10:34
[2019-11-21] MEDS: cefTRIAXone IV Push 2 GM VIAL. IVP SCH (11:00)
[2019-11-21] MEDS: fentaNYL HIGH DOSE PCA 55 ML IV PRN (12:42)
--- NOTE | 2019-11-21 15:22 | NUR ---
SS following up with discharge planning. SS reviewed pt chart and discussed with pt RN. Pt remains on the vent at this time at 70%. Pt on IV Rocephin. COVID19 positive. Not stable for discharge at this time. SS will continue to follow for discharge planning.
[2019-11-22] VITALS (24 sets, daily range): BP systolic 99–118; BP diastolic 49–69
[2019-11-22] MEDS: LEVOTHYROXINE 100 MCG TABLET PO SCH (06:17)
[2019-11-22] MEDS: ASCORBIC ACID 500 MG TABLET PO SCH ×3 (06:17→16:53)
[2019-11-22] MEDS: MIDAZOLAM 100mg/100ml NS BAG 100 ML IV PRN ×2 (06:18→17:18)
[2019-11-22 08:40] LABS: BASE EXCESS ABG 0 mmol/L (-3-3); HCO3 ABG 25 mmol/L (21-28); PCO2 ABG 42 mmHg (35-46); PO2 ABG 68 mmHg (65-108); SAT O2 ABG 92 % (92-99)
[2019-11-22 08:42] LABS: FIO2 ABG 70% VENT
[2019-11-22] MEDS: CITALOPRAM 20 MG TABLET. PO SCH (09:10)
[2019-11-22] MEDS: CHOLECALCIFEROL (VITAMIN D3) 1,000 UNIT TABLET PO SCH (09:10)
[2019-11-22] MEDS: ENOXAPARIN 40 MG/0.4 ML SYRINGE. SQ SCH ×2 (09:10→20:55)
[2019-11-22] MEDS: ZINC SULFATE 220 MG CAPSULE. PO SCH (09:10)
[2019-11-22] MEDS: FAMOTIDINE 20 MG/2 ML VIAL IVP SCH ×2 (09:11→20:54)
[2019-11-22] MEDS: DEXAMETHASONE SOD PHOS 4 MG/ML VIAL IVP SCH (09:11)
--- NOTE | 2019-11-22 09:33 | PDOC ---
Infectious Disease Note Subjective Subjective Pt intubated and sedated Vital Sign Vital Signs Vital Signs Date Time Temp Pulse Resp B/P (MAP) Pulse Ox O2 Delivery O2 Flow Rate FiO2 11/22/19 08:00 Mechanical Ventilator 11/22/19 08:00 33 24 104/54 (71) 99 11/22/19 07:00 97.3 97.3 Physical Exam PHYSICAL EXAM GENERAL: Intubated, sedated on mechanical ventilation. HEENT: Normocephalic, atraumatic. Anicteric. NG tube present NECK: Supple. Right IJ line looks clean. LUNGS: Coarse breath sounds bilaterally. No wheezing. HEART: S1, S2 present. No murmurs. ABDOMEN: Soft, nontender, positive bowel sounds. EXTREMITIES: No edema, no cyanosis. DERMATOLOGIC: Warm and dry. No generalized rash. NEUROLOGIC: Sedated. PSYCHIATRIC: Unable to assess. Labs Lab Laboratory Tests Test 11/22/19 08:40 O2 Saturation 92 % (92-99) Arterial Blood pH 7.40 (7.35-7.45) Arterial Blood pCO2 at Patient Temp 42 mmHg (35-46) Arterial Blood pO2 at Patient Temp 68 mmHg (65-108) Arterial Blood HCO3 25 mmol/L (21-28) Arterial Blood Base Excess 0 mmol/L (-3-3) FiO2 70% vent Objective Assessment 1. COVID-19 pneumonia. 2. Acute hypoxic respiratory failure, status post intubation. 3. Leukocytosis, likely from steroids. 4. Asthma. 5. History of systemic lupus erythematosus. 6. History of Raynaud's. 7. PCN,Sulfa and Clindamycin allergies per pharmacy pt has tolerated ceftriaxone well in the past 8. Bradycardia likely from sedation Plan Plan of Care Continue supportive care. On steroids Continue ceftriaxone November 14, 2019, was on Levaquin and IV Levaquin Remdesivir 11/10 Status post convalescent plasma Follow up labs and cultures. Critically ill Discussed with nursing staff. Secretion we will get culture done APRYL ARBOLEDA MD Nov 22, 2019 09:33
--- NOTE | 2019-11-22 09:51 | RAD ---
AP portable chest radiograph 11/22/2019 Clinical History: Change in ET tube position. An AP erect portable digital radiograph of the chest was obtained. Comparison study is dated 11/21/2019. The ET tube has been advanced slightly. The tip of this tube overlies the trachea 2 cm above the level of the gisela. The NG tube has been advanced. The tip of this tube is off this radiograph in the region of the body of the stomach. The right internal jugular central venous catheter is unchanged in position. The cardiac silhouette is mildly enlarged. Atherosclerotic calcification of the thoracic aorta is seen. The thoracic aorta is mildly tortuous. Bilateral perihilar infiltrates are again seen, unchanged. Left lower lobe atelectasis and/or infiltrate is unchanged. There may be small bilateral pleural effusions, unchanged. No pneumothorax is noted. The osseous structures are unchanged. IMPRESSION: 1. Tube and line position as discussed above. No pneumothorax is seen. 2. . Bilateral perihilar infiltrates and left lower lobe atelectasis and/or infiltrate, unchanged. Electronically signed by: Ben Brandt MD (11/22/2019 9:49 AM) [id number]
[2019-11-22] MEDS: cefTRIAXone IV Push 2 GM VIAL. IVP SCH (10:15)
[2019-11-22] MEDS: fentaNYL HIGH DOSE PCA 55 ML IV PRN (10:26)
--- NOTE | 2019-11-22 11:49 | PDOC ---
[facility] [facility] PROGRESS NOTE Date of Service DOS: DATE: 11/22/19 TIME: 11:44 Chief Complaint Chief Complaint A/P: Acute hypoxemic respiratory failure secondary to COVID-19 infection COVID-19 pneumonia Leukocytosis secondary to the above Microcytic anemia Hyponatremia Severe protein calorie malnutrition Plan Supportive measures Ventilatory support as per pulmonology [employer] consultant OG tube for nutrition Vitamin C vitamin D and zinc Continue steroids Broad-spectrum antibiotics as per ID [employer] consultant Further recommendations based on the clinical course DVT prophylaxis: Patient will be fully anticoagulated History of Present Illness History of Present Illness Ms Galicia is a 69-year-old female with past medical history of asthma Raynaud's phenomenon syncope history of systemic lupus erythematosus was in her usual state of health until couple days prior to her visit to the ER when she was diagnosed with COVID-19. Apparently the patient had attended a wedding and most likely is where they contracted the disease. Her is at our institution on the ventilator as well as reported by nursing staff. The patient at the time my evaluation is on mechanical ventilation and sedated. Most of this is from review of outside facility documentation. Bill the patient had described in the review of systems at the outside facility that she had some altered taste in her mouth she did not have any headache visual changes blurred vision double vision she did have some shortness of breath and chest discomfort in her chest whenever she took a deep breath otherwise no other complaints she did not have any diarrhea abdominal pain no neurological deficits were reported. Patient is being admitted for further evaluation and treatment 11/11: Patient requiring paralytics noted to allow vent to be synchronized with the patient is breathing. Critically ill. Remdesivir experimental therapy initiated 11/12: On vent, critically ill 11/13: Patient with no acute events reported overnight, patient seems better on the vent today. Prognosis guarded. 11/14: Patient remains hemodynamically stable still requiring quite a bit of ventilatory support with 8 of PEEP and FiO2 of 80% she had convalescent plasma. 11/15: On vent, critically ill. 11/16: On Vent, sedated. FiO2 80%, PEEP 8. On day 6 remdesivir. WBC 12.3, Hb 7.4 11/17: Sedated on vent FiO2 70%, PEEP 8. Status post remdesivir and convalescent plasma. Afebrile. Unfortunately her her on 11/17/2019. 11/18: Sedated on vent AC mode FiO2 70% PEEP of 8. Afebrile. Good urine output. ABG with pH 7.47. WBC 15.6. 11/19: Afebrile. Sedated on vent AC mode FiO2 70% PEEP of 8. ABG reviewed pH 7.4., PCO2 35, PO2 78. 11/20: Afebrile. Sedated on vent AC mode FiO2 70% PEEP of 8, ABG pH 7.39 PCO2 43 PO2 down to 59. CXR reviewed with bilateral patchy infiltrates. D-dimer climbing to 1.37. WBC up to 24.6 Hb stable at 7.9. Afebrile sedated on vent AC mode 70% FiO2 PEEP of 8, ABG 7.4 pH PCO2 42 PO2 68. CXR stable, ET tube has been advanced. Vitals/I&O Vitals/I&O: Vital Signs Date Time Temp Pulse Resp B/P (MAP) Pulse Ox O2 Delivery O2 Flow Rate FiO2 11/22/19 08:00 Mechanical Ventilator 11/22/19 08:00 33 24 104/54 (71) 99 11/22/19 07:00 97.3 97.3 I & O 11/21/19 11/21/19 11/22/19 15:00 23:00 07:00 Intake Total 300 ml 1980.31 ml 2361.16 ml Output Total 475 ml 1325 ml 925 ml Balance -175 ml 655.31 ml 1436.16 ml Physical Exam Physical Exam: GENERAL: Intubated, sedated on mechanical ventilation. HEENT: Normocephalic, atraumatic. Anicteric. NG tube present NECK: Supple. Right IJ line looks clean. LUNGS: Coarse breath sounds bilaterally. No wheezing. HEART: S1, S2 present. No murmurs. ABDOMEN: Soft, nontender, positive bowel sounds. EXTREMITIES: No edema, no cyanosis. DERMATOLOGIC: Warm and dry. No generalized rash. NEUROLOGIC: Sedated. PSYCHIATRIC: Unable to assess. Labs Labs: Laboratory Tests Test 11/22/19 08:40 O2 Saturation 92 % (92-99) Arterial Blood pH 7.40 (7.35-7.45) Arterial Blood pCO2 at Patient Temp 42 mmHg (35-46) Arterial Blood pO2 at Patient Temp 68 mmHg (65-108) Arterial Blood HCO3 25 mmol/L (21-28) Arterial Blood Base Excess 0 mmol/L (-3-3) FiO2 70% vent Comment Review of Relevant I have reviewed the following items clive (where applicable) has been applied. Justifications for Admission Other Justification HANY AMIN MD Nov 22, 2019 11:49
--- NOTE | 2019-11-22 11:58 | PDOC ---
PULMONARY PROGRESS NOTES DATE: 11/22/19 TIME: 11:56 Subjective Patient remains on mechanical ventilation, sedated on fentanyl versed peep 8 fio2 70%, large ett secretion a-febrile overnight no clinical improvement No other concerns from nursing overnight Vitals Vital Signs Date Time Temp Pulse Resp B/P (MAP) Pulse Ox O2 Delivery O2 Flow Rate FiO2 11/22/19 08:00 Mechanical Ventilator 11/22/19 08:00 33 24 104/54 (71) 99 11/22/19 07:00 97.3 97.3 Comments Patient seen doing the COVID- pandemic, visual exam, on vent sedated NC AT bradycardia no accessory muscle use no rash Labs Laboratory Tests Test 11/21/19 05:10 11/21/19 07:25 11/22/19 08:40 White Blood Count 24.6 x10^3/uL (4.0-11.0) Red Blood Count 3.25 x10^6/uL (3.50-5.40) Hemoglobin 7.9 g/dL (12.0-15.5) Hematocrit 25.7 % (36.0-47.0) Mean Corpuscular Volume 79 fL (79-100) Mean Corpuscular Hemoglobin 24 pg (25-35) Mean Corpuscular Hemoglobin Concent 31 g/dL (31-37) Red Cell Distribution Width 16.1 % (11.5-14.5) Platelet Count 356 x10^3/uL (140-400) Neutrophils (%) (Auto) 88 % (31-73) Lymphocytes (%) (Auto) 4 % (24-48) Monocytes (%) (Auto) 7 % (0-9) Eosinophils (%) (Auto) 0 % (0-3) Basophils (%) (Auto) 0 % (0-3) Neutrophils # (Auto) 21.7 x10^3/uL (1.8-7.7) Lymphocytes # (Auto) 1.1 x10^3/uL (1.0-4.8) Monocytes # (Auto) 1.8 x10^3/uL (0.0-1.1) Eosinophils # (Auto) 0.0 x10^3/uL (0.0-0.7) Basophils # (Auto) 0.0 x10^3/uL (0.0-0.2) Segmented Neutrophils % 92 % (35-66) Band Neutrophils % 1 % (0-9) Lymphocytes % 3 % (24-48) Monocytes % 4 % (0-10) Platelet Estimate Adequate (ADEQUATE) Giant Platelets Few Hypochromasia Present Anisocytosis Present D-Dimer (Bridgette) 1.37 ug/mlFEU (0.00-0.50) Sodium Level 140 mmol/L (136-145) Potassium Level 4.9 mmol/L (3.5-5.1) Chloride Level 106 mmol/L (98-107) Carbon Dioxide Level 30 mmol/L (21-32) Anion Gap 4 (6-14) Blood Urea Nitrogen 34 mg/dL (7-20) Creatinine 0.7 mg/dL (0.6-1.0) Estimated GFR (Cockcroft-Gault) 83.2 BUN/Creatinine Ratio 49 (6-20) Glucose Level 161 mg/dL (70-99) Calcium Level 7.8 mg/dL (8.5-10.1) Total Bilirubin 0.2 mg/dL (0.2-1.0) Aspartate Amino Transf (AST/SGOT) 17 U/L (15-37) Alanine Aminotransferase (ALT/SGPT) 32 U/L (14-59) Alkaline Phosphatase 62 U/L (46-116) Total Protein 5.1 g/dL (6.4-8.2) Albumin 1.8 g/dL (3.4-5.0) Albumin/Globulin Ratio 0.5 (1.0-1.7) O2 Saturation 87 % (92-99) 92 % (92-99) Arterial Blood pH 7.39 (7.35-7.45) 7.40 (7.35-7.45) Arterial Blood pCO2 at Patient Temp 43 mmHg (35-46) 42 mmHg (35-46) Arterial Blood pO2 at Patient Temp 59 mmHg (65-108) 68 mmHg (65-108) Arterial Blood HCO3 25 mmol/L (21-28) 25 mmol/L (21-28) Arterial Blood Base Excess 0 mmol/L (-3-3) 0 mmol/L (-3-3) FiO2 70 70% vent Laboratory Tests Test 11/22/19 08:40 O2 Saturation 92 % (92-99) Arterial Blood pH 7.40 (7.35-7.45) Arterial Blood pCO2 at Patient Temp 42 mmHg (35-46) Arterial Blood pO2 at Patient Temp 68 mmHg (65-108) Arterial Blood HCO3 25 mmol/L (21-28) Arterial Blood Base Excess 0 mmol/L (-3-3) FiO2 70% vent Medications Active Scripts Medications Dose Route/Sig Max Daily Dose Days Date Category Tramadol Hcl 50 Mg Tablet 50 Mg PO Q8HRS PRN 11/11/19 Reported Carafate (Sucralfate) 1 Gm Tablet 1 Gm PO TIDACHC 11/11/19 Reported Prednisone (Prednisone) 10 Mg Tablet 10 Mg PO DAILY 11/11/19 Reported Pantoprazole Sodium (Pantoprazole Sodium) 40 Mg Tablet.dr 40 Mg PO BIDAC 11/11/19 Reported Zofran (Ondansetron Hcl) 4 Mg Tablet 1 Tab PO Q8HRS 11/11/19 Reported Nifedipine Er (Nifedipine) 30 Mg Tablet.er 30 Mg PO DAILY 11/11/19 Reported Methylprednisolone 4 Mg Tab.ds.pk 4 Mg PO DAILY 11/11/19 Reported Metformin Hcl 1,000 Mg Tablet 1,000 Mg PO BIDWMEALS 11/11/19 Reported Levothyroxine Sodium 100 Mcg Tablet 100 Mcg PO DAILYAC 11/11/19 Reported Famotidine 20 Mg Tablet 20 Mg PO BID 11/11/19 Reported Celexa (Citalopram Hydrobromide) 40 Mg Tablet 40 Mg PO DAILY 11/11/19 Reported Evoxac (Cevimeline Hcl) 30 Mg Capsule 30 Mg PO TID 11/11/19 Reported Comments cxr reviewed 1. Tube and line position as discussed above. No pneumothorax is seen. 2. . Bilateral perihilar infiltrates and left lower lobe atelectasis and/or infiltrate, unchanged. Impression . IMPRESSION: 1. Acute hypoxemic respiratory failure secondary to COVID-19 viral pneumonia.-- continue to require vent support, no clinical improvement 2. COVID-19 viral pneumonia. 3. Acute respiratory distress syndrome. 4. Leukocytosis-- worsening 5. History of systemic lupus erythematosus. 6. Raynaud's. 7. Abnormal cxr with bilateral infiltrates, 8. bradycardia Plan . Continue current ventilatory support abg cxr reviewed, 02 titration as tolerated may need trach Continue empiric antibiotics per ID Status post convalescent plasma, finished course of remdesivir off dexamethasone Continue tube feeding for nutritional support Follow clinical course DVT/GI prophylaxis: lovenox/pepcid Discussed with RN and RT prognosis guarded monitor HR critically ill cc time 30 min no overlap CASIMIRO SHAW MD Nov 22, 2019 11:58
[2019-11-22] MEDS: IV NORMAL SALINE 1000ML BAG 1,000 ML IV SCH (15:06)
[2019-11-23] VITALS (24 sets, daily range): BP systolic 99–117; BP diastolic 48–60
[2019-11-23] MEDS: ASCORBIC ACID 500 MG TABLET PO SCH ×4 (00:13→17:31)
[2019-11-23] MEDS: fentaNYL HIGH DOSE PCA 55 ML IV PRN ×2 (06:16→07:26)
[2019-11-23] MEDS: MIDAZOLAM 100mg/100ml NS BAG 100 ML IV PRN ×2 (06:17→15:35)
[2019-11-23] MEDS: LEVOTHYROXINE 100 MCG TABLET PO SCH (06:17)
[2019-11-23] MEDS: IV NORMAL SALINE 1000ML BAG 1,000 ML IV SCH ×2 (06:17→21:24)
[2019-11-23 06:50] LABS: ALBUMIN 1.8 g/dL (3.4-5.0); ALBUMIN/GLOBULIN RATIO 0.5 (1.0-1.7); CALCIUM 7.8 mg/dL (8.5-10.1); CREATININE 0.6 mg/dL (0.6-1.0); GFR 99.4; TOTAL BILIRUBIN 0.2 mg/dL (0.2-1.0); TOTAL PROTEIN 5.3 g/dL (6.4-8.2)
[2019-11-23] MEDS: CHOLECALCIFEROL (VITAMIN D3) 1,000 UNIT TABLET PO SCH (08:44)
[2019-11-23] MEDS: FAMOTIDINE 20 MG/2 ML VIAL IVP SCH ×2 (08:44→21:19)
[2019-11-23] MEDS: CITALOPRAM 20 MG TABLET. PO SCH (08:44)
[2019-11-23] MEDS: DEXAMETHASONE SOD PHOS 4 MG/ML VIAL IVP SCH (08:44)
[2019-11-23] MEDS: ENOXAPARIN 40 MG/0.4 ML SYRINGE. SQ SCH ×2 (08:44→21:19)
[2019-11-23] MEDS: ZINC SULFATE 220 MG CAPSULE. PO SCH (08:45)
[2019-11-23] MEDS: cefTRIAXone IV Push 2 GM VIAL. IVP SCH (08:45)
[2019-11-23 09:00] LABS: BASE EXCESS ABG 0 mmol/L (-3-3); HCO3 ABG 25 mmol/L (21-28); PCO2 ABG 42 mmHg (35-46); PO2 ABG 95 mmHg (65-108); SAT O2 ABG 97 % (92-99)
[2019-11-23 09:02] LABS: FIO2 ABG 70
--- NOTE | 2019-11-23 10:26 | PDOC ---
PULMONARY PROGRESS NOTES DATE: 11/23/19 TIME: 10:21 Subjective Patient remains on mechanical ventilation, sedated on fentanyl versed peep 8 fio2 70%, mod ett secretion a-febrile overnight No other concerns from nursing overnight Vitals Vital Signs Date Time Temp Pulse Resp B/P (MAP) Pulse Ox O2 Delivery O2 Flow Rate FiO2 11/23/19 09:00 33 24 107/56 (73) 98 Ventilator 11/23/19 07:00 97.6 97.6 Comments Patient seen doing the pandemic, visual exam, on vent sedated NC AT bradycardia no accessory muscle use no rash Labs Laboratory Tests Test 11/22/19 08:40 11/23/19 04:45 11/23/19 06:25 11/23/19 08:55 O2 Saturation 92 % (92-99) 97 % (92-99) Arterial Blood pH 7.40 (7.35-7.45) 7.40 (7.35-7.45) Arterial Blood pCO2 at Patient Temp 42 mmHg (35-46) 42 mmHg (35-46) Arterial Blood pO2 at Patient Temp 68 mmHg (65-108) 95 mmHg (65-108) Arterial Blood HCO3 25 mmol/L (21-28) 25 mmol/L (21-28) Arterial Blood Base Excess 0 mmol/L (-3-3) 0 mmol/L (-3-3) FiO2 70% vent 70 Sodium Level 140 mmol/L (136-145) Potassium Level 5.0 mmol/L (3.5-5.1) Chloride Level 106 mmol/L (98-107) Carbon Dioxide Level 28 mmol/L (21-32) Anion Gap 6 (6-14) Blood Urea Nitrogen 31 mg/dL (7-20) Creatinine 0.6 mg/dL (0.6-1.0) Estimated GFR (Cockcroft-Gault) 99.4 BUN/Creatinine Ratio 52 (6-20) Glucose Level 178 mg/dL (70-99) Calcium Level 7.8 mg/dL (8.5-10.1) Total Bilirubin 0.2 mg/dL (0.2-1.0) Aspartate Amino Transf (AST/SGOT) 19 U/L (15-37) Alanine Aminotransferase (ALT/SGPT) 41 U/L (14-59) Alkaline Phosphatase 49 U/L (46-116) Total Protein 5.3 g/dL (6.4-8.2) Albumin 1.8 g/dL (3.4-5.0) Albumin/Globulin Ratio 0.5 (1.0-1.7) D-Dimer (Bridgette) 0.96 ug/mlFEU (0.00-0.50) Laboratory Tests Test 11/23/19 04:45 11/23/19 06:25 11/23/19 08:55 Sodium Level 140 mmol/L (136-145) Potassium Level 5.0 mmol/L (3.5-5.1) Chloride Level 106 mmol/L (98-107) Carbon Dioxide Level 28 mmol/L (21-32) Anion Gap 6 (6-14) Blood Urea Nitrogen 31 mg/dL (7-20) Creatinine 0.6 mg/dL (0.6-1.0) Estimated GFR (Cockcroft-Gault) 99.4 BUN/Creatinine Ratio 52 (6-20) Glucose Level 178 mg/dL (70-99) Calcium Level 7.8 mg/dL (8.5-10.1) Total Bilirubin 0.2 mg/dL (0.2-1.0) Aspartate Amino Transf (AST/SGOT) 19 U/L (15-37) Alanine Aminotransferase (ALT/SGPT) 41 U/L (14-59) Alkaline Phosphatase 49 U/L (46-116) Total Protein 5.3 g/dL (6.4-8.2) Albumin 1.8 g/dL (3.4-5.0) Albumin/Globulin Ratio 0.5 (1.0-1.7) D-Dimer (Bridgette) 0.96 ug/mlFEU (0.00-0.50) O2 Saturation 97 % (92-99) Arterial Blood pH 7.40 (7.35-7.45) Arterial Blood pCO2 at Patient Temp 42 mmHg (35-46) Arterial Blood pO2 at Patient Temp 95 mmHg (65-108) Arterial Blood HCO3 25 mmol/L (21-28) Arterial Blood Base Excess 0 mmol/L (-3-3) FiO2 70 Medications Active Scripts Medications Dose Route/Sig Max Daily Dose Days Date Category Tramadol Hcl 50 Mg Tablet 50 Mg PO Q8HRS PRN 11/11/19 Reported Carafate (Sucralfate) 1 Gm Tablet 1 Gm PO TIDACHC 11/11/19 Reported Prednisone (Prednisone) 10 Mg Tablet 10 Mg PO DAILY 11/11/19 Reported Pantoprazole Sodium (Pantoprazole Sodium) 40 Mg Tablet.dr 40 Mg PO BIDAC 11/11/19 Reported Zofran (Ondansetron Hcl) 4 Mg Tablet 1 Tab PO Q8HRS 11/11/19 Reported Nifedipine Er (Nifedipine) 30 Mg Tablet.er 30 Mg PO DAILY 11/11/19 Reported Methylprednisolone 4 Mg Tab.ds.pk 4 Mg PO DAILY 11/11/19 Reported Metformin Hcl 1,000 Mg Tablet 1,000 Mg PO BIDWMEALS 11/11/19 Reported Levothyroxine Sodium 100 Mcg Tablet 100 Mcg PO DAILYAC 11/11/19 Reported Famotidine 20 Mg Tablet 20 Mg PO BID 11/11/19 Reported Celexa (Citalopram Hydrobromide) 40 Mg Tablet 40 Mg PO DAILY 11/11/19 Reported Evoxac (Cevimeline Hcl) 30 Mg Capsule 30 Mg PO TID 11/11/19 Reported Comments cxr reviewed 1. Tube and line position as discussed above. No pneumothorax is seen. 2. . Bilateral perihilar infiltrates and left lower lobe atelectasis and/or infiltrate, unchanged. Impression . IMPRESSION: 1. Acute hypoxemic respiratory failure secondary to COVID-19 viral pneumonia.-- continue to require vent support, 2. COVID-19 viral pneumonia. 3. Acute respiratory distress syndrome. 4. Leukocytosis-- worsening 5. History of systemic lupus erythematosus. 6. Raynaud's. 7. Abnormal cxr with bilateral infiltrates, 8. bradycardia Plan . Continue current ventilatory support abg cxr reviewed, 02 titration as tolerated, will change to peep 7, fio2 60% may need trach Continue empiric antibiotics per ID Status post convalescent plasma, finished course of remdesivir off dexamethasone Continue tube feeding for nutritional support Follow clinical course DVT/GI prophylaxis: lovenox/pepcid Discussed with RN and RT prognosis guarded monitor HR critically ill cc time 30 min no overlap CASIMIRO SHAW MD Nov 23, 2019 10:26
--- NOTE | 2019-11-23 10:35 | PDOC ---
Infectious Disease Note Subjective Subjective Pt intubated and sedated Vital Sign Vital Signs Vital Signs Date Time Temp Pulse Resp B/P (MAP) Pulse Ox O2 Delivery O2 Flow Rate FiO2 11/23/19 09:00 33 24 107/56 (73) 98 Ventilator 11/23/19 07:00 97.6 97.6 Physical Exam PHYSICAL EXAM GENERAL: Intubated, sedated on mechanical ventilation. HEENT: Normocephalic, atraumatic. Anicteric. NG tube present NECK: Supple. Right IJ line looks clean. LUNGS: Coarse breath sounds bilaterally. No wheezing. HEART: S1, S2 present. No murmurs. ABDOMEN: Soft, nontender, positive bowel sounds. EXTREMITIES: No edema, no cyanosis. DERMATOLOGIC: Warm and dry. No generalized rash. NEUROLOGIC: Sedated. PSYCHIATRIC: Unable to assess. Labs Lab Laboratory Tests Test 11/23/19 04:45 11/23/19 06:25 11/23/19 08:55 Sodium Level 140 mmol/L (136-145) Potassium Level 5.0 mmol/L (3.5-5.1) Chloride Level 106 mmol/L (98-107) Carbon Dioxide Level 28 mmol/L (21-32) Anion Gap 6 (6-14) Blood Urea Nitrogen 31 mg/dL (7-20) Creatinine 0.6 mg/dL (0.6-1.0) Estimated GFR (Cockcroft-Gault) 99.4 BUN/Creatinine Ratio 52 (6-20) Glucose Level 178 mg/dL (70-99) Calcium Level 7.8 mg/dL (8.5-10.1) Total Bilirubin 0.2 mg/dL (0.2-1.0) Aspartate Amino Transf (AST/SGOT) 19 U/L (15-37) Alanine Aminotransferase (ALT/SGPT) 41 U/L (14-59) Alkaline Phosphatase 49 U/L (46-116) Total Protein 5.3 g/dL (6.4-8.2) Albumin 1.8 g/dL (3.4-5.0) Albumin/Globulin Ratio 0.5 (1.0-1.7) D-Dimer (Bridgette) 0.96 ug/mlFEU (0.00-0.50) O2 Saturation 97 % (92-99) Arterial Blood pH 7.40 (7.35-7.45) Arterial Blood pCO2 at Patient Temp 42 mmHg (35-46) Arterial Blood pO2 at Patient Temp 95 mmHg (65-108) Arterial Blood HCO3 25 mmol/L (21-28) Arterial Blood Base Excess 0 mmol/L (-3-3) FiO2 70 Micro Microbiology 11/21/19 Gram Stain Evaluation - Final, Resulted 11/21/19 Respiratory Culture - Preliminary, Resulted Objective Assessment 1. COVID-19 pneumonia. 2. Acute hypoxic respiratory failure, status post intubation. 3. Leukocytosis, likely from steroids. 4. Asthma. 5. History of systemic lupus erythematosus. 6. History of Raynaud's. 7. PCN,Sulfa and Clindamycin allergies per pharmacy pt has tolerated ceftriaxone well in the past 8. Bradycardia likely from sedation Plan Plan of Care Continue supportive care. On steroids Continue ceftriaxone November 14, 2019, was on Levaquin and IV Levaquin Remdesivir 11/10 Status post convalescent plasma Follow up labs and cultures. Critically ill Discussed with nursing staff. Secretion we will get culture done APRYL ARBOLEDA MD Nov 23, 2019 10:35
--- NOTE | 2019-11-23 11:15 | PDOC ---
[facility] PROGRESS NOTE Date of Service DOS: DATE: 11/23/19 TIME: 11:03 Chief Complaint Chief Complaint A/P: Acute hypoxemic respiratory failure secondary to COVID-19 infection COVID-19 pneumonia Leukocytosis secondary to the above Microcytic anemia Hyponatremia Severe protein calorie malnutrition Plan Supportive measures Ventilatory support as per pulmonology security system sales consultant OG tube for nutrition Vitamin C vitamin D and zinc Continue steroids Broad-spectrum antibiotics as per ID security system sales consultant Further recommendations based on the clinical course DVT prophylaxis: Patient will be fully anticoagulated History of Present Illness History of Present Illness Ms Galicia is a 69-year-old female with past medical history of asthma Raynaud's phenomenon syncope history of systemic lupus erythematosus was in her usual state of health until couple days prior to her visit to the ER when she was diagnosed with COVID-19. Apparently the patient had attended a wedding and most likely is where they contracted the disease. Her is at our institution on the ventilator as well as reported by nursing staff. The patient at the time my evaluation is on mechanical ventilation and sedated. Most of this is from review of outside facility documentation. Bill the patient had described in the review of systems at the outside facility that she had some altered taste in her mouth she did not have any headache visual changes blurred vision double vision she did have some shortness of breath and chest discomfort in her chest whenever she took a deep breath otherwise no other complaints she did not have any diarrhea abdominal pain no neurological deficits were reported. Patient is being admitted for further evaluation and treatment 11/11: Patient requiring paralytics noted to allow vent to be synchronized with the patient is breathing. Critically ill. Remdesivir experimental therapy initiated 11/12: On vent, critically ill 11/13: Patient with no acute events reported overnight, patient seems better on the vent today. Prognosis guarded. 11/14: Patient remains hemodynamically stable still requiring quite a bit of ventilatory support with 8 of PEEP and FiO2 of 80% she had convalescent plasma. 11/15: On vent, critically ill. 11/16: On Vent, sedated. FiO2 80%, PEEP 8. On day 6 remdesivir. WBC 12.3, Hb 7.4 11/17: Sedated on vent FiO2 70%, PEEP 8. Status post remdesivir and convalescent plasma. Afebrile. Unfortunately her her on 11/17/2019. 11/18: Sedated on vent AC mode FiO2 70% PEEP of 8. Afebrile. Good urine output. ABG with pH 7.47. WBC 15.6. 11/19: Afebrile. Sedated on vent AC mode FiO2 70% PEEP of 8. ABG reviewed pH 7.4., PCO2 35, PO2 78. 11/20: Afebrile. Sedated on vent AC mode FiO2 70% PEEP of 8, ABG pH 7.39 PCO2 43 PO2 down to 59. CXR reviewed with bilateral patchy infiltrates. D-dimer climbing to 1.37. WBC up to 24.6 Hb stable at 7.9. 11/21: Afebrile sedated on vent AC mode 70% FiO2 PEEP of 8, ABG 7.4 pH PCO2 42 PO2 68. CXR stable, ET tube has been advanced. Afebrile. Sedated on vent AC mode 70% FiO2 PEEP of 8, ABG pH 7.4 PCO2 42 PO2 95. D-dimer down to 0.96. WBC up to 24.6 Hb stable 7.9. Vitals/I&O Vitals/I&O: Vital Signs Date Time Temp Pulse Resp B/P (MAP) Pulse Ox O2 Delivery O2 Flow Rate FiO2 11/23/19 09:00 33 24 107/56 (73) 98 Ventilator 11/23/19 07:00 97.6 97.6 I & O 11/22/19 11/22/19 11/23/19 15:00 23:00 07:00 Intake Total 300 ml 300 ml 3175.24 ml Output Total 700 ml 1300 ml 1025 ml Balance -400 ml -1000 ml 2150.24 ml Physical Exam Physical Exam: GENERAL: Intubated, sedated on mechanical ventilation. HEENT: Normocephalic, atraumatic. Anicteric. NG tube present NECK: Supple. Right IJ line looks clean. LUNGS: Coarse breath sounds bilaterally. No wheezing. HEART: S1, S2 present. No murmurs. ABDOMEN: Soft, nontender, positive bowel sounds. EXTREMITIES: No edema, no cyanosis. DERMATOLOGIC: Warm and dry. No generalized rash. NEUROLOGIC: Sedated. PSYCHIATRIC: Unable to assess. Labs Labs: Laboratory Tests Test 11/23/19 04:45 11/23/19 06:25 11/23/19 08:55 Sodium Level 140 mmol/L (136-145) Potassium Level 5.0 mmol/L (3.5-5.1) Chloride Level 106 mmol/L (98-107) Carbon Dioxide Level 28 mmol/L (21-32) Anion Gap 6 (6-14) Blood Urea Nitrogen 31 mg/dL (7-20) Creatinine 0.6 mg/dL (0.6-1.0) Estimated GFR (Cockcroft-Gault) 99.4 BUN/Creatinine Ratio 52 (6-20) Glucose Level 178 mg/dL (70-99) Calcium Level 7.8 mg/dL (8.5-10.1) Total Bilirubin 0.2 mg/dL (0.2-1.0) Aspartate Amino Transf (AST/SGOT) 19 U/L (15-37) Alanine Aminotransferase (ALT/SGPT) 41 U/L (14-59) Alkaline Phosphatase 49 U/L (46-116) Total Protein 5.3 g/dL (6.4-8.2) Albumin 1.8 g/dL (3.4-5.0) Albumin/Globulin Ratio 0.5 (1.0-1.7) D-Dimer (Bridgette) 0.96 ug/mlFEU (0.00-0.50) O2 Saturation 97 % (92-99) Arterial Blood pH 7.40 (7.35-7.45) Arterial Blood pCO2 at Patient Temp 42 mmHg (35-46) Arterial Blood pO2 at Patient Temp 95 mmHg (65-108) Arterial Blood HCO3 25 mmol/L (21-28) Arterial Blood Base Excess 0 mmol/L (-3-3) FiO2 70 Comment Review of Relevant I have reviewed the following items clive (where applicable) has been applied. Justifications for Admission Other Justification HANY AMIN MD Nov 23, 2019 11:15
[2019-11-24] VITALS (25 sets, daily range): BP systolic 96–140; BP diastolic 44–84
[2019-11-24] MEDS: ASCORBIC ACID 500 MG TABLET PO SCH ×4 (00:13→17:25)
[2019-11-24] MEDS: fentaNYL HIGH DOSE PCA 55 ML IV PRN (03:55)
[2019-11-24] MEDS: LEVOTHYROXINE 100 MCG TABLET PO SCH (05:26)
--- NOTE | 2019-11-24 06:31 | RAD ---
AP chest. HISTORY: Covid pneumonia AP portable view was taken of the chest. Heart is normal in size. Endotracheal tube, central line and NG tube are unchanged. There are bilateral hazy diffuse infiltrates. This been a slight improvement in the left lung base. Infiltrates otherwise of changed little. IMPRESSION: 1. Slight improvement left lung base but persistent bilateral diffuse infiltrates. 2. Tubes and lines unchanged. Electronically signed by: Wes Jones MD (11/24/2019 6:28 AM) [id number]
[2019-11-24] MEDS: MIDAZOLAM 100mg/100ml NS BAG 100 ML IV PRN (07:04)
--- NOTE | 2019-11-24 07:49 | PDOC ---
Infectious Disease Note Subjective Subjective Pt intubated and sedated ROS ROS No nausea vomiting or fever Vital Sign Vital Signs Vital Signs Date Time Temp Pulse Resp B/P (MAP) Pulse Ox O2 Delivery O2 Flow Rate FiO2 11/24/19 06:00 30 24 101/50 (67) 97 Ventilator 11/24/19 04:00 98.2 98.2 Physical Exam PHYSICAL EXAM GENERAL: Intubated, sedated on mechanical ventilation. HEENT: Normocephalic, atraumatic. Anicteric. NG tube present NECK: Supple. Right IJ line looks clean. LUNGS: Coarse breath sounds bilaterally. No wheezing. HEART: S1, S2 present. No murmurs. ABDOMEN: Soft, nontender, positive bowel sounds. EXTREMITIES: No edema, no cyanosis. DERMATOLOGIC: Warm and dry. No generalized rash. NEUROLOGIC: Sedated. PSYCHIATRIC: Unable to assess. Labs Lab Laboratory Tests Test 11/23/19 08:55 O2 Saturation 97 % (92-99) Arterial Blood pH 7.40 (7.35-7.45) Arterial Blood pCO2 at Patient Temp 42 mmHg (35-46) Arterial Blood pO2 at Patient Temp 95 mmHg (65-108) Arterial Blood HCO3 25 mmol/L (21-28) Arterial Blood Base Excess 0 mmol/L (-3-3) FiO2 70 Micro GRAM STAIN EVALUATION Final Final This specimen is of good quality and is acceptable for routine bacterial culture. Culture results to follow. GRAM NEGATIVE RODS:FEW GRAM POSITIVE COCCI:RARE SQUAMOUS EPI CELL:RARE PMN (WBCs):MANY Unless otherwise specified, Testing Performed by: [address] [id number] For Inquires, the Physician may contact the Microbiology department at [phone] RESPIRATORY CULTURE Final Final MODERATE Mixed upper respiratory iesha on 11/23/19 at 0846 MODERATE Mixed upper respiratory iesha on 11/24/19 at 0834 Unless otherwise specified, Testing Performed by: [address] [id number] For Inquires, the Physician may contact the Microbiology department at [phone] Objective Assessment 1. COVID-19 pneumonia. 2. Acute hypoxic respiratory failure, status post intubation. 3. Leukocytosis, likely from steroids. 4. Asthma. 5. History of systemic lupus erythematosus. 6. History of Raynaud's. 7. PCN,Sulfa and Clindamycin allergies per pharmacy pt has tolerated ceftriaxone well in the past 8. Bradycardia likely from sedation Plan Plan of Care Continue supportive care. On steroids Continue ceftriaxone November 14, 2019, was on Levaquin and IV Levaquin Remdesivir 11/10 Status post convalescent plasma Follow up labs and cultures. Critically ill Discussed with nursing staff. Change Rocephin to meropenem APRYL ARBOLEDA MD Nov 24, 2019 07:49
--- NOTE | 2019-11-24 08:37 | PDOC ---
PULMONARY PROGRESS NOTES DATE: 11/24/19 TIME: 08:37 Subjective Patient remains on mechanical ventilation, currently on 50% FiO2 and a PEEP of 6 a-febrile overnight No other concerns from nursing overnight Vitals Vital Signs Date Time Temp Pulse Resp B/P (MAP) Pulse Ox O2 Delivery O2 Flow Rate FiO2 11/24/19 08:00 Mechanical Ventilator 11/24/19 08:00 97.4 33 24 109/53 (71) 98 97.4 Comments Patient seen doing the , visual exam, on vent sedated bradycardia no accessory muscle use no rash Labs Laboratory Tests Test 11/22/19 08:40 11/23/19 04:45 11/23/19 06:25 11/23/19 08:55 O2 Saturation 92 % (92-99) 97 % (92-99) Arterial Blood pH 7.40 (7.35-7.45) 7.40 (7.35-7.45) Arterial Blood pCO2 at Patient Temp 42 mmHg (35-46) 42 mmHg (35-46) Arterial Blood pO2 at Patient Temp 68 mmHg (65-108) 95 mmHg (65-108) Arterial Blood HCO3 25 mmol/L (21-28) 25 mmol/L (21-28) Arterial Blood Base Excess 0 mmol/L (-3-3) 0 mmol/L (-3-3) FiO2 70% vent 70 Sodium Level 140 mmol/L (136-145) Potassium Level 5.0 mmol/L (3.5-5.1) Chloride Level 106 mmol/L (98-107) Carbon Dioxide Level 28 mmol/L (21-32) Anion Gap 6 (6-14) Blood Urea Nitrogen 31 mg/dL (7-20) Creatinine 0.6 mg/dL (0.6-1.0) Estimated GFR (Cockcroft-Gault) 99.4 BUN/Creatinine Ratio 52 (6-20) Glucose Level 178 mg/dL (70-99) Calcium Level 7.8 mg/dL (8.5-10.1) Total Bilirubin 0.2 mg/dL (0.2-1.0) Aspartate Amino Transf (AST/SGOT) 19 U/L (15-37) Alanine Aminotransferase (ALT/SGPT) 41 U/L (14-59) Alkaline Phosphatase 49 U/L (46-116) Total Protein 5.3 g/dL (6.4-8.2) Albumin 1.8 g/dL (3.4-5.0) Albumin/Globulin Ratio 0.5 (1.0-1.7) D-Dimer (Bridgette) 0.96 ug/mlFEU (0.00-0.50) Laboratory Tests Test 11/23/19 08:55 O2 Saturation 97 % (92-99) Arterial Blood pH 7.40 (7.35-7.45) Arterial Blood pCO2 at Patient Temp 42 mmHg (35-46) Arterial Blood pO2 at Patient Temp 95 mmHg (65-108) Arterial Blood HCO3 25 mmol/L (21-28) Arterial Blood Base Excess 0 mmol/L (-3-3) FiO2 70 Medications Active Scripts Medications Dose Route/Sig Max Daily Dose Days Date Category Tramadol Hcl 50 Mg Tablet 50 Mg PO Q8HRS PRN 11/11/19 Reported Carafate (Sucralfate) 1 Gm Tablet 1 Gm PO TIDACHC 11/11/19 Reported Prednisone (Prednisone) 10 Mg Tablet 10 Mg PO DAILY 11/11/19 Reported Pantoprazole Sodium (Pantoprazole Sodium) 40 Mg Tablet.dr 40 Mg PO BIDAC 11/11/19 Reported Zofran (Ondansetron Hcl) 4 Mg Tablet 1 Tab PO Q8HRS 11/11/19 Reported Nifedipine Er (Nifedipine) 30 Mg Tablet.er 30 Mg PO DAILY 11/11/19 Reported Methylprednisolone 4 Mg Tab.ds.pk 4 Mg PO DAILY 11/11/19 Reported Metformin Hcl 1,000 Mg Tablet 1,000 Mg PO BIDWMEALS 11/11/19 Reported Levothyroxine Sodium 100 Mcg Tablet 100 Mcg PO DAILYAC 11/11/19 Reported Famotidine 20 Mg Tablet 20 Mg PO BID 11/11/19 Reported Celexa (Citalopram Hydrobromide) 40 Mg Tablet 40 Mg PO DAILY 11/11/19 Reported Evoxac (Cevimeline Hcl) 30 Mg Capsule 30 Mg PO TID 11/11/19 Reported Comments cxr reviewed 1. Tube and line position as discussed above. No pneumothorax is seen. 2. . Bilateral perihilar infiltrates and left lower lobe atelectasis and/or infiltrate, unchanged. CXR 11/24/19 IMPRESSION: 1. Slight improvement left lung base but persistent bilateral diffuse infiltrates. 2. Tubes and lines unchanged. Impression . IMPRESSION: 1. Acute hypoxemic respiratory failure secondary to COVID-19 viral pneumonia.-- continue to require vent support, 2. COVID-19 viral pneumonia. 3. Acute respiratory distress syndrome. 4. Leukocytosis-- worsening 5. History of systemic lupus erythematosus. 6. Raynaud's. 7. Abnormal cxr with bilateral infiltrates, 8. bradycardia Plan . Continue current ventilatory support patient is currently on FiO2 of 50% and a PEEP of 6 ABG reviewed, chest x-ray, Will reduce PEEP to 5 today and rate to 22 Plan to remove sedation tomorrow morning in preparation for possible CPAP trial Continue empiric antibiotics per ID Status post convalescent plasma, finished course of remdesivir Completed full course of steroids Continue tube feeding for nutritional support Follow clinical course DVT/GI prophylaxis: lovenox/pepcid Discussed with RN and RT Critical care time 11 to 11:30 AM, no overlap MARITZA HAZEL MD Nov 24, 2019 08:37
[2019-11-24] MEDS: CHOLECALCIFEROL (VITAMIN D3) 1,000 UNIT TABLET PO SCH (08:39)
[2019-11-24] MEDS: ENOXAPARIN 40 MG/0.4 ML SYRINGE. SQ SCH ×2 (08:39→21:02)
[2019-11-24] MEDS: DEXAMETHASONE SOD PHOS 4 MG/ML VIAL IVP SCH (08:40)
[2019-11-24] MEDS: ZINC SULFATE 220 MG CAPSULE. PO SCH (08:40)
[2019-11-24] MEDS: CITALOPRAM 20 MG TABLET. PO SCH (08:40)
[2019-11-24] MEDS: cefTRIAXone IV Push 2 GM VIAL. IVP SCH (08:40)
[2019-11-24] MEDS: FAMOTIDINE 20 MG/2 ML VIAL IVP SCH ×2 (08:41→21:02)
[2019-11-24 09:00] LABS: BASE EXCESS ABG 1 mmol/L (-3-3); HCO3 ABG 24 mmol/L (21-28); PCO2 ABG 34 mmHg (35-46); PO2 ABG 75 mmHg (65-108); SAT O2 ABG 94 % (92-99)
[2019-11-24 09:02] LABS: FIO2 ABG 50
--- NOTE | 2019-11-24 10:08 | PDOC ---
[facility] PROGRESS NOTE Date of Service DOS: DATE: 11/24/19 TIME: 10:07 Chief Complaint Chief Complaint A/P: Acute hypoxemic respiratory failure secondary to COVID-19 infection COVID-19 pneumonia Leukocytosis secondary to the above Microcytic anemia Hyponatremia Severe protein calorie malnutrition Plan Supportive measures Ventilatory support as per pulmonology sap solution manager consultant OG tube for nutrition Vitamin C vitamin D and zinc Continue steroids Broad-spectrum antibiotics as per ID sap solution manager consultant Further recommendations based on the clinical course DVT prophylaxis: Patient will be fully anticoagulated History of Present Illness History of Present Illness Ms Galicia is a 69-year-old female with past medical history of asthma Raynaud's phenomenon syncope history of systemic lupus erythematosus was in her usual state of health until couple days prior to her visit to the ER when she was diagnosed with COVID-19. Apparently the patient had attended a wedding and most likely is where they contracted the disease. Her is at our institution on the ventilator as well as reported by nursing staff. The patient at the time my evaluation is on mechanical ventilation and sedated. Most of this is from review of outside facility documentation. Bill the patient had described in the review of systems at the outside facility that she had some altered taste in her mouth she did not have any headache visual changes blurred vision double vision she did have some shortness of breath and chest discomfort in her chest whenever she took a deep breath otherwise no other complaints she did not have any diarrhea abdominal pain no neurological deficits were reported. Patient is being admitted for further evaluation and treatment 11/11: Patient requiring paralytics noted to allow vent to be synchronized with the patient is breathing. Critically ill. Remdesivir experimental therapy initiated 11/12: On vent, critically ill 11/13: Patient with no acute events reported overnight, patient seems better on the vent today. Prognosis guarded. 11/14: Patient remains hemodynamically stable still requiring quite a bit of ventilatory support with 8 of PEEP and FiO2 of 80% she had convalescent plasma. 11/15: On vent, critically ill. 11/16: On Vent, sedated. FiO2 80%, PEEP 8. On day 6 remdesivir. WBC 12.3, Hb 7.4 11/17: Sedated on vent FiO2 70%, PEEP 8. Status post remdesivir and convalescent plasma. Afebrile. Unfortunately her her on 11/17/2019. 11/18: Sedated on vent AC mode FiO2 70% PEEP of 8. Afebrile. Good urine output. ABG with pH 7.47. WBC 15.6. 11/19: Afebrile. Sedated on vent AC mode FiO2 70% PEEP of 8. ABG reviewed pH 7.4., PCO2 35, PO2 78. 11/20: Afebrile. Sedated on vent AC mode FiO2 70% PEEP of 8, ABG pH 7.39 PCO2 43 PO2 down to 59. CXR reviewed with bilateral patchy infiltrates. D-dimer climbing to 1.37. WBC up to 24.6 Hb stable at 7.9. 11/21: Afebrile sedated on vent AC mode 70% FiO2 PEEP of 8, ABG 7.4 pH PCO2 42 PO2 68. CXR stable, ET tube has been advanced. 11/22: Afebrile. Sedated on vent AC mode 70% FiO2 PEEP of 8, ABG pH 7.4 PCO2 42 PO2 95. D-dimer down to 0.96. WBC up to 24.6 Hb stable 7.9. Afebrile bradycardic borderline low blood pressure. Sedated on vent AC mode 50% FiO2 PEEP of 6 ABG pH 747 PCO2 34 PO2 75. CXR about the same. Vitals/I&O Vitals/I&O: Vital Signs Date Time Temp Pulse Resp B/P (MAP) Pulse Ox O2 Delivery O2 Flow Rate FiO2 11/24/19 09:00 40 24 102/56 (71) 98 Ventilator 97.0 11/24/19 08:00 97.4 97.4 I & O 11/23/19 11/23/19 11/24/19 15:00 23:00 07:00 Intake Total 300 ml 1258 ml 1089 ml Output Total 625 ml 1125 ml 1070 ml Balance -325 ml 133 ml 19 ml Physical Exam Physical Exam: GENERAL: Intubated, sedated on mechanical ventilation. HEENT: Normocephalic, atraumatic. Anicteric. NG tube present NECK: Supple. Right IJ line looks clean. LUNGS: Coarse breath sounds bilaterally. No wheezing. HEART: S1, S2 present. No murmurs. ABDOMEN: Soft, nontender, positive bowel sounds. EXTREMITIES: No edema, no cyanosis. DERMATOLOGIC: Warm and dry. No generalized rash. NEUROLOGIC: Sedated. PSYCHIATRIC: Unable to assess. Labs Labs: Laboratory Tests Test 11/24/19 08:50 O2 Saturation 94 % (92-99) Arterial Blood pH 7.47 (7.35-7.45) Arterial Blood pCO2 at Patient Temp 34 mmHg (35-46) Arterial Blood pO2 at Patient Temp 75 mmHg (65-108) Arterial Blood HCO3 24 mmol/L (21-28) Arterial Blood Base Excess 1 mmol/L (-3-3) FiO2 50 Comment Review of Relevant I have reviewed the following items clive (where applicable) has been applied. Justifications for Admission Other Justification HANY AMIN MD Nov 24, 2019 10:08
[2019-11-24] MEDS: IV NORMAL SALINE 1000ML BAG 1,000 ML IV SCH (11:40)
--- NOTE | 2019-11-24 12:09 | NUR ---
SS following up with discharge planning. SS reviewed pt chart and discussed with pt RN. Pt remains on the vent at this time at 50%. Pt on IV Meropenem. COVID19 positive. SS ph[facility], ; fax [phone]. SS will continue to follow for discharge planning.
[2019-11-24] MEDS: MEROPENEM 500 MG in IV NORMAL SALINE 50ML 50 ML IV SCH ×2 (14:19→21:02)
[2019-11-25] VITALS (23 sets, daily range): BP systolic 90–175; BP diastolic 5–74
[2019-11-25] MEDS: ASCORBIC ACID 500 MG TABLET PO SCH ×2 (00:12→06:13)
[2019-11-25] MEDS: fentaNYL HIGH DOSE PCA 55 ML IV PRN (00:19)
[2019-11-25] MEDS: IV NORMAL SALINE 1000ML BAG 1,000 ML IV SCH ×2 (05:25→20:56)
--- NOTE | 2019-11-25 05:48 | RAD ---
AP chest. HISTORY: Patient on ventilator, Covid pneumonia AP view was taken of the chest. Central line extends to the right atrium. NG tube extends into the stomach. Endotracheal tube stops at the aortic arch. There are persistent diffuse bilateral infiltrates with little interval change. IMPRESSION: 1. Persistent infiltrates with little change. Electronically signed by: Wes Jones MD (11/25/2019 5:45 AM) [id number]
[2019-11-25] MEDS: LEVOTHYROXINE 100 MCG TABLET PO SCH (06:13)
[2019-11-25] MEDS: MEROPENEM 500 MG in IV NORMAL SALINE 50ML 50 ML IV SCH ×3 (06:18→21:16)
--- NOTE | 2019-11-25 08:14 | PDOC ---
Infectious Disease Note Subjective Subjective Pt intubated and sedated ROS ROS No nausea vomiting diarrhea Vital Sign Vital Signs Vital Signs Date Time Temp Pulse Resp B/P (MAP) Pulse Ox O2 Delivery O2 Flow Rate FiO2 11/25/19 06:00 39 24 107/51 (69) 100 Ventilator 11/25/19 04:00 97.9 97.9 11/25/19 00:53 10.0 Physical Exam PHYSICAL EXAM GENERAL: Intubated, sedated on mechanical ventilation. HEENT: Normocephalic, atraumatic. Anicteric. NG tube present NECK: Supple. Right IJ line looks clean. LUNGS: Coarse breath sounds bilaterally. No wheezing. HEART: S1, S2 present. No murmurs. ABDOMEN: Soft, nontender, positive bowel sounds. EXTREMITIES: No edema, no cyanosis. DERMATOLOGIC: Warm and dry. No generalized rash. NEUROLOGIC: Sedated. PSYCHIATRIC: Unable to assess. Labs Lab Laboratory Tests Test 11/24/19 08:50 O2 Saturation 94 % (92-99) Arterial Blood pH 7.47 (7.35-7.45) Arterial Blood pCO2 at Patient Temp 34 mmHg (35-46) Arterial Blood pO2 at Patient Temp 75 mmHg (65-108) Arterial Blood HCO3 24 mmol/L (21-28) Arterial Blood Base Excess 1 mmol/L (-3-3) FiO2 50 Micro GRAM STAIN EVALUATION Final Final This specimen is of good quality and is acceptable for routine bacterial culture. Culture results to follow. GRAM NEGATIVE RODS:FEW GRAM POSITIVE COCCI:RARE SQUAMOUS EPI CELL:RARE PMN (WBCs):MANY Unless otherwise specified, Testing Performed by: [address] [address] For Inquires, the Physician may contact the Microbiology department at [phone] RESPIRATORY CULTURE Final Final MODERATE Mixed upper respiratory iesha on 11/23/19 at 0846 MODERATE Mixed upper respiratory iesha on 11/24/19 at 0834 Unless otherwise specified, Testing Performed by: [address] [address] For Inquires, the Physician may contact the Microbiology department at [phone] Objective Assessment 1. COVID-19 pneumonia. 2. Acute hypoxic respiratory failure, status post intubation. 3. Leukocytosis, likely from steroids. 4. Asthma. 5. History of systemic lupus erythematosus. 6. History of Raynaud's. 7. PCN,Sulfa and Clindamycin allergies per pharmacy pt has tolerated ceftriaxone well in the past 8. Bradycardia likely from sedation Plan Plan of Care Continue supportive care. On steroids Remdesivir 11/10 Status post convalescent plasma Follow up labs and cultures. Critically ill Discussed with nursing staff. Continue meropenem APRYL ARBOLEDA MD Nov 25, 2019 08:14
[2019-11-25 08:30] LABS: BASE EXCESS ABG 2 mmol/L (-3-3); HCO3 ABG 25 mmol/L (21-28); PCO2 ABG 35 mmHg (35-46); PO2 ABG 73 mmHg (65-108); SAT O2 ABG 94 % (92-99)
--- NOTE | 2019-11-25 08:37 | PDOC ---
PULMONARY PROGRESS NOTES DATE: 11/25/19 TIME: 08:36 Subjective Patient currently on 50% FiO2 5 of PEEP sedated Vitals Vital Signs Date Time Temp Pulse Resp B/P (MAP) Pulse Ox O2 Delivery O2 Flow Rate FiO2 11/25/19 06:00 39 24 107/51 (69) 100 Ventilator 11/25/19 04:00 97.9 97.9 11/25/19 00:53 10.0 Comments Patient seen doing the , visual exam, on vent sedated bradycardia no accessory muscle use no rash Labs Laboratory Tests Test 11/23/19 08:55 11/24/19 08:50 O2 Saturation 97 % (92-99) 94 % (92-99) Arterial Blood pH 7.40 (7.35-7.45) 7.47 (7.35-7.45) Arterial Blood pCO2 at Patient Temp 42 mmHg (35-46) 34 mmHg (35-46) Arterial Blood pO2 at Patient Temp 95 mmHg (65-108) 75 mmHg (65-108) Arterial Blood HCO3 25 mmol/L (21-28) 24 mmol/L (21-28) Arterial Blood Base Excess 0 mmol/L (-3-3) 1 mmol/L (-3-3) FiO2 70 50 Laboratory Tests Test 11/24/19 08:50 O2 Saturation 94 % (92-99) Arterial Blood pH 7.47 (7.35-7.45) Arterial Blood pCO2 at Patient Temp 34 mmHg (35-46) Arterial Blood pO2 at Patient Temp 75 mmHg (65-108) Arterial Blood HCO3 24 mmol/L (21-28) Arterial Blood Base Excess 1 mmol/L (-3-3) FiO2 50 Medications Active Scripts Medications Dose Route/Sig Max Daily Dose Days Date Category Tramadol Hcl 50 Mg Tablet 50 Mg PO Q8HRS PRN 11/11/19 Reported Carafate (Sucralfate) 1 Gm Tablet 1 Gm PO TIDACHC 11/11/19 Reported Prednisone (Prednisone) 10 Mg Tablet 10 Mg PO DAILY 11/11/19 Reported Pantoprazole Sodium (Pantoprazole Sodium) 40 Mg Tablet.dr 40 Mg PO BIDAC 11/11/19 Reported Zofran (Ondansetron Hcl) 4 Mg Tablet 1 Tab PO Q8HRS 11/11/19 Reported Nifedipine Er (Nifedipine) 30 Mg Tablet.er 30 Mg PO DAILY 11/11/19 Reported Methylprednisolone 4 Mg Tab.ds.pk 4 Mg PO DAILY 11/11/19 Reported Metformin Hcl 1,000 Mg Tablet 1,000 Mg PO BIDWMEALS 11/11/19 Reported Levothyroxine Sodium 100 Mcg Tablet 100 Mcg PO DAILYAC 11/11/19 Reported Famotidine 20 Mg Tablet 20 Mg PO BID 11/11/19 Reported Celexa (Citalopram Hydrobromide) 40 Mg Tablet 40 Mg PO DAILY 11/11/19 Reported Evoxac (Cevimeline Hcl) 30 Mg Capsule 30 Mg PO TID 11/11/19 Reported Comments cxr reviewed 1. Tube and line position as discussed above. No pneumothorax is seen. 2. . Bilateral perihilar infiltrates and left lower lobe atelectasis and/or infiltrate, unchanged. CXR 11/24/19 IMPRESSION: 1. Slight improvement left lung base but persistent bilateral diffuse infiltrates. 2. Tubes and lines unchanged. Impression . IMPRESSION: 1. Acute hypoxemic respiratory failure secondary to COVID-19 viral pneumonia.-- continue to require vent support, 2. COVID-19 viral pneumonia. 3. Acute respiratory distress syndrome. 4. Leukocytosis-- worsening 5. History of systemic lupus erythematosus. 6. Raynaud's. 7. Abnormal cxr with bilateral infiltrates, 8. bradycardia Plan . We will proceed with possible sedation holiday and trial in the morning Continue current support Antibiotics per ID Status post convalescent plasma, finished course of remdesivir Completed full course of steroids Continue tube feeding for nutritional support Follow clinical course DVT/GI prophylaxis: lovenox/pepcid Discussed with RN and RT Total critical care time from 2:55 PM to 3:25 PM MARITZA HAZEL MD Nov 25, 2019 08:36
[2019-11-25 09:02] LABS: FIO2 ABG 50
[2019-11-25] MEDS: FAMOTIDINE 20 MG/2 ML VIAL IVP SCH ×2 (09:27→21:01)
[2019-11-25] MEDS: ENOXAPARIN 40 MG/0.4 ML SYRINGE. SQ SCH ×2 (09:27→21:01)
[2019-11-25] MEDS: ZINC SULFATE 220 MG CAPSULE. PO SCH (09:27)
[2019-11-25] MEDS: DEXAMETHASONE SOD PHOS 4 MG/ML VIAL IVP SCH (09:27)
[2019-11-25] MEDS: CITALOPRAM 20 MG TABLET. PO SCH (09:27)
[2019-11-25] MEDS: CHOLECALCIFEROL (VITAMIN D3) 1,000 UNIT TABLET PO SCH (09:27)
--- NOTE | 2019-11-25 10:31 | NUR ---
SS following up with discharge planning. SS reviewed pt chart and discussed with pt RN. Pt remains on the vent at this time at 50%. Pt on IV Meropenem. COVID19 positive. Pt accepted at [facility]. SS will continue to follow for discharge planning.
--- NOTE | 2019-11-25 11:38 | PDOC ---
[facility] [facility] PROGRESS NOTE Date of Service DOS: DATE: 11/25/19 TIME: 11:33 Chief Complaint Chief Complaint A/P: Acute hypoxemic respiratory failure secondary to COVID-19 infection COVID-19 pneumonia Leukocytosis secondary to the above Microcytic anemia Hyponatremia Severe protein calorie malnutrition Plan Supportive measures Ventilatory support as per pulmonology pmo consultant OG tube for nutrition Vitamin C vitamin D and zinc Continue steroids Broad-spectrum antibiotics as per ID pmo consultant Further recommendations based on the clinical course DVT prophylaxis: Patient will be fully anticoagulated History of Present Illness History of Present Illness Ms Galicia is a 69-year-old female with past medical history of asthma Raynaud's phenomenon syncope history of systemic lupus erythematosus was in her usual state of health until couple days prior to her visit to the ER when she was diagnosed with COVID-19. Apparently the patient had attended a wedding and most likely is where they contracted the disease. Her is at our institution on the ventilator as well as reported by nursing staff. The patient at the time my evaluation is on mechanical ventilation and sedated. Most of this is from review of outside facility documentation. Bill the patient had described in the review of systems at the outside facility that she had some altered taste in her mouth she did not have any headache visual changes blurred vision double vision she did have some shortness of breath and chest discomfort in her chest whenever she took a deep breath otherwise no other complaints she did not have any diarrhea abdominal pain no neurological deficits were reported. Patient is being admitted for further evaluation and treatment 11/11: Patient requiring paralytics noted to allow vent to be synchronized with the patient is breathing. Critically ill. Remdesivir experimental therapy initiated 11/12: On vent, critically ill 11/13: Patient with no acute events reported overnight, patient seems better on the vent today. Prognosis guarded. 11/14: Patient remains hemodynamically stable still requiring quite a bit of ventilatory support with 8 of PEEP and FiO2 of 80% she had convalescent plasma. 11/15: On vent, critically ill. 11/16: On Vent, sedated. FiO2 80%, PEEP 8. On day 6 remdesivir. WBC 12.3, Hb 7.4 11/17: Sedated on vent FiO2 70%, PEEP 8. Status post remdesivir and convalescent plasma. Afebrile. Unfortunately her her on 11/17/2019. 11/18: Sedated on vent AC mode FiO2 70% PEEP of 8. Afebrile. Good urine output. ABG with pH 7.47. WBC 15.6. 11/19: Afebrile. Sedated on vent AC mode FiO2 70% PEEP of 8. ABG reviewed pH 7.4., PCO2 35, PO2 78. 11/20: Afebrile. Sedated on vent AC mode FiO2 70% PEEP of 8, ABG pH 7.39 PCO2 43 PO2 down to 59. CXR reviewed with bilateral patchy infiltrates. D-dimer climbing to 1.37. WBC up to 24.6 Hb stable at 7.9. 11/21: Afebrile sedated on vent AC mode 70% FiO2 PEEP of 8, ABG 7.4 pH PCO2 42 PO2 68. CXR stable, ET tube has been advanced. 11/22: Afebrile. Sedated on vent AC mode 70% FiO2 PEEP of 8, ABG pH 7.4 PCO2 42 PO2 95. D-dimer down to 0.96. WBC up to 24.6 Hb stable 7.9. 11/23: Afebrile bradycardic borderline low blood pressure. Sedated on vent AC mode 50% FiO2 PEEP of 6 ABG pH 747 PCO2 34 PO2 75. CXR about the same. Afebrile, bradycardic, BP low not on pressors. Sedated on vent AC mode 50% FiO2 PEEP of 5 ABG 7.47/35/73. CXR unchanged. Vitals/I&O Vitals/I&O: Vital Signs Date Time Temp Pulse Resp B/P (MAP) Pulse Ox O2 Delivery O2 Flow Rate FiO2 11/25/19 11:00 46 24 108/57 (74) 99 Ventilator 11/25/19 08:00 98.3 98.3 11/25/19 00:53 10.0 l I & O 11/24/19 11/24/19 11/25/19 15:00 23:00 07:00 Intake Total 300 ml 1958.81 ml 1274 ml Output Total 900 ml 1080 ml 585 ml Balance -600 ml 878.81 ml 689 ml Physical Exam Physical Exam: GENERAL: Intubated, sedated on mechanical ventilation. HEENT: Normocephalic, atraumatic. Anicteric. NG tube present NECK: Supple. Right IJ line looks clean. LUNGS: Coarse breath sounds bilaterally. No wheezing. HEART: S1, S2 present. No murmurs. ABDOMEN: Soft, nontender, positive bowel sounds. EXTREMITIES: No edema, no cyanosis. DERMATOLOGIC: Warm and dry. No generalized rash. NEUROLOGIC: Sedated. PSYCHIATRIC: Unable to assess. Labs Labs: Laboratory Tests Test 11/25/19 07:45 O2 Saturation 94 % (92-99) Arterial Blood pH 7.47 (7.35-7.45) Arterial Blood pCO2 at Patient Temp 35 mmHg (35-46) Arterial Blood pO2 at Patient Temp 73 mmHg (65-108) Arterial Blood HCO3 25 mmol/L (21-28) Arterial Blood Base Excess 2 mmol/L (-3-3) FiO2 50 Comment Review of Relevant I have reviewed the following items clive (where applicable) has been applied. Medications: Current Medications Medications (Trade) Dose Ordered Sig/Diego Route PRN Reason Start Time Stop Time Status Last Admin Dose Admin Meropenem 500 mg/ Sodium Chloride 50 ml @ 100 mls/hr Q8HRS IV 11/24/19 14:00 11/25/19 06:18 Justifications for Admission Other Justification HANY AMIN MD Nov 25, 2019 11:38
[2019-11-25] MEDS: MIDAZOLAM 100mg/100ml NS BAG 100 ML IV PRN (11:41)
[2019-11-25] MEDS: PROPOFOL 100 ML IV PRN ×2 (13:12→21:16)
[2019-11-26] VITALS (25 sets, daily range): BP systolic 67–167; BP diastolic 50–80
[2019-11-26] MEDS: MEROPENEM 500 MG in IV NORMAL SALINE 50ML 50 ML IV SCH ×3 (05:52→21:13)
[2019-11-26] MEDS: LEVOTHYROXINE 100 MCG TABLET PO SCH (05:52)
[2019-11-26] MEDS: PROPOFOL 100 ML IV PRN ×3 (06:59→21:36)
--- NOTE | 2019-11-26 08:20 | PDOC ---
PULMONARY PROGRESS NOTES DATE: 11/26/19 TIME: 08:20 Subjective Patient currently on 50% FiO2 5 of PEEP sedated febrile luclile on monitor No overnight concerns from nursing Vitals Vital Signs Date Time Temp Pulse Resp B/P (MAP) Pulse Ox O2 Delivery O2 Flow Rate FiO2 11/26/19 08:02 97 Ventilator 11/26/19 06:00 58 27 140/72 (94) 11/26/19 04:00 98.3 98.3 Comments Patient seen doing the , visual exam, on vent sedated bradycardia no accessory muscle use no rash Labs Laboratory Tests Test 11/24/19 08:50 11/25/19 07:45 O2 Saturation 94 % (92-99) 94 % (92-99) Arterial Blood pH 7.47 (7.35-7.45) 7.47 (7.35-7.45) Arterial Blood pCO2 at Patient Temp 34 mmHg (35-46) 35 mmHg (35-46) Arterial Blood pO2 at Patient Temp 75 mmHg (65-108) 73 mmHg (65-108) Arterial Blood HCO3 24 mmol/L (21-28) 25 mmol/L (21-28) Arterial Blood Base Excess 1 mmol/L (-3-3) 2 mmol/L (-3-3) FiO2 50 50 Medications Active Scripts Medications Dose Route/Sig Max Daily Dose Days Date Category Tramadol Hcl 50 Mg Tablet 50 Mg PO Q8HRS PRN 11/11/19 Reported Carafate (Sucralfate) 1 Gm Tablet 1 Gm PO TIDACHC 11/11/19 Reported Prednisone (Prednisone) 10 Mg Tablet 10 Mg PO DAILY 11/11/19 Reported Pantoprazole Sodium (Pantoprazole Sodium) 40 Mg Tablet.dr 40 Mg PO BIDAC 11/11/19 Reported Zofran (Ondansetron Hcl) 4 Mg Tablet 1 Tab PO Q8HRS 11/11/19 Reported Nifedipine Er (Nifedipine) 30 Mg Tablet.er 30 Mg PO DAILY 11/11/19 Reported Methylprednisolone 4 Mg Tab.ds.pk 4 Mg PO DAILY 11/11/19 Reported Metformin Hcl 1,000 Mg Tablet 1,000 Mg PO BIDWMEALS 11/11/19 Reported Levothyroxine Sodium 100 Mcg Tablet 100 Mcg PO DAILYAC 11/11/19 Reported Famotidine 20 Mg Tablet 20 Mg PO BID 11/11/19 Reported Celexa (Citalopram Hydrobromide) 40 Mg Tablet 40 Mg PO DAILY 11/11/19 Reported Evoxac (Cevimeline Hcl) 30 Mg Capsule 30 Mg PO TID 11/11/19 Reported Comments cxr reviewed 1. Tube and line position as discussed above. No pneumothorax is seen. 2. . Bilateral perihilar infiltrates and left lower lobe atelectasis and/or infiltrate, unchanged. CXR 11/24/19 IMPRESSION: 1. Slight improvement left lung base but persistent bilateral diffuse infiltrates. 2. Tubes and lines unchanged. Impression . IMPRESSION: 1. Acute hypoxemic respiratory failure secondary to COVID-19 viral pneumonia.-- continue to require vent support, 2. COVID-19 viral pneumonia. 3. Acute respiratory distress syndrome. 4. Leukocytosis-- worsening 5. History of systemic lupus erythematosus. 6. Raynaud's. 7. Abnormal cxr with bilateral infiltrates, 8. bradycardia Plan . Continue current vent support Fi02 of 50% and PEEP of 5, plan to preform sedation vacation, once awake CPAP trial Antibiotics per ID Status post convalescent plasma, finished course of remdesivir steroids with taper Continue tube feeding for nutritional support Follow clinical course DVT/GI prophylaxis: lovenox/pepcid Discussed with RN and RT DISPO: Pt. has been accepted at [facility], social work following Total critical care time from [id number] MARITZA HAZEL MD Nov 26, 2019 08:20
--- NOTE | 2019-11-26 08:24 | PDOC ---
Infectious Disease Note Subjective Subjective Pt intubated and sedated ROS ROS No nausea vomiting Vital Sign Vital Signs Vital Signs Date Time Temp Pulse Resp B/P (MAP) Pulse Ox O2 Delivery O2 Flow Rate FiO2 11/26/19 08:02 97 Ventilator 11/26/19 06:00 58 27 140/72 (94) 11/26/19 04:00 98.3 98.3 Physical Exam PHYSICAL EXAM GENERAL: Intubated, sedated on mechanical ventilation. HEENT: Normocephalic, atraumatic. Anicteric. NG tube present NECK: Supple. Right IJ line looks clean. LUNGS: Coarse breath sounds bilaterally. No wheezing. HEART: S1, S2 present. No murmurs. ABDOMEN: Soft, nontender, positive bowel sounds. EXTREMITIES: No edema, no cyanosis. DERMATOLOGIC: Warm and dry. No generalized rash. NEUROLOGIC: Sedated. PSYCHIATRIC: Unable to assess. Labs Micro GRAM STAIN EVALUATION Final Final This specimen is of good quality and is acceptable for routine bacterial culture. Culture results to follow. GRAM NEGATIVE RODS:FEW GRAM POSITIVE COCCI:RARE SQUAMOUS EPI CELL:RARE PMN (WBCs):MANY Unless otherwise specified, Testing Performed by: [address] [id number] For Inquires, the Physician may contact the Microbiology department at [phone] RESPIRATORY CULTURE Final Final MODERATE Mixed upper respiratory iesha on 11/23/19 at 0846 MODERATE Mixed upper respiratory iesha on 11/24/19 at 0834 Unless otherwise specified, Testing Performed by: [address] [address] For Inquires, the Physician may contact the Microbiology department at [phone] Objective Assessment 1. COVID-19 pneumonia. 2. Acute hypoxic respiratory failure, status post intubation. 3. Leukocytosis, likely from steroids. 4. Asthma. 5. History of systemic lupus erythematosus. 6. History of Raynaud's. 7. PCN,Sulfa and Clindamycin allergies per pharmacy pt has tolerated ceftriaxone well in the past 8. Bradycardia likely from sedation Plan Plan of Care Continue supportive care. On steroids Remdesivir 11/10 Status post convalescent plasma Follow up labs and cultures. Critically ill Discussed with nursing staff. Continue meropenem APRYL ARBOLEDA MD Nov 26, 2019 08:24
[2019-11-26 08:42] LABS: BASE EXCESS ABG 3 mmol/L (-3-3); HCO3 ABG 26 mmol/L (21-28); PCO2 ABG 34 mmHg (35-46); PO2 ABG 74 mmHg (65-108); SAT O2 ABG 94 % (92-99)
[2019-11-26] MEDS: CHOLECALCIFEROL (VITAMIN D3) 1,000 UNIT TABLET PO SCH (08:45)
[2019-11-26] MEDS: CITALOPRAM 20 MG TABLET. PO SCH (08:45)
[2019-11-26] MEDS: DEXAMETHASONE SOD PHOS 4 MG/ML VIAL IVP SCH (08:46)
[2019-11-26] MEDS: ENOXAPARIN 40 MG/0.4 ML SYRINGE. SQ SCH ×2 (09:00→21:12)
[2019-11-26] MEDS: ZINC SULFATE 220 MG CAPSULE. PO SCH (09:00)
[2019-11-26] MEDS: FAMOTIDINE 20 MG/2 ML VIAL IVP SCH ×2 (09:00→21:12)
[2019-11-26 09:36] LABS: FIO2 ABG 50
--- NOTE | 2019-11-26 10:17 | PDOC ---
[facility] PROGRESS NOTE Date of Service DOS: DATE: 11/26/19 TIME: 10:12 Chief Complaint Chief Complaint A/P: Acute hypoxemic respiratory failure secondary to COVID-19 infection COVID-19 pneumonia Leukocytosis secondary to the above Microcytic anemia Hyponatremia Severe protein calorie malnutrition Plan Supportive measures Ventilatory support as per pulmonology vmware consultant OG tube for nutrition Vitamin C vitamin D and zinc Continue steroids Broad-spectrum antibiotics as per ID vmware consultant Further recommendations based on the clinical course DVT prophylaxis: Patient will be fully anticoagulated History of Present Illness History of Present Illness Ms Galicia is a 69-year-old female with past medical history of asthma Raynaud's phenomenon syncope history of systemic lupus erythematosus was in her usual state of health until couple days prior to her visit to the ER when she was diagnosed with COVID-19. Apparently the patient had attended a wedding and most likely is where they contracted the disease. Her is at our institution on the ventilator as well as reported by nursing staff. The patient at the time my evaluation is on mechanical ventilation and sedated. Most of this is from review of outside facility documentation. Bill the patient had described in the review of systems at the outside facility that she had some altered taste in her mouth she did not have any headache visual changes blurred vision double vision she did have some shortness of breath and chest discomfort in her chest whenever she took a deep breath otherwise no other complaints she did not have any diarrhea abdominal pain no neurological deficits were reported. Patient is being admitted for further evaluation and treatment 11/11: Patient requiring paralytics noted to allow vent to be synchronized with the patient is breathing. Critically ill. Remdesivir experimental therapy initiated 11/12: On vent, critically ill 11/13: Patient with no acute events reported overnight, patient seems better on the vent today. Prognosis guarded. 11/14: Patient remains hemodynamically stable still requiring quite a bit of ventilatory support with 8 of PEEP and FiO2 of 80% she had convalescent plasma. 11/15: On vent, critically ill. 11/16: On Vent, sedated. FiO2 80%, PEEP 8. On day 6 remdesivir. WBC 12.3, Hb 7.4 11/17: Sedated on vent FiO2 70%, PEEP 8. Status post remdesivir and convalescent plasma. Afebrile. Unfortunately her her on 11/17/2019. 11/18: Sedated on vent AC mode FiO2 70% PEEP of 8. Afebrile. Good urine output. ABG with pH 7.47. WBC 15.6. 11/19: Afebrile. Sedated on vent AC mode FiO2 70% PEEP of 8. ABG reviewed pH 7.4., PCO2 35, PO2 78. 11/20: Afebrile. Sedated on vent AC mode FiO2 70% PEEP of 8, ABG pH 7.39 PCO2 43 PO2 down to 59. CXR reviewed with bilateral patchy infiltrates. D-dimer climbing to 1.37. WBC up to 24.6 Hb stable at 7.9. 11/21: Afebrile sedated on vent AC mode 70% FiO2 PEEP of 8, ABG 7.4 pH PCO2 42 PO2 68. CXR stable, ET tube has been advanced. 11/22: Afebrile. Sedated on vent AC mode 70% FiO2 PEEP of 8, ABG pH 7.4 PCO2 42 PO2 95. D-dimer down to 0.96. WBC up to 24.6 Hb stable 7.9. 11/23: Afebrile bradycardic borderline low blood pressure. Sedated on vent AC mode 50% FiO2 PEEP of 6 ABG pH 747 PCO2 34 PO2 75. CXR about the same. 11/24: Afebrile, bradycardic, BP low not on pressors. Sedated on vent AC mode 50% FiO2 PEEP of 5 ABG 7.47/35/73. CXR unchanged. 11/25: Patient seen in the ICU. Cardiac blood pressure stable. Discussed with pulmonology, begin sedation holiday. Vitals/I&O Vitals/I&O: Vital Signs Date Time Temp Pulse Resp B/P (MAP) Pulse Ox O2 Delivery O2 Flow Rate FiO2 11/26/19 08:02 97 Ventilator 11/26/19 06:00 58 27 140/72 (94) 11/26/19 04:00 98.3 98.3 I & O0 11/25/19 11/25/19 11/26/19 15:00 23:00 07:00 Intake Total 300 ml 2054 ml 1967 ml Output Total 975 ml 1200 ml 675 ml Balance -675 ml 854 ml 1292 ml Physical Exam Physical Exam: GENERAL: Intubated, sedated on mechanical ventilation. HEENT: Normocephalic, atraumatic. Anicteric. NG tube present NECK: Supple. Right IJ line looks clean. LUNGS: Coarse breath sounds bilaterally. No wheezing. HEART: S1, S2 present. No murmurs. ABDOMEN: Soft, nontender, positive bowel sounds. EXTREMITIES: No edema, no cyanosis. DERMATOLOGIC: Warm and dry. No generalized rash. NEUROLOGIC: Sedated. PSYCHIATRIC: Unable to assess. Labs Labs: Laboratory Tests Test 11/26/19 08:00 O2 Saturation 94 % (92-99) Arterial Blood pH 7.51 (7.35-7.45) Arterial Blood pCO2 at Patient Temp 34 mmHg (35-46) Arterial Blood pO2 at Patient Temp 74 mmHg (65-108) Arterial Blood HCO3 26 mmol/L (21-28) Arterial Blood Base Excess 3 mmol/L (-3-3) FiO2 50 Review of Systems Review of Systems: Unable to obtain due to clinical condition Assessment and Plan Problems: (1) Pneumonia due to COVID-19 virus (2) Acute respiratory failure with hypoxia Comment Review of Relevant I have reviewed the following items clive (where applicable) has been applied. Medications: Current Medications Medications (Trade) Dose Ordered Sig/Diego Route PRN Reason Start Time Stop Time Status Last Admin Dose Admin Dexamethasone Sodium Phosphate (Decadron) 4 mg DAILY IVP 11/26/19 09:00 11/29/19 09:00 11/26/19 08:46 Justifications for Admission Other Justification JAGDISH RAJAN MD Nov 26, 2019 10:17
--- NOTE | 2019-11-26 12:09 | RAD ---
PORTABLE CHEST 1V History: Reason: RF/COVID PNEUMONIA / Spl. Instructions: / History: Comparison: November 25, 2019 Findings: Diffuse interstitial and alveolar opacities, unchanged. Stable endotracheal tube and enteric tube. Small bilateral pleural effusions, unchanged. No pneumothorax. Unchanged heart size. Stable right IJ central line. Impression: 1. Diffuse interstitial and alveolar opacities, unchanged compared to prior. Electronically signed by: Darren Simon DO (11/26/2019 12:06 PM) [id number]
[2019-11-26] MEDS: IV NORMAL SALINE 1000ML BAG 1,000 ML IV SCH (13:30)
[2019-11-27] VITALS (23 sets, daily range): BP systolic 88–150; BP diastolic 45–71
[2019-11-27] MEDS: PROPOFOL 100 ML IV PRN ×4 (03:38→22:35)
[2019-11-27] MEDS: IV NORMAL SALINE 1000ML BAG 1,000 ML IV SCH ×2 (03:38→22:31)
[2019-11-27] MEDS: MEROPENEM 500 MG in IV NORMAL SALINE 50ML 50 ML IV SCH ×3 (05:15→22:31)
[2019-11-27] MEDS: LEVOTHYROXINE 100 MCG TABLET PO SCH (05:15)
[2019-11-27 05:49] LABS: BASO % 0 % (0-3); EOS # 0.3 x10^3/uL (0.0-0.7); EOS % 2 % (0-3); HEMATOCRIT 23.2 % (36.0-47.0); HEMOGLOBIN 7.2 g/dL (12.0-15.5); LYMPH # 1.7 x10^3/uL (1.0-4.8); LYMPH % 15 % (24-48); MEAN CORPUSCULAR HEMOGLOBIN 24 pg (25-35); MEAN CORPUSCULAR HGB CONC 31 g/dL (31-37); MEAN CORPUSCULAR VOLUME 79 fL (79-100); MONO # 0.9 x10^3/uL (0.0-1.1); MONO % 8 % (0-9); NEUT # 8.7 x10^3/uL (1.8-7.7); NEUT % 75 % (31-73); PLATELET COUNT 241 x10^3/uL (140-400); RED BLOOD COUNT 2.95 x10^6/uL (3.50-5.40); RED CELL DISTRIBUTION WIDTH 17.1 % (11.5-14.5); WHITE BLOOD COUNT 11.6 x10^3/uL (4.0-11.0)
[2019-11-27 06:05] LABS: CALCIUM 7.6 mg/dL (8.5-10.1); CREATININE 0.4 mg/dL (0.6-1.0); GFR 158.7; POTASSIUM 4.1 mmol/L (3.5-5.1)
--- NOTE | 2019-11-27 07:42 | PDOC ---
Infectious Disease Note Subjective Subjective Pt intubated and sedated ROS ROS No nausea vomiting diarrhea Vital Sign Vital Signs Vital Signs Date Time Temp Pulse Resp B/P (MAP) Pulse Ox O2 Delivery O2 Flow Rate FiO2 11/27/19 06:00 49 24 115/58 (77) 99 Ventilator 11/27/19 02:00 98.0 98.0 Physical Exam PHYSICAL EXAM GENERAL: Intubated, sedated on mechanical ventilation. HEENT: Normocephalic, atraumatic. Anicteric. NG tube present NECK: Supple. Right IJ line looks clean. LUNGS: Coarse breath sounds bilaterally. No wheezing. HEART: S1, S2 present. No murmurs. ABDOMEN: Soft, nontender, positive bowel sounds. EXTREMITIES: No edema, no cyanosis. DERMATOLOGIC: Warm and dry. No generalized rash. NEUROLOGIC: Sedated. PSYCHIATRIC: Unable to assess. Labs Lab Laboratory Tests Test 11/26/19 08:00 11/27/19 05:10 O2 Saturation 94 % (92-99) Arterial Blood pH 7.51 (7.35-7.45) Arterial Blood pCO2 at Patient Temp 34 mmHg (35-46) Arterial Blood pO2 at Patient Temp 74 mmHg (65-108) Arterial Blood HCO3 26 mmol/L (21-28) Arterial Blood Base Excess 3 mmol/L (-3-3) FiO2 50 White Blood Count 11.6 x10^3/uL (4.0-11.0) Red Blood Count 2.95 x10^6/uL (3.50-5.40) Hemoglobin 7.2 g/dL (12.0-15.5) Hematocrit 23.2 % (36.0-47.0) Mean Corpuscular Volume 79 fL (79-100) Mean Corpuscular Hemoglobin 24 pg (25-35) Mean Corpuscular Hemoglobin Concent 31 g/dL (31-37) Red Cell Distribution Width 17.1 % (11.5-14.5) Platelet Count 241 x10^3/uL (140-400) Neutrophils (%) (Auto) 75 % (31-73) Lymphocytes (%) (Auto) 15 % (24-48) Monocytes (%) (Auto) 8 % (0-9) Eosinophils (%) (Auto) 2 % (0-3) Basophils (%) (Auto) 0 % (0-3) Neutrophils # (Auto) 8.7 x10^3/uL (1.8-7.7) Lymphocytes # (Auto) 1.7 x10^3/uL (1.0-4.8) Monocytes # (Auto) 0.9 x10^3/uL (0.0-1.1) Eosinophils # (Auto) 0.3 x10^3/uL (0.0-0.7) Basophils # (Auto) 0.0 x10^3/uL (0.0-0.2) Sodium Level 140 mmol/L (136-145) Potassium Level 4.1 mmol/L (3.5-5.1) Chloride Level 105 mmol/L (98-107) Carbon Dioxide Level 31 mmol/L (21-32) Anion Gap 4 (6-14) Blood Urea Nitrogen 20 mg/dL (7-20) Creatinine 0.4 mg/dL (0.6-1.0) Estimated GFR (Cockcroft-Gault) 158.7 Glucose Level 103 mg/dL (70-99) Calcium Level 7.6 mg/dL (8.5-10.1) Micro GRAM STAIN EVALUATION Final Final This specimen is of good quality and is acceptable for routine bacterial culture. Culture results to follow. GRAM NEGATIVE RODS:FEW GRAM POSITIVE COCCI:RARE SQUAMOUS EPI CELL:RARE PMN (WBCs):MANY Unless otherwise specified, Testing Performed by: [address] [address] For Inquires, the Physician may contact the Microbiology department at [phone] RESPIRATORY CULTURE Final Final MODERATE Mixed upper respiratory iesha on 11/23/19 at 0846 MODERATE Mixed upper respiratory iesha on 11/24/19 at 0834 Unless otherwise specified, Testing Performed by: [address] [address] For Inquires, the Physician may contact the Microbiology department at [phone] Objective Assessment 1. COVID-19 pneumonia. 2. Acute hypoxic respiratory failure, status post intubation. 3. Leukocytosis, likely from steroids. 4. Asthma. 5. History of systemic lupus erythematosus. 6. History of Raynaud's. 7. PCN,Sulfa and Clindamycin allergies per pharmacy pt has tolerated ceftriaxone well in the past 8. Bradycardia likely from sedation Plan Plan of Care Continue supportive care. On steroids Remdesivir 11/10 Status post convalescent plasma Follow up labs and cultures. Critically ill Discussed with nursing staff. Continue meropenem APRYL ARBOLEDA MD Nov 27, 2019 07:42
[2019-11-27] MEDS: FAMOTIDINE 20 MG/2 ML VIAL IVP SCH ×2 (08:20→22:30)
[2019-11-27] MEDS: CHOLECALCIFEROL (VITAMIN D3) 1,000 UNIT TABLET PO SCH (08:20)
[2019-11-27] MEDS: ENOXAPARIN 40 MG/0.4 ML SYRINGE. SQ SCH ×2 (08:20→22:30)
[2019-11-27] MEDS: ZINC SULFATE 220 MG CAPSULE. PO SCH (08:20)
[2019-11-27] MEDS: DEXAMETHASONE SOD PHOS 4 MG/ML VIAL IVP SCH (08:20)
[2019-11-27] MEDS: CITALOPRAM 20 MG TABLET. PO SCH (08:20)
[2019-11-27 09:16] LABS: BASE EXCESS ABG 4 mmol/L (-3-3); HCO3 ABG 28 mmol/L (21-28); PCO2 ABG 38 mmHg (35-46); PO2 ABG 91 mmHg (65-108); SAT O2 ABG 97 % (92-99)
[2019-11-27 09:41] LABS: FIO2 ABG 70
--- NOTE | 2019-11-27 11:38 | PDOC ---
PULMONARY PROGRESS NOTES DATE: 11/27/19 TIME: 11:36 Subjective Patient currently on 70% FiO2 5 of PEEP sedated lucille on monitor No overnight concerns from nursing Vitals Vital Signs Date Time Temp Pulse Resp B/P (MAP) Pulse Ox O2 Delivery O2 Flow Rate FiO2 11/27/19 11:00 44 24 117/52 (73) 99 Ventilator 11/27/19 08:00 97.6 97.6 Comments Patient seen doing the pandemic, visual exam, on vent sedated bradycardia no accessory muscle use no rash Labs Laboratory Tests Test 11/26/19 08:00 11/27/19 05:10 11/27/19 09:10 O2 Saturation 94 % (92-99) 97 % (92-99) Arterial Blood pH 7.51 (7.35-7.45) 7.48 (7.35-7.45) Arterial Blood pCO2 at Patient Temp 34 mmHg (35-46) 38 mmHg (35-46) Arterial Blood pO2 at Patient Temp 74 mmHg (65-108) 91 mmHg (65-108) Arterial Blood HCO3 26 mmol/L (21-28) 28 mmol/L (21-28) Arterial Blood Base Excess 3 mmol/L (-3-3) 4 mmol/L (-3-3) FiO2 50 70 White Blood Count 11.6 x10^3/uL (4.0-11.0) Red Blood Count 2.95 x10^6/uL (3.50-5.40) Hemoglobin 7.2 g/dL (12.0-15.5) Hematocrit 23.2 % (36.0-47.0) Mean Corpuscular Volume 79 fL (79-100) Mean Corpuscular Hemoglobin 24 pg (25-35) Mean Corpuscular Hemoglobin Concent 31 g/dL (31-37) Red Cell Distribution Width 17.1 % (11.5-14.5) Platelet Count 241 x10^3/uL (140-400) Neutrophils (%) (Auto) 75 % (31-73) Lymphocytes (%) (Auto) 15 % (24-48) Monocytes (%) (Auto) 8 % (0-9) Eosinophils (%) (Auto) 2 % (0-3) Basophils (%) (Auto) 0 % (0-3) Neutrophils # (Auto) 8.7 x10^3/uL (1.8-7.7) Lymphocytes # (Auto) 1.7 x10^3/uL (1.0-4.8) Monocytes # (Auto) 0.9 x10^3/uL (0.0-1.1) Eosinophils # (Auto) 0.3 x10^3/uL (0.0-0.7) Basophils # (Auto) 0.0 x10^3/uL (0.0-0.2) Sodium Level 140 mmol/L (136-145) Potassium Level 4.1 mmol/L (3.5-5.1) Chloride Level 105 mmol/L (98-107) Carbon Dioxide Level 31 mmol/L (21-32) Anion Gap 4 (6-14) Blood Urea Nitrogen 20 mg/dL (7-20) Creatinine 0.4 mg/dL (0.6-1.0) Estimated GFR (Cockcroft-Gault) 158.7 Glucose Level 103 mg/dL (70-99) Calcium Level 7.6 mg/dL (8.5-10.1) Laboratory Tests Test 11/27/19 05:10 11/27/19 09:10 White Blood Count 11.6 x10^3/uL (4.0-11.0) Red Blood Count 2.95 x10^6/uL (3.50-5.40) Hemoglobin 7.2 g/dL (12.0-15.5) Hematocrit 23.2 % (36.0-47.0) Mean Corpuscular Volume 79 fL (79-100) Mean Corpuscular Hemoglobin 24 pg (25-35) Mean Corpuscular Hemoglobin Concent 31 g/dL (31-37) Red Cell Distribution Width 17.1 % (11.5-14.5) Platelet Count 241 x10^3/uL (140-400) Neutrophils (%) (Auto) 75 % (31-73) Lymphocytes (%) (Auto) 15 % (24-48) Monocytes (%) (Auto) 8 % (0-9) Eosinophils (%) (Auto) 2 % (0-3) Basophils (%) (Auto) 0 % (0-3) Neutrophils # (Auto) 8.7 x10^3/uL (1.8-7.7) Lymphocytes # (Auto) 1.7 x10^3/uL (1.0-4.8) Monocytes # (Auto) 0.9 x10^3/uL (0.0-1.1) Eosinophils # (Auto) 0.3 x10^3/uL (0.0-0.7) Basophils # (Auto) 0.0 x10^3/uL (0.0-0.2) Sodium Level 140 mmol/L (136-145) Potassium Level 4.1 mmol/L (3.5-5.1) Chloride Level 105 mmol/L (98-107) Carbon Dioxide Level 31 mmol/L (21-32) Anion Gap 4 (6-14) Blood Urea Nitrogen 20 mg/dL (7-20) Creatinine 0.4 mg/dL (0.6-1.0) Estimated GFR (Cockcroft-Gault) 158.7 Glucose Level 103 mg/dL (70-99) Calcium Level 7.6 mg/dL (8.5-10.1) O2 Saturation 97 % (92-99) Arterial Blood pH 7.48 (7.35-7.45) Arterial Blood pCO2 at Patient Temp 38 mmHg (35-46) Arterial Blood pO2 at Patient Temp 91 mmHg (65-108) Arterial Blood HCO3 28 mmol/L (21-28) Arterial Blood Base Excess 4 mmol/L (-3-3) FiO2 70 Medications Active Scripts Medications Dose Route/Sig Max Daily Dose Days Date Category Tramadol Hcl 50 Mg Tablet 50 Mg PO Q8HRS PRN 11/11/19 Reported Carafate (Sucralfate) 1 Gm Tablet 1 Gm PO TIDACHC 11/11/19 Reported Prednisone (Prednisone) 10 Mg Tablet 10 Mg PO DAILY 11/11/19 Reported Pantoprazole Sodium (Pantoprazole Sodium) 40 Mg Tablet.dr 40 Mg PO BIDAC 11/11/19 Reported Zofran (Ondansetron Hcl) 4 Mg Tablet 1 Tab PO Q8HRS 11/11/19 Reported Nifedipine Er (Nifedipine) 30 Mg Tablet.er 30 Mg PO DAILY 11/11/19 Reported Methylprednisolone 4 Mg Tab.ds.pk 4 Mg PO DAILY 11/11/19 Reported Metformin Hcl 1,000 Mg Tablet 1,000 Mg PO BIDWMEALS 11/11/19 Reported Levothyroxine Sodium 100 Mcg Tablet 100 Mcg PO DAILYAC 11/11/19 Reported Famotidine 20 Mg Tablet 20 Mg PO BID 11/11/19 Reported Celexa (Citalopram Hydrobromide) 40 Mg Tablet 40 Mg PO DAILY 11/11/19 Reported Evoxac (Cevimeline Hcl) 30 Mg Capsule 30 Mg PO TID 11/11/19 Reported Comments cxr reviewed 1. Tube and line position as discussed above. No pneumothorax is seen. 2. . Bilateral perihilar infiltrates and left lower lobe atelectasis and/or infiltrate, unchanged. CXR 11/24/19 IMPRESSION: 1. Slight improvement left lung base but persistent bilateral diffuse infiltrates. 2. Tubes and lines unchanged. Impression . IMPRESSION: 1. Acute hypoxemic respiratory failure secondary to COVID-19 viral pneumonia.-- continue to require vent support, 2. COVID-19 viral pneumonia. 3. Acute respiratory distress syndrome. 4. Leukocytosis-- worsening 5. History of systemic lupus erythematosus. 6. Raynaud's. 7. Abnormal cxr with bilateral infiltrates, 8. bradycardia Plan . Continue current vent support Fi02 of 70% and PEEP of 5, ABG reviewed we will reduce FiO2 to 60% and ventilatory rate to 22 Patient continues to have chronic respiratory failure we will consult surgery f or tracheostomy placement discussed with sons Follow chest x-ray Antibiotics per ID Status post convalescent plasma, finished course of remdesivir steroids with taper Continue tube feeding for nutritional support Follow clinical course DVT/GI prophylaxis: lovenox/pepcid Discussed with RN and RT DISPO: [facility] Total critical care time from [id number] MARITZA HAZEL MD Nov 27, 2019 11:38
[2019-11-27] MEDS: fentaNYL HIGH DOSE PCA 55 ML IV PRN (14:23)
--- NOTE | 2019-11-27 16:37 | PDOC ---
PROGRESS NOTES Date of Service: DATE: 11/27/19 TIME: 16:37 Chief Complaint Chief Complaint A/P: Acute hypoxemic respiratory failure secondary to COVID-19 infection COVID-19 pneumonia Leukocytosis secondary to the above Microcytic anemia Hyponatremia Severe protein calorie malnutrition Plan Supportive measures Ventilatory support as per pulmonology proposal consultant OG tube for nutrition Vitamin C vitamin D and zinc Continue steroids Broad-spectrum antibiotics as per ID proposal consultant Further recommendations based on the clinical course DVT prophylaxis: Patient will be fully anticoagulated History of Present Illness History of Present Illness Ms Galicia is a 69-year-old female with past medical history of asthma Raynaud's phenomenon syncope history of systemic lupus erythematosus was in her usual state of health until couple days prior to her visit to the ER when she was diagnosed with COVID-19. Apparently the patient had attended a wedding and most likely is where they contracted the disease. Her is at our institution on the ventilator as well as reported by nursing staff. The patient at the time my evaluation is on mechanical ventilation and sedated. Most of this is from review of outside facility documentation. Bill the patient had described in the review of systems at the outside facility that she had some altered taste in her mouth she did not have any headache visual changes blurred vision double vision she did have some shortness of breath and chest discomfort in her chest whenever she took a deep breath otherwise no other complaints she did not have any diarrhea abdominal pain no neurological deficits were reported. Patient is being admitted for further evaluation and treatment 11/11: Patient requiring paralytics noted to allow vent to be synchronized with the patient is breathing. Critically ill. Remdesivir experimental therapy initiated 11/12: On vent, critically ill 11/13: Patient with no acute events reported overnight, patient seems better on the vent today. Prognosis guarded. 11/14: Patient remains hemodynamically stable still requiring quite a bit of ventilatory support with 8 of PEEP and FiO2 of 80% she had convalescent plasma. 11/15: On vent, critically ill. 11/16: On Vent, sedated. FiO2 80%, PEEP 8. On day 6 remdesivir. WBC 12.3, Hb 7.4 11/17: Sedated on vent FiO2 70%, PEEP 8. Status post remdesivir and convalescent plasma. Afebrile. Unfortunately her her on 11/17/2019. 11/18: Sedated on vent AC mode FiO2 70% PEEP of 8. Afebrile. Good urine output. ABG with pH 7.47. WBC 15.6. 11/19: Afebrile. Sedated on vent AC mode FiO2 70% PEEP of 8. ABG reviewed pH 7.4., PCO2 35, PO2 78. 11/20: Afebrile. Sedated on vent AC mode FiO2 70% PEEP of 8, ABG pH 7.39 PCO2 43 PO2 down to 59. CXR reviewed with bilateral patchy infiltrates. D-dimer climbing to 1.37. WBC up to 24.6 Hb stable at 7.9. 11/21: Afebrile sedated on vent AC mode 70% FiO2 PEEP of 8, ABG 7.4 pH PCO2 42 PO2 68. CXR stable, ET tube has been advanced. 11/22: Afebrile. Sedated on vent AC mode 70% FiO2 PEEP of 8, ABG pH 7.4 PCO2 42 PO2 95. D-dimer down to 0.96. WBC up to 24.6 Hb stable 7.9. 11/23: Afebrile bradycardic borderline low blood pressure. Sedated on vent AC mode 50% FiO2 PEEP of 6 ABG pH 747 PCO2 34 PO2 75. CXR about the same. 11/24: Afebrile, bradycardic, BP low not on pressors. Sedated on vent AC mode 50% FiO2 PEEP of 5 ABG 7.47/35/73. CXR unchanged. 11/25: Patient seen in the ICU. Cardiac blood pressure stable. Discussed with pulmonology, begin sedation holiday. Vitals Vitals Vital Signs Date Time Temp Pulse Resp B/P (MAP) Pulse Ox O2 Delivery O2 Flow Rate FiO2 11/27/19 15:25 100 Ventilator 11/27/19 14:23 10.0 11/27/19 14:00 43 15 145/65 (91) 11/27/19 12:00 98.0 98.0 Physical Exam Physical Exam GENERAL: Intubated, sedated on mechanical ventilation. HEENT: Normocephalic, atraumatic. Anicteric. NG tube present NECK: Supple. Right IJ line looks clean. LUNGS: Coarse breath sounds bilaterally. No wheezing. HEART: S1, S2 present. No murmurs. ABDOMEN: Soft, nontender, positive bowel sounds. EXTREMITIES: No edema, no cyanosis. DERMATOLOGIC: Warm and dry. No generalized rash. NEUROLOGIC: Sedated. PSYCHIATRIC: Unable to assess. Labs LABS Laboratory Tests Test 11/27/19 05:10 11/27/19 09:10 White Blood Count 11.6 x10^3/uL (4.0-11.0) Red Blood Count 2.95 x10^6/uL (3.50-5.40) Hemoglobin 7.2 g/dL (12.0-15.5) Hematocrit 23.2 % (36.0-47.0) Mean Corpuscular Volume 79 fL (79-100) Mean Corpuscular Hemoglobin 24 pg (25-35) Mean Corpuscular Hemoglobin Concent 31 g/dL (31-37) Red Cell Distribution Width 17.1 % (11.5-14.5) Platelet Count 241 x10^3/uL (140-400) Neutrophils (%) (Auto) 75 % (31-73) Lymphocytes (%) (Auto) 15 % (24-48) Monocytes (%) (Auto) 8 % (0-9) Eosinophils (%) (Auto) 2 % (0-3) Basophils (%) (Auto) 0 % (0-3) Neutrophils # (Auto) 8.7 x10^3/uL (1.8-7.7) Lymphocytes # (Auto) 1.7 x10^3/uL (1.0-4.8) Monocytes # (Auto) 0.9 x10^3/uL (0.0-1.1) Eosinophils # (Auto) 0.3 x10^3/uL (0.0-0.7) Basophils # (Auto) 0.0 x10^3/uL (0.0-0.2) Sodium Level 140 mmol/L (136-145) Potassium Level 4.1 mmol/L (3.5-5.1) Chloride Level 105 mmol/L (98-107) Carbon Dioxide Level 31 mmol/L (21-32) Anion Gap 4 (6-14) Blood Urea Nitrogen 20 mg/dL (7-20) Creatinine 0.4 mg/dL (0.6-1.0) Estimated GFR (Cockcroft-Gault) 158.7 Glucose Level 103 mg/dL (70-99) Calcium Level 7.6 mg/dL (8.5-10.1) O2 Saturation 97 % (92-99) Arterial Blood pH 7.48 (7.35-7.45) Arterial Blood pCO2 at Patient Temp 38 mmHg (35-46) Arterial Blood pO2 at Patient Temp 91 mmHg (65-108) Arterial Blood HCO3 28 mmol/L (21-28) Arterial Blood Base Excess 4 mmol/L (-3-3) FiO2 70 Comment Review of Relevant I have reviewed the following items clive (where applicable) has been applied. Labs Laboratory Tests Test 11/26/19 08:00 11/27/19 05:10 11/27/19 09:10 O2 Saturation 94 % (92-99) 97 % (92-99) Arterial Blood pH 7.51 (7.35-7.45) 7.48 (7.35-7.45) Arterial Blood pCO2 at Patient Temp 34 mmHg (35-46) 38 mmHg (35-46) Arterial Blood pO2 at Patient Temp 74 mmHg (65-108) 91 mmHg (65-108) Arterial Blood HCO3 26 mmol/L (21-28) 28 mmol/L (21-28) Arterial Blood Base Excess 3 mmol/L (-3-3) 4 mmol/L (-3-3) FiO2 50 70 White Blood Count 11.6 x10^3/uL (4.0-11.0) Red Blood Count 2.95 x10^6/uL (3.50-5.40) Hemoglobin 7.2 g/dL (12.0-15.5) Hematocrit 23.2 % (36.0-47.0) Mean Corpuscular Volume 79 fL (79-100) Mean Corpuscular Hemoglobin 24 pg (25-35) Mean Corpuscular Hemoglobin Concent 31 g/dL (31-37) Red Cell Distribution Width 17.1 % (11.5-14.5) Platelet Count 241 x10^3/uL (140-400) Neutrophils (%) (Auto) 75 % (31-73) Lymphocytes (%) (Auto) 15 % (24-48) Monocytes (%) (Auto) 8 % (0-9) Eosinophils (%) (Auto) 2 % (0-3) Basophils (%) (Auto) 0 % (0-3) Neutrophils # (Auto) 8.7 x10^3/uL (1.8-7.7) Lymphocytes # (Auto) 1.7 x10^3/uL (1.0-4.8) Monocytes # (Auto) 0.9 x10^3/uL (0.0-1.1) Eosinophils # (Auto) 0.3 x10^3/uL (0.0-0.7) Basophils # (Auto) 0.0 x10^3/uL (0.0-0.2) Sodium Level 140 mmol/L (136-145) Potassium Level 4.1 mmol/L (3.5-5.1) Chloride Level 105 mmol/L (98-107) Carbon Dioxide Level 31 mmol/L (21-32) Anion Gap 4 (6-14) Blood Urea Nitrogen 20 mg/dL (7-20) Creatinine 0.4 mg/dL (0.6-1.0) Estimated GFR (Cockcroft-Gault) 158.7 Glucose Level 103 mg/dL (70-99) Calcium Level 7.6 mg/dL (8.5-10.1) Laboratory Tests Test 11/27/19 05:10 11/27/19 09:10 White Blood Count 11.6 x10^3/uL (4.0-11.0) Red Blood Count 2.95 x10^6/uL (3.50-5.40) Hemoglobin 7.2 g/dL (12.0-15.5) Hematocrit 23.2 % (36.0-47.0) Mean Corpuscular Volume 79 fL (79-100) Mean Corpuscular Hemoglobin 24 pg (25-35) Mean Corpuscular Hemoglobin Concent 31 g/dL (31-37) Red Cell Distribution Width 17.1 % (11.5-14.5) Platelet Count 241 x10^3/uL (140-400) Neutrophils (%) (Auto) 75 % (31-73) Lymphocytes (%) (Auto) 15 % (24-48) Monocytes (%) (Auto) 8 % (0-9) Eosinophils (%) (Auto) 2 % (0-3) Basophils (%) (Auto) 0 % (0-3) Neutrophils # (Auto) 8.7 x10^3/uL (1.8-7.7) Lymphocytes # (Auto) 1.7 x10^3/uL (1.0-4.8) Monocytes # (Auto) 0.9 x10^3/uL (0.0-1.1) Eosinophils # (Auto) 0.3 x10^3/uL (0.0-0.7) Basophils # (Auto) 0.0 x10^3/uL (0.0-0.2) Sodium Level 140 mmol/L (136-145) Potassium Level 4.1 mmol/L (3.5-5.1) Chloride Level 105 mmol/L (98-107) Carbon Dioxide Level 31 mmol/L (21-32) Anion Gap 4 (6-14) Blood Urea Nitrogen 20 mg/dL (7-20) Creatinine 0.4 mg/dL (0.6-1.0) Estimated GFR (Cockcroft-Gault) 158.7 Glucose Level 103 mg/dL (70-99) Calcium Level 7.6 mg/dL (8.5-10.1) O2 Saturation 97 % (92-99) Arterial Blood pH 7.48 (7.35-7.45) Arterial Blood pCO2 at Patient Temp 38 mmHg (35-46) Arterial Blood pO2 at Patient Temp 91 mmHg (65-108) Arterial Blood HCO3 28 mmol/L (21-28) Arterial Blood Base Excess 4 mmol/L (-3-3) FiO2 70 Microbiology 11/21/19 Gram Stain Evaluation - Final, Complete 11/21/19 Respiratory Culture - Final, Complete Medications Current Medications Fentanyl Citrate 30 ml @ 0 mls/hr CONT PRN IV SEE PROTOCOL Last administered on 11/14/19at 20:21; Start 11/10/19 at 23:45; Stop 11/15/19 at 00:50; Status DC Propofol 100 ml @ 0 mls/hr CONT PRN IV SEE PROTOCOL Last administered on 11/27/19at 03:38; Start 11/10/19 at 23:45 Midazolam HCl 100 ml @ 0 mls/hr CONT PRN IV SEE PROTOCOL Last administered on 11/25/19at 11:41; Start 11/10/19 at 23:45 Levothyroxine Sodium (Synthroid) 100 mcg DAILY06 PO Last administered on 11/27/19at 05:15; Start 11/11/19 at 06:00 Sucralfate (Carafate) 1 gm TIDACHC PO ; Start 11/11/19 at 07:30; Stop 11/11/19 at 07:55; Status DC Citalopram Hydrobromide (CeleXA) 40 mg DAILY PO Last administered on 11/27/19at 08:20; Start 11/11/19 at 09:00 Famotidine (Pepcid Vial) 20 mg BID IVP Last administered on 11/27/19at 08:20; Start 11/11/19 at 09:00 Enoxaparin Sodium (Lovenox 40mg Syringe) 40 mg Q12HR SQ Last administered on 11/27/19at 08:20; Start 11/11/19 at 09:00 Sodium Chloride (Normal Saline Flush) 3 ml QSHIFT PRN IV AFTER MEDS AND BLOOD DRAWS; Start 11/11/19 at 02:00 Sodium Chloride 1,000 ml @ 65 mls/hr [id number] IV Last administered on 11/27/19at 03:38; Start 11/11/19 at 02:00 Pantoprazole Sodium (PROTONIX VIAL for IV PUSH) 40 mg BIDAC IVP Last administered on 11/11/19at 08:13; Start 11/11/19 at 07:30; Stop 11/11/19 at 12:27; Status DC Insulin Human Lispro (HumaLOG) 0-5 UNITS TIDWMEALS SQ ; Start 11/11/19 at 08:00; Stop 11/11/19 at 05:57; Status DC Dextrose (Dextrose 50%-Water Syringe) 12.5 gm PRN Q15MIN PRN IV SEE COMMENTS; Start 11/11/19 at 02:00 Dexamethasone Sodium Phosphate (Decadron) 8 mg DAILY IVP Last administered on 11/25/19at 09:27; Start 11/11/19 at 09:00; Stop 11/25/19 at 15:58; Status DC Nifedipine (Procardia) 10 mg Q8HRS PO Last administered on 11/17/19at 06:18; Start 11/11/19 at 06:00; Stop 11/17/19 at 08:47; Status DC Vancomycin HCl (Vanco Per Pharmacy) 1 each PRN DAILY PRN MC SEE COMMENTS Last administered on 11/11/19at 11:55; Start 11/11/19 at 02:00; Stop 11/12/19 at 08:09; Status DC Levofloxacin/ Dextrose 150 ml @ 100 mls/hr Q24H IV Last administered on 11/13/19at 20:39; Start 11/11/19 at 20:00; Stop 11/14/19 at 09:35; Status DC Vancomycin HCl (Vancomycin Trough Level) 1 each 1X ONCE MC Last administered on 11/11/19at 06:19; Start 11/11/19 at 06:30; Stop 11/11/19 at 06:31; Status DC Info (FLU VACCINE SCREEN per RX) 1 each 1X ONCE MC ; Start 11/11/19 at 04:45; Stop 11/11/19 at 04:46; Status UNV Insulin Human Lispro (HumaLOG) 0-5 UNITS Q6HRS SQ Last administered on 11/14/19at 17:39; Start 11/11/19 at 06:00; Stop 11/15/19 at 11:04; Status DC Influenza Virus Vaccine Quadrival (Fluzone Quad [id number] Syringe) 0.5 ml ONCE ONCE VAX IM ; Start 11/16/19 at 09:00; Stop 11/16/19 at 09:01; Status DC Vancomycin HCl 1.5 gm/Sodium Chloride 500 ml @ 250 mls/hr Q12H IV Last administered on 11/12/19at 06:23; Start 11/11/19 at 07:00; Stop 11/12/19 at 08:03; Status DC Vancomycin HCl (Vancomycin Trough Level) 1 each 1X ONCE MC ; Start 11/12/19 at 18:30; Stop 11/12/19 at 08:09; Status DC Sucralfate (Carafate) 1 gm Q6HRS PO Last administered on 11/13/19at 11:15; Start 11/11/19 at 12:00; Stop 11/13/19 at 12:24; Status DC Vitamin D (Vitamin D3) 2,000 unit DAILY PO Last administered on 11/27/19at 08:20; Start 11/11/19 at 11:00 Ascorbic Acid (Vitamin C) 500 mg Q6HRS PO Last administered on 11/25/19at 06:13; Start 11/11/19 at 12:00; Stop 11/25/19 at 09:21; Status DC Zinc Sulfate (Orazinc) 220 mg DAILY PO Last administered on 11/27/19at 08:20; Start 11/11/19 at 11:00 Pantoprazole Sodium (PROTONIX VIAL for IV PUSH) 40 mg Q12HR IVP Last administered on 11/12/19at 21:58; Start 11/11/19 at 21:00; Stop 11/13/19 at 09:20; Status DC Propofol (Diprivan) 200 mg STK-MED ONCE IV ; Start 11/10/19 at 23:00; Stop 11/11/19 at 12:49; Status DC Succinylcholine Chloride (Anectine) 200 mg STK-MED ONCE .ROUTE ; Start 11/10/19 at 23:00; Stop 11/11/19 at 12:49; Status DC Etomidate (Amidate) 20 mg STK-MED ONCE IV ; Start 11/10/19 at 23:00; Stop 11/11/19 at 12:49; Status DC Non-Formulary Medication 1 ea/ Sodium Chloride 210 ml @ 210 mls/hr 1X ONCE IV Last administered on 11/11/19at 16:45; Start 11/11/19 at 16:00; Stop 11/11/19 at 16:59; Status DC Non-Formulary Medication 1 ea/ Sodium Chloride 230 ml @ 460 mls/hr Q24H IV Last administered on 11/20/19at 15:53; Start 11/12/19 at 16:00; Stop 11/20/19 at 16:29; Status DC Vecuronium [place] (Norcuron Bolus) 6 mg PRN Q4HRS PRN IV SHORTNESS OF BREATH Last administered on 11/16/19at 19:51; Start 11/12/19 at 08:00; Stop 11/16/19 at 21:58; Status DC Haloperidol Lactate (Haldol Inj) 5 mg Q8HRS IVP Last administered on 11/19/19at 05:13; Start 11/12/19 at 14:00; Stop 11/19/19 at 10:06; Status DC Sucralfate (Carafate) 1 gm QIDACHS PEG Last administered on 11/17/19at 07:21; Start 11/13/19 at 16:30; Stop 11/17/19 at 08:40; Status DC Ceftriaxone Sodium (Rocephin) 2 gm Q24H IVP Last administered on 11/24/19at 08:40; Start 11/14/19 at 10:00; Stop 11/24/19 at 09:55; Status DC Fentanyl Citrate 55 ml @ 0 mls/hr CONT PRN PRN IV PAIN Last administered on 11/27/19at 14:23; Start 11/15/19 at 01:00 Vecuronium [place] (Norcuron Bolus) 6 mg PRN Q1HR PRN IV SHORTNESS OF BREATH Last administered on 11/19/19at 02:31; Start 11/16/19 at 22:00 Meropenem 500 mg/ Sodium Chloride 50 ml @ 100 mls/hr Q8HRS IV Last administered on 11/27/19at 14:24; Start 11/24/19 at 14:00 Dexamethasone Sodium Phosphate (Decadron) 4 mg DAILY IVP Last administered on 11/27/19at 08:20; Start 11/26/19 at 09:00; Stop 11/29/19 at 09:00 Active Scripts Active Reported Tramadol Hcl 50 Mg Tablet 50 Mg PO Q8HRS PRN Carafate (Sucralfate) 1 Gm Tablet 1 Gm PO TIDACHC Prednisone (Prednisone) 10 Mg Tablet 10 Mg PO DAILY Pantoprazole Sodium (Pantoprazole Sodium) 40 Mg Tablet.dr 40 Mg PO BIDAC Zofran (Ondansetron Hcl) 4 Mg Tablet 1 Tab PO Q8HRS Nifedipine Er (Nifedipine) 30 Mg Tablet.er 30 Mg PO DAILY Methylprednisolone 4 Mg Tab.ds.pk 4 Mg PO DAILY Metformin Hcl 1,000 Mg Tablet 1,000 Mg PO BIDWMEALS Levothyroxine Sodium 100 Mcg Tablet 100 Mcg PO DAILYAC Famotidine 20 Mg Tablet 20 Mg PO BID Celexa (Citalopram Hydrobromide) 40 Mg Tablet 40 Mg PO DAILY Evoxac (Cevimeline Hcl) 30 Mg Capsule 30 Mg PO TID Vitals/I & O Vital Sign - Last 24 Hours 11/26/19 11/26/19 11/26/19 11/26/19 17:00 18:00 19:00 20:00 Pulse 62 48 52 Resp 24 24 25 B/P (MAP) 167/50 (89) 158/74 (102) 151/68 (95) Pulse Ox 99 100 98 O2 Delivery Ventilator Ventilator Ventilator Mechanical Ventilator 11/26/19 11/26/19 11/26/19 11/26/19 20:00 21:00 22:00 22:54 Temp 97.8 97.8 Pulse 52 51 51 Resp 25 24 24 B/P (MAP) 145/68 (93) 158/80 (106) 163/78 (106) Pulse Ox 98 98 98 100 O2 Delivery Ventilator Ventilator Ventilator Ventilator 11/26/19 11/26/19 11/26/19 11/27/19 23:00 23:59 23:59 01:00 Pulse 53 52 52 Resp 23 24 24 B/P (MAP) 158/80 (106) 156/76 (102) 150/61 (90) Pulse Ox 98 99 99 O2 Delivery Ventilator Mechanical Ventilator Ventilator Ventilator 11/27/19 11/27/19 11/27/19 11/27/19 01:21 02:00 03:00 04:00 Temp 98.0 98.0 Pulse 47 44 Resp 24 26 B/P (MAP) 144/63 (90) 144/58 (86) Pulse Ox 100 82 99 O2 Delivery Ventilator Ventilator Ventilator Mechanical Ventilator 11/27/19 11/27/19 11/27/19 11/27/19 04:00 05:02 05:34 06:00 Pulse 41 47 49 Resp 24 24 24 B/P (MAP) 124/55 (78) 110/55 (73) 115/58 (77) Pulse Ox 98 99 99 99 O2 Delivery Ventilator Ventilator Ventilator Ventilator 11/27/19 11/27/19 11/27/19 11/27/19 07:00 08:00 08:00 09:00 Temp 97.6 97.6 Pulse 40 45 46 Resp 24 18 24 B/P (MAP) 99/50 (66) 94/47 (63) 100/47 (64) Pulse Ox 99 99 99 O2 Delivery Ventilator Mechanical Ventilator Ventilator Ventilator 11/27/19 11/27/19 11/27/19 11/27/19 09:15 10:00 11:00 11:57 Pulse 44 44 Resp 24 24 B/P (MAP) 130/56 (80) 117/52 (73) Pulse Ox 100 99 99 100 O2 Delivery Ventilator Ventilator Ventilator Ventilator 11/27/19 11/27/19 11/27/19 11/27/19 12:00 12:00 13:00 14:00 Temp 98.0 98.0 Pulse 50 44 43 Resp 15 15 15 B/P (MAP) 135/71 (92) 133/57 (82) 145/65 (91) Pulse Ox 99 99 99 O2 Delivery Mechanical Ventilator Ventilator Ventilator Ventilator 11/27/19 11/27/19 14:23 15:25 Pulse Ox 99 100 O2 Delivery Ventilator O2 Flow Rate 10.0 Intake and Output 11/26/19 11/26/19 11/27/19 15:00 23:00 07:00 Intake Total 355.1 ml 2334 ml 1935 ml Output Total 1250 ml 675 ml 1630 ml Balance -894.9 ml 1659 ml 305 ml Justicifation of Admission Dx: Justifications for Admission: Justification of Admission Dx: Yes Respiratory Failure: Mechanical Ventilation MARCO ANTONIO JIMENEZ MD Nov 27, 2019 16:37
--- NOTE | 2019-11-27 20:19 | PDOC2 ---
CONSULT Date of Consult Date of Consult DATE: 11/27/19 TIME: 20:14 Reason for Consult Reason for Consult: Respiratory failure Referring Physician Referring Physician: Dr. Moon Identification/Chief Complaint Chief Complaint None Source Source: Chart review History of Present Illness Reason for Visit: 69 yo F with respiratory failure. Pt unable to weaned. No current family. Past Medical History Pulmonary: Asthma Rheumatologic: Other (lupus) Past Surgical History Past Surgical History: No pertinent history Family History Family History: No Significant Social History No ALCOHOL: none Drugs: None Current Medications Current Medications Current Medications Fentanyl Citrate 30 ml @ 0 mls/hr CONT PRN IV SEE PROTOCOL Last administered on 11/14/19at 20:21; Start 11/10/19 at 23:45; Stop 11/15/19 at 00:50; Status DC Propofol 100 ml @ 0 mls/hr CONT PRN IV SEE PROTOCOL Last administered on 11/27/19at 11:00; Start 11/10/19 at 23:45 Midazolam HCl 100 ml @ 0 mls/hr CONT PRN IV SEE PROTOCOL Last administered on 11/25/19at 11:41; Start 11/10/19 at 23:45 Levothyroxine Sodium (Synthroid) 100 mcg DAILY06 PO Last administered on 11/27/19at 05:15; Start 11/11/19 at 06:00 Sucralfate (Carafate) 1 gm TIDACHC PO ; Start 11/11/19 at 07:30; Stop 11/11/19 at 07:55; Status DC Citalopram Hydrobromide (CeleXA) 40 mg DAILY PO Last administered on 11/27/19at 08:20; Start 11/11/19 at 09:00 Famotidine (Pepcid Vial) 20 mg BID IVP Last administered on 11/27/19at 08:20; Start 11/11/19 at 09:00 Enoxaparin Sodium (Lovenox 40mg Syringe) 40 mg Q12HR SQ Last administered on 11/27/19at 08:20; Start 11/11/19 at 09:00 Sodium Chloride (Normal Saline Flush) 3 ml QSHIFT PRN IV AFTER MEDS AND BLOOD DRAWS; Start 11/11/19 at 02:00 Sodium Chloride 1,000 ml @ 65 mls/hr [id number] IV Last administered on 11/27/19at 03:38; Start 11/11/19 at 02:00 Pantoprazole Sodium (PROTONIX VIAL for IV PUSH) 40 mg BIDAC IVP Last administered on 11/11/19at 08:13; Start 11/11/19 at 07:30; Stop 11/11/19 at 12:27; Status DC Insulin Human Lispro (HumaLOG) 0-5 UNITS TIDWMEALS SQ ; Start 11/11/19 at 08:00; Stop 11/11/19 at 05:57; Status DC Dextrose (Dextrose 50%-Water Syringe) 12.5 gm PRN Q15MIN PRN IV SEE COMMENTS; Start 11/11/19 at 02:00 Dexamethasone Sodium Phosphate (Decadron) 8 mg DAILY IVP Last administered on 11/25/19at 09:27; Start 11/11/19 at 09:00; Stop 11/25/19 at 15:58; Status DC Nifedipine (Procardia) 10 mg Q8HRS PO Last administered on 11/17/19at 06:18; Start 11/11/19 at 06:00; Stop 11/17/19 at 08:47; Status DC Vancomycin HCl (Vanco Per Pharmacy) 1 each PRN DAILY PRN MC SEE COMMENTS Last administered on 11/11/19at 11:55; Start 11/11/19 at 02:00; Stop 11/12/19 at 08:09; Status DC Levofloxacin/ Dextrose 150 ml @ 100 mls/hr Q24H IV Last administered on 11/13/19at 20:39; Start 11/11/19 at 20:00; Stop 11/14/19 at 09:35; Status DC Vancomycin HCl (Vancomycin Trough Level) 1 each 1X ONCE MC Last administered on 11/11/19at 06:19; Start 11/11/19 at 06:30; Stop 11/11/19 at 06:31; Status DC Info (FLU VACCINE SCREEN per RX) 1 each 1X ONCE MC ; Start 11/11/19 at 04:45; Stop 11/11/19 at 04:46; Status UNV Insulin Human Lispro (HumaLOG) 0-5 UNITS Q6HRS SQ Last administered on 11/14/19at 17:39; Start 11/11/19 at 06:00; Stop 11/15/19 at 11:04; Status DC Influenza Virus Vaccine Quadrival (Fluzone Quad Syringe) 0.5 ml ONCE ONCE VAX IM ; Start 11/16/19 at 09:00; Stop 11/16/19 at 09:01; Status DC Vancomycin HCl 1.5 gm/Sodium Chloride 500 ml @ 250 mls/hr Q12H IV Last administered on 11/12/19at 06:23; Start 11/11/19 at 07:00; Stop 11/12/19 at 08:03; Status DC Vancomycin HCl (Vancomycin Trough Level) 1 each 1X ONCE MC ; Start 11/12/19 at 18:30; Stop 11/12/19 at 08:09; Status DC Sucralfate (Carafate) 1 gm Q6HRS PO Last administered on 11/13/19at 11:15; Start 11/11/19 at 12:00; Stop 11/13/19 at 12:24; Status DC Vitamin D (Vitamin D3) 2,000 unit DAILY PO Last administered on 11/27/19at 08:20; Start 11/11/19 at 11:00 Ascorbic Acid (Vitamin C) 500 mg Q6HRS PO Last administered on 11/25/19at 06:13; Start 11/11/19 at 12:00; Stop 11/25/19 at 09:21; Status DC Zinc Sulfate (Orazinc) 220 mg DAILY PO Last administered on 11/27/19at 08:20; Start 11/11/19 at 11:00 Pantoprazole Sodium (PROTONIX VIAL for IV PUSH) 40 mg Q12HR IVP Last administe red on 11/12/19at 21:58; Start 11/11/19 at 21:00; Stop 11/13/19 at 09:20; Status DC Propofol (Diprivan) 200 mg STK-MED ONCE IV ; Start 11/10/19 at 23:00; Stop 11/11/19 at 12:49; Status DC Succinylcholine Chloride (Anectine) 200 mg STK-MED ONCE .ROUTE ; Start 11/10/19 at 23:00; Stop 11/11/19 at 12:49; Status DC Etomidate (Amidate) 20 mg STK-MED ONCE IV ; Start 11/10/19 at 23:00; Stop 11/11/19 at 12:49; Status DC Non-Formulary Medication 1 ea/ Sodium Chloride 210 ml @ 210 mls/hr 1X ONCE IV Last administered on 11/11/19at 16:45; Start 11/11/19 at 16:00; Stop 11/11/19 at 16:59; Status DC Non-Formulary Medication 1 ea/ Sodium Chloride 230 ml @ 460 mls/hr Q24H IV Last administered on 11/20/19at 15:53; Start 11/12/19 at 16:00; Stop 11/20/19 at 16:29; Status DC Vecuronium Lasara (Norcuron Bolus) 6 mg PRN Q4HRS PRN IV SHORTNESS OF BREATH Last administered on 11/16/19at 19:51; Start 11/12/19 at 08:00; Stop 11/16/19 at 21:58; Status DC Haloperidol Lactate (Haldol Inj) 5 mg Q8HRS IVP Last administered on 11/19/19at 05:13; Start 11/12/19 at 14:00; Stop 11/19/19 at 10:06; Status DC Sucralfate (Carafate) 1 gm QIDACHS PEG Last administered on 11/17/19at 07:21; Start 11/13/19 at 16:30; Stop 11/17/19 at 08:40; Status DC Ceftriaxone Sodium (Rocephin) 2 gm Q24H IVP Last administered on 11/24/19at 08:40; Start 11/14/19 at 10:00; Stop 11/24/19 at 09:55; Status DC Fentanyl Citrate 55 ml @ 0 mls/hr CONT PRN PRN IV PAIN Last administered on 11/27/19at 14:23; Start 11/15/19 at 01:00 Vecuronium Lasara (Norcuron Bolus) 6 mg PRN Q1HR PRN IV SHORTNESS OF BREATH Last administered on 11/19/19at 02:31; Start 11/16/19 at 22:00 Meropenem 500 mg/ Sodium Chloride 50 ml @ 100 mls/hr Q8HRS IV Last administered on 11/27/19at 14:24; Start 11/24/19 at 14:00 Dexamethasone Sodium Phosphate (Decadron) 4 mg DAILY IVP Last administered on 11/27/19at 08:20; Start 11/26/19 at 09:00; Stop 11/29/19 at 09:00 Active Scripts Active Reported Tramadol Hcl 50 Mg Tablet 50 Mg PO Q8HRS PRN Carafate (Sucralfate) 1 Gm Tablet 1 Gm PO TIDACHC Prednisone (Prednisone) 10 Mg Tablet 10 Mg PO DAILY Pantoprazole Sodium (Pantoprazole Sodium) 40 Mg Tablet.dr 40 Mg PO BIDAC Zofran (Ondansetron Hcl) 4 Mg Tablet 1 Tab PO Q8HRS Nifedipine Er (Nifedipine) 30 Mg Tablet.er 30 Mg PO DAILY Methylprednisolone 4 Mg Tab.ds.pk 4 Mg PO DAILY Metformin Hcl 1,000 Mg Tablet 1,000 Mg PO BIDWMEALS Levothyroxine Sodium 100 Mcg Tablet 100 Mcg PO DAILYAC Famotidine 20 Mg Tablet 20 Mg PO BID Celexa (Citalopram Hydrobromide) 40 Mg Tablet 40 Mg PO DAILY Evoxac (Cevimeline Hcl) 30 Mg Capsule 30 Mg PO TID Allergies Allergies: Coded Allergies: Penicillins (Verified Allergy, Intermediate, 11/17/19) TOLERATES CEFTRIAXONE Sulfa (Sulfonamide Antibiotics) (Verified Allergy, Intermediate, 11/13/19) clindamycin (Verified Allergy, Intermediate, 11/13/19) ROS Review of System unobtainable Physical Exam General: No acute distress HEENT: Other (intubated) Vitals VITALS Vital Signs Date Time Temp Pulse Resp B/P (MAP) Pulse Ox O2 Delivery O2 Flow Rate FiO2 11/27/19 18:00 33 15 96/47 (63) 99 Ventilator 11/27/19 16:00 98.2 98.2 11/27/19 14:53 10.0 Labs Labs Laboratory Tests Test 11/26/19 08:00 11/27/19 05:10 11/27/19 09:10 O2 Saturation 94 % (92-99) 97 % (92-99) Arterial Blood pH 7.51 (7.35-7.45) 7.48 (7.35-7.45) Arterial Blood pCO2 at Patient Temp 34 mmHg (35-46) 38 mmHg (35-46) Arterial Blood pO2 at Patient Temp 74 mmHg (65-108) 91 mmHg (65-108) Arterial Blood HCO3 26 mmol/L (21-28) 28 mmol/L (21-28) Arterial Blood Base Excess 3 mmol/L (-3-3) 4 mmol/L (-3-3) FiO2 50 70 White Blood Count 11.6 x10^3/uL (4.0-11.0) Red Blood Count 2.95 x10^6/uL (3.50-5.40) Hemoglobin 7.2 g/dL (12.0-15.5) Hematocrit 23.2 % (36.0-47.0) Mean Corpuscular Volume 79 fL (79-100) Mean Corpuscular Hemoglobin 24 pg (25-35) Mean Corpuscular Hemoglobin Concent 31 g/dL (31-37) Red Cell Distribution Width 17.1 % (11.5-14.5) Platelet Count 241 x10^3/uL (140-400) Neutrophils (%) (Auto) 75 % (31-73) Lymphocytes (%) (Auto) 15 % (24-48) Monocytes (%) (Auto) 8 % (0-9) Eosinophils (%) (Auto) 2 % (0-3) Basophils (%) (Auto) 0 % (0-3) Neutrophils # (Auto) 8.7 x10^3/uL (1.8-7.7) Lymphocytes # (Auto) 1.7 x10^3/uL (1.0-4.8) Monocytes # (Auto) 0.9 x10^3/uL (0.0-1.1) Eosinophils # (Auto) 0.3 x10^3/uL (0.0-0.7) Basophils # (Auto) 0.0 x10^3/uL (0.0-0.2) Sodium Level 140 mmol/L (136-145) Potassium Level 4.1 mmol/L (3.5-5.1) Chloride Level 105 mmol/L (98-107) Carbon Dioxide Level 31 mmol/L (21-32) Anion Gap 4 (6-14) Blood Urea Nitrogen 20 mg/dL (7-20) Creatinine 0.4 mg/dL (0.6-1.0) Estimated GFR (Cockcroft-Gault) 158.7 Glucose Level 103 mg/dL (70-99) Calcium Level 7.6 mg/dL (8.5-10.1) Laboratory Tests Test 11/27/19 05:10 11/27/19 09:10 White Blood Count 11.6 x10^3/uL (4.0-11.0) Red Blood Count 2.95 x10^6/uL (3.50-5.40) Hemoglobin 7.2 g/dL (12.0-15.5) Hematocrit 23.2 % (36.0-47.0) Mean Corpuscular Volume 79 fL (79-100) Mean Corpuscular Hemoglobin 24 pg (25-35) Mean Corpuscular Hemoglobin Concent 31 g/dL (31-37) Red Cell Distribution Width 17.1 % (11.5-14.5) Platelet Count 241 x10^3/uL (140-400) Neutrophils (%) (Auto) 75 % (31-73) Lymphocytes (%) (Auto) 15 % (24-48) Monocytes (%) (Auto) 8 % (0-9) Eosinophils (%) (Auto) 2 % (0-3) Basophils (%) (Auto) 0 % (0-3) Neutrophils # (Auto) 8.7 x10^3/uL (1.8-7.7) Lymphocytes # (Auto) 1.7 x10^3/uL (1.0-4.8) Monocytes # (Auto) 0.9 x10^3/uL (0.0-1.1) Eosinophils # (Auto) 0.3 x10^3/uL (0.0-0.7) Basophils # (Auto) 0.0 x10^3/uL (0.0-0.2) Sodium Level 140 mmol/L (136-145) Potassium Level 4.1 mmol/L (3.5-5.1) Chloride Level 105 mmol/L (98-107) Carbon Dioxide Level 31 mmol/L (21-32) Anion Gap 4 (6-14) Blood Urea Nitrogen 20 mg/dL (7-20) Creatinine 0.4 mg/dL (0.6-1.0) Estimated GFR (Cockcroft-Gault) 158.7 Glucose Level 103 mg/dL (70-99) Calcium Level 7.6 mg/dL (8.5-10.1) O2 Saturation 97 % (92-99) Arterial Blood pH 7.48 (7.35-7.45) Arterial Blood pCO2 at Patient Temp 38 mmHg (35-46) Arterial Blood pO2 at Patient Temp 91 mmHg (65-108) Arterial Blood HCO3 28 mmol/L (21-28) Arterial Blood Base Excess 4 mmol/L (-3-3) FiO2 70 Assessment/Plan Assessment/Plan Respiratory failure will follow for possible tracheostomy. Thanks for consult! MAKAYLA PATEL MD Nov 27, 2019 20:19
[2019-11-28] VITALS (24 sets, daily range): BP systolic 94–170; BP diastolic 46–76
--- NOTE | 2019-11-28 05:04 | RAD ---
AP chest. HISTORY: Covid pneumonia, intubated AP view was taken of the chest. Endotracheal tube is at the level aortic arch. NG tube extends into the stomach. Right central line extends to the right atrium. There are persistent diffuse hazy infiltrates. Retrocardiac lung on the left appears more dense from atelectasis or infiltrates. Little other change is noted. IMPRESSION: 1. Tubes and lines unchanged. 2. Persistent infiltrates. 3. Possible worsening left lung base. Electronically signed by: Wes Jones MD (11/28/2019 5:02 AM) [id number]
[2019-11-28] MEDS: LEVOTHYROXINE 100 MCG TABLET PO SCH (05:55)
[2019-11-28] MEDS: PROPOFOL 100 ML IV PRN ×3 (05:55→14:37)
[2019-11-28] MEDS: MEROPENEM 500 MG in IV NORMAL SALINE 50ML 50 ML IV SCH ×3 (05:56→21:31)
[2019-11-28 07:51] LABS: BASE EXCESS ABG 3 mmol/L (-3-3); HCO3 ABG 28 mmol/L (21-28); PCO2 ABG 43 mmHg (35-46); PO2 ABG 60 mmHg (65-108); SAT O2 ABG 91 % (92-99)
[2019-11-28 07:52] LABS: FIO2 ABG 60%
[2019-11-28] MEDS: ZINC SULFATE 220 MG CAPSULE. PO SCH (08:09)
[2019-11-28] MEDS: CHOLECALCIFEROL (VITAMIN D3) 1,000 UNIT TABLET PO SCH (08:09)
[2019-11-28] MEDS: DEXAMETHASONE SOD PHOS 4 MG/ML VIAL IVP SCH (08:09)
[2019-11-28] MEDS: FAMOTIDINE 20 MG/2 ML VIAL IVP SCH ×2 (08:09→21:31)
[2019-11-28] MEDS: ENOXAPARIN 40 MG/0.4 ML SYRINGE. SQ SCH ×2 (08:10→21:30)
[2019-11-28] MEDS: CITALOPRAM 20 MG TABLET. PO SCH (08:10)
[2019-11-28] MEDS: IV NORMAL SALINE 1000ML BAG 1,000 ML IV SCH (09:48)
--- NOTE | 2019-11-28 09:51 | PDOC ---
Infectious Disease Note Subjective Subjective Pt intubated and sedated ROS ROS No nausea vomiting diarrhea Vital Sign Vital Signs Vital Signs Date Time Temp Pulse Resp B/P (MAP) Pulse Ox O2 Delivery O2 Flow Rate FiO2 11/28/19 09:00 36 15 101/50 (67) 100 Ventilator 11/28/19 08:00 97.9 97.9 11/27/19 14:53 10.0 Physical Exam PHYSICAL EXAM GENERAL: Intubated, sedated on mechanical ventilation. HEENT: Normocephalic, atraumatic. Anicteric. NG tube present NECK: Supple. Right IJ line looks clean. LUNGS: Coarse breath sounds bilaterally. No wheezing. HEART: S1, S2 present. No murmurs. ABDOMEN: Soft, nontender, positive bowel sounds. EXTREMITIES: No edema, no cyanosis. DERMATOLOGIC: Warm and dry. No generalized rash. NEUROLOGIC: Sedated. PSYCHIATRIC: Unable to assess. Labs Lab Laboratory Tests Test 11/28/19 07:45 O2 Saturation 91 % (92-99) Arterial Blood pH 7.43 (7.35-7.45) Arterial Blood pCO2 at Patient Temp 43 mmHg (35-46) Arterial Blood pO2 at Patient Temp 60 mmHg (65-108) Arterial Blood HCO3 28 mmol/L (21-28) Arterial Blood Base Excess 3 mmol/L (-3-3) FiO2 60% Micro GRAM STAIN EVALUATION Final Final This specimen is of good quality and is acceptable for routine bacterial culture. Culture results to follow. GRAM NEGATIVE RODS:FEW GRAM POSITIVE COCCI:RARE SQUAMOUS EPI CELL:RARE PMN (WBCs):MANY Unless otherwise specified, Testing Performed by: [address] [id number] For Inquires, the Physician may contact the Microbiology department at [phone] RESPIRATORY CULTURE Final Final MODERATE Mixed upper respiratory iesha on 11/23/19 at 0846 MODERATE Mixed upper respiratory iesha on 11/24/19 at 0834 Unless otherwise specified, Testing Performed by: [address] [address] For Inquires, the Physician may contact the Microbiology department at [phone] Objective Assessment 1. COVID-19 pneumonia. 2. Acute hypoxic respiratory failure, status post intubation. 3. Leukocytosis, likely from steroids. 4. Asthma. 5. History of systemic lupus erythematosus. 6. History of Raynaud's. 7. PCN,Sulfa and Clindamycin allergies per pharmacy pt has tolerated ceftriaxone well in the past 8. Bradycardia likely from sedation Plan Plan of Care Continue supportive care. On steroids Remdesivir 11/10 Status post convalescent plasma Follow up labs and cultures. Culture not showing anything despite Gram stain positive, discussed with the lab Critically ill Discussed with nursing staff. Continue meropenem APRYL ARBOLEDA MD Nov 28, 2019 09:51
--- NOTE | 2019-11-28 14:00 | PDOC ---
PULMONARY PROGRESS NOTES DATE: 11/28/19 TIME: 13:55 Subjective Patient currently on 60% FiO2 5 of PEEP sedated lucille on monitor No overnight concerns from nursing Vitals Vital Signs Date Time Temp Pulse Resp B/P (MAP) Pulse Ox O2 Delivery O2 Flow Rate FiO2 11/28/19 13:00 39 15 117/54 (75) 100 Ventilator 11/28/19 12:00 97.7 97.7 11/27/19 14:53 10.0 Comments Patient seen doing the pandemic, visual exam, on vent sedated bradycardia no accessory muscle use no rash Labs Laboratory Tests Test 11/27/19 05:10 11/27/19 09:10 11/28/19 07:45 White Blood Count 11.6 x10^3/uL (4.0-11.0) Red Blood Count 2.95 x10^6/uL (3.50-5.40) Hemoglobin 7.2 g/dL (12.0-15.5) Hematocrit 23.2 % (36.0-47.0) Mean Corpuscular Volume 79 fL (79-100) Mean Corpuscular Hemoglobin 24 pg (25-35) Mean Corpuscular Hemoglobin Concent 31 g/dL (31-37) Red Cell Distribution Width 17.1 % (11.5-14.5) Platelet Count 241 x10^3/uL (140-400) Neutrophils (%) (Auto) 75 % (31-73) Lymphocytes (%) (Auto) 15 % (24-48) Monocytes (%) (Auto) 8 % (0-9) Eosinophils (%) (Auto) 2 % (0-3) Basophils (%) (Auto) 0 % (0-3) Neutrophils # (Auto) 8.7 x10^3/uL (1.8-7.7) Lymphocytes # (Auto) 1.7 x10^3/uL (1.0-4.8) Monocytes # (Auto) 0.9 x10^3/uL (0.0-1.1) Eosinophils # (Auto) 0.3 x10^3/uL (0.0-0.7) Basophils # (Auto) 0.0 x10^3/uL (0.0-0.2) Sodium Level 140 mmol/L (136-145) Potassium Level 4.1 mmol/L (3.5-5.1) Chloride Level 105 mmol/L (98-107) Carbon Dioxide Level 31 mmol/L (21-32) Anion Gap 4 (6-14) Blood Urea Nitrogen 20 mg/dL (7-20) Creatinine 0.4 mg/dL (0.6-1.0) Estimated GFR (Cockcroft-Gault) 158.7 Glucose Level 103 mg/dL (70-99) Calcium Level 7.6 mg/dL (8.5-10.1) O2 Saturation 97 % (92-99) 91 % (92-99) Arterial Blood pH 7.48 (7.35-7.45) 7.43 (7.35-7.45) Arterial Blood pCO2 at Patient Temp 38 mmHg (35-46) 43 mmHg (35-46) Arterial Blood pO2 at Patient Temp 91 mmHg (65-108) 60 mmHg (65-108) Arterial Blood HCO3 28 mmol/L (21-28) 28 mmol/L (21-28) Arterial Blood Base Excess 4 mmol/L (-3-3) 3 mmol/L (-3-3) FiO2 70 60% Laboratory Tests Test 11/28/19 07:45 O2 Saturation 91 % (92-99) Arterial Blood pH 7.43 (7.35-7.45) Arterial Blood pCO2 at Patient Temp 43 mmHg (35-46) Arterial Blood pO2 at Patient Temp 60 mmHg (65-108) Arterial Blood HCO3 28 mmol/L (21-28) Arterial Blood Base Excess 3 mmol/L (-3-3) FiO2 60% Medications Active Scripts Medications Dose Route/Sig Max Daily Dose Days Date Category Tramadol Hcl 50 Mg Tablet 50 Mg PO Q8HRS PRN 11/11/19 Reported Carafate (Sucralfate) 1 Gm Tablet 1 Gm PO TIDACHC 11/11/19 Reported Prednisone (Prednisone) 10 Mg Tablet 10 Mg PO DAILY 11/11/19 Reported Pantoprazole Sodium (Pantoprazole Sodium) 40 Mg Tablet.dr 40 Mg PO BIDAC 11/11/19 Reported Zofran (Ondansetron Hcl) 4 Mg Tablet 1 Tab PO Q8HRS 11/11/19 Reported Nifedipine Er (Nifedipine) 30 Mg Tablet.er 30 Mg PO DAILY 11/11/19 Reported Methylprednisolone 4 Mg Tab.ds.pk 4 Mg PO DAILY 11/11/19 Reported Metformin Hcl 1,000 Mg Tablet 1,000 Mg PO BIDWMEALS 11/11/19 Reported Levothyroxine Sodium 100 Mcg Tablet 100 Mcg PO DAILYAC 11/11/19 Reported Famotidine 20 Mg Tablet 20 Mg PO BID 11/11/19 Reported Celexa (Citalopram Hydrobromide) 40 Mg Tablet 40 Mg PO DAILY 11/11/19 Reported Evoxac (Cevimeline Hcl) 30 Mg Capsule 30 Mg PO TID 11/11/19 Reported Comments cxr reviewed 1. Tube and line position as discussed above. No pneumothorax is seen. 2. . Bilateral perihilar infiltrates and left lower lobe atelectasis and/or infiltrate, unchanged. CXR 11/24/19 IMPRESSION: 1. Slight improvement left lung base but persistent bilateral diffuse infiltrates. 2. Tubes and lines unchanged. Impression . IMPRESSION: 1. Acute hypoxemic respiratory failure secondary to COVID-19 viral pneumonia.-- continue to require vent support, 2. COVID-19 viral pneumonia. 3. Acute respiratory distress syndrome. 4. Leukocytosis-- worsening 5. History of systemic lupus erythematosus. 6. Raynaud's. 7. Abnormal cxr with bilateral infiltrates, 8. bradycardia Plan . Continue current vent support Fi02 of 60% and PEEP of 5, ABG reviewed, no changes at this time Sedation guillermina, plan for CPAP trial today Patient continues to have chronic respiratory failure--surgery following for tracheostomy placement discussed with son, await family decision Follow chest x-ray Antibiotics per ID Status post convalescent plasma, finished course of remdesivir steroids with taper Continue tube feeding for nutritional support DVT/GI prophylaxis: lovenox/pepcid Discussed with RN and RT DISPO: Pt. has been accepted at [facility], [employer] work following Total critical care time from [phone] MARITZA HAZEL MD Nov 28, 2019 14:00
--- NOTE | 2019-11-28 15:51 | PDOC ---
PROGRESS NOTES Date of Service: DATE: 11/28/19 TIME: 15:50 Chief Complaint Chief Complaint Acute hypoxemic respiratory failure secondary to COVID-19 infection COVID-19 pneumonia Leukocytosis secondary to the above Microcytic anemia Hyponatremia Severe protein calorie malnutrition History of Present Illness History of Present Illness Ms Galicia is a 69-year-old female with past medical history of asthma Raynaud's phenomenon syncope history of systemic lupus erythematosus was in her usual state of health until couple days prior to her visit to the ER when she was diagnosed with COVID-19. Apparently the patient had attended a wedding and most likely is where they contracted the disease. Her is at our institution on the ventilator as well as reported by nursing staff. The patient at the time my evaluation is on mechanical ventilation and sedated. Most of this is from review of outside facility documentation. Bill the patient had described in the review of systems at the outside facility that she had some altered taste in her mouth she did not have any headache visual changes blurred vision double vision she did have some shortness of breath and chest discomfort in her chest whenever she took a deep breath otherwise no other complaints she did not have any diarrhea abdominal pain no neurological deficits were reported. Patient is being admitted for further evaluation and treatment 11/27, stil on vent, supportive measure, wean as able, consider trach improving Vitals Vitals Vital Signs Date Time Temp Pulse Resp B/P (MAP) Pulse Ox O2 Delivery O2 Flow Rate FiO2 11/28/19 15:00 45 15 114/58 (76) 100 Ventilator 11/28/19 12:00 97.7 97.7 11/27/19 14:53 10.0 Physical Exam Physical Exam GENERAL: Intubated, sedated on mechanical ventilation. HEENT: Normocephalic, atraumatic. Anicteric. NG tube present NECK: Supple. Right IJ line looks clean. LUNGS: Coarse breath sounds bilaterally. No wheezing. HEART: S1, S2 present. No murmurs. ABDOMEN: Soft, nontender, positive bowel sounds. EXTREMITIES: No edema, no cyanosis. DERMATOLOGIC: Warm and dry. No generalized rash. NEUROLOGIC: Sedated. PSYCHIATRIC: Unable to assess. General: No acute distress Labs LABS Laboratory Tests Test 11/28/19 07:45 O2 Saturation 91 % (92-99) Arterial Blood pH 7.43 (7.35-7.45) Arterial Blood pCO2 at Patient Temp 43 mmHg (35-46) Arterial Blood pO2 at Patient Temp 60 mmHg (65-108) Arterial Blood HCO3 28 mmol/L (21-28) Arterial Blood Base Excess 3 mmol/L (-3-3) FiO2 60% Comment Review of Relevant I have reviewed the following items clive (where applicable) has been applied. Labs Laboratory Tests Test 11/27/19 05:10 11/27/19 09:10 11/28/19 07:45 White Blood Count 11.6 x10^3/uL (4.0-11.0) Red Blood Count 2.95 x10^6/uL (3.50-5.40) Hemoglobin 7.2 g/dL (12.0-15.5) Hematocrit 23.2 % (36.0-47.0) Mean Corpuscular Volume 79 fL (79-100) Mean Corpuscular Hemoglobin 24 pg (25-35) Mean Corpuscular Hemoglobin Concent 31 g/dL (31-37) Red Cell Distribution Width 17.1 % (11.5-14.5) Platelet Count 241 x10^3/uL (140-400) Neutrophils (%) (Auto) 75 % (31-73) Lymphocytes (%) (Auto) 15 % (24-48) Monocytes (%) (Auto) 8 % (0-9) Eosinophils (%) (Auto) 2 % (0-3) Basophils (%) (Auto) 0 % (0-3) Neutrophils # (Auto) 8.7 x10^3/uL (1.8-7.7) Lymphocytes # (Auto) 1.7 x10^3/uL (1.0-4.8) Monocytes # (Auto) 0.9 x10^3/uL (0.0-1.1) Eosinophils # (Auto) 0.3 x10^3/uL (0.0-0.7) Basophils # (Auto) 0.0 x10^3/uL (0.0-0.2) Sodium Level 140 mmol/L (136-145) Potassium Level 4.1 mmol/L (3.5-5.1) Chloride Level 105 mmol/L (98-107) Carbon Dioxide Level 31 mmol/L (21-32) Anion Gap 4 (6-14) Blood Urea Nitrogen 20 mg/dL (7-20) Creatinine 0.4 mg/dL (0.6-1.0) Estimated GFR (Cockcroft-Gault) 158.7 Glucose Level 103 mg/dL (70-99) Calcium Level 7.6 mg/dL (8.5-10.1) O2 Saturation 97 % (92-99) 91 % (92-99) Arterial Blood pH 7.48 (7.35-7.45) 7.43 (7.35-7.45) Arterial Blood pCO2 at Patient Temp 38 mmHg (35-46) 43 mmHg (35-46) Arterial Blood pO2 at Patient Temp 91 mmHg (65-108) 60 mmHg (65-108) Arterial Blood HCO3 28 mmol/L (21-28) 28 mmol/L (21-28) Arterial Blood Base Excess 4 mmol/L (-3-3) 3 mmol/L (-3-3) FiO2 70 60% Laboratory Tests Test 11/28/19 07:45 O2 Saturation 91 % (92-99) Arterial Blood pH 7.43 (7.35-7.45) Arterial Blood pCO2 at Patient Temp 43 mmHg (35-46) Arterial Blood pO2 at Patient Temp 60 mmHg (65-108) Arterial Blood HCO3 28 mmol/L (21-28) Arterial Blood Base Excess 3 mmol/L (-3-3) FiO2 60% Microbiology 11/21/19 Gram Stain Evaluation - Final, Complete 11/21/19 Respiratory Culture - Final, Complete Medications Current Medications Fentanyl Citrate 30 ml @ 0 mls/hr CONT PRN IV SEE PROTOCOL Last administered on 11/14/19at 20:21; Start 11/10/19 at 23:45; Stop 11/15/19 at 00:50; Status DC Propofol 100 ml @ 0 mls/hr CONT PRN IV SEE PROTOCOL Last administered on 11/28/19at 14:37; Start 11/10/19 at 23:45 Midazolam HCl 100 ml @ 0 mls/hr CONT PRN IV SEE PROTOCOL Last administered on 11/25/19at 11:41; Start 11/10/19 at 23:45 Levothyroxine Sodium (Synthroid) 100 mcg DAILY06 PO Last administered on 11/28/19at 05:55; Start 11/11/19 at 06:00 Sucralfate (Carafate) 1 gm TIDACHC PO ; Start 11/11/19 at 07:30; Stop 11/11/19 at 07:55; Status DC Citalopram Hydrobromide (CeleXA) 40 mg DAILY PO Last administered on 11/28/19at 08:10; Start 11/11/19 at 09:00 Famotidine (Pepcid Vial) 20 mg BID IVP Last administered on 11/28/19at 08:09; Start 11/11/19 at 09:00 Enoxaparin Sodium (Lovenox 40mg Syringe) 40 mg Q12HR SQ Last administered on 11/28/19at 08:10; Start 11/11/19 at 09:00 Sodium Chloride (Normal Saline Flush) 3 ml QSHIFT PRN IV AFTER MEDS AND BLOOD DRAWS; Start 11/11/19 at 02:00 Sodium Chloride 1,000 ml @ 65 mls/hr [id number] IV Last administered on 11/27/19at 22:31; Start 11/11/19 at 02:00 Pantoprazole Sodium (PROTONIX VIAL for IV PUSH) 40 mg BIDAC IVP Last administered on 11/11/19at 08:13; Start 11/11/19 at 07:30; Stop 11/11/19 at 12:27; Status DC Insulin Human Lispro (HumaLOG) 0-5 UNITS TIDWMEALS SQ ; Start 11/11/19 at 08:00; Stop 11/11/19 at 05:57; Status DC Dextrose (Dextrose 50%-Water Syringe) 12.5 gm PRN Q15MIN PRN IV SEE COMMENTS; Start 11/11/19 at 02:00 Dexamethasone Sodium Phosphate (Decadron) 8 mg DAILY IVP Last administered on 11/25/19at 09:27; Start 11/11/19 at 09:00; Stop 11/25/19 at 15:58; Status DC Nifedipine (Procardia) 10 mg Q8HRS PO Last administered on 11/17/19at 06:18; Start 11/11/19 at 06:00; Stop 11/17/19 at 08:47; Status DC Vancomycin HCl (Vanco Per Pharmacy) 1 each PRN DAILY PRN MC SEE COMMENTS Last administered on 11/11/19at 11:55; Start 11/11/19 at 02:00; Stop 11/12/19 at 08:09; Status DC Levofloxacin/ Dextrose 150 ml @ 100 mls/hr Q24H IV Last administered on 11/13/19at 20:39; Start 11/11/19 at 20:00; Stop 11/14/19 at 09:35; Status DC Vancomycin HCl (Vancomycin Trough Level) 1 each 1X ONCE MC Last administered on 11/11/19at 06:19; Start 11/11/19 at 06:30; Stop 11/11/19 at 06:31; Status DC Info (FLU VACCINE SCREEN per RX) 1 each 1X ONCE MC ; Start 11/11/19 at 04:45; Stop 11/11/19 at 04:46; Status UNV Insulin Human Lispro (HumaLOG) 0-5 UNITS Q6HRS SQ Last administered on 11/14/19at 17:39; Start 11/11/19 at 06:00; Stop 11/15/19 at 11:04; Status DC Influenza Virus Vaccine Quadrival (Fluzone Quad [id number] Syringe) 0.5 ml ONCE ONCE VAX IM ; Start 11/16/19 at 09:00; Stop 11/16/19 at 09:01; Status DC Vancomycin HCl 1.5 gm/Sodium Chloride 500 ml @ 250 mls/hr Q12H IV Last administered on 11/12/19at 06:23; Start 11/11/19 at 07:00; Stop 11/12/19 at 08:03; Status DC Vancomycin HCl (Vancomycin Trough Level) 1 each 1X ONCE MC ; Start 11/12/19 at 18:30; Stop 11/12/19 at 08:09; Status DC Sucralfate (Carafate) 1 gm Q6HRS PO Last administered on 11/13/19at 11:15; Start 11/11/19 at 12:00; Stop 11/13/19 at 12:24; Status DC Vitamin D (Vitamin D3) 2,000 unit DAILY PO Last administered on 11/28/19at 08:09; Start 11/11/19 at 11:00 Ascorbic Acid (Vitamin C) 500 mg Q6HRS PO Last administered on 11/25/19at 06:13; Start 11/11/19 at 12:00; Stop 11/25/19 at 09:21; Status DC Zinc Sulfate (Orazinc) 220 mg DAILY PO Last administered on 11/28/19at 08:09; Start 11/11/19 at 11:00 Pantoprazole Sodium (PROTONIX VIAL for IV PUSH) 40 mg Q12HR IVP Last administered on 11/12/19at 21:58; Start 11/11/19 at 21:00; Stop 11/13/19 at 09:20; Status DC Propofol (Diprivan) 200 mg STK-MED ONCE IV ; Start 11/10/19 at 23:00; Stop 11/11/19 at 12:49; Status DC Succinylcholine Chloride (Anectine) 200 mg STK-MED ONCE .ROUTE ; Start 11/10/19 at 23:00; Stop 11/11/19 at 12:49; Status DC Etomidate (Amidate) 20 mg STK-MED ONCE IV ; Start 11/10/19 at 23:00; Stop 11/11/19 at 12:49; Status DC Non-Formulary Medication 1 ea/ Sodium Chloride 210 ml @ 210 mls/hr 1X ONCE IV Last administered on 11/11/19at 16:45; Start 11/11/19 at 16:00; Stop 11/11/19 at 16:59; Status DC Non-Formulary Medication 1 ea/ Sodium Chloride 230 ml @ 460 mls/hr Q24H IV Last administered on 11/20/19at 15:53; Start 11/12/19 at 16:00; Stop 11/20/19 at 16:29; Status DC Vecuronium [place] (Norcuron Bolus) 6 mg PRN Q4HRS PRN IV SHORTNESS OF BREATH Last administered on 11/16/19at 19:51; Start 11/12/19 at 08:00; Stop 11/16/19 at 21:58; Status DC Haloperidol Lactate (Haldol Inj) 5 mg Q8HRS IVP Last administered on 11/19/19at 05:13; Start 11/12/19 at 14:00; Stop 11/19/19 at 10:06; Status DC Sucralfate (Carafate) 1 gm QIDACHS PEG Last administered on 11/17/19at 07:21; Start 11/13/19 at 16:30; Stop 11/17/19 at 08:40; Status DC Ceftriaxone Sodium (Rocephin) 2 gm Q24H IVP Last administered on 11/24/19at 08:40; Start 11/14/19 at 10:00; Stop 11/24/19 at 09:55; Status DC Fentanyl Citrate 55 ml @ 0 mls/hr CONT PRN PRN IV PAIN Last administered on 11/27/19at 14:23; Start 11/15/19 at 01:00 Vecuronium [place] (Norcuron Bolus) 6 mg PRN Q1HR PRN IV SHORTNESS OF BREATH Last administered on 11/19/19at 02:31; Start 11/16/19 at 22:00 Meropenem 500 mg/ Sodium Chloride 50 ml @ 100 mls/hr Q8HRS IV Last administered on 11/28/19at 14:38; Start 11/24/19 at 14:00 Dexamethasone Sodium Phosphate (Decadron) 4 mg DAILY IVP Last administered on 11/28/19at 08:09; Start 11/26/19 at 09:00; Stop 11/29/19 at 09:00 Active Scripts Active Reported Tramadol Hcl 50 Mg Tablet 50 Mg PO Q8HRS PRN Carafate (Sucralfate) 1 Gm Tablet 1 Gm PO TIDACHC Prednisone (Prednisone) 10 Mg Tablet 10 Mg PO DAILY Pantoprazole Sodium (Pantoprazole Sodium) 40 Mg Tablet.dr 40 Mg PO BIDAC Zofran (Ondansetron Hcl) 4 Mg Tablet 1 Tab PO Q8HRS Nifedipine Er (Nifedipine) 30 Mg Tablet.er 30 Mg PO DAILY Methylprednisolone 4 Mg Tab.ds.pk 4 Mg PO DAILY Metformin Hcl 1,000 Mg Tablet 1,000 Mg PO BIDWMEALS Levothyroxine Sodium 100 Mcg Tablet 100 Mcg PO DAILYAC Famotidine 20 Mg Tablet 20 Mg PO BID Celexa (Citalopram Hydrobromide) 40 Mg Tablet 40 Mg PO DAILY Evoxac (Cevimeline Hcl) 30 Mg Capsule 30 Mg PO TID Vitals/I & O Vital Sign - Last 24 Hours 11/27/19 11/27/19 11/27/19 11/27/19 16:00 16:00 17:00 18:00 Temp 98.2 98.2 Pulse 36 42 33 Resp 15 15 15 B/P (MAP) 124/63 (83) 99/52 (68) 96/47 (63) Pulse Ox 98 100 99 O2 Delivery Ventilator Mechanical Ventilator Ventilator Ventilator 11/27/19 11/27/19 11/27/19 11/27/19 19:00 20:00 20:00 21:00 Temp 98.3 98.3 Pulse 31 31 32 Resp 15 15 15 B/P (MAP) 88/45 (59) 93/46 (62) 95/50 (65) Pulse Ox 100 100 100 O2 Delivery Ventilator Ventilator Mechanical Ventilator Ventilator 11/27/19 11/27/19 11/27/19 11/27/19 21:19 22:00 23:00 23:59 Pulse 32 33 Resp 15 15 B/P (MAP) 94/52 (66) 95/48 (64) Pulse Ox 100 100 100 O2 Delivery Ventilator Ventilator Ventilator Mechanical Ventilator 11/28/19 11/28/19 11/28/19 11/28/19 00:01 00:37 01:00 02:00 Temp 97.9 97.9 Pulse 30 32 31 Resp 15 15 15 B/P (MAP) 94/52 (66) 109/52 (71) 94/46 (62) Pulse Ox 100 100 100 100 O2 Delivery Ventilator Ventilator Ventilator Ventilator 11/28/19 11/28/19 11/28/19 11/28/19 03:00 04:00 04:00 05:00 Temp 98.3 98.3 Pulse 32 36 34 Resp 15 15 15 B/P (MAP) 106/52 (70) 96/47 (63) 108/58 (75) Pulse Ox 100 100 100 O2 Delivery Ventilator Ventilator Mechanical Ventilator Ventilator 11/28/19 11/28/19 11/28/19 11/28/19 05:35 06:00 07:00 07:14 Pulse 41 45 Resp 15 15 B/P (MAP) 95/50 (65) 120/60 (80) Pulse Ox 100 100 100 93 O2 Delivery Ventilator Ventilator Ventilator Ventilator 11/28/19 11/28/19 11/28/19 11/28/19 08:00 08:00 09:00 10:00 Temp 97.9 97.9 Pulse 36 36 35 Resp 15 15 15 B/P (MAP) 130/52 (78) 101/50 (67) 134/67 (89) Pulse Ox 100 100 100 O2 Delivery Ventilator Mechanical Ventilator Ventilator Ventilator 11/28/19 11/28/19 11/28/19 11/28/19 10:26 11:00 12:00 12:00 Temp 97.7 97.7 Pulse 36 39 Resp 15 15 B/P (MAP) 103/53 (70) 96/50 (65) Pulse Ox 92 100 100 O2 Delivery Ventilator Ventilator Mechanical Ventilator Ventilator 11/28/19 11/28/19 11/28/19 13:00 14:00 15:00 Pulse 39 45 45 Resp 15 15 15 B/P (MAP) 117/54 (75) 102/54 (70) 114/58 (76) Pulse Ox 100 100 100 O2 Delivery Ventilator Ventilator Ventilator Intake and Output 11/27/19 11/27/19 11/28/19 15:00 23:00 07:00 Intake Total 300 ml 2281.68 ml 1792.8 ml Output Total 1900 ml 1425 ml 675 ml Balance -1600 ml 856.68 ml 1117.8 ml Justicifation of Admission Dx: Justifications for Admission: Justification of Admission Dx: Yes Respiratory Failure: Mechanical Ventilation MARCO ANTONIO JIMENEZ MD Nov 28, 2019 15:51
[2019-11-28] MEDS: fentaNYL HIGH DOSE PCA 55 ML IV PRN (16:32)
[2019-11-29] VITALS (24 sets, daily range): BP systolic 114–162; BP diastolic 51–83
[2019-11-29] MEDS: fentaNYL HIGH DOSE PCA 55 ML IV PRN (01:02)
[2019-11-29] MEDS: PROPOFOL 100 ML IV PRN ×2 (01:03→05:56)
[2019-11-29] MEDS: IV NORMAL SALINE 1000ML BAG 1,000 ML IV SCH (01:12)
[2019-11-29 04:15] LABS: BASO # 0.1 x10^3/uL (0.0-0.2); BASO % 1 % (0-3); EOS # 0.4 x10^3/uL (0.0-0.7); EOS % 3 % (0-3); HEMATOCRIT 26.9 % (36.0-47.0); HEMOGLOBIN 8.4 g/dL (12.0-15.5); LYMPH # 2.6 x10^3/uL (1.0-4.8); LYMPH % 18 % (24-48); MEAN CORPUSCULAR HEMOGLOBIN 24 pg (25-35); MEAN CORPUSCULAR HGB CONC 31 g/dL (31-37); MEAN CORPUSCULAR VOLUME 79 fL (79-100); MONO % 7 % (0-9); NEUT % 71 % (31-73); PLATELET COUNT 214 x10^3/uL (140-400); RED BLOOD COUNT 3.43 x10^6/uL (3.50-5.40); RED CELL DISTRIBUTION WIDTH 17.2 % (11.5-14.5); WHITE BLOOD COUNT 14.1 x10^3/uL (4.0-11.0)
[2019-11-29 04:31] LABS: ALBUMIN 1.9 g/dL (3.4-5.0); ALBUMIN/GLOBULIN RATIO 0.6 (1.0-1.7); CALCIUM 8.2 mg/dL (8.5-10.1); CREATININE 0.4 mg/dL (0.6-1.0); GFR 158.7; POTASSIUM 4.3 mmol/L (3.5-5.1); TOTAL BILIRUBIN 0.2 mg/dL (0.2-1.0); TOTAL PROTEIN 5.1 g/dL (6.4-8.2)
[2019-11-29] MEDS: LEVOTHYROXINE 100 MCG TABLET PO SCH (05:56)
[2019-11-29] MEDS: MEROPENEM 500 MG in IV NORMAL SALINE 50ML 50 ML IV SCH ×3 (05:56→21:48)
[2019-11-29 08:37] LABS: BASE EXCESS ABG 4 mmol/L (-3-3); HCO3 ABG 28 mmol/L (21-28); PCO2 ABG 39 mmHg (35-46); PO2 ABG 85 mmHg (65-108); SAT O2 ABG 96 % (92-99)
--- NOTE | 2019-11-29 09:12 | PDOC ---
DAKOTA STAHL RN RENAL 11/29/19 0912: SURGICAL PROGRESS NOTE DATE: 11/29/19 TIME: 09:10 Subjective no family present Vital Signs Vital Signs Date Time Temp Pulse Resp B/P (MAP) Pulse Ox O2 Delivery O2 Flow Rate FiO2 11/29/19 06:00 54 21 114/54 (74) 97 Ventilator 11/29/19 04:00 98.8 98.8 11/29/19 01:32 10.0 I&O Intake and Output 11/29/19 07:00 Intake Total 3045 ml Output Total 2725 ml Balance 320 ml IV Total 249 ml Tube Feeding 2025 ml Other 771 ml Output Urine Total 2725 ml Gastric Drainage Total 0 ml HEENT: Other (OG for TF) Lungs: Other (mech vent) Labs Laboratory Tests Test 11/28/19 07:45 11/29/19 04:00 O2 Saturation 91 % (92-99) Arterial Blood pH 7.43 (7.35-7.45) Arterial Blood pCO2 at Patient Temp 43 mmHg (35-46) Arterial Blood pO2 at Patient Temp 60 mmHg (65-108) Arterial Blood HCO3 28 mmol/L (21-28) Arterial Blood Base Excess 3 mmol/L (-3-3) FiO2 60% White Blood Count 14.1 x10^3/uL (4.0-11.0) Red Blood Count 3.43 x10^6/uL (3.50-5.40) Hemoglobin 8.4 g/dL (12.0-15.5) Hematocrit 26.9 % (36.0-47.0) Mean Corpuscular Volume 79 fL (79-100) Mean Corpuscular Hemoglobin 24 pg (25-35) Mean Corpuscular Hemoglobin Concent 31 g/dL (31-37) Red Cell Distribution Width 17.2 % (11.5-14.5) Platelet Count 214 x10^3/uL (140-400) Neutrophils (%) (Auto) 71 % (31-73) Lymphocytes (%) (Auto) 18 % (24-48) Monocytes (%) (Auto) 7 % (0-9) Eosinophils (%) (Auto) 3 % (0-3) Basophils (%) (Auto) 1 % (0-3) Neutrophils # (Auto) 10.0 x10^3/uL (1.8-7.7) Lymphocytes # (Auto) 2.6 x10^3/uL (1.0-4.8) Monocytes # (Auto) 1.0 x10^3/uL (0.0-1.1) Eosinophils # (Auto) 0.4 x10^3/uL (0.0-0.7) Basophils # (Auto) 0.1 x10^3/uL (0.0-0.2) Sodium Level 140 mmol/L (136-145) Potassium Level 4.3 mmol/L (3.5-5.1) Chloride Level 104 mmol/L (98-107) Carbon Dioxide Level 31 mmol/L (21-32) Anion Gap 5 (6-14) Blood Urea Nitrogen 21 mg/dL (7-20) Creatinine 0.4 mg/dL (0.6-1.0) Estimated GFR (Cockcroft-Gault) 158.7 BUN/Creatinine Ratio 53 (6-20) Glucose Level 103 mg/dL (70-99) Calcium Level 8.2 mg/dL (8.5-10.1) Total Bilirubin 0.2 mg/dL (0.2-1.0) Aspartate Amino Transf (AST/SGOT) 19 U/L (15-37) Alanine Aminotransferase (ALT/SGPT) 34 U/L (14-59) Alkaline Phosphatase 58 U/L (46-116) Total Protein 5.1 g/dL (6.4-8.2) Albumin 1.9 g/dL (3.4-5.0) Albumin/Globulin Ratio 0.6 (1.0-1.7) Laboratory Tests Test 11/29/19 04:00 White Blood Count 14.1 x10^3/uL (4.0-11.0) Red Blood Count 3.43 x10^6/uL (3.50-5.40) Hemoglobin 8.4 g/dL (12.0-15.5) Hematocrit 26.9 % (36.0-47.0) Mean Corpuscular Volume 79 fL (79-100) Mean Corpuscular Hemoglobin 24 pg (25-35) Mean Corpuscular Hemoglobin Concent 31 g/dL (31-37) Red Cell Distribution Width 17.2 % (11.5-14.5) Platelet Count 214 x10^3/uL (140-400) Neutrophils (%) (Auto) 71 % (31-73) Lymphocytes (%) (Auto) 18 % (24-48) Monocytes (%) (Auto) 7 % (0-9) Eosinophils (%) (Auto) 3 % (0-3) Basophils (%) (Auto) 1 % (0-3) Neutrophils # (Auto) 10.0 x10^3/uL (1.8-7.7) Lymphocytes # (Auto) 2.6 x10^3/uL (1.0-4.8) Monocytes # (Auto) 1.0 x10^3/uL (0.0-1.1) Eosinophils # (Auto) 0.4 x10^3/uL (0.0-0.7) Basophils # (Auto) 0.1 x10^3/uL (0.0-0.2) Sodium Level 140 mmol/L (136-145) Potassium Level 4.3 mmol/L (3.5-5.1) Chloride Level 104 mmol/L (98-107) Carbon Dioxide Level 31 mmol/L (21-32) Anion Gap 5 (6-14) Blood Urea Nitrogen 21 mg/dL (7-20) Creatinine 0.4 mg/dL (0.6-1.0) Estimated GFR (Cockcroft-Gault) 158.7 BUN/Creatinine Ratio 53 (6-20) Glucose Level 103 mg/dL (70-99) Calcium Level 8.2 mg/dL (8.5-10.1) Total Bilirubin 0.2 mg/dL (0.2-1.0) Aspartate Amino Transf (AST/SGOT) 19 U/L (15-37) Alanine Aminotransferase (ALT/SGPT) 34 U/L (14-59) Alkaline Phosphatase 58 U/L (46-116) Total Protein 5.1 g/dL (6.4-8.2) Albumin 1.9 g/dL (3.4-5.0) Albumin/Globulin Ratio 0.6 (1.0-1.7) Problem List following for possible trach will review with Dr Russell for timing Justicifation of Admission Dx: Justifications for Admission: Justification of Admission Dx: Yes Respiratory Failure: Mechanical Ventilation MAKAYLA RUSSELL MD 11/29/19 6448: SURGICAL PROGRESS NOTE Assessment/Plan Pt seen and examined. Agree with Ms. Stahl's note will tentatively plan trach in AM if OK with others ADKOTA STAHL APRN Nov 29, 2019 09:12 MAKAYLA RUSSELL MD Nov 29, 2019 17:48
--- NOTE | 2019-11-29 09:55 | PDOC ---
PULMONARY PROGRESS NOTES DATE: 11/29/19 TIME: 09:50 Subjective Patient currently on 60% FiO2 5 of PEEP sedated No significant change overnight Vitals Vital Signs Date Time Temp Pulse Resp B/P (MAP) Pulse Ox O2 Delivery O2 Flow Rate FiO2 11/29/19 06:00 54 21 114/54 (74) 97 Ventilator 11/29/19 04:00 98.8 98.8 11/29/19 01:32 10.0 Comments Patient seen doing the , visual exam, on vent sedated bradycardia no accessory muscle use no rash Labs Laboratory Tests Test 11/28/19 07:45 11/29/19 04:00 11/29/19 08:35 O2 Saturation 91 % (92-99) 96 % (92-99) Arterial Blood pH 7.43 (7.35-7.45) 7.46 (7.35-7.45) Arterial Blood pCO2 at Patient Temp 43 mmHg (35-46) 39 mmHg (35-46) Arterial Blood pO2 at Patient Temp 60 mmHg (65-108) 85 mmHg (65-108) Arterial Blood HCO3 28 mmol/L (21-28) 28 mmol/L (21-28) Arterial Blood Base Excess 3 mmol/L (-3-3) 4 mmol/L (-3-3) FiO2 60% 60% vent White Blood Count 14.1 x10^3/uL (4.0-11.0) Red Blood Count 3.43 x10^6/uL (3.50-5.40) Hemoglobin 8.4 g/dL (12.0-15.5) Hematocrit 26.9 % (36.0-47.0) Mean Corpuscular Volume 79 fL (79-100) Mean Corpuscular Hemoglobin 24 pg (25-35) Mean Corpuscular Hemoglobin Concent 31 g/dL (31-37) Red Cell Distribution Width 17.2 % (11.5-14.5) Platelet Count 214 x10^3/uL (140-400) Neutrophils (%) (Auto) 71 % (31-73) Lymphocytes (%) (Auto) 18 % (24-48) Monocytes (%) (Auto) 7 % (0-9) Eosinophils (%) (Auto) 3 % (0-3) Basophils (%) (Auto) 1 % (0-3) Neutrophils # (Auto) 10.0 x10^3/uL (1.8-7.7) Lymphocytes # (Auto) 2.6 x10^3/uL (1.0-4.8) Monocytes # (Auto) 1.0 x10^3/uL (0.0-1.1) Eosinophils # (Auto) 0.4 x10^3/uL (0.0-0.7) Basophils # (Auto) 0.1 x10^3/uL (0.0-0.2) Sodium Level 140 mmol/L (136-145) Potassium Level 4.3 mmol/L (3.5-5.1) Chloride Level 104 mmol/L (98-107) Carbon Dioxide Level 31 mmol/L (21-32) Anion Gap 5 (6-14) Blood Urea Nitrogen 21 mg/dL (7-20) Creatinine 0.4 mg/dL (0.6-1.0) Estimated GFR (Cockcroft-Gault) 158.7 BUN/Creatinine Ratio 53 (6-20) Glucose Level 103 mg/dL (70-99) Calcium Level 8.2 mg/dL (8.5-10.1) Total Bilirubin 0.2 mg/dL (0.2-1.0) Aspartate Amino Transf (AST/SGOT) 19 U/L (15-37) Alanine Aminotransferase (ALT/SGPT) 34 U/L (14-59) Alkaline Phosphatase 58 U/L (46-116) Total Protein 5.1 g/dL (6.4-8.2) Albumin 1.9 g/dL (3.4-5.0) Albumin/Globulin Ratio 0.6 (1.0-1.7) Laboratory Tests Test 11/29/19 04:00 11/29/19 08:35 White Blood Count 14.1 x10^3/uL (4.0-11.0) Red Blood Count 3.43 x10^6/uL (3.50-5.40) Hemoglobin 8.4 g/dL (12.0-15.5) Hematocrit 26.9 % (36.0-47.0) Mean Corpuscular Volume 79 fL (79-100) Mean Corpuscular Hemoglobin 24 pg (25-35) Mean Corpuscular Hemoglobin Concent 31 g/dL (31-37) Red Cell Distribution Width 17.2 % (11.5-14.5) Platelet Count 214 x10^3/uL (140-400) Neutrophils (%) (Auto) 71 % (31-73) Lymphocytes (%) (Auto) 18 % (24-48) Monocytes (%) (Auto) 7 % (0-9) Eosinophils (%) (Auto) 3 % (0-3) Basophils (%) (Auto) 1 % (0-3) Neutrophils # (Auto) 10.0 x10^3/uL (1.8-7.7) Lymphocytes # (Auto) 2.6 x10^3/uL (1.0-4.8) Monocytes # (Auto) 1.0 x10^3/uL (0.0-1.1) Eosinophils # (Auto) 0.4 x10^3/uL (0.0-0.7) Basophils # (Auto) 0.1 x10^3/uL (0.0-0.2) Sodium Level 140 mmol/L (136-145) Potassium Level 4.3 mmol/L (3.5-5.1) Chloride Level 104 mmol/L (98-107) Carbon Dioxide Level 31 mmol/L (21-32) Anion Gap 5 (6-14) Blood Urea Nitrogen 21 mg/dL (7-20) Creatinine 0.4 mg/dL (0.6-1.0) Estimated GFR (Cockcroft-Gault) 158.7 BUN/Creatinine Ratio 53 (6-20) Glucose Level 103 mg/dL (70-99) Calcium Level 8.2 mg/dL (8.5-10.1) Total Bilirubin 0.2 mg/dL (0.2-1.0) Aspartate Amino Transf (AST/SGOT) 19 U/L (15-37) Alanine Aminotransferase (ALT/SGPT) 34 U/L (14-59) Alkaline Phosphatase 58 U/L (46-116) Total Protein 5.1 g/dL (6.4-8.2) Albumin 1.9 g/dL (3.4-5.0) Albumin/Globulin Ratio 0.6 (1.0-1.7) O2 Saturation 96 % (92-99) Arterial Blood pH 7.46 (7.35-7.45) Arterial Blood pCO2 at Patient Temp 39 mmHg (35-46) Arterial Blood pO2 at Patient Temp 85 mmHg (65-108) Arterial Blood HCO3 28 mmol/L (21-28) Arterial Blood Base Excess 4 mmol/L (-3-3) FiO2 60% vent Medications Active Scripts Medications Dose Route/Sig Max Daily Dose Days Date Category Tramadol Hcl 50 Mg Tablet 50 Mg PO Q8HRS PRN 11/11/19 Reported Carafate (Sucralfate) 1 Gm Tablet 1 Gm PO TIDACHC 11/11/19 Reported Prednisone (Prednisone) 10 Mg Tablet 10 Mg PO DAILY 11/11/19 Reported Pantoprazole Sodium (Pantoprazole Sodium) 40 Mg Tablet.dr 40 Mg PO BIDAC 11/11/19 Reported Zofran (Ondansetron Hcl) 4 Mg Tablet 1 Tab PO Q8HRS 11/11/19 Reported Nifedipine Er (Nifedipine) 30 Mg Tablet.er 30 Mg PO DAILY 11/11/19 Reported Methylprednisolone 4 Mg Tab.ds.pk 4 Mg PO DAILY 11/11/19 Reported Metformin Hcl 1,000 Mg Tablet 1,000 Mg PO BIDWMEALS 11/11/19 Reported Levothyroxine Sodium 100 Mcg Tablet 100 Mcg PO DAILYAC 11/11/19 Reported Famotidine 20 Mg Tablet 20 Mg PO BID 11/11/19 Reported Celexa (Citalopram Hydrobromide) 40 Mg Tablet 40 Mg PO DAILY 11/11/19 Reported Evoxac (Cevimeline Hcl) 30 Mg Capsule 30 Mg PO TID 11/11/19 Reported Comments cxr reviewed 1. Tube and line position as discussed above. No pneumothorax is seen. 2. . Bilateral perihilar infiltrates and left lower lobe atelectasis and/or infiltrate, unchanged. CXR 11/24/19 IMPRESSION: 1. Slight improvement left lung base but persistent bilateral diffuse infiltrates. 2. Tubes and lines unchanged. Impression . IMPRESSION: 1. Acute hypoxemic respiratory failure secondary to COVID-19 viral pneumonia.-- continue to require vent support, 2. COVID-19 viral pneumonia. 3. Acute respiratory distress syndrome. 4. Leukocytosis-- worsening 5. History of systemic lupus erythematosus. 6. Raynaud's. 7. Abnormal cxr with bilateral infiltrates, 8. bradycardia suspect secondary to meds Plan . DC propofol and initiate Versed hopefully heart rate will go up Tracheotomy placement per Dr. Russell Follow chest x-ray Antibiotics per ID Status post convalescent plasma, finished course of remdesivir steroids with taper Continue tube feeding for nutritional support DVT/GI prophylaxis: lovenox/pepcid Discussed with RN and RT Total critical care time from 08:45-09:15 MARITZA HAZEL MD Nov 29, 2019 09:55
[2019-11-29] MEDS: FAMOTIDINE 20 MG/2 ML VIAL IVP SCH ×2 (12:00→21:48)
[2019-11-29] MEDS: ZINC SULFATE 220 MG CAPSULE. PO SCH (12:00)
[2019-11-29] MEDS: DEXAMETHASONE SOD PHOS 4 MG/ML VIAL IVP SCH (12:00)
[2019-11-29] MEDS: CITALOPRAM 20 MG TABLET. PO SCH (12:01)
[2019-11-29] MEDS: ENOXAPARIN 40 MG/0.4 ML SYRINGE. SQ SCH ×2 (12:01→21:48)
[2019-11-29] MEDS: CHOLECALCIFEROL (VITAMIN D3) 1,000 UNIT TABLET PO SCH (12:01)
--- NOTE | 2019-11-29 14:24 | PDOC ---
PROGRESS NOTES Date of Service: DATE: 11/29/19 TIME: 14:24 Chief Complaint Chief Complaint Acute hypoxemic respiratory failure secondary to COVID-19 infection COVID-19 pneumonia Leukocytosis secondary to the above Microcytic anemia Hyponatremia Severe protein calorie malnutrition History of Present Illness History of Present Illness Ms Galicia is a 69-year-old female with past medical history of asthma Raynaud's phenomenon syncope history of systemic lupus erythematosus was in her usual state of health until couple days prior to her visit to the ER when she was diagnosed with COVID-19. Apparently the patient had attended a wedding and most likely is where they contracted the disease. Her is at our institution on the ventilator as well as reported by nursing staff. The patient at the time my evaluation is on mechanical ventilation and sedated. Most of this is from review of outside facility documentation. Bill the patient had described in the review of systems at the outside facility that she had some altered taste in her mouth she did not have any headache visual changes blurred vision double vision she did have some shortness of breath and chest discomfort in her chest whenever she took a deep breath otherwise no other complaints she did not have any diarrhea abdominal pain no neurological deficits were reported. Patient is being admitted for further evaluation and treatment 11/28, no much change, still on vent, supportive measure, wean as able, consider trach Vitals Vitals Vital Signs Date Time Temp Pulse Resp B/P (MAP) Pulse Ox O2 Delivery O2 Flow Rate FiO2 11/29/19 12:00 Mechanical Ventilator 11/29/19 11:00 15 127/57 (80) 97 11/29/19 08:00 98.5 98.5 11/29/19 06:00 54 11/29/19 01:32 10.0 Physical Exam Physical Exam GENERAL: Intubated, sedated on mechanical ventilation. HEENT: Normocephalic, atraumatic. Anicteric. NG tube present NECK: Supple. Right IJ line looks clean. LUNGS: Coarse breath sounds bilaterally. No wheezing. HEART: S1, S2 present. No murmurs. ABDOMEN: Soft, nontender, positive bowel sounds. EXTREMITIES: No edema, no cyanosis. DERMATOLOGIC: Warm and dry. No generalized rash. NEUROLOGIC: Sedated. PSYCHIATRIC: Unable to assess. General: No acute distress Labs LABS Laboratory Tests Test 11/29/19 04:00 11/29/19 08:35 11/29/19 13:10 White Blood Count 14.1 x10^3/uL (4.0-11.0) Red Blood Count 3.43 x10^6/uL (3.50-5.40) Hemoglobin 8.4 g/dL (12.0-15.5) Hematocrit 26.9 % (36.0-47.0) Mean Corpuscular Volume 79 fL (79-100) Mean Corpuscular Hemoglobin 24 pg (25-35) Mean Corpuscular Hemoglobin Concent 31 g/dL (31-37) Red Cell Distribution Width 17.2 % (11.5-14.5) Platelet Count 214 x10^3/uL (140-400) Neutrophils (%) (Auto) 71 % (31-73) Lymphocytes (%) (Auto) 18 % (24-48) Monocytes (%) (Auto) 7 % (0-9) Eosinophils (%) (Auto) 3 % (0-3) Basophils (%) (Auto) 1 % (0-3) Neutrophils # (Auto) 10.0 x10^3/uL (1.8-7.7) Lymphocytes # (Auto) 2.6 x10^3/uL (1.0-4.8) Monocytes # (Auto) 1.0 x10^3/uL (0.0-1.1) Eosinophils # (Auto) 0.4 x10^3/uL (0.0-0.7) Basophils # (Auto) 0.1 x10^3/uL (0.0-0.2) Sodium Level 140 mmol/L (136-145) Potassium Level 4.3 mmol/L (3.5-5.1) Chloride Level 104 mmol/L (98-107) Carbon Dioxide Level 31 mmol/L (21-32) Anion Gap 5 (6-14) Blood Urea Nitrogen 21 mg/dL (7-20) Creatinine 0.4 mg/dL (0.6-1.0) Estimated GFR (Cockcroft-Gault) 158.7 BUN/Creatinine Ratio 53 (6-20) Glucose Level 103 mg/dL (70-99) Calcium Level 8.2 mg/dL (8.5-10.1) Total Bilirubin 0.2 mg/dL (0.2-1.0) Aspartate Amino Transf (AST/SGOT) 19 U/L (15-37) Alanine Aminotransferase (ALT/SGPT) 34 U/L (14-59) Alkaline Phosphatase 58 U/L (46-116) Total Protein 5.1 g/dL (6.4-8.2) Albumin 1.9 g/dL (3.4-5.0) Albumin/Globulin Ratio 0.6 (1.0-1.7) O2 Saturation 96 % (92-99) Arterial Blood pH 7.46 (7.35-7.45) Arterial Blood pCO2 at Patient Temp 39 mmHg (35-46) Arterial Blood pO2 at Patient Temp 85 mmHg (65-108) Arterial Blood HCO3 28 mmol/L (21-28) Arterial Blood Base Excess 4 mmol/L (-3-3) FiO2 60% vent Glucose (Fingerstick) 95 mg/dL (70-99) Comment Review of Relevant I have reviewed the following items clive (where applicable) has been applied. Labs Laboratory Tests Test 11/28/19 07:45 11/29/19 04:00 11/29/19 08:35 11/29/19 13:10 O2 Saturation 91 % (92-99) 96 % (92-99) Arterial Blood pH 7.43 (7.35-7.45) 7.46 (7.35-7.45) Arterial Blood pCO2 at Patient Temp 43 mmHg (35-46) 39 mmHg (35-46) Arterial Blood pO2 at Patient Temp 60 mmHg (65-108) 85 mmHg (65-108) Arterial Blood HCO3 28 mmol/L (21-28) 28 mmol/L (21-28) Arterial Blood Base Excess 3 mmol/L (-3-3) 4 mmol/L (-3-3) FiO2 60% 60% vent White Blood Count 14.1 x10^3/uL (4.0-11.0) Red Blood Count 3.43 x10^6/uL (3.50-5.40) Hemoglobin 8.4 g/dL (12.0-15.5) Hematocrit 26.9 % (36.0-47.0) Mean Corpuscular Volume 79 fL (79-100) Mean Corpuscular Hemoglobin 24 pg (25-35) Mean Corpuscular Hemoglobin Concent 31 g/dL (31-37) Red Cell Distribution Width 17.2 % (11.5-14.5) Platelet Count 214 x10^3/uL (140-400) Neutrophils (%) (Auto) 71 % (31-73) Lymphocytes (%) (Auto) 18 % (24-48) Monocytes (%) (Auto) 7 % (0-9) Eosinophils (%) (Auto) 3 % (0-3) Basophils (%) (Auto) 1 % (0-3) Neutrophils # (Auto) 10.0 x10^3/uL (1.8-7.7) Lymphocytes # (Auto) 2.6 x10^3/uL (1.0-4.8) Monocytes # (Auto) 1.0 x10^3/uL (0.0-1.1) Eosinophils # (Auto) 0.4 x10^3/uL (0.0-0.7) Basophils # (Auto) 0.1 x10^3/uL (0.0-0.2) Sodium Level 140 mmol/L (136-145) Potassium Level 4.3 mmol/L (3.5-5.1) Chloride Level 104 mmol/L (98-107) Carbon Dioxide Level 31 mmol/L (21-32) Anion Gap 5 (6-14) Blood Urea Nitrogen 21 mg/dL (7-20) Creatinine 0.4 mg/dL (0.6-1.0) Estimated GFR (Cockcroft-Gault) 158.7 BUN/Creatinine Ratio 53 (6-20) Glucose Level 103 mg/dL (70-99) Calcium Level 8.2 mg/dL (8.5-10.1) Total Bilirubin 0.2 mg/dL (0.2-1.0) Aspartate Amino Transf (AST/SGOT) 19 U/L (15-37) Alanine Aminotransferase (ALT/SGPT) 34 U/L (14-59) Alkaline Phosphatase 58 U/L (46-116) Total Protein 5.1 g/dL (6.4-8.2) Albumin 1.9 g/dL (3.4-5.0) Albumin/Globulin Ratio 0.6 (1.0-1.7) Glucose (Fingerstick) 95 mg/dL (70-99) Laboratory Tests Test 11/29/19 04:00 11/29/19 08:35 11/29/19 13:10 White Blood Count 14.1 x10^3/uL (4.0-11.0) Red Blood Count 3.43 x10^6/uL (3.50-5.40) Hemoglobin 8.4 g/dL (12.0-15.5) Hematocrit 26.9 % (36.0-47.0) Mean Corpuscular Volume 79 fL (79-100) Mean Corpuscular Hemoglobin 24 pg (25-35) Mean Corpuscular Hemoglobin Concent 31 g/dL (31-37) Red Cell Distribution Width 17.2 % (11.5-14.5) Platelet Count 214 x10^3/uL (140-400) Neutrophils (%) (Auto) 71 % (31-73) Lymphocytes (%) (Auto) 18 % (24-48) Monocytes (%) (Auto) 7 % (0-9) Eosinophils (%) (Auto) 3 % (0-3) Basophils (%) (Auto) 1 % (0-3) Neutrophils # (Auto) 10.0 x10^3/uL (1.8-7.7) Lymphocytes # (Auto) 2.6 x10^3/uL (1.0-4.8) Monocytes # (Auto) 1.0 x10^3/uL (0.0-1.1) Eosinophils # (Auto) 0.4 x10^3/uL (0.0-0.7) Basophils # (Auto) 0.1 x10^3/uL (0.0-0.2) Sodium Level 140 mmol/L (136-145) Potassium Level 4.3 mmol/L (3.5-5.1) Chloride Level 104 mmol/L (98-107) Carbon Dioxide Level 31 mmol/L (21-32) Anion Gap 5 (6-14) Blood Urea Nitrogen 21 mg/dL (7-20) Creatinine 0.4 mg/dL (0.6-1.0) Estimated GFR (Cockcroft-Gault) 158.7 BUN/Creatinine Ratio 53 (6-20) Glucose Level 103 mg/dL (70-99) Calcium Level 8.2 mg/dL (8.5-10.1) Total Bilirubin 0.2 mg/dL (0.2-1.0) Aspartate Amino Transf (AST/SGOT) 19 U/L (15-37) Alanine Aminotransferase (ALT/SGPT) 34 U/L (14-59) Alkaline Phosphatase 58 U/L (46-116) Total Protein 5.1 g/dL (6.4-8.2) Albumin 1.9 g/dL (3.4-5.0) Albumin/Globulin Ratio 0.6 (1.0-1.7) O2 Saturation 96 % (92-99) Arterial Blood pH 7.46 (7.35-7.45) Arterial Blood pCO2 at Patient Temp 39 mmHg (35-46) Arterial Blood pO2 at Patient Temp 85 mmHg (65-108) Arterial Blood HCO3 28 mmol/L (21-28) Arterial Blood Base Excess 4 mmol/L (-3-3) FiO2 60% vent Glucose (Fingerstick) 95 mg/dL (70-99) Microbiology 11/21/19 Gram Stain Evaluation - Final, Complete 11/21/19 Respiratory Culture - Final, Complete Medications Current Medications Fentanyl Citrate 30 ml @ 0 mls/hr CONT PRN IV SEE PROTOCOL Last administered on 11/14/19at 20:21; Start 11/10/19 at 23:45; Stop 11/15/19 at 00:50; Status DC Propofol 100 ml @ 0 mls/hr CONT PRN IV SEE PROTOCOL Last administered on 11/29/19at 05:56; Start 11/10/19 at 23:45 Midazolam HCl 100 ml @ 0 mls/hr CONT PRN IV SEE PROTOCOL Last administered on 11/25/19at 11:41; Start 11/10/19 at 23:45 Levothyroxine Sodium (Synthroid) 100 mcg DAILY06 PO Last administered on at 05:56; Start 11/11/19 at 06:00 Sucralfate (Carafate) 1 gm TIDACHC PO ; Start 11/11/19 at 07:30; Stop 11/11/19 at 07:55; Status DC Citalopram Hydrobromide (CeleXA) 40 mg DAILY PO Last administered on 11/29/19at 12:01; Start 11/11/19 at 09:00 Famotidine (Pepcid Vial) 20 mg BID IVP Last administered on 11/29/19at 12:00; Start 11/11/19 at 09:00 Enoxaparin Sodium (Lovenox 40mg Syringe) 40 mg Q12HR SQ Last administered on 11/29/19at 12:01; Start 11/11/19 at 09:00 Sodium Chloride (Normal Saline Flush) 3 ml QSHIFT PRN IV AFTER MEDS AND BLOOD DRAWS; Start 11/11/19 at 02:00 Sodium Chloride 1,000 ml @ 65 mls/hr [id number] IV Last administered on 11/28/19at 09:48; Start 11/11/19 at 02:00 Pantoprazole Sodium (PROTONIX VIAL for IV PUSH) 40 mg BIDAC IVP Last a dministered on 11/11/19at 08:13; Start 11/11/19 at 07:30; Stop 11/11/19 at 12:27; Status DC Insulin Human Lispro (HumaLOG) 0-5 UNITS TIDWMEALS SQ ; Start 11/11/19 at 08:00; Stop 11/11/19 at 05:57; Status DC Dextrose (Dextrose 50%-Water Syringe) 12.5 gm PRN Q15MIN PRN IV SEE COMMENTS; Start 11/11/19 at 02:00 Dexamethasone Sodium Phosphate (Decadron) 8 mg DAILY IVP Last administered on 11/25/19at 09:27; Start 11/11/19 at 09:00; Stop 11/25/19 at 15:58; Status DC Nifedipine (Procardia) 10 mg Q8HRS PO Last administered on 11/17/19at 06:18; Start 11/11/19 at 06:00; Stop 11/17/19 at 08:47; Status DC Vancomycin HCl (Vanco Per Pharmacy) 1 each PRN DAILY PRN MC SEE COMMENTS Last administered on 11/11/19at 11:55; Start 11/11/19 at 02:00; Stop 11/12/19 at 08:09; Status DC Levofloxacin/ Dextrose 150 ml @ 100 mls/hr Q24H IV Last administered on 11/13/19at 20:39; Start 11/11/19 at 20:00; Stop 11/14/19 at 09:35; Status DC Vancomycin HCl (Vancomycin Trough Level) 1 each 1X ONCE MC Last administered on 11/11/19at 06:19; Start 11/11/19 at 06:30; Stop 11/11/19 at 06:31; Status DC Info (FLU VACCINE SCREEN per RX) 1 each 1X ONCE MC ; Start 11/11/19 at 04:45; Stop 11/11/19 at 04:46; Status UNV Insulin Human Lispro (HumaLOG) 0-5 UNITS Q6HRS SQ Last administered on 11/14/19at 17:39; Start 11/11/19 at 06:00; Stop 11/15/19 at 11:04; Status DC Influenza Virus Vaccine Quadrival (Fluzone Quad Syringe) 0.5 ml ONCE ONCE VAX IM ; Start 11/16/19 at 09:00; Stop 11/16/19 at 09:01; Status DC Vancomycin HCl 1.5 gm/Sodium Chloride 500 ml @ 250 mls/hr Q12H IV Last administered on 11/12/19at 06:23; Start 11/11/19 at 07:00; Stop 11/12/19 at 08:03; Status DC Vancomycin HCl (Vancomycin Trough Level) 1 each 1X ONCE MC ; Start 11/12/19 at 18:30; Stop 11/12/19 at 08:09; Status DC Sucralfate (Carafate) 1 gm Q6HRS PO Last administered on 11/13/19at 11:15; Start 11/11/19 at 12:00; Stop 11/13/19 at 12:24; Status DC Vitamin D (Vitamin D3) 2,000 unit DAILY PO Last administered on 11/29/19at 12:01; Start 11/11/19 at 11:00 Ascorbic Acid (Vitamin C) 500 mg Q6HRS PO Last administered on 11/25/19at 06:13; Start 11/11/19 at 12:00; Stop 11/25/19 at 09:21; Status DC Zinc Sulfate (Orazinc) 220 mg DAILY PO Last administered on 11/29/19at 12:00; Start 11/11/19 at 11:00 Pantoprazole Sodium (PROTONIX VIAL for IV PUSH) 40 mg Q12HR IVP Last administered on 11/12/19at 21:58; Start 11/11/19 at 21:00; Stop 11/13/19 at 0 9:20; Status DC Propofol (Diprivan) 200 mg STK-MED ONCE IV ; Start 11/10/19 at 23:00; Stop 11/11/19 at 12:49; Status DC Succinylcholine Chloride (Anectine) 200 mg STK-MED ONCE .ROUTE ; Start 11/10/19 at 23:00; Stop 11/11/19 at 12:49; Status DC Etomidate (Amidate) 20 mg STK-MED ONCE IV ; Start 11/10/19 at 23:00; Stop 11/11/19 at 12:49; Status DC Non-Formulary Medication 1 ea/ Sodium Chloride 210 ml @ 210 mls/hr 1X ONCE IV Last administered on 11/11/19at 16:45; Start 11/11/19 at 16:00; Stop 11/11/19 at 16:59; Status DC Non-Formulary Medication 1 ea/ Sodium Chloride 230 ml @ 460 mls/hr Q24H IV Last administered on 11/20/19at 15:53; Start 11/12/19 at 16:00; Stop 11/20/19 at 16:29; Status DC Vecuronium [place] (Norcuron Bolus) 6 mg PRN Q4HRS PRN IV SHORTNESS OF BREATH Last administered on 11/16/19at 19:51; Start 11/12/19 at 08:00; Stop 11/16/19 at 21:58; Status DC Haloperidol Lactate (Haldol Inj) 5 mg Q8HRS IVP Last administered on 11/19/19at 05:13; Start 11/12/19 at 14:00; Stop 11/19/19 at 10:06; Status DC Sucralfate (Carafate) 1 gm QIDACHS PEG Last administered on 11/17/19at 07:21; Start 11/13/19 at 16:30; Stop 11/17/19 at 08:40; Status DC Ceftriaxone Sodium (Rocephin) 2 gm Q24H IVP Last administered on 11/24/19at 08:40; Start 11/14/19 at 10:00; Stop 11/24/19 at 09:55; Status DC Fentanyl Citrate 55 ml @ 0 mls/hr CONT PRN PRN IV PAIN Last administered on 11/29/19at 01:02; Start 11/15/19 at 01:00 Vecuronium [place] (Norcuron Bolus) 6 mg PRN Q1HR PRN IV SHORTNESS OF BREATH Last administered on 11/19/19at 02:31; Start 11/16/19 at 22:00 Meropenem 500 mg/ Sodium Chloride 50 ml @ 100 mls/hr Q8HRS IV Last administered on 11/29/19at 13:13; Start 11/24/19 at 14:00 Dexamethasone Sodium Phosphate (Decadron) 4 mg DAILY IVP Last administered on 11/29/19at 12:00; Start 11/26/19 at 09:00; Stop 11/29/19 at 09:00; Status DC Active Scripts Active Reported Tramadol Hcl 50 Mg Tablet 50 Mg PO Q8HRS PRN Carafate (Sucralfate) 1 Gm Tablet 1 Gm PO TIDACHC Prednisone (Prednisone) 10 Mg Tablet 10 Mg PO DAILY Pantoprazole Sodium (Pantoprazole Sodium) 40 Mg Tablet.dr 40 Mg PO BIDAC Zofran (Ondansetron Hcl) 4 Mg Tablet 1 Tab PO Q8HRS Nifedipine Er (Nifedipine) 30 Mg Tablet.er 30 Mg PO DAILY Methylprednisolone 4 Mg Tab.ds.pk 4 Mg PO DAILY Metformin Hcl 1,000 Mg Tablet 1,000 Mg PO BIDWMEALS Levothyroxine Sodium 100 Mcg Tablet 100 Mcg PO DAILYAC Famotidine 20 Mg Tablet 20 Mg PO BID Celexa (Citalopram Hydrobromide) 40 Mg Tablet 40 Mg PO DAILY Evoxac (Cevimeline Hcl) 30 Mg Capsule 30 Mg PO TID Vitals/I & O Vital Sign - Last 24 Hours 11/28/19 11/28/19 11/28/19 11/28/19 15:00 15:47 16:00 16:00 Pulse 45 41 Resp 15 15 B/P (MAP) 114/58 (76) 122/61 (81) Pulse Ox 100 92 100 O2 Delivery Ventilator Ventilator Ventilator Mechanical Ventilator 11/28/19 11/28/19 11/28/19 11/28/19 17:00 18:00 19:00 20:00 Pulse 42 40 46 Resp 15 15 20 B/P (MAP) 140/76 (97) 128/67 (87) 149/63 (91) Pulse Ox 100 100 93 O2 Delivery Ventilator Ventilator Ventilator Mechanical Ventilator 11/28/19 11/28/19 11/28/19 11/28/19 20:00 20:21 21:00 22:00 Temp 98.9 98.9 Pulse 45 44 45 Resp 20 20 20 B/P (MAP) 170/63 (98) 154/74 (100) 154/64 (94) Pulse Ox 96 93 96 96 O2 Delivery Ventilator Ventilator Ventilator Ventilator 11/28/19 11/28/19 11/29/19 11/29/19 23:00 23:59 00:00 00:01 Temp 98.7 98.7 Pulse 48 48 Resp 21 B/P (MAP) 169/66 (100) 162/83 (109) Pulse Ox 96 98 96 O2 Delivery Ventilator Mechanical Ventilator Ventilator Ventilator 11/29/19 11/29/19 11/29/19 11/29/19 01:00 01:02 01:32 02:00 Pulse 50 45 Resp 19 20 17 B/P (MAP) 149/58 (88) 140/71 (94) Pulse Ox 96 93 96 98 O2 Delivery Ventilator Ventilator O2 Flow Rate 10.0 10.0 11/29/19 11/29/19 11/29/19 11/29/19 03:00 04:00 04:00 04:30 Temp 98.8 98.8 Pulse 45 46 Resp 17 18 B/P (MAP) 137/68 (91) 147/80 (102) Pulse Ox 98 98 96 O2 Delivery Ventilator Mechanical Ventilator Ventilator Ventilator 11/29/19 11/29/19 11/29/19 11/29/19 05:00 06:00 07:00 08:00 Temp 98.5 98.5 Pulse 52 54 Resp 20 21 15 15 B/P (MAP) 130/60 (83) 114/54 (74) 134/53 (80) 121/51 (74) Pulse Ox 96 97 97 97 O2 Delivery Ventilator Ventilator Ventilator Ventilator 11/29/19 11/29/19 11/29/19 11/29/19 08:00 09:00 10:00 11:00 Resp 15 15 15 B/P (MAP) 147/76 (99) 137/59 (85) 127/57 (80) Pulse Ox 96 98 97 O2 Delivery Mechanical Ventilator Ventilator Ventilator Ventilator 11/29/19 12:00 O2 Delivery Mechanical Ventilator Intake and Output 11/28/19 11/28/19 11/29/19 15:00 23:00 07:00 Intake Total 300 ml 1644 ml 1101 ml Output Total 750 ml 900 ml 1075 ml Balance -450 ml 744 ml 26 ml Justicifation of Admission Dx: Justifications for Admission: Justification of Admission Dx: Yes Respiratory Failure: Mechanical Ventilation MARCO ANTONIO JIMENEZ MD Nov 29, 2019 14:24
[2019-11-29] MEDS ORDERED: IV NORMAL SALINE 1000ML BAG 1,000 ML IV SCH (18:00)
[2019-11-29] MEDS: MIDAZOLAM 100mg/100ml NS BAG 100 ML IV PRN (18:54)
[2019-11-30] VITALS (24 sets, daily range): BP systolic 105–147; BP diastolic 51–74
[2019-11-30] MEDS: MEROPENEM 500 MG in IV NORMAL SALINE 50ML 50 ML IV SCH ×2 (05:39→20:09)
[2019-11-30] MEDS: LEVOTHYROXINE 100 MCG TABLET PO SCH (05:39)
[2019-11-30] MEDS: CHOLECALCIFEROL (VITAMIN D3) 1,000 UNIT TABLET PO SCH (09:22)
[2019-11-30] MEDS: CITALOPRAM 20 MG TABLET. PO SCH (09:22)
[2019-11-30] MEDS: ZINC SULFATE 220 MG CAPSULE. PO SCH (09:22)
[2019-11-30] MEDS: ENOXAPARIN 40 MG/0.4 ML SYRINGE. SQ SCH ×2 (09:23→21:15)
[2019-11-30] MEDS: FAMOTIDINE 20 MG/2 ML VIAL IVP SCH ×2 (09:24→21:15)
[2019-11-30] MEDS: MIDAZOLAM 100mg/100ml NS BAG 100 ML IV PRN (09:25)
[2019-11-30 09:55] LABS: BASE EXCESS ABG 4 mmol/L (-3-3); HCO3 ABG 29 mmol/L (21-28); PCO2 ABG 42 mmHg (35-46); PO2 ABG 132 mmHg (65-108); SAT O2 ABG 99 % (92-99)
[2019-11-30 09:58] LABS: FIO2 ABG 60
--- NOTE | 2019-11-30 09:58 | PDOC ---
Infectious Disease Note Subjective Subjective Pt intubated and sedated Vital Sign Vital Signs Vital Signs Date Time Temp Pulse Resp B/P (MAP) Pulse Ox O2 Delivery O2 Flow Rate FiO2 11/30/19 06:00 45 18 113/52 (72) 99 Ventilator 11/30/19 04:00 99.0 99.0 Physical Exam PHYSICAL EXAM GENERAL: Intubated, sedated on mechanical ventilation. HEENT: Normocephalic, atraumatic. Anicteric. NG tube present NECK: Supple. Right IJ line looks clean. LUNGS: Coarse breath sounds bilaterally. No wheezing. HEART: S1, S2 present. No murmurs. ABDOMEN: Soft, nontender, positive bowel sounds. EXTREMITIES: No edema, no cyanosis. DERMATOLOGIC: Warm and dry. No generalized rash. NEUROLOGIC: Sedated. PSYCHIATRIC: Unable to assess. Labs Lab Laboratory Tests Test 11/29/19 13:10 Glucose (Fingerstick) 95 mg/dL (70-99) Micro GRAM STAIN EVALUATION Final Final This specimen is of good quality and is acceptable for routine bacterial culture. Culture results to follow. GRAM NEGATIVE RODS:FEW GRAM POSITIVE COCCI:RARE SQUAMOUS EPI CELL:RARE PMN (WBCs):MANY Unless otherwise specified, Testing Performed by: [address] [address] For Inquires, the Physician may contact the Microbiology department at [phone] RESPIRATORY CULTURE Final Final MODERATE Mixed upper respiratory iesha on 11/23/19 at 0846 MODERATE Mixed upper respiratory iesha on 11/24/19 at 0834 Unless otherwise specified, Testing Performed by: [address] [address] For Inquires, the Physician may contact the Microbiology department at [phone] Objective Assessment 1. COVID-19 pneumonia. 2. Acute hypoxic respiratory failure, status post intubation. 3. Leukocytosis, likely from steroids. 4. Asthma. 5. History of systemic lupus erythematosus. 6. History of Raynaud's. 7. PCN,Sulfa and Clindamycin allergies per pharmacy pt has tolerated ceftriaxone well in the past 8. Bradycardia likely from sedation Plan Plan of Care Continue supportive care. On steroids Remdesivir 11/10 Status post convalescent plasma Follow up labs and cultures. Culture not showing anything despite Gram stain positive, discussed with the lab Critically ill Discussed with nursing staff. Continue meropenem APRYL ARBOLEDA MD Nov 30, 2019 09:58
--- NOTE | 2019-11-30 13:32 | PDOC ---
PULMONARY PROGRESS NOTES DATE: 11/30/19 TIME: 13:30 Subjective Patient remains intubated and sedated, Low-grade fever overnight Bradycardia on the monitor No significant clinical change Overnight concerns from nursing Vitals Vital Signs Date Time Temp Pulse Resp B/P (MAP) Pulse Ox O2 Delivery O2 Flow Rate FiO2 11/30/19 12:13 97 Ventilator 11/30/19 06:00 45 18 113/52 (72) 11/30/19 04:00 99.0 99.0 Comments Patient seen doing the COVID-19 pandemic, visual exam, on vent sedated bradycardia no accessory muscle use no rash Labs Laboratory Tests Test 11/29/19 04:00 11/29/19 08:35 11/29/19 13:10 11/30/19 09:45 White Blood Count 14.1 x10^3/uL (4.0-11.0) Red Blood Count 3.43 x10^6/uL (3.50-5.40) Hemoglobin 8.4 g/dL (12.0-15.5) Hematocrit 26.9 % (36.0-47.0) Mean Corpuscular Volume 79 fL (79-100) Mean Corpuscular Hemoglobin 24 pg (25-35) Mean Corpuscular Hemoglobin Concent 31 g/dL (31-37) Red Cell Distribution Width 17.2 % (11.5-14.5) Platelet Count 214 x10^3/uL (140-400) Neutrophils (%) (Auto) 71 % (31-73) Lymphocytes (%) (Auto) 18 % (24-48) Monocytes (%) (Auto) 7 % (0-9) Eosinophils (%) (Auto) 3 % (0-3) Basophils (%) (Auto) 1 % (0-3) Neutrophils # (Auto) 10.0 x10^3/uL (1.8-7.7) Lymphocytes # (Auto) 2.6 x10^3/uL (1.0-4.8) Monocytes # (Auto) 1.0 x10^3/uL (0.0-1.1) Eosinophils # (Auto) 0.4 x10^3/uL (0.0-0.7) Basophils # (Auto) 0.1 x10^3/uL (0.0-0.2) Sodium Level 140 mmol/L (136-145) Potassium Level 4.3 mmol/L (3.5-5.1) Chloride Level 104 mmol/L (98-107) Carbon Dioxide Level 31 mmol/L (21-32) Anion Gap 5 (6-14) Blood Urea Nitrogen 21 mg/dL (7-20) Creatinine 0.4 mg/dL (0.6-1.0) Estimated GFR (Cockcroft-Gault) 158.7 BUN/Creatinine Ratio 53 (6-20) Glucose Level 103 mg/dL (70-99) Calcium Level 8.2 mg/dL (8.5-10.1) Total Bilirubin 0.2 mg/dL (0.2-1.0) Aspartate Amino Transf (AST/SGOT) 19 U/L (15-37) Alanine Aminotransferase (ALT/SGPT) 34 U/L (14-59) Alkaline Phosphatase 58 U/L (46-116) Total Protein 5.1 g/dL (6.4-8.2) Albumin 1.9 g/dL (3.4-5.0) Albumin/Globulin Ratio 0.6 (1.0-1.7) O2 Saturation 96 % (92-99) 99 % (92-99) Arterial Blood pH 7.46 (7.35-7.45) 7.45 (7.35-7.45) Arterial Blood pCO2 at Patient Temp 39 mmHg (35-46) 42 mmHg (35-46) Arterial Blood pO2 at Patient Temp 85 mmHg (65-108) 132 mmHg (65-108) Arterial Blood HCO3 28 mmol/L (21-28) 29 mmol/L (21-28) Arterial Blood Base Excess 4 mmol/L (-3-3) 4 mmol/L (-3-3) FiO2 60% vent 60 Glucose (Fingerstick) 95 mg/dL (70-99) Laboratory Tests Test 11/30/19 09:45 O2 Saturation 99 % (92-99) Arterial Blood pH 7.45 (7.35-7.45) Arterial Blood pCO2 at Patient Temp 42 mmHg (35-46) Arterial Blood pO2 at Patient Temp 132 mmHg (65-108) Arterial Blood HCO3 29 mmol/L (21-28) Arterial Blood Base Excess 4 mmol/L (-3-3) FiO2 60 Medications Active Scripts Medications Dose Route/Sig Max Daily Dose Days Date Category Tramadol Hcl 50 Mg Tablet 50 Mg PO Q8HRS PRN 11/11/19 Reported Carafate (Sucralfate) 1 Gm Tablet 1 Gm PO TIDACHC 11/11/19 Reported Prednisone (Prednisone) 10 Mg Tablet 10 Mg PO DAILY 11/11/19 Reported Pantoprazole Sodium (Pantoprazole Sodium) 40 Mg Tablet.dr 40 Mg PO BIDAC 11/11/19 Reported Zofran (Ondansetron Hcl) 4 Mg Tablet 1 Tab PO Q8HRS 11/11/19 Reported Nifedipine Er (Nifedipine) 30 Mg Tablet.er 30 Mg PO DAILY 11/11/19 Reported Methylprednisolone 4 Mg Tab.ds.pk 4 Mg PO DAILY 11/11/19 Reported Metformin Hcl 1,000 Mg Tablet 1,000 Mg PO BIDWMEALS 11/11/19 Reported Levothyroxine Sodium 100 Mcg Tablet 100 Mcg PO DAILYAC 11/11/19 Reported Famotidine 20 Mg Tablet 20 Mg PO BID 11/11/19 Reported Celexa (Citalopram Hydrobromide) 40 Mg Tablet 40 Mg PO DAILY 11/11/19 Reported Evoxac (Cevimeline Hcl) 30 Mg Capsule 30 Mg PO TID 11/11/19 Reported Comments cxr reviewed 1. Tube and line position as discussed above. No pneumothorax is seen. 2. . Bilateral perihilar infiltrates and left lower lobe atelectasis and/or infiltrate, unchanged. CXR 11/24/19 IMPRESSION: 1. Slight improvement left lung base but persistent bilateral diffuse infiltrates. 2. Tubes and lines unchanged. Impression . IMPRESSION: 1. Acute hypoxemic respiratory failure secondary to COVID-19 viral pneumonia.-- continue to require vent support, 2. COVID-19 viral pneumonia. 3. Acute respiratory distress syndrome. 4. Leukocytosis-- worsening 5. History of systemic lupus erythematosus. 6. Raynaud's. 7. Abnormal cxr with bilateral infiltrates, 8. bradycardia suspect secondary to meds Plan . Continue current ventilatory support, FiO2 60% and a PEEP of 5, ABG reviewed will reduce FiO2 to 40% Follow chest x-ray and ABG Tracheotomy placement per Dr. Russell Antibiotics per ID Status post convalescent plasma, finished course of remdesivir Finished full course of steroids Continue tube feeding for nutritional support DVT/GI prophylaxis: lovenox/pepcid Discussed with RN and RT will discuss with DPOA Total critical care time [id number] PM MARITZA HAZEL MD Nov 30, 2019 13:32
--- NOTE | 2019-11-30 13:34 | PDOC ---
PROGRESS NOTES Date of Service: DATE: 11/30/19 TIME: 13:33 Chief Complaint Chief Complaint Acute hypoxemic respiratory failure secondary to COVID-19 infection COVID-19 pneumonia Leukocytosis secondary to the above Microcytic anemia Hyponatremia Severe protein calorie malnutrition History of Present Illness History of Present Illness Ms Galicia is a 69-year-old female with past medical history of asthma Raynaud's phenomenon syncope history of systemic lupus erythematosus was in her usual state of health until couple days prior to her visit to the ER when she was diagnosed with COVID-19. Apparently the patient had attended a wedding and most likely is where they contracted the disease. Her is at our institution on the ventilator as well as reported by nursing staff. The patient at the time my evaluation is on mechanical ventilation and sedated. Most of this is from review of outside facility documentation. Bill the patient had described in the review of systems at the outside facility that she had some altered taste in her mouth she did not have any headache visual changes blurred vision double vision she did have some shortness of breath and chest discomfort in her chest whenever she took a deep breath otherwise no other complaints she did not have any diarrhea abdominal pain no neurological deficits were reported. Patient is being admitted for further evaluation and treatment 11/28, no much change, still on vent, supportive measure, wean as able, consider trach 11/29, still venting about the same, following, trach today? cont current other Vitals Vitals Vital Signs Date Time Temp Pulse Resp B/P (MAP) Pulse Ox O2 Delivery O2 Flow Rate FiO2 11/30/19 12:13 97 Ventilator 11/30/19 06:00 45 18 113/52 (72) 11/30/19 04:00 99.0 99.0 Physical Exam Physical Exam GENERAL: Intubated, sedated on mechanical ventilation. HEENT: Normocephalic, atraumatic. Anicteric. NG tube present NECK: Supple. Right IJ line looks clean. LUNGS: Coarse breath sounds bilaterally. No wheezing. HEART: S1, S2 present. No murmurs. ABDOMEN: Soft, nontender, positive bowel sounds. EXTREMITIES: No edema, no cyanosis. DERMATOLOGIC: Warm and dry. No generalized rash. NEUROLOGIC: Sedated. PSYCHIATRIC: Unable to assess. General: No acute distress Labs LABS Laboratory Tests Test 11/30/19 09:45 O2 Saturation 99 % (92-99) Arterial Blood pH 7.45 (7.35-7.45) Arterial Blood pCO2 at Patient Temp 42 mmHg (35-46) Arterial Blood pO2 at Patient Temp 132 mmHg (65-108) Arterial Blood HCO3 29 mmol/L (21-28) Arterial Blood Base Excess 4 mmol/L (-3-3) FiO2 60 Comment Review of Relevant I have reviewed the following items clive (where applicable) has been applied. Labs Laboratory Tests Test 11/29/19 04:00 11/29/19 08:35 11/29/19 13:10 11/30/19 09:45 White Blood Count 14.1 x10^3/uL (4.0-11.0) Red Blood Count 3.43 x10^6/uL (3.50-5.40) Hemoglobin 8.4 g/dL (12.0-15.5) Hematocrit 26.9 % (36.0-47.0) Mean Corpuscular Volume 79 fL (79-100) Mean Corpuscular Hemoglobin 24 pg (25-35) Mean Corpuscular Hemoglobin Concent 31 g/dL (31-37) Red Cell Distribution Width 17.2 % (11.5-14.5) Platelet Count 214 x10^3/uL (140-400) Neutrophils (%) (Auto) 71 % (31-73) Lymphocytes (%) (Auto) 18 % (24-48) Monocytes (%) (Auto) 7 % (0-9) Eosinophils (%) (Auto) 3 % (0-3) Basophils (%) (Auto) 1 % (0-3) Neutrophils # (Auto) 10.0 x10^3/uL (1.8-7.7) Lymphocytes # (Auto) 2.6 x10^3/uL (1.0-4.8) Monocytes # (Auto) 1.0 x10^3/uL (0.0-1.1) Eosinophils # (Auto) 0.4 x10^3/uL (0.0-0.7) Basophils # (Auto) 0.1 x10^3/uL (0.0-0.2) Sodium Level 140 mmol/L (136-145) Potassium Level 4.3 mmol/L (3.5-5.1) Chloride Level 104 mmol/L (98-107) Carbon Dioxide Level 31 mmol/L (21-32) Anion Gap 5 (6-14) Blood Urea Nitrogen 21 mg/dL (7-20) Creatinine 0.4 mg/dL (0.6-1.0) Estimated GFR (Cockcroft-Gault) 158.7 BUN/Creatinine Ratio 53 (6-20) Glucose Level 103 mg/dL (70-99) Calcium Level 8.2 mg/dL (8.5-10.1) Total Bilirubin 0.2 mg/dL (0.2-1.0) Aspartate Amino Transf (AST/SGOT) 19 U/L (15-37) Alanine Aminotransferase (ALT/SGPT) 34 U/L (14-59) Alkaline Phosphatase 58 U/L (46-116) Total Protein 5.1 g/dL (6.4-8.2) Albumin 1.9 g/dL (3.4-5.0) Albumin/Globulin Ratio 0.6 (1.0-1.7) O2 Saturation 96 % (92-99) 99 % (92-99) Arterial Blood pH 7.46 (7.35-7.45) 7.45 (7.35-7.45) Arterial Blood pCO2 at Patient Temp 39 mmHg (35-46) 42 mmHg (35-46) Arterial Blood pO2 at Patient Temp 85 mmHg (65-108) 132 mmHg (65-108) Arterial Blood HCO3 28 mmol/L (21-28) 29 mmol/L (21-28) Arterial Blood Base Excess 4 mmol/L (-3-3) 4 mmol/L (-3-3) FiO2 60% vent 60 Glucose (Fingerstick) 95 mg/dL (70-99) Laboratory Tests Test 11/30/19 09:45 O2 Saturation 99 % (92-99) Arterial Blood pH 7.45 (7.35-7.45) Arterial Blood pCO2 at Patient Temp 42 mmHg (35-46) Arterial Blood pO2 at Patient Temp 132 mmHg (65-108) Arterial Blood HCO3 29 mmol/L (21-28) Arterial Blood Base Excess 4 mmol/L (-3-3) FiO2 60 Microbiology 11/21/19 Gram Stain Evaluation - Final, Complete 11/21/19 Respiratory Culture - Final, Complete Medications Current Medications Fentanyl Citrate 30 ml @ 0 mls/hr CONT PRN IV SEE PROTOCOL Last administered on 11/14/19at 20:21; Start 11/10/19 at 23:45; Stop 11/15/19 at 00:50; Status DC Propofol 100 ml @ 0 mls/hr CONT PRN IV SEE PROTOCOL Last administered on 11/29/19at 05:56; Start 11/10/19 at 23:45; Stop 11/29/19 at 18:03; Status DC Midazolam HCl 100 ml @ 0 mls/hr CONT PRN IV SEE PROTOCOL Last administered on 11/25/19at 11:41; Start 11/10/19 at 23:45; Stop 11/29/19 at 18:16; Status DC Levothyroxine Sodium (Synthroid) 100 mcg DAILY06 PO Last administered on 11/30/19at 05:39; Start 11/11/19 at 06:00 Sucralfate (Carafate) 1 gm TIDACHC PO ; Start 11/11/19 at 07:30; Stop 11/11/19 at 07:55; Status DC Citalopram Hydrobromide (CeleXA) 40 mg DAILY PO Last administered on 11/30/19at 09:22; Start 11/11/19 at 09:00 Famotidine (Pepcid Vial) 20 mg BID IVP Last administered on 11/30/19at 09:24; Start 11/11/19 at 09:00 Enoxaparin Sodium (Lovenox 40mg Syringe) 40 mg Q12HR SQ Last administered on 11/30/19at 09:23; Start 11/11/19 at 09:00 Sodium Chloride (Normal Saline Flush) 3 ml QSHIFT PRN IV AFTER MEDS AND BLOOD DRAWS; Start 11/11/19 at 02:00 Sodium Chloride 1,000 ml @ 65 mls/hr [id number] IV Last administered on 11/28/19at 09:48; Start 11/11/19 at 02:00; Stop 11/29/19 at 18:03; Status DC Pantoprazole Sodium (PROTONIX VIAL for IV PUSH) 40 mg BIDAC IVP Last administered on 11/11/19at 08:13; Start 11/11/19 at 07:30; Stop 11/11/19 at 12:27; Status DC Insulin Human Lispro (HumaLOG) 0-5 UNITS TIDWMEALS SQ ; Start 11/11/19 at 08:00; Stop 11/11/19 at 05:57; Status DC Dextrose (Dextrose 50%-Water Syringe) 12.5 gm PRN Q15MIN PRN IV SEE COMMENTS; Start 11/11/19 at 02:00 Dexamethasone Sodium Phosphate (Decadron) 8 mg DAILY IVP Last administered on 11/25/19at 09:27; Start 11/11/19 at 09:00; Stop 11/25/19 at 15:58; Status DC Nifedipine (Procardia) 10 mg Q8HRS PO Last administered on 11/17/19at 06:18; Start 11/11/19 at 06:00; Stop 11/17/19 at 08:47; Status DC Vancomycin HCl (Vanco Per Pharmacy) 1 each PRN DAILY PRN MC SEE COMMENTS Last administered on 11/11/19at 11:55; Start 11/11/19 at 02:00; Stop 11/12/19 at 08:09 ; Status DC Levofloxacin/ Dextrose 150 ml @ 100 mls/hr Q24H IV Last administered on 11/13/19at 20:39; Start 11/11/19 at 20:00; Stop 11/14/19 at 09:35; Status DC Vancomycin HCl (Vancomycin Trough Level) 1 each 1X ONCE MC Last administered on 11/11/19at 06:19; Start 11/11/19 at 06:30; Stop 11/11/19 at 06:31; Status DC Info (FLU VACCINE SCREEN per RX) 1 each 1X ONCE MC ; Start 11/11/19 at 04:45; Stop 11/11/19 at 04:46; Status UNV Insulin Human Lispro (HumaLOG) 0-5 UNITS Q6HRS SQ Last administered on at 17:39; Start 11/11/19 at 06:00; Stop 11/15/19 at 11:04; Status DC Influenza Virus Vaccine Quadrival (Fluzone Quad [id number] Syringe) 0.5 ml ONCE ONCE VAX IM ; Start 11/16/19 at 09:00; Stop 11/16/19 at 09:01; Status DC Vancomycin HCl 1.5 gm/Sodium Chloride 500 ml @ 250 mls/hr Q12H IV Last administered on 11/12/19at 06:23; Start 11/11/19 at 07:00; Stop 11/12/19 at 08:03 ; Status DC Vancomycin HCl (Vancomycin Trough Level) 1 each 1X ONCE MC ; Start 11/12/19 at 18:30; Stop 11/12/19 at 08:09; Status DC Sucralfate (Carafate) 1 gm Q6HRS PO Last administered on 11/13/19at 11:15; Start 11/11/19 at 12:00; Stop 11/13/19 at 12:24; Status DC Vitamin D (Vitamin D3) 2,000 unit DAILY PO Last administered on 11/30/19at 09:22; Start 11/11/19 at 11:00 Ascorbic Acid (Vitamin C) 500 mg Q6HRS PO Last administered on 11/25/19at 06:13; Start 11/11/19 at 12:00; Stop 11/25/19 at 09:21; Status DC Zinc Sulfate (Orazinc) 220 mg DAILY PO Last administered on 11/30/19at 09:22; Start 11/11/19 at 11:00 Pantoprazole Sodium (PROTONIX VIAL for IV PUSH) 40 mg Q12HR IVP Last administered on 11/12/19at 21:58; Start 11/11/19 at 21:00; Stop 11/13/19 at 09:20; Status DC Propofol (Diprivan) 200 mg STK-MED ONCE IV ; Start 11/10/19 at 23:00; Stop 11/11/19 at 12:49; Status DC Succinylcholine Chloride (Anectine) 200 mg STK-MED ONCE .ROUTE ; Start 11/10/19 at 23:00; Stop 11/11/19 at 12:49; Status DC Etomidate (Amidate) 20 mg STK-MED ONCE IV ; Start 11/10/19 at 23:00; Stop 11/11/19 at 12:49; Status DC Non-Formulary Medication 1 ea/ Sodium Chloride 210 ml @ 210 mls/hr 1X ONCE IV Last administered on 11/11/19at 16:45; Start 11/11/19 at 16:00; Stop 11/11/19 at 16:59; Status DC Non-Formulary Medication 1 ea/ Sodium Chloride 230 ml @ 460 mls/hr Q24H IV Last administered on 11/20/19at 15:53; Start 11/12/19 at 16:00; Stop 11/20/19 at 16:29; Status DC Vecuronium [place]oint (Norcuron Bolus) 6 mg PRN Q4HRS PRN IV SHORTNESS OF BREATH Last administered on 11/16/19at 19:51; Start 11/12/19 at 08:00; Stop 11/16/19 at 21:58; Status DC Haloperidol Lactate (Haldol Inj) 5 mg Q8HRS IVP Last administered on 11/19/19at 05:13; Start 11/12/19 at 14:00; Stop 11/19/19 at 10:06; Status DC Sucralfate (Carafate) 1 gm QIDACHS PEG Last administered on 11/17/19at 07:21; Start 11/13/19 at 16:30; Stop 11/17/19 at 08:40; Status DC Ceftriaxone Sodium (Rocephin) 2 gm Q24H IVP Last administered on 11/24/19at 08:40; Start 11/14/19 at 10:00; Stop 11/24/19 at 09:55; Status DC Fentanyl Citrate 55 ml @ 0 mls/hr CONT PRN PRN IV PAIN Last administered on 11/29/19at 01:02; Start 11/15/19 at 01:00 Vecuronium [place] (Norcuron Bolus) 6 mg PRN Q1HR PRN IV SHORTNESS OF BREATH Last administered on 11/19/19at 02:31; Start 11/16/19 at 22:00 Meropenem 500 mg/ Sodium Chloride 50 ml @ 100 mls/hr Q8HRS IV Last administered on 11/30/19at 05:39; Start 11/24/19 at 14:00 Dexamethasone Sodium Phosphate (Decadron) 4 mg DAILY IVP Last administered on 11/29/19at 12:00; Start 11/26/19 at 09:00; Stop 11/29/19 at 09:00; Status DC Sodium Chloride 1,000 ml @ 0 mls/hr Q0M IV ; Start 11/29/19 at 18:00 Midazolam HCl 100 ml @ 0 mls/hr CONT PRN IV SEE I/O RECORD Last administered on 11/30/19at 09:25; Start 11/29/19 at 18:00 Active Scripts Active Reported Tramadol Hcl 50 Mg Tablet 50 Mg PO Q8HRS PRN Carafate (Sucralfate) 1 Gm Tablet 1 Gm PO TIDACHC Prednisone (Prednisone) 10 Mg Tablet 10 Mg PO DAILY Pantoprazole Sodium (Pantoprazole Sodium) 40 Mg Tablet.dr 40 Mg PO BIDAC Zofran (Ondansetron Hcl) 4 Mg Tablet 1 Tab PO Q8HRS Nifedipine Er (Nifedipine) 30 Mg Tablet.er 30 Mg PO DAILY Methylprednisolone 4 Mg Tab.ds.pk 4 Mg PO DAILY Metformin Hcl 1,000 Mg Tablet 1,000 Mg PO BIDWMEALS Levothyroxine Sodium 100 Mcg Tablet 100 Mcg PO DAILYAC Famotidine 20 Mg Tablet 20 Mg PO BID Celexa (Citalopram Hydrobromide) 40 Mg Tablet 40 Mg PO DAILY Evoxac (Cevimeline Hcl) 30 Mg Capsule 30 Mg PO TID Vitals/I & O Vital Sign - Last 24 Hours 11/29/19 11/29/19 11/29/19 11/29/19 14:00 15:00 16:00 16:00 Pulse 56 48 50 Resp 15 15 15 B/P (MAP) 133/56 (81) 128/53 (78) 140/64 (89) Pulse Ox 97 98 98 O2 Delivery Ventilator Ventilator Ventilator Mechanical Ventilator 11/29/19 11/29/19 11/29/19 11/29/19 16:13 17:00 18:00 19:00 Temp 98.0 98.0 Pulse 55 59 60 Resp 15 25 B/P (MAP) 132/59 (83) 143/67 (92) 146/60 (88) Pulse Ox 99 98 99 97 O2 Delivery Ventilator Ventilator Ventilator Ventilator 11/29/19 11/29/19 11/29/19 11/29/19 20:00 20:00 20:05 21:00 Temp 99.8 99.8 Pulse 64 64 Resp 21 20 B/P (MAP) 131/60 (83) 134/66 (88) Pulse Ox 95 94 96 O2 Delivery Mechanical Ventilator Ventilator Ventilator Ventilator 11/29/19 11/29/19 11/30/19 11/30/19 22:00 23:00 00:01 00:01 Temp 99.0 99.0 Pulse 84 56 60 Resp 21 20 18 B/P (MAP) 128/59 (82) 152/71 (98) 147/60 (89) Pulse Ox 97 98 99 O2 Delivery Ventilator Ventilator Ventilator Mechanical Ventilator 11/30/19 11/30/19 11/30/19 11/30/19 00:51 01:00 02:00 03:00 Pulse 45 62 52 Resp 18 18 22 B/P (MAP) 125/60 (81) 126/64 (84) 111/54 (73) Pulse Ox 99 100 100 100 O2 Delivery Ventilator Ventilator Ventilator Ventilator 11/30/19 11/30/19 11/30/19 11/30/19 04:00 04:00 05:00 05:46 Temp 99.0 99.0 Pulse 45 49 Resp 14 16 B/P (MAP) 119/54 (75) 112/55 (74) Pulse Ox 100 100 99 O2 Delivery Ventilator Mechanical Ventilator Ventilator Ventilator 11/30/19 11/30/19 11/30/19 06:00 09:40 12:13 Pulse 45 Resp 18 B/P (MAP) 113/52 (72) Pulse Ox 99 100 97 O2 Delivery Ventilator Ventilator Ventilator Intake and Output 11/29/19 11/29/19 11/30/19 15:00 23:00 07:00 Intake Total 300 ml 1613 ml 1245.9 ml Output Total 725 ml 1100 ml 1385 ml Balance -425 ml 513 ml -139.1 ml Justicifation of Admission Dx: Justifications for Admission: Justification of Admission Dx: Yes Respiratory Failure: Mechanical Ventilation MARCO ANTONIO JIMENEZ MD Nov 30, 2019 13:34
--- NOTE | 2019-11-30 17:22 | PDOC ---
SURGICAL PROGRESS NOTE DATE: 11/30/19 TIME: 17:21 Subjective Pt intubated Vital Signs Vital Signs Date Time Temp Pulse Resp B/P (MAP) Pulse Ox O2 Delivery O2 Flow Rate FiO2 11/30/19 16:00 Mechanical Ventilator 11/30/19 16:00 97.5 40 15 110/60 (77) 96 97.5 I&O Intake and Output 11/30/19 07:00 Intake Total 3158.9 ml Output Total 3210 ml Balance -51.1 ml IV Total 340.9 ml Tube Feeding 2068 ml Blood Product IV Normal Saline Flush 750 ml Output Urine Total 3210 ml Gastric Drainage Total 0 ml General: No acute distress, Other (orally intubated) Labs Laboratory Tests Test 11/29/19 04:00 11/29/19 08:35 11/29/19 13:10 11/30/19 09:45 White Blood Count 14.1 x10^3/uL (4.0-11.0) Red Blood Count 3.43 x10^6/uL (3.50-5.40) Hemoglobin 8.4 g/dL (12.0-15.5) Hematocrit 26.9 % (36.0-47.0) Mean Corpuscular Volume 79 fL (79-100) Mean Corpuscular Hemoglobin 24 pg (25-35) Mean Corpuscular Hemoglobin Concent 31 g/dL (31-37) Red Cell Distribution Width 17.2 % (11.5-14.5) Platelet Count 214 x10^3/uL (140-400) Neutrophils (%) (Auto) 71 % (31-73) Lymphocytes (%) (Auto) 18 % (24-48) Monocytes (%) (Auto) 7 % (0-9) Eosinophils (%) (Auto) 3 % (0-3) Basophils (%) (Auto) 1 % (0-3) Neutrophils # (Auto) 10.0 x10^3/uL (1.8-7.7) Lymphocytes # (Auto) 2.6 x10^3/uL (1.0-4.8) Monocytes # (Auto) 1.0 x10^3/uL (0.0-1.1) Eosinophils # (Auto) 0.4 x10^3/uL (0.0-0.7) Basophils # (Auto) 0.1 x10^3/uL (0.0-0.2) Sodium Level 140 mmol/L (136-145) Potassium Level 4.3 mmol/L (3.5-5.1) Chloride Level 104 mmol/L (98-107) Carbon Dioxide Level 31 mmol/L (21-32) Anion Gap 5 (6-14) Blood Urea Nitrogen 21 mg/dL (7-20) Creatinine 0.4 mg/dL (0.6-1.0) Estimated GFR (Cockcroft-Gault) 158.7 BUN/Creatinine Ratio 53 (6-20) Glucose Level 103 mg/dL (70-99) Calcium Level 8.2 mg/dL (8.5-10.1) Total Bilirubin 0.2 mg/dL (0.2-1.0) Aspartate Amino Transf (AST/SGOT) 19 U/L (15-37) Alanine Aminotransferase (ALT/SGPT) 34 U/L (14-59) Alkaline Phosphatase 58 U/L (46-116) Total Protein 5.1 g/dL (6.4-8.2) Albumin 1.9 g/dL (3.4-5.0) Albumin/Globulin Ratio 0.6 (1.0-1.7) O2 Saturation 96 % (92-99) 99 % (92-99) Arterial Blood pH 7.46 (7.35-7.45) 7.45 (7.35-7.45) Arterial Blood pCO2 at Patient Temp 39 mmHg (35-46) 42 mmHg (35-46) Arterial Blood pO2 at Patient Temp 85 mmHg (65-108) 132 mmHg (65-108) Arterial Blood HCO3 28 mmol/L (21-28) 29 mmol/L (21-28) Arterial Blood Base Excess 4 mmol/L (-3-3) 4 mmol/L (-3-3) FiO2 60% vent 60 Glucose (Fingerstick) 95 mg/dL (70-99) Laboratory Tests Test 11/30/19 09:45 O2 Saturation 99 % (92-99) Arterial Blood pH 7.45 (7.35-7.45) Arterial Blood pCO2 at Patient Temp 42 mmHg (35-46) Arterial Blood pO2 at Patient Temp 132 mmHg (65-108) Arterial Blood HCO3 29 mmol/L (21-28) Arterial Blood Base Excess 4 mmol/L (-3-3) FiO2 60 Problem List Respiratory failure will plan tracheostomy in AM Justicifation of Admission Dx: Justifications for Admission: Justification of Admission Dx: Yes Respiratory Failure: Mechanical Ventilation MAKAYLA PATEL MD Nov 30, 2019 17:22
--- NOTE | 2019-11-30 20:27 | NUR ---
TF remains off for "pending " trach placement. No communication w family this shift. Informed Dr Hernandez of family need for communication on concerns of mothers prognosis prior to decisions to continue w agressive care. No permits obtained at this time. Dr Russell in late afternoon /informed of lack of permits and reason. plan to place on schedule for late afternoon. Status quo with exception of gradual decrease in urine. Puffy extremities iproved w elevation. Continue POC
[2019-12-01] VITALS (24 sets, daily range): BP systolic 100–160; BP diastolic 46–86
[2019-12-01] MEDS: MEROPENEM 500 MG in IV NORMAL SALINE 50ML 50 ML IV SCH ×4 (00:23→22:20)
[2019-12-01 04:29] LABS: BASO # 0.1 x10^3/uL (0.0-0.2); BASO % 1 % (0-3); EOS # 0.5 x10^3/uL (0.0-0.7); EOS % 5 % (0-3); HEMOGLOBIN 8.2 g/dL (12.0-15.5); LYMPH % 21 % (24-48); MEAN CORPUSCULAR HEMOGLOBIN 25 pg (25-35); MEAN CORPUSCULAR HGB CONC 31 g/dL (31-37); MEAN CORPUSCULAR VOLUME 78 fL (79-100); MONO # 0.6 x10^3/uL (0.0-1.1); MONO % 7 % (0-9); NEUT % 66 % (31-73); PLATELET COUNT 215 x10^3/uL (140-400); RED BLOOD COUNT 3.33 x10^6/uL (3.50-5.40); RED CELL DISTRIBUTION WIDTH 16.8 % (11.5-14.5); WHITE BLOOD COUNT 9.2 x10^3/uL (4.0-11.0)
[2019-12-01 04:40] LABS: CALCIUM 7.8 mg/dL (8.5-10.1); CREATININE 0.4 mg/dL (0.6-1.0); GFR 158.7; POTASSIUM 3.6 mmol/L (3.5-5.1)
[2019-12-01] MEDS: LEVOTHYROXINE 100 MCG TABLET PO SCH (06:31)
[2019-12-01] MEDS: MIDAZOLAM 100mg/100ml NS BAG 100 ML IV PRN (06:31)
[2019-12-01] MEDS: fentaNYL HIGH DOSE PCA 55 ML IV PRN (06:31)
[2019-12-01] MEDS ORDERED: BUPIVACAINE-EPI 0.5%-1:200000 MPF 30 ML VIAL. INJ ONE (07:00)
--- NOTE | 2019-12-01 07:31 | RAD ---
EXAM: PORTABLE CHEST 1V INDICATION: Reason: RF/COVID PNEUMONIA 116 / Spl. Instructions: / History: . TECHNIQUE: Single view COMPARISON: 11/28/2019 at 4:20 AM FINDINGS: Patient remains intubated with ET tube terminating approximately 1.7 cm above the gisela. Enteric tube passes below the diaphragms. Right jugular approach central venous catheter remains present, tip terminating at the expected location of the proximal to mid SVC. The patient is rotated. The heart size is moderate to markedly enlarged, similar to prior. The great vessels appear unremarkable. There is no hilar or mediastinal mass. Lungs show bilateral pulmonary alveolar infiltrates that are marginally improved in the interval. No pneumothorax or pleural effusion is evident. There are no significant osseous abnormalities. IMPRESSION: Stable lines and tubes with marginal improvement in lung aeration in the interval. Electronically signed by: Asa Kulkarni MD (12/01/2019 7:28 AM) [id number]
[2019-12-01] MEDS: ZINC SULFATE 220 MG CAPSULE. PO SCH (07:43)
[2019-12-01] MEDS: ENOXAPARIN 40 MG/0.4 ML SYRINGE. SQ SCH ×2 (07:43→20:00)
[2019-12-01] MEDS: CHOLECALCIFEROL (VITAMIN D3) 1,000 UNIT TABLET PO SCH (07:43)
[2019-12-01] MEDS: FAMOTIDINE 20 MG/2 ML VIAL IVP SCH ×2 (07:57→20:00)
[2019-12-01] MEDS: CITALOPRAM 20 MG TABLET. PO SCH (07:57)
--- NOTE | 2019-12-01 08:42 | PDOC ---
PULMONARY PROGRESS NOTES DATE: 12/01/19 TIME: 08:42 Subjective Sedated, 5 of PEEP 40% Vitals Vital Signs Date Time Temp Pulse Resp B/P (MAP) Pulse Ox O2 Delivery O2 Flow Rate FiO2 12/01/19 07:00 42 17 155/61 (92) 100 Ventilator 12/01/19 06:31 10.0 12/01/19 04:00 98.7 98.7 Comments Patient seen doing the ID pandemic, visual exam, on vent sedated bradycardia no accessory muscle use no rash Labs Laboratory Tests Test 11/29/19 13:10 11/30/19 09:45 12/01/19 03:45 Glucose (Fingerstick) 95 mg/dL (70-99) O2 Saturation 99 % (92-99) Arterial Blood pH 7.45 (7.35-7.45) Arterial Blood pCO2 at Patient Temp 42 mmHg (35-46) Arterial Blood pO2 at Patient Temp 132 mmHg (65-108) Arterial Blood HCO3 29 mmol/L (21-28) Arterial Blood Base Excess 4 mmol/L (-3-3) FiO2 60 White Blood Count 9.2 x10^3/uL (4.0-11.0) Red Blood Count 3.33 x10^6/uL (3.50-5.40) Hemoglobin 8.2 g/dL (12.0-15.5) Hematocrit 26.0 % (36.0-47.0) Mean Corpuscular Volume 78 fL (79-100) Mean Corpuscular Hemoglobin 25 pg (25-35) Mean Corpuscular Hemoglobin Concent 31 g/dL (31-37) Red Cell Distribution Width 16.8 % (11.5-14.5) Platelet Count 215 x10^3/uL (140-400) Neutrophils (%) (Auto) 66 % (31-73) Lymphocytes (%) (Auto) 21 % (24-48) Monocytes (%) (Auto) 7 % (0-9) Eosinophils (%) (Auto) 5 % (0-3) Basophils (%) (Auto) 1 % (0-3) Neutrophils # (Auto) 6.0 x10^3/uL (1.8-7.7) Lymphocytes # (Auto) 2.0 x10^3/uL (1.0-4.8) Monocytes # (Auto) 0.6 x10^3/uL (0.0-1.1) Eosinophils # (Auto) 0.5 x10^3/uL (0.0-0.7) Basophils # (Auto) 0.1 x10^3/uL (0.0-0.2) Sodium Level 138 mmol/L (136-145) Potassium Level 3.6 mmol/L (3.5-5.1) Chloride Level 102 mmol/L (98-107) Carbon Dioxide Level 30 mmol/L (21-32) Anion Gap 6 (6-14) Blood Urea Nitrogen 15 mg/dL (7-20) Creatinine 0.4 mg/dL (0.6-1.0) Estimated GFR (Cockcroft-Gault) 158.7 Glucose Level 91 mg/dL (70-99) Calcium Level 7.8 mg/dL (8.5-10.1) Laboratory Tests Test 11/30/19 09:45 12/01/19 03:45 O2 Saturation 99 % (92-99) Arterial Blood pH 7.45 (7.35-7.45) Arterial Blood pCO2 at Patient Temp 42 mmHg (35-46) Arterial Blood pO2 at Patient Temp 132 mmHg (65-108) Arterial Blood HCO3 29 mmol/L (21-28) Arterial Blood Base Excess 4 mmol/L (-3-3) FiO2 60 White Blood Count 9.2 x10^3/uL (4.0-11.0) Red Blood Count 3.33 x10^6/uL (3.50-5.40) Hemoglobin 8.2 g/dL (12.0-15.5) Hematocrit 26.0 % (36.0-47.0) Mean Corpuscular Volume 78 fL (79-100) Mean Corpuscular Hemoglobin 25 pg (25-35) Mean Corpuscular Hemoglobin Concent 31 g/dL (31-37) Red Cell Distribution Width 16.8 % (11.5-14.5) Platelet Count 215 x10^3/uL (140-400) Neutrophils (%) (Auto) 66 % (31-73) Lymphocytes (%) (Auto) 21 % (24-48) Monocytes (%) (Auto) 7 % (0-9) Eosinophils (%) (Auto) 5 % (0-3) Basophils (%) (Auto) 1 % (0-3) Neutrophils # (Auto) 6.0 x10^3/uL (1.8-7.7) Lymphocytes # (Auto) 2.0 x10^3/uL (1.0-4.8) Monocytes # (Auto) 0.6 x10^3/uL (0.0-1.1) Eosinophils # (Auto) 0.5 x10^3/uL (0.0-0.7) Basophils # (Auto) 0.1 x10^3/uL (0.0-0.2) Sodium Level 138 mmol/L (136-145) Potassium Level 3.6 mmol/L (3.5-5.1) Chloride Level 102 mmol/L (98-107) Carbon Dioxide Level 30 mmol/L (21-32) Anion Gap 6 (6-14) Blood Urea Nitrogen 15 mg/dL (7-20) Creatinine 0.4 mg/dL (0.6-1.0) Estimated GFR (Cockcroft-Gault) 158.7 Glucose Level 91 mg/dL (70-99) Calcium Level 7.8 mg/dL (8.5-10.1) Medications Active Scripts Medications Dose Route/Sig Max Daily Dose Days Date Category Tramadol Hcl 50 Mg Tablet 50 Mg PO Q8HRS PRN 11/11/19 Reported Carafate (Sucralfate) 1 Gm Tablet 1 Gm PO TIDACHC 11/11/19 Reported Prednisone (Prednisone) 10 Mg Tablet 10 Mg PO DAILY 11/11/19 Reported Pantoprazole Sodium (Pantoprazole Sodium) 40 Mg Tablet.dr 40 Mg PO BIDAC 11/11/19 Reported Zofran (Ondansetron Hcl) 4 Mg Tablet 1 Tab PO Q8HRS 11/11/19 Reported Nifedipine Er (Nifedipine) 30 Mg Tablet.er 30 Mg PO DAILY 11/11/19 Reported Methylprednisolone 4 Mg Tab.ds.pk 4 Mg PO DAILY 11/11/19 Reported Metformin Hcl 1,000 Mg Tablet 1,000 Mg PO BIDWMEALS 11/11/19 Reported Levothyroxine Sodium 100 Mcg Tablet 100 Mcg PO DAILYAC 11/11/19 Reported Famotidine 20 Mg Tablet 20 Mg PO BID 11/11/19 Reported Celexa (Citalopram Hydrobromide) 40 Mg Tablet 40 Mg PO DAILY 11/11/19 Reported Evoxac (Cevimeline Hcl) 30 Mg Capsule 30 Mg PO TID 11/11/19 Reported Comments cxr reviewed 1. Tube and line position as discussed above. No pneumothorax is seen. 2. . Bilateral perihilar infiltrates and left lower lobe atelectasis and/or infiltrate, unchanged. CXR 11/24/19 IMPRESSION: 1. Slight improvement left lung base but persistent bilateral diffuse infiltrates. 2. Tubes and lines unchanged. Impression . IMPRESSION: 1. Acute hypoxemic respiratory failure secondary to COVID-19 viral pneumonia.-- continue to require vent support, 2. COVID-19 viral pneumonia. 3. Acute respiratory distress syndrome. 4. Leukocytosis-- worsening 5. History of systemic lupus erythematosus. 6. Raynaud's. 7. Abnormal cxr with bilateral infiltrates, 8. bradycardia suspect secondary to meds Plan . Lengthy discussion with 2 sons Jeffery and Eddie, patient has advanced directive for no aggressive measures if the chances of meaningful recovery were poor. Patient has advanced directive did not want to have a tracheotomy and end up in a residential. Both sons wish to honor their mom's advanced directive, no tracheotomy. We spoke about the options. We will attempt discontinuing sedation and trial if possible, if not they wish to proceed with discontinue mechanical support and allowing natural Antibiotics per ID Status post convalescent plasma, finished course of remdesivir Finished full course of steroids Continue tube feeding for nutritional support DVT/GI prophylaxis: lovenox/pepcid Discussed with RN and RT Critical care time from 1:10 PM to 1:45 PM MARITZA HAZEL MD Dec 01, 2019 08:42
[2019-12-01 09:24] LABS: BASE EXCESS ABG 0 mmol/L (-3-3); HCO3 ABG 24 mmol/L (21-28); PCO2 ABG 35 mmHg (35-46); PO2 ABG 83 mmHg (65-108); SAT O2 ABG 96 % (92-99)
[2019-12-01 09:45] LABS: FIO2 ABG 40
--- NOTE | 2019-12-01 11:56 | PDOC ---
Infectious Disease Note Subjective: Subjective Pt intubated and sedated fio2 40% peep 5 Vital Signs: Vital Signs Vital Signs Date Time Temp Pulse Resp B/P (MAP) Pulse Ox O2 Delivery O2 Flow Rate FiO2 12/01/19 11:42 Mechanical Ventilator 12/01/19 11:00 43 16 139/66 (90) 100 12/01/19 08:00 97.8 97.8 12/01/19 06:31 10.0 Physical Exam: PHYSICAL EXAM GENERAL: Intubated, sedated on mechanical ventilation. HEENT: Normocephalic, atraumatic. Anicteric. NG tube present NECK: Supple. Right IJ line looks clean. LUNGS: Coarse breath sounds bilaterally. No wheezing. HEART: S1, S2 present. No murmurs. ABDOMEN: Soft, nontender, positive bowel sounds. EXTREMITIES: No edema, no cyanosis. DERMATOLOGIC: Warm and dry. No generalized rash. NEUROLOGIC: Sedated. PSYCHIATRIC: Unable to assess. Medications: Inpatient Meds: Current Medications Medications (Trade) Dose Ordered Sig/Diego Start Time Stop Time Status Last Admin Dose Admin Ascorbic Acid (Vitamin C) 500 mg Q6HRS 11/11/19 12:00 11/25/19 09:21 DC 11/25/19 06:13 500 MG Bupivacaine HCl/ Epinephrine Bitart (Sensorcain-Epi 0.5%-1:403621 Mpf) 30 ml 1X ONCE 12/01/19 07:00 12/01/19 07:01 DC Ceftriaxone Sodium (Rocephin) 2 gm Q24H 11/14/19 10:00 11/24/19 09:55 DC 11/24/19 08:40 2 GM Citalopram Hydrobromide (CeleXA) 40 mg DAILY 11/11/19 09:00 12/01/19 07:57 40 MG Dexamethasone Sodium Phosphate (Decadron) 4 mg DAILY 11/26/19 09:00 11/29/19 09:00 DC 11/29/19 12:00 4 MG Dextrose (Dextrose 50%-Water Syringe) 12.5 gm PRN Q15MIN PRN 11/11/19 02:00 Enoxaparin Sodium (Lovenox 40mg Syringe) 40 mg Q12HR 11/11/19 09:00 11/30/19 21:15 40 MG Etomidate (Amidate) 20 mg STK-MED ONCE 11/10/19 23:00 11/11/19 12:49 DC Famotidine (Pepcid Vial) 20 mg BID 11/11/19 09:00 12/01/19 07:57 20 MG Fentanyl Citrate 55 ml @ 0 mls/hr CONT PRN PRN 11/15/19 01:00 12/01/19 06:31 1 MLS/HR Haloperidol Lactate (Haldol Inj) 5 mg Q8HRS 11/12/19 14:00 11/19/19 10:06 DC 11/19/19 05:13 5 MG Influenza Virus Vaccine Quadrival (Fluzone Quad [id number] Syringe) 0.5 ml ONCE ONCE 11/16/19 09:00 11/16/19 09:01 DC Info (FLU VACCINE SCREEN per RX) 1 each 1X ONCE 11/11/19 04:45 11/11/19 04:46 UNV Insulin Human Lispro (HumaLOG) 0-5 UNITS Q6HRS 11/11/19 06:00 11/15/19 11:04 DC 11/14/19 17:39 2 UNITS Levofloxacin/ Dextrose 150 ml @ 100 mls/hr Q24H 11/11/19 20:00 11/14/19 09:35 DC 11/13/19 20:39 100 MLS/HR Levothyroxine Sodium (Synthroid) 100 mcg DAILY06 11/11/19 06:00 12/01/19 06:31 100 MCG Meropenem 500 mg/ Sodium Chloride 50 ml @ 100 mls/hr Q8HRS 11/24/19 14:00 12/01/19 06:31 100 MLS/HR Midazolam HCl 100 ml @ 0 mls/hr CONT PRN 11/29/19 18:00 12/01/19 06:31 5 MLS/HR Nifedipine (Procardia) 10 mg Q8HRS 11/11/19 06:00 11/17/19 08:47 DC 11/17/19 06:18 10 MG Non-Formulary Medication 1 ea/ Sodium Chloride 230 ml @ 460 mls/hr Q24H 11/12/19 16:00 11/20/19 16:29 DC 11/20/19 15:53 460 MLS/HR Pantoprazole Sodium (PROTONIX VIAL for IV PUSH) 40 mg Q12HR 11/11/19 21:00 10/8/20 09:20 DC 11/12/19 21:58 40 MG Propofol (Diprivan) 200 mg STK-MED ONCE 11/10/19 23:00 11/11/19 12:49 DC Sodium Chloride 1,000 ml @ 0 mls/hr Q0M 11/29/19 18:00 Sodium Chloride (Normal Saline Flush) 3 ml QSHIFT PRN 11/11/19 02:00 Succinylcholine Chloride (Anectine) 200 mg STK-MED ONCE 11/10/19 23:00 11/11/19 12:49 DC Sucralfate (Carafate) 1 gm QIDACHS 11/13/19 16:30 11/17/19 08:40 DC 11/17/19 07:21 1 GM Vancomycin HCl (Vanco Per Pharmacy) 1 each PRN DAILY PRN 11/11/19 02:00 11/12/19 08:09 DC 11/11/19 11:55 1 EACH Vancomycin HCl (Vancomycin Trough Level) 1 each 1X ONCE 11/12/19 18:30 11/12/19 08:09 DC Vancomycin HCl 1.5 gm/Sodium Chloride 500 ml @ 250 mls/hr Q12H 11/11/19 07:00 11/12/19 08:03 DC 11/12/19 06:23 250 MLS/HR Vecuronium [place] (Norcuron Bolus) 6 mg PRN Q1HR PRN 11/16/19 22:00 11/19/19 02:31 6 MG Vitamin D (Vitamin D3) 2,000 unit DAILY 11/11/19 11:00 11/30/19 09:22 2,000 UNIT Zinc Sulfate (Orazinc) 220 mg DAILY 11/11/19 11:00 11/30/19 09:22 220 MG Labs: Lab Laboratory Tests Test 12/01/19 03:45 12/01/19 09:10 White Blood Count 9.2 x10^3/uL (4.0-11.0) Red Blood Count 3.33 x10^6/uL (3.50-5.40) Hemoglobin 8.2 g/dL (12.0-15.5) Hematocrit 26.0 % (36.0-47.0) Mean Corpuscular Volume 78 fL (79-100) Mean Corpuscular Hemoglobin 25 pg (25-35) Mean Corpuscular Hemoglobin Concent 31 g/dL (31-37) Red Cell Distribution Width 16.8 % (11.5-14.5) Platelet Count 215 x10^3/uL (140-400) Neutrophils (%) (Auto) 66 % (31-73) Lymphocytes (%) (Auto) 21 % (24-48) Monocytes (%) (Auto) 7 % (0-9) Eosinophils (%) (Auto) 5 % (0-3) Basophils (%) (Auto) 1 % (0-3) Neutrophils # (Auto) 6.0 x10^3/uL (1.8-7.7) Lymphocytes # (Auto) 2.0 x10^3/uL (1.0-4.8) Monocytes # (Auto) 0.6 x10^3/uL (0.0-1.1) Eosinophils # (Auto) 0.5 x10^3/uL (0.0-0.7) Basophils # (Auto) 0.1 x10^3/uL (0.0-0.2) Sodium Level 138 mmol/L (136-145) Potassium Level 3.6 mmol/L (3.5-5.1) Chloride Level 102 mmol/L (98-107) Carbon Dioxide Level 30 mmol/L (21-32) Anion Gap 6 (6-14) Blood Urea Nitrogen 15 mg/dL (7-20) Creatinine 0.4 mg/dL (0.6-1.0) Estimated GFR (Cockcroft-Gault) 158.7 Glucose Level 91 mg/dL (70-99) Calcium Level 7.8 mg/dL (8.5-10.1) O2 Saturation 96 % (92-99) Arterial Blood pH 7.46 (7.35-7.45) Arterial Blood pCO2 at Patient Temp 35 mmHg (35-46) Arterial Blood pO2 at Patient Temp 83 mmHg (65-108) Arterial Blood HCO3 24 mmol/L (21-28) Arterial Blood Base Excess 0 mmol/L (-3-3) FiO2 40 Objective: Assessment: 1. COVID-19 pneumonia. 2. Acute hypoxic respiratory failure, status post intubation. 3. Leukocytosis, likely from steroids. 4. Asthma. 5. History of systemic lupus erythematosus. 6. History of Raynaud's. 7. PCN,Sulfa and Clindamycin allergies per pharmacy pt has tolerated ceftriaxone well in the past 8. Bradycardia likely from sedation Plan: Plan of Care Continue supportive care. On steroids s/p Remdesivir 10/ Status post convalescent plasma Continue meropenem Follow up labs and cultures. Critically ill Discussed with nursing staff. GEORGINA ARBOLEDA MD Dec 01, 2019 11:55
--- NOTE | 2019-12-01 12:28 | PDOC ---
[facility] PROGRESS NOTE Date of Service DOS: DATE: 12/01/19 TIME: 12:25 Chief Complaint Chief Complaint Acute hypoxemic respiratory failure secondary to COVID-19 infection COVID-19 pneumonia Leukocytosis secondary to the above Microcytic anemia Hyponatremia Severe protein calorie malnutrition History of Present Illness History of Present Illness 12/01/2019 Patient seen and examined in the COVID-19 ICU She is on the vent Assist-control/15/400/40 percent with 5 of PEEP She is going for tracheostomy today Discussed with RN Patient on Versed drip and fentanyl drip for sedation Also receiving IV meropenem She is critically Ms Galicia is a 69-year-old female with past medical history of asthma Raynaud's phenomenon syncope history of systemic lupus erythematosus was in her usual state of health until couple days prior to her visit to the ER when she was diagnosed with COVID-19. Apparently the patient had attended a wedding and most likely is where they contracted the disease. Her is at our institution on the ventilator as well as reported by nursing staff. The patient at the time my evaluation is on mechanical ventilation and sedated. Most of this is from review of outside facility documentation. Bill the patient had described in the review of systems at the outside facility that she had some altered taste in her mouth she did not have any headache visual changes blurred vision double vision she did have some shortness of breath and chest discomfort in her chest whenever she took a deep breath otherwise no other complaints she did not have any diarrhea abdominal pain no neurological deficits were reported. Patient is being admitted for further evaluation and treatment 11/28, no much change, still on vent, supportive measure, wean as able, consider trach 11/29, still venting about the same, following, trach today? cont current other Vitals/I&O Vitals/I&O: Vital Signs Date Time Temp Pulse Resp B/P (MAP) Pulse Ox O2 Delivery O2 Flow Rate FiO2 12/01/19 12:00 98.2 42 17 130/62 (84) 100 Ventilator 98.2 12/01/19 06:31 10.0 I & O 11/30/19 11/30/19 12/01/19 15:00 23:00 07:00 Intake Total 0 ml 537.5 ml Output Total 300 ml 110 ml 285 ml Balance -300 ml -110 ml 252.5 ml Physical Exam Physical Exam: GENERAL: Intubated, sedated on mechanical ventilation. HEENT: Normocephalic, atraumatic. Anicteric. NG tube present NECK: Supple. Right IJ line looks clean. LUNGS: Coarse breath sounds bilaterally. No wheezing. HEART: S1, S2 present. No murmurs. ABDOMEN: Soft, nontender, positive bowel sounds. EXTREMITIES: No edema, no cyanosis. DERMATOLOGIC: Warm and dry. No generalized rash. NEUROLOGIC: Sedated. PSYCHIATRIC: Unable to assess. General: No acute distress, Other (orally intubated) Heart: Normal S1, Normal S2 Lungs: Crackles Abdomen: Soft Extremities: No clubbing Skin: No rashes Labs Labs: Laboratory Tests Test 12/01/19 03:45 12/01/19 09:10 White Blood Count 9.2 x10^3/uL (4.0-11.0) Red Blood Count 3.33 x10^6/uL (3.50-5.40) Hemoglobin 8.2 g/dL (12.0-15.5) Hematocrit 26.0 % (36.0-47.0) Mean Corpuscular Volume 78 fL (79-100) Mean Corpuscular Hemoglobin 25 pg (25-35) Mean Corpuscular Hemoglobin Concent 31 g/dL (31-37) Red Cell Distribution Width 16.8 % (11.5-14.5) Platelet Count 215 x10^3/uL (140-400) Neutrophils (%) (Auto) 66 % (31-73) Lymphocytes (%) (Auto) 21 % (24-48) Monocytes (%) (Auto) 7 % (0-9) Eosinophils (%) (Auto) 5 % (0-3) Basophils (%) (Auto) 1 % (0-3) Neutrophils # (Auto) 6.0 x10^3/uL (1.8-7.7) Lymphocytes # (Auto) 2.0 x10^3/uL (1.0-4.8) Monocytes # (Auto) 0.6 x10^3/uL (0.0-1.1) Eosinophils # (Auto) 0.5 x10^3/uL (0.0-0.7) Basophils # (Auto) 0.1 x10^3/uL (0.0-0.2) Sodium Level 138 mmol/L (136-145) Potassium Level 3.6 mmol/L (3.5-5.1) Chloride Level 102 mmol/L (98-107) Carbon Dioxide Level 30 mmol/L (21-32) Anion Gap 6 (6-14) Blood Urea Nitrogen 15 mg/dL (7-20) Creatinine 0.4 mg/dL (0.6-1.0) Estimated GFR (Cockcroft-Gault) 158.7 Glucose Level 91 mg/dL (70-99) Calcium Level 7.8 mg/dL (8.5-10.1) O2 Saturation 96 % (92-99) Arterial Blood pH 7.46 (7.35-7.45) Arterial Blood pCO2 at Patient Temp 35 mmHg (35-46) Arterial Blood pO2 at Patient Temp 83 mmHg (65-108) Arterial Blood HCO3 24 mmol/L (21-28) Arterial Blood Base Excess 0 mmol/L (-3-3) FiO2 40 Assessment and Plan Assessmemt and Plan Acute hypoxemic respiratory failure secondary to COVID-19 infection COVID-19 pneumonia Leukocytosis secondary to the above Microcytic anemia Hyponatremia Severe protein calorie malnutrition Plan Going for tracheostomy today OG feeds on hold for now but will resume soon She will likely need a PEG tube as well? Long-term acute care eval Mechanical ventilation IV antibiotics Versed and fentanyl for sedation Beta agonist Trend labs Home meds DVT prophylaxis Partial code She is critically ill Prognosis guarded CC time 31 minutes Comment Review of Relevant I have reviewed the following items clive (where applicable) has been applied. Justifications for Admission Other Justification MODESTA WEEKS III DO Dec 01, 2019 12:28
--- NOTE | 2019-12-01 13:36 | NUR ---
Attempted to call both sons multiple times regarding consents for tracheostomy and Dr. Hernandez attempted to call for update on patient, unable to reach them.
--- NOTE | 2019-12-01 13:55 | NUR ---
Dr. Hernandez spoke with both sons regarding tracheostomy, decision was made to refuse the tracheostomy, turn sedation off, and consider withdrawing by the end of the week if no improvement.
[2019-12-02] VITALS (23 sets, daily range): BP systolic 143–186; BP diastolic 57–103
[2019-12-02] MEDS: MEROPENEM 500 MG in IV NORMAL SALINE 50ML 50 ML IV SCH ×3 (05:33→22:58)
[2019-12-02] MEDS: LEVOTHYROXINE 100 MCG TABLET PO SCH (05:33)
[2019-12-02] MEDS: CITALOPRAM 20 MG TABLET. PO SCH (07:31)
[2019-12-02] MEDS: ENOXAPARIN 40 MG/0.4 ML SYRINGE. SQ SCH ×2 (07:31→20:45)
[2019-12-02] MEDS: CHOLECALCIFEROL (VITAMIN D3) 1,000 UNIT TABLET PO SCH (07:32)
[2019-12-02] MEDS: ZINC SULFATE 220 MG CAPSULE. PO SCH (07:32)
[2019-12-02] MEDS: FAMOTIDINE 20 MG/2 ML VIAL IVP SCH ×2 (07:32→20:44)
[2019-12-02 07:50] LABS: BASE EXCESS ABG 3 mmol/L (-3-3); HCO3 ABG 27 mmol/L (21-28); PCO2 ABG 40 mmHg (35-46); PO2 ABG 82 mmHg (65-108); SAT O2 ABG 96 % (92-99)
[2019-12-02 07:53] LABS: FIO2 ABG 40/VENT
--- NOTE | 2019-12-02 08:30 | PDOC ---
PULMONARY PROGRESS NOTES DATE: 12/02/19 TIME: 08:30 Subjective Patient is doing better this morning, off of sedation, Pressure support tidal volume adequate. Vitals Vital Signs Date Time Temp Pulse Resp B/P (MAP) Pulse Ox O2 Delivery O2 Flow Rate FiO2 12/02/19 08:00 98.4 61 14 177/80 (112) 98 CPAP Trial 98.4 Comments Patient seen doing the , visual exam, on vent sedated bradycardia no accessory muscle use no rash Lungs: Crackles Labs Laboratory Tests Test 11/30/19 09:45 12/01/19 03:45 12/01/19 09:10 12/02/19 07:40 O2 Saturation 99 % (92-99) 96 % (92-99) 96 % (92-99) Arterial Blood pH 7.45 (7.35-7.45) 7.46 (7.35-7.45) 7.45 (7.35-7.45) Arterial Blood pCO2 at Patient Temp 42 mmHg (35-46) 35 mmHg (35-46) 40 mmHg (35-46) Arterial Blood pO2 at Patient Temp 132 mmHg (65-108) 83 mmHg (65-108) 82 mmHg (65-108) Arterial Blood HCO3 29 mmol/L (21-28) 24 mmol/L (21-28) 27 mmol/L (21-28) Arterial Blood Base Excess 4 mmol/L (-3-3) 0 mmol/L (-3-3) 3 mmol/L (-3-3) FiO2 60 40 40/vent White Blood Count 9.2 x10^3/uL (4.0-11.0) Red Blood Count 3.33 x10^6/uL (3.50-5.40) Hemoglobin 8.2 g/dL (12.0-15.5) Hematocrit 26.0 % (36.0-47.0) Mean Corpuscular Volume 78 fL (79-100) Mean Corpuscular Hemoglobin 25 pg (25-35) Mean Corpuscular Hemoglobin Concent 31 g/dL (31-37) Red Cell Distribution Width 16.8 % (11.5-14.5) Platelet Count 215 x10^3/uL (140-400) Neutrophils (%) (Auto) 66 % (31-73) Lymphocytes (%) (Auto) 21 % (24-48) Monocytes (%) (Auto) 7 % (0-9) Eosinophils (%) (Auto) 5 % (0-3) Basophils (%) (Auto) 1 % (0-3) Neutrophils # (Auto) 6.0 x10^3/uL (1.8-7.7) Lymphocytes # (Auto) 2.0 x10^3/uL (1.0-4.8) Monocytes # (Auto) 0.6 x10^3/uL (0.0-1.1) Eosinophils # (Auto) 0.5 x10^3/uL (0.0-0.7) Basophils # (Auto) 0.1 x10^3/uL (0.0-0.2) Sodium Level 138 mmol/L (136-145) Potassium Level 3.6 mmol/L (3.5-5.1) Chloride Level 102 mmol/L (98-107) Carbon Dioxide Level 30 mmol/L (21-32) Anion Gap 6 (6-14) Blood Urea Nitrogen 15 mg/dL (7-20) Creatinine 0.4 mg/dL (0.6-1.0) Estimated GFR (Cockcroft-Gault) 158.7 Glucose Level 91 mg/dL (70-99) Calcium Level 7.8 mg/dL (8.5-10.1) Laboratory Tests Test 12/01/19 09:10 12/02/19 07:40 O2 Saturation 96 % (92-99) 96 % (92-99) Arterial Blood pH 7.46 (7.35-7.45) 7.45 (7.35-7.45) Arterial Blood pCO2 at Patient Temp 35 mmHg (35-46) 40 mmHg (35-46) Arterial Blood pO2 at Patient Temp 83 mmHg (65-108) 82 mmHg (65-108) Arterial Blood HCO3 24 mmol/L (21-28) 27 mmol/L (21-28) Arterial Blood Base Excess 0 mmol/L (-3-3) 3 mmol/L (-3-3) FiO2 40 40/vent Medications Active Scripts Medications Dose Route/Sig Max Daily Dose Days Date Category Tramadol Hcl 50 Mg Tablet 50 Mg PO Q8HRS PRN 11/11/19 Reported Carafate (Sucralfate) 1 Gm Tablet 1 Gm PO TIDACHC 11/11/19 Reported Prednisone (Prednisone) 10 Mg Tablet 10 Mg PO DAILY 11/11/19 Reported Pantoprazole Sodium (Pantoprazole Sodium) 40 Mg Tablet.dr 40 Mg PO BIDAC 11/11/19 Reported Zofran (Ondansetron Hcl) 4 Mg Tablet 1 Tab PO Q8HRS 11/11/19 Reported Nifedipine Er (Nifedipine) 30 Mg Tablet.er 30 Mg PO DAILY 11/11/19 Reported Methylprednisolone 4 Mg Tab.ds.pk 4 Mg PO DAILY 11/11/19 Reported Metformin Hcl 1,000 Mg Tablet 1,000 Mg PO BIDWMEALS 11/11/19 Reported Levothyroxine Sodium 100 Mcg Tablet 100 Mcg PO DAILYAC 11/11/19 Reported Famotidine 20 Mg Tablet 20 Mg PO BID 11/11/19 Reported Celexa (Citalopram Hydrobromide) 40 Mg Tablet 40 Mg PO DAILY 11/11/19 Reported Evoxac (Cevimeline Hcl) 30 Mg Capsule 30 Mg PO TID 11/11/19 Reported Comments Chest x-ray from 1026 improved Impression . IMPRESSION: 1. Acute hypoxemic respiratory failure secondary to COVID-19 viral pneumonia.-- continue to require vent support, 2. COVID-19 viral pneumonia. 3. Acute respiratory distress syndrome. 4. Leukocytosis-- worsening 5. History of systemic lupus erythematosus. 6. Raynaud's. 7. Abnormal cxr with bilateral infiltrates, 8. bradycardia suspect secondary to meds Plan . 12/01 Sedation has been off, patient is awake but follows no commands doing well on pressure support, will continue pressure support today hopefully extubate in the a.m. Antibiotics per ID Finish course of Cipro steroids Chest x-ray reviewed from yesterday improved DVT GI prophylaxis Above discussed with RN and RT Left a voicemail with son Jeffery Total cumulative critical care time from 10:30 AM to 11 AM 11/30 Lengthy discussion with 2 sons Jeffery and Eddie, patient has advanced directive for no aggressive measures if the chances of meaningful recovery were poor. Patient has advanced directive did not want to have a tracheotomy and end up in a custodial. Both sons wish to honor their mom's advanced directive, no tracheotomy. We spoke about the options. We will attempt discontinuing sedation and trial if possible, if not they wish to proceed with discontinue mechanical support and allowing natural Antibiotics per ID Status post convalescent plasma, finished course of remdesivir Finished full course of steroids Continue tube feeding for nutritional support DVT/GI prophylaxis: lovenox/pepcid Discussed with RN and RT Critical care time from 1:10 PM to 1:45 PM MARITZA HAZEL MD Dec 02, 2019 08:30
[2019-12-02] MEDS: hydrALAZINE 25 MG TABLET PO SCH ×3 (09:06→20:44)
[2019-12-02] MEDS ORDERED: POTASSIUM CHLORIDE 20 MEQ TABLET.ER. PO ONE (11:00)
[2019-12-02] MEDS ORDERED: FUROSEMIDE 40 MG/4 ML VIAL. IVP ONE (11:00)
[2019-12-02] MEDS ORDERED: POTASSIUM BICARB 10 MEQ EFFERVESCENT TABLET. PO ONE (11:15)
--- NOTE | 2019-12-02 11:32 | PDOC ---
Infectious Disease Note Subjective: Subjective Pt intubated and sedated fio2 40% peep 5 Vital Signs: Vital Signs Vital Signs Date Time Temp Pulse Resp B/P (MAP) Pulse Ox O2 Delivery O2 Flow Rate FiO2 12/02/19 11:00 65 13 170/71 (104) 98 CPAP Trial 12/02/19 08:00 98.4 98.4 Physical Exam: PHYSICAL EXAM GENERAL: Intubated, sedated on mechanical ventilation. HEENT: Normocephalic, atraumatic. Anicteric. NG tube present NECK: Supple. LUNGS: Coarse breath sounds bilaterally. No wheezing. HEART: S1, S2 present. No murmurs. ABDOMEN: Soft, nontender, positive bowel sounds. EXTREMITIES: Edema present no cyanosis. DERMATOLOGIC: Warm and dry. No generalized rash. Mottled digits NEUROLOGIC: Sedated. PSYCHIATRIC: Unable to assess. Lines clean Medications: Inpatient Meds: Current Medications Medications (Trade) Dose Ordered Sig/Diego Start Time Stop Time Status Last Admin Dose Admin Ascorbic Acid (Vitamin C) 500 mg Q6HRS 11/11/19 12:00 11/25/19 09:21 DC 11/25/19 06:13 500 MG Bupivacaine HCl/ Epinephrine Bitart (Sensorcain-Epi 0.5%-1:962023 Mpf) 30 ml 1X ONCE 12/01/19 07:00 12/01/19 07:01 DC Ceftriaxone Sodium (Rocephin) 2 gm Q24H 11/14/19 10:00 11/24/19 09:55 DC 11/24/19 08:40 2 GM Citalopram Hydrobromide (CeleXA) 40 mg DAILY 11/11/19 09:00 12/02/19 07:31 40 MG Dexamethasone Sodium Phosphate (Decadron) 4 mg DAILY 11/26/19 09:00 11/29/19 09:00 DC 11/29/19 12:00 4 MG Dextrose (Dextrose 50%-Water Syringe) 12.5 gm PRN Q15MIN PRN 11/11/19 02:00 Enoxaparin Sodium (Lovenox 40mg Syringe) 40 mg Q12HR 11/11/19 09:00 12/02/19 07:31 40 MG Etomidate (Amidate) 20 mg STK-MED ONCE 11/10/19 23:00 11/11/19 12:49 DC Famotidine (Pepcid Vial) 20 mg BID 11/11/19 09:00 12/02/19 07:32 20 MG Fentanyl Citrate 55 ml @ 0 mls/hr CONT PRN PRN 11/15/19 01:00 12/01/19 06:31 1 MLS/HR Furosemide (Lasix) 40 mg DAILY 12/03/19 09:00 Haloperidol Lactate (Haldol Inj) 5 mg Q8HRS 11/12/19 14:00 11/19/19 10:06 DC 11/19/19 05:13 5 MG Hydralazine HCl (Apresoline) 25 mg TID 12/02/19 09:00 12/02/19 09:06 25 MG Influenza Virus Vaccine Quadrival (Fluzone Quad Syringe) 0.5 ml ONCE ONCE 11/16/19 09:00 11/16/19 09:01 DC Info (FLU VACCINE SCREEN per RX) 1 each 1X ONCE 11/11/19 04:45 11/11/19 04:46 UNV Insulin Human Lispro (HumaLOG) 0-5 UNITS Q6HRS 11/11/19 06:00 11/15/19 11:04 DC 11/14/19 17:39 2 UNITS Levofloxacin/ Dextrose 150 ml @ 100 mls/hr Q24H 11/11/19 20:00 11/14/19 09:35 DC 11/13/19 20:39 100 MLS/HR Levothyroxine Sodium (Synthroid) 100 mcg DAILY06 11/11/19 06:00 12/02/19 05:33 100 MCG Meropenem 500 mg/ Sodium Chloride 50 ml @ 100 mls/hr Q8HRS 11/24/19 14:00 12/02/19 05:33 100 MLS/HR Midazolam HCl 100 ml @ 0 mls/hr CONT PRN 11/29/19 18:00 12/01/19 06:31 5 MLS/HR Nifedipine (Procardia) 10 mg Q8HRS 11/11/19 06:00 11/17/19 08:47 DC 11/17/19 06:18 10 MG Non-Formulary Medication 1 ea/ Sodium Chloride 230 ml @ 460 mls/hr Q24H 11/12/19 16:00 11/20/19 16:29 DC 11/20/19 15:53 460 MLS/HR Pantoprazole Sodium (PROTONIX VIAL for IV PUSH) 40 mg Q12HR 11/11/19 21:00 11/13/19 09:20 DC 11/12/19 21:58 40 MG Potassium Bicarbonate (Potassium Effervescent Tablet) 40 meq 1X ONCE 12/02/19 11:15 12/02/19 11:17 DC 12/02/19 11:24 40 MEQ Potassium Chloride (Klor-Con) 40 meq 1X ONCE 12/02/19 11:00 12/02/19 11:01 UNV Propofol (Diprivan) 200 mg STK-MED ONCE 11/10/19 23:00 11/11/19 12:49 DC Sodium Chloride 1,000 ml @ 0 mls/hr Q0M 11/29/19 18:00 Sodium Chloride (Normal Saline Flush) 3 ml QSHIFT PRN 11/11/19 02:00 Succinylcholine Chloride (Anectine) 200 mg STK-MED ONCE 11/10/19 23:00 11/11/19 12:49 DC Sucralfate (Carafate) 1 gm QIDACHS 11/13/19 16:30 11/17/19 08:40 DC 11/17/19 07:21 1 GM Vancomycin HCl (Vanco Per Pharmacy) 1 each PRN DAILY PRN 11/11/19 02:00 11/12/19 08:09 DC 11/11/19 11:55 1 EACH Vancomycin HCl (Vancomycin Trough Level) 1 each 1X ONCE 11/12/19 18:30 11/12/19 08:09 DC Vancomycin HCl 1.5 gm/Sodium Chloride 500 ml @ 250 mls/hr Q12H 11/11/19 07:00 11/12/19 08:03 DC 11/12/19 06:23 250 MLS/HR Vecuronium [place] (Norcuron Bolus) 6 mg PRN Q1HR PRN 11/16/19 22:00 11/19/19 02:31 6 MG Vitamin D (Vitamin D3) 2,000 unit DAILY 11/11/19 11:00 12/02/19 07:32 2,000 UNIT Zinc Sulfate (Orazinc) 220 mg DAILY 11/11/19 11:00 12/02/19 07:32 220 MG Labs: Lab Laboratory Tests Test 12/02/19 07:40 O2 Saturation 96 % (92-99) Arterial Blood pH 7.45 (7.35-7.45) Arterial Blood pCO2 at Patient Temp 40 mmHg (35-46) Arterial Blood pO2 at Patient Temp 82 mmHg (65-108) Arterial Blood HCO3 27 mmol/L (21-28) Arterial Blood Base Excess 3 mmol/L (-3-3) FiO2 40/vent Objective: Assessment: 1. COVID-19 pneumonia. 2. Acute hypoxic respiratory failure, status post intubation. 3. Leukocytosis, likely from steroids. 4. Asthma. 5. History of systemic lupus erythematosus. 6. History of Raynaud's. 7. PCN,Sulfa and Clindamycin allergies per pharmacy pt has tolerated ceftriaxone well in the past 8. Bradycardia likely from sedation Plan: Plan of Care Continue supportive care. On steroids s/p Remdesivir 11/10 Status post convalescent plasma Continue meropenem Follow up labs and cultures. Critically ill Discussed with nursing staff. GEORGINA ARBOLEDA MD Dec 02, 2019 11:32
--- NOTE | 2019-12-02 11:35 | PDOC ---
[employer] PROGRESS NOTE Date of Service DOS: DATE: 12/02/19 TIME: 11:32 Chief Complaint Chief Complaint Acute hypoxemic respiratory failure secondary to COVID-19 infection COVID-19 pneumonia ARDS Lupus Leukocytosis secondary to the above Microcytic anemia Hyponatremia Severe protein calorie malnutrition History of Present Illness History of Present Illness 12/02/2019 Patient seen and examined in the [facility]- ICU She remains on the vent Spontaneous respirations with pressure support currently Discussed with RN Discussed with case management Patient with OG feeds Currently not sedated We were going to do a trach yesterday but family refused She remains critically ill Blood pressures run high we will order as needed hydralazine 12/01/2019 [facility] She is on the vent Assist-control/15/400/40 percent with 5 of PEEP She is going for tracheostomy today Discussed with RN Patient on Versed drip and fentanyl drip for sedation Also receiving IV meropenem She is critically Ms Galicia is a 69-year-old female with past medical history of asthma Raynaud's phenomenon syncope history of systemic lupus erythematosus was in her usual state of health until couple days prior to her visit to the ER when she was diagnosed with COVID-19. Apparently the patient had attended a wedding and most likely is where they contracted the disease. Her is at our institution on the ventilator as well as reported by nursing staff. The patient at the time my evaluation is on mechanical ventilation and sedated. Most of this is from review of outside facility documentation. Bill the patient had described in the review of systems at the outside facility that she had some altered taste in her mouth she did not have any headache visual changes blurred vision double vision she did have some shortness of breath and chest discomfort in her chest whenever she took a deep breath otherwise no other complaints she did not have any diarrhea abdominal pain no neurological deficits were reported. Patient is being admitted for further evaluation and treatment 11/28, no much change, still on vent, supportive measure, wean as able, consider trach 11/29, still venting about the same, following, trach today? cont current other Vitals/I&O Vitals/I&O: Vital Signs Date Time Temp Pulse Resp B/P (MAP) Pulse Ox O2 Delivery O2 Flow Rate FiO2 12/02/19 11:00 65 13 170/71 (104) 98 CPAP Trial 12/02/19 08:00 98.4 98.4 I & O 12/01/19 12/01/19 12/02/19 15:00 23:00 07:00 Intake Total 100 ml 1280 ml 981 ml Output Total 475 ml 1180 ml 1410 ml Balance -375 ml 100 ml -429 ml Physical Exam Physical Exam: GENERAL: Intubated, sedated on mechanical ventilation. HEENT: Normocephalic, atraumatic. Anicteric. NG tube present NECK: Supple. Right IJ line looks clean. LUNGS: Coarse breath sounds bilaterally. No wheezing. HEART: S1, S2 present. No murmurs. ABDOMEN: Soft, nontender, positive bowel sounds. EXTREMITIES: No edema, no cyanosis. DERMATOLOGIC: Warm and dry. No generalized rash. NEUROLOGIC: Sedated. PSYCHIATRIC: Unable to assess. General: No acute distress, Other (orally intubated) Heart: Normal S1, Normal S2 Lungs: Crackles Abdomen: Soft Extremities: No clubbing Skin: No rashes Labs Labs: Laboratory Tests Test 12/02/19 07:40 O2 Saturation 96 % (92-99) Arterial Blood pH 7.45 (7.35-7.45) Arterial Blood pCO2 at Patient Temp 40 mmHg (35-46) Arterial Blood pO2 at Patient Temp 82 mmHg (65-108) Arterial Blood HCO3 27 mmol/L (21-28) Arterial Blood Base Excess 3 mmol/L (-3-3) FiO2 40/vent Assessment and Plan Assessmemt and Plan Acute hypoxemic respiratory failure secondary to COVID-19 infection COVID-19 pneumonia ARDS Lupus Leukocytosis secondary to the above Microcytic anemia Hyponatremia Severe protein calorie malnutrition Plan ICU monitoring Vent weaning if possible (currently on spontaneous respirations) We are holding sedation for now She is partial code Add in hydralazine Steroids IV antibiotics Beta agonist Home meds DVT prophylaxis Appreciate subspecialist input She is critically ill Prognosis very guarded at best CC time 33 minutes Comment Review of Relevant I have reviewed the following items clive (where applicable) has been applied. Medications: Current Medications Medications (Trade) Dose Ordered Sig/Diego Route PRN Reason Start Time Stop Time Status Last Admin Dose Admin Hydralazine HCl (Apresoline) 25 mg TID PO 12/02/19 09:00 12/02/19 09:06 Furosemide (Lasix) 40 mg 1X ONCE IVP 12/02/19 11:00 12/02/19 11:14 DC 12/02/19 11:25 Potassium Bicarbonate (Potassium Effervescent Tablet) 40 meq 1X ONCE PO 12/02/19 11:15 12/02/19 11:17 DC 12/02/19 11:24 Justifications for Admission Other Justification MODESTA WEEKS III DO Dec 02, 2019 11:35
--- NOTE | 2019-12-02 23:00 | NUR ---
Spoke with both sons, Jeffery and Eddie. Jeffery stated that he got a voicemail message that patient's ETT tube will be pulled tomorrow. Jeffery advised that he was under the understanding that they had planned on being at patient's bedside when extubated on , not Sunday. Jeffery and Eddie requested not extubate until . Advised the message will be passed on the the dayshift nurse.
[2019-12-03] VITALS (24 sets, daily range): BP systolic 118–198; BP diastolic 52–95
[2019-12-03 05:51] LABS: CALCIUM 7.9 mg/dL (8.5-10.1); CREATININE 0.3 mg/dL (0.6-1.0); GFR 221.2; POTASSIUM 3.6 mmol/L (3.5-5.1)
[2019-12-03] MEDS: MEROPENEM 500 MG in IV NORMAL SALINE 50ML 50 ML IV SCH ×3 (05:52→21:48)
[2019-12-03] MEDS: LEVOTHYROXINE 100 MCG TABLET PO SCH (05:53)
[2019-12-03] MEDS: ZINC SULFATE 220 MG CAPSULE. PO SCH (08:06)
[2019-12-03] MEDS: CHOLECALCIFEROL (VITAMIN D3) 1,000 UNIT TABLET PO SCH (08:06)
[2019-12-03] MEDS: CITALOPRAM 20 MG TABLET. PO SCH (08:07)
[2019-12-03] MEDS: ENOXAPARIN 40 MG/0.4 ML SYRINGE. SQ SCH ×2 (08:07→21:43)
[2019-12-03] MEDS: hydrALAZINE 25 MG TABLET PO SCH ×3 (08:07→21:43)
[2019-12-03] MEDS: FAMOTIDINE 20 MG/2 ML VIAL IVP SCH ×2 (08:08→21:44)
[2019-12-03] MEDS: FUROSEMIDE 40 MG/4 ML VIAL. IVP SCH (08:08)
--- NOTE | 2019-12-03 08:21 | RAD ---
EXAM: PORTABLE CHEST 1V INDICATION: Reason: RF/COVID PNEUMONIA / Spl. Instructions: / History: . TECHNIQUE: Single view COMPARISON: Chest x-ray 12/01/2019 FINDINGS: Endotracheal intubation with the ET tube terminating 2.3 cm above the gisela. Right jugular approach central venous catheter remains present with the tip near the cavoatrial junction. Enteric tube passes below the diaphragms. Stable moderate enlargement of the heart. Patient is semiupright and slightly less rotated in the interval. The great vessels appear unremarkable. There is no hilar or mediastinal mass. Lungs show interval improvement in aeration with persistent bilateral patchy airspace opacities No evidence of pneumothorax or pleural effusion on this examination. There are no significant osseous abnormalities. IMPRESSION: Cardiomegaly and improving bilateral patchy airspace opacities with stable lines and tubes as described. Electronically signed by: Asa Kulkarni MD (12/03/2019 8:18 AM) [id number]
[2019-12-03 08:29] LABS: BASE EXCESS ABG 2 mmol/L (-3-3); HCO3 ABG 25 mmol/L (21-28); PCO2 ABG 34 mmHg (35-46); PO2 ABG 86 mmHg (65-108); SAT O2 ABG 96 % (92-99)
[2019-12-03 08:47] LABS: FIO2 ABG 40% VENT
--- NOTE | 2019-12-03 10:10 | PDOC ---
[employer] PROGRESS NOTE Date of Service DOS: DATE: 12/03/19 TIME: 10:08 Chief Complaint Chief Complaint Acute hypoxemic respiratory failure secondary to COVID-19 infection COVID-19 pneumonia ARDS Lupus Leukocytosis secondary to the above Microcytic anemia Hyponatremia Severe protein calorie malnutrition History of Present Illness History of Present Illness 12/03/2019 Patient seen in the [place] [id number] ICU She remains mechanically ventilated Assist-control/15/400/40 percent with 5 of PEEP OG feeds running On IV meropenem and IV fentanyl The plan is to extubate her in the morning with probable comfort care Discussed with case management Discussed with RN Chart reviewed 12/02/2019 Patient seen and examined in the [place] [address] ICU She remains on the vent Spontaneous respirations with pressure support currently Discussed with RN Discussed with case management Patient with OG feeds Currently not sedated We were going to do a trach yesterday but family refused She remains critically ill Blood pressures run high we will order as needed hydralazine 12/01/2019 Patient seen and examined in the [place] [address] ICU She is on the vent Assist-control/15/400/40 percent with 5 of PEEP She is going for tracheostomy today Discussed with RN Patient on Versed drip and fentanyl drip for sedation Also receiving IV meropenem She is critically Ms Galicia is a 69-year-old female with past medical history of asthma Raynaud's phenomenon syncope history of systemic lupus erythematosus was in her usual state of health until couple days prior to her visit to the ER when she was diagnosed with COVID-19. Apparently the patient had attended a wedding and most likely is where they contracted the disease. Her is at our institution on the ventilator as well as reported by nursing staff. The patient at the time my evaluation is on mechanical ventilation and sedated. Most of this is from review of outside facility documentation. Bill the patient had described in the review of systems at the outside facility that she had some altered taste in her mouth she did not have any headache visual changes blurred vision double vision she did have some shortness of breath and chest discomfort in her chest whenever she took a deep breath otherwise no other complaints she did not have any diarrhea abdominal pain no neurological deficits were reported. Patient is being admitted for further evaluation and treatment 11/28, no much change, still on vent, supportive measure, wean as able, consider trach 11/29, still venting about the same, following, trach today? cont current other Vitals/I&O Vitals/I&O: Vital Signs Date Time Temp Pulse Resp B/P (MAP) Pulse Ox O2 Delivery O2 Flow Rate FiO2 12/03/19 09:00 57 21 139/68 (91) 100 Ventilator 12/03/19 07:00 97.3 97.3 I & O 12/02/19 12/02/19 12/03/19 15:00 23:00 07:00 Intake Total 350 ml 1271 ml 1506.2 ml Output Total 3150 ml 1275 ml 880 ml Balance -2800 ml -4 ml 626.2 ml Physical Exam Physical Exam: GENERAL: Intubated, sedated on mechanical ventilation. HEENT: Normocephalic, atraumatic. Anicteric. NG tube present NECK: Supple. LUNGS: Coarse breath sounds bilaterally. No wheezing. HEART: S1, S2 present. No murmurs. ABDOMEN: Soft, nontender, positive bowel sounds. EXTREMITIES: Edema present no cyanosis. DERMATOLOGIC: Warm and dry. No generalized rash. Mottled digits NEUROLOGIC: Sedated. PSYCHIATRIC: Unable to assess. Lines clean General: No acute distress, Other (orally intubated) Heart: Normal S1, Normal S2 Lungs: Crackles Abdomen: Soft Extremities: No clubbing Skin: No rashes Labs Labs: Laboratory Tests Test 12/03/19 05:10 12/03/19 08:20 Sodium Level 136 mmol/L (136-145) Potassium Level 3.6 mmol/L (3.5-5.1) Chloride Level 101 mmol/L (98-107) Carbon Dioxide Level 28 mmol/L (21-32) Anion Gap 7 (6-14) Blood Urea Nitrogen 11 mg/dL (7-20) Creatinine 0.3 mg/dL (0.6-1.0) Estimated GFR (Cockcroft-Gault) 221.2 Glucose Level 140 mg/dL (70-99) Calcium Level 7.9 mg/dL (8.5-10.1) Magnesium Level 1.6 mg/dL (1.8-2.4) O2 Saturation 96 % (92-99) Arterial Blood pH 7.49 (7.35-7.45) Arterial Blood pCO2 at Patient Temp 34 mmHg (35-46) Arterial Blood pO2 at Patient Temp 86 mmHg (65-108) Arterial Blood HCO3 25 mmol/L (21-28) Arterial Blood Base Excess 2 mmol/L (-3-3) FiO2 40% vent Assessment and Plan Assessmemt and Plan Acute hypoxemic respiratory failure secondary to COVID-19 infection COVID-19 pneumonia ARDS Lupus Leukocytosis secondary to the above Microcytic anemia Hyponatremia Severe protein calorie malnutrition Plan ICU monitoring Vent weaning if possible Plan is to extubate in the morning with probable comfort care She is partial code As needed hydralazine Steroids IV antibiotics Beta agonist Home meds DVT prophylaxis Appreciate subspecialist input She is critically ill Prognosis very guarded at best but probably terminal CC time 32 minutes Comment Review of Relevant I have reviewed the following items clive (where applicable) has been applied. Medications: Current Medications Medications (Trade) Dose Ordered Sig/Diego Route PRN Reason Start Time Stop Time Status Last Admin Dose Admin Furosemide (Lasix) 40 mg 1X ONCE IVP 12/02/19 11:00 12/02/19 11:14 DC 12/02/19 11:25 Furosemide (Lasix) 40 mg DAILY IVP 12/03/19 09:00 12/03/19 08:08 Potassium Bicarbonate (Potassium Effervescent Tablet) 40 meq 1X ONCE PO 12/02/19 11:15 12/02/19 11:17 DC 12/02/19 11:24 Justifications for Admission Other Justification MODESTA WEEKS III DO Dec 03, 2019 10:10
--- NOTE | 2019-12-03 11:34 | PDOC ---
Infectious Disease Note Subjective: Subjective Pt intubated and sedated Vital Signs: Vital Signs Vital Signs Date Time Temp Pulse Resp B/P (MAP) Pulse Ox O2 Delivery O2 Flow Rate FiO2 12/03/19 09:00 57 21 139/68 (91) 100 Ventilator 12/03/19 07:00 97.3 97.3 Physical Exam: PHYSICAL EXAM GENERAL: Intubated, sedated on mechanical ventilation. HEENT: Normocephalic, atraumatic. Anicteric. NG tube present NECK: Supple. LUNGS: Coarse breath sounds bilaterally. No wheezing. HEART: S1, S2 present. No murmurs. ABDOMEN: Soft, nontender, positive bowel sounds. EXTREMITIES: Edema present no cyanosis. DERMATOLOGIC: Warm and dry. No generalized rash. Mottled digits NEUROLOGIC: Sedated. PSYCHIATRIC: Unable to assess. Lines clean Medications: Inpatient Meds: Current Medications Medications (Trade) Dose Ordered Sig/Diego Start Time Stop Time Status Last Admin Dose Admin Ascorbic Acid (Vitamin C) 500 mg Q6HRS 11/11/19 12:00 11/25/19 09:21 DC 11/25/19 06:13 500 MG Bupivacaine HCl/ Epinephrine Bitart (Sensorcain-Epi 0.5%-1:[id number] Mpf) 30 ml 1X ONCE 12/01/19 07:00 12/01/19 07:01 DC Ceftriaxone Sodium (Rocephin) 2 gm Q24H 11/14/19 10:00 11/24/19 09:55 DC 11/24/19 08:40 2 GM Citalopram Hydrobromide (CeleXA) 40 mg DAILY 11/11/19 09:00 12/03/19 08:07 40 MG Dexamethasone Sodium Phosphate (Decadron) 4 mg DAILY 11/26/19 09:00 11/29/19 09:00 DC 11/29/19 12:00 4 MG Dextrose (Dextrose 50%-Water Syringe) 12.5 gm PRN Q15MIN PRN 11/11/19 02:00 Enoxaparin Sodium (Lovenox 40mg Syringe) 40 mg Q12HR 11/11/19 09:00 12/03/19 08:07 40 MG Etomidate (Amidate) 20 mg STK-MED ONCE 11/10/19 23:00 11/11/19 12:49 DC Famotidine (Pepcid Vial) 20 mg BID 11/11/19 09:00 12/03/19 08:08 20 MG Fentanyl Citrate 55 ml @ 0 mls/hr CONT PRN PRN 11/15/19 01:00 12/01/19 06:31 1 MLS/HR Furosemide (Lasix) 40 mg DAILY 12/03/19 09:00 12/03/19 08:08 40 MG Haloperidol Lactate (Haldol Inj) 5 mg Q8HRS 11/12/19 14:00 11/19/19 10:06 DC 11/19/19 05:13 5 MG Hydralazine HCl (Apresoline) 25 mg TID 12/02/19 09:00 12/03/19 08:07 25 MG Influenza Virus Vaccine Quadrival (Fluzone Quad Syringe) 0.5 ml ONCE ONCE 11/16/19 09:00 11/16/19 09:01 DC Info (FLU VACCINE SCREEN per RX) 1 each 1X ONCE 11/11/19 04:45 11/11/19 04:46 UNV Insulin Human Lispro (HumaLOG) 0-5 UNITS Q6HRS 11/11/19 06:00 11/15/19 11:04 DC 11/14/19 17:39 2 UNITS Levofloxacin/ Dextrose 150 ml @ 100 mls/hr Q24H 11/11/19 20:00 11/14/19 09:35 DC 11/13/19 20:39 100 MLS/HR Levothyroxine Sodium (Synthroid) 100 mcg DAILY06 11/11/19 06:00 12/03/19 05:53 100 MCG Meropenem 500 mg/ Sodium Chloride 50 ml @ 100 mls/hr Q8HRS 11/24/19 14:00 12/03/19 05:52 100 MLS/HR Midazolam HCl 100 ml @ 0 mls/hr CONT PRN 11/29/19 18:00 12/01/19 06:31 5 MLS/HR Nifedipine (Procardia) 10 mg Q8HRS 11/11/19 06:00 11/17/19 08:47 DC 11/17/19 06:18 10 MG Non-Formulary Medication 1 ea/ Sodium Chloride 230 ml @ 460 mls/hr Q24H 11/12/19 16:00 11/20/19 16:29 DC 11/20/19 15:53 460 MLS/HR Pantoprazole Sodium (PROTONIX VIAL for IV PUSH) 40 mg Q12HR 11/11/19 21:00 11/13/19 09:20 DC 11/12/19 21:58 40 MG Potassium Bicarbonate (Potassium Effervescent Tablet) 40 meq 1X ONCE 12/02/19 11:15 12/02/19 11:17 DC 12/02/19 11:24 40 MEQ Potassium Chloride (Klor-Con) 40 meq 1X ONCE 12/02/19 11:00 12/02/19 11:01 UNV Propofol (Diprivan) 200 mg STK-MED ONCE 11/10/19 23:00 11/11/19 12:49 DC Sodium Chloride 1,000 ml @ 0 mls/hr Q0M 11/29/19 18:00 Sodium Chloride (Normal Saline Flush) 3 ml QSHIFT PRN 11/11/19 02:00 Succinylcholine Chloride (Anectine) 200 mg STK-MED ONCE 11/10/19 23:00 11/11/19 12:49 DC Sucralfate (Carafate) 1 gm QIDACHS 11/13/19 16:30 11/17/19 08:40 DC 11/17/19 07:21 1 GM Vancomycin HCl (Vanco Per Pharmacy) 1 each PRN DAILY PRN 11/11/19 02:00 11/12/19 08:09 DC 11/11/19 11:55 1 EACH Vancomycin HCl (Vancomycin Trough Level) 1 each 1X ONCE 11/12/19 18:30 11/12/19 08:09 DC Vancomycin HCl 1.5 gm/Sodium Chloride 500 ml @ 250 mls/hr Q12H 11/11/19 07:00 11/12/19 08:03 DC 11/12/19 06:23 250 MLS/HR Vecuronium Liberty (Norcuron Bolus) 6 mg PRN Q1HR PRN 11/16/19 22:00 11/19/19 02:31 6 MG Vitamin D (Vitamin D3) 2,000 unit DAILY 11/11/19 11:00 12/03/19 08:06 2,000 UNIT Zinc Sulfate (Orazinc) 220 mg DAILY 11/11/19 11:00 12/03/19 08:06 220 MG Labs: Lab Laboratory Tests Test 12/03/19 05:10 12/03/19 08:20 Sodium Level 136 mmol/L (136-145) Potassium Level 3.6 mmol/L (3.5-5.1) Chloride Level 101 mmol/L (98-107) Carbon Dioxide Level 28 mmol/L (21-32) Anion Gap 7 (6-14) Blood Urea Nitrogen 11 mg/dL (7-20) Creatinine 0.3 mg/dL (0.6-1.0) Estimated GFR (Cockcroft-Gault) 221.2 Glucose Level 140 mg/dL (70-99) Calcium Level 7.9 mg/dL (8.5-10.1) Magnesium Level 1.6 mg/dL (1.8-2.4) O2 Saturation 96 % (92-99) Arterial Blood pH 7.49 (7.35-7.45) Arterial Blood pCO2 at Patient Temp 34 mmHg (35-46) Arterial Blood pO2 at Patient Temp 86 mmHg (65-108) Arterial Blood HCO3 25 mmol/L (21-28) Arterial Blood Base Excess 2 mmol/L (-3-3) FiO2 40% vent Objective: Assessment: 1. COVID-19 pneumonia. 2. Acute hypoxic respiratory failure, status post intubation. 3. Leukocytosis, likely from steroids. 4. Asthma. 5. History of systemic lupus erythematosus. 6. History of Raynaud's. 7. PCN,Sulfa and Clindamycin allergies per pharmacy pt has tolerated ceftriaxone well in the past 8. Bradycardia likely from sedation Plan: Plan of Care Continue supportive care. On steroids s/p Remdesivir 11/10 Status post convalescent plasma Continue meropenem Follow up labs and cultures. Critically ill Discussed with nursing staff. GEORGINA ARBOLEDA MD Dec 03, 2019 11:34
--- NOTE | 2019-12-03 11:40 | PDOC ---
PULMONARY PROGRESS NOTES DATE: 12/03/19 TIME: 11:39 Subjective Patient now on PS 5/5 tolerating well No overnight concerns Vitals Vital Signs Date Time Temp Pulse Resp B/P (MAP) Pulse Ox O2 Delivery O2 Flow Rate FiO2 12/03/19 09:00 57 21 139/68 (91) 100 Ventilator 12/03/19 07:00 97.3 97.3 Comments Patient seen doing the , visual exam, on vent sedated bradycardia no accessory muscle use no rash Labs Laboratory Tests Test 12/02/19 07:40 12/03/19 05:10 12/03/19 08:20 O2 Saturation 96 % (92-99) 96 % (92-99) Arterial Blood pH 7.45 (7.35-7.45) 7.49 (7.35-7.45) Arterial Blood pCO2 at Patient Temp 40 mmHg (35-46) 34 mmHg (35-46) Arterial Blood pO2 at Patient Temp 82 mmHg (65-108) 86 mmHg (65-108) Arterial Blood HCO3 27 mmol/L (21-28) 25 mmol/L (21-28) Arterial Blood Base Excess 3 mmol/L (-3-3) 2 mmol/L (-3-3) FiO2 40/vent 40% vent Sodium Level 136 mmol/L (136-145) Potassium Level 3.6 mmol/L (3.5-5.1) Chloride Level 101 mmol/L (98-107) Carbon Dioxide Level 28 mmol/L (21-32) Anion Gap 7 (6-14) Blood Urea Nitrogen 11 mg/dL (7-20) Creatinine 0.3 mg/dL (0.6-1.0) Estimated GFR (Cockcroft-Gault) 221.2 Glucose Level 140 mg/dL (70-99) Calcium Level 7.9 mg/dL (8.5-10.1) Magnesium Level 1.6 mg/dL (1.8-2.4) Laboratory Tests Test 12/03/19 05:10 12/03/19 08:20 Sodium Level 136 mmol/L (136-145) Potassium Level 3.6 mmol/L (3.5-5.1) Chloride Level 101 mmol/L (98-107) Carbon Dioxide Level 28 mmol/L (21-32) Anion Gap 7 (6-14) Blood Urea Nitrogen 11 mg/dL (7-20) Creatinine 0.3 mg/dL (0.6-1.0) Estimated GFR (Cockcroft-Gault) 221.2 Glucose Level 140 mg/dL (70-99) Calcium Level 7.9 mg/dL (8.5-10.1) Magnesium Level 1.6 mg/dL (1.8-2.4) O2 Saturation 96 % (92-99) Arterial Blood pH 7.49 (7.35-7.45) Arterial Blood pCO2 at Patient Temp 34 mmHg (35-46) Arterial Blood pO2 at Patient Temp 86 mmHg (65-108) Arterial Blood HCO3 25 mmol/L (21-28) Arterial Blood Base Excess 2 mmol/L (-3-3) FiO2 40% vent Medications Active Scripts Medications Dose Route/Sig Max Daily Dose Days Date Category Tramadol Hcl 50 Mg Tablet 50 Mg PO Q8HRS PRN 11/11/19 Reported Carafate (Sucralfate) 1 Gm Tablet 1 Gm PO TIDACHC 11/11/19 Reported Prednisone (Prednisone) 10 Mg Tablet 10 Mg PO DAILY 11/11/19 Reported Pantoprazole Sodium (Pantoprazole Sodium) 40 Mg Tablet.dr 40 Mg PO BIDAC 11/11/19 Reported Zofran (Ondansetron Hcl) 4 Mg Tablet 1 Tab PO Q8HRS 11/11/19 Reported Nifedipine Er (Nifedipine) 30 Mg Tablet.er 30 Mg PO DAILY 11/11/19 Reported Methylprednisolone 4 Mg Tab.ds.pk 4 Mg PO DAILY 11/11/19 Reported Metformin Hcl 1,000 Mg Tablet 1,000 Mg PO BIDWMEALS 11/11/19 Reported Levothyroxine Sodium 100 Mcg Tablet 100 Mcg PO DAILYAC 11/11/19 Reported Famotidine 20 Mg Tablet 20 Mg PO BID 11/11/19 Reported Celexa (Citalopram Hydrobromide) 40 Mg Tablet 40 Mg PO DAILY 11/11/19 Reported Evoxac (Cevimeline Hcl) 30 Mg Capsule 30 Mg PO TID 11/11/19 Reported Comments Chest x-ray from 1026 improved Impression . IMPRESSION: 1. Acute hypoxemic respiratory failure secondary to COVID-19 viral pneumonia.-- continue to require vent support, 2. COVID-19 viral pneumonia. 3. Acute respiratory distress syndrome. 4. Leukocytosis-- worsening 5. History of systemic lupus erythematosus. 6. Raynaud's. 7. Abnormal cxr with bilateral infiltrates, 8. bradycardia suspect secondary to meds Plan . awake but follows no commands doing well on pressure support 06/09, plan to extubate in am Famil wants to proceed with extubation in am even if its a palliative extubation, declined trach Antibiotics per ID Status post convalescent plasma, finished course of remdesivir Finished full course of steroids Continue tube feeding for nutritional support DVT/GI prophylaxis: lovenox/pepcid Discussed with RN and RT Critical care time from [id number] AM MARITZA HAZEL MD Dec 03, 2019 11:40
[2019-12-03] MEDS: fentaNYL HIGH DOSE PCA 55 ML IV PRN (13:32)
--- NOTE | 2019-12-03 14:53 | NUR ---
SS following up with discharge planning. SS assisting planner internship. SS reviewed pt chart and discussed with pt RN. Pt remains on the vent at this time at 40%. COVID19 positive. Pt on IV Meropenem. Pt's family declined trach placement. Possible extubation tomorrow. Pt accepted at [facility], ; fax [phone]. SS will continue to follow as needed.
--- NOTE | 2019-12-03 15:23 | NUR ---
Position change with patient every 2 hours with pillows and wedge. Alert but unable to determine if she is oriented. Shakes head yes and no.
[2019-12-04] VITALS (23 sets, daily range): BP systolic 131–166; BP diastolic 58–72
[2019-12-04 04:50] LABS: HEMATOCRIT 23.5 % (36.0-47.0); HEMOGLOBIN 7.3 g/dL (12.0-15.5); RED BLOOD COUNT 3.01 x10^6/uL (3.50-5.40); RED CELL DISTRIBUTION WIDTH 18.4 % (11.5-14.5); WHITE BLOOD COUNT 11.2 x10^3/uL (4.0-11.0)
[2019-12-04 05:00] LABS: CALCIUM 8.2 mg/dL (8.5-10.1); CREATININE 0.4 mg/dL (0.6-1.0); GFR 158.7; POTASSIUM 3.4 mmol/L (3.5-5.1)
[2019-12-04] MEDS: LEVOTHYROXINE 100 MCG TABLET PO SCH (06:03)
[2019-12-04] MEDS: MEROPENEM 500 MG in IV NORMAL SALINE 50ML 50 ML IV SCH ×3 (06:03→23:11)
--- NOTE | 2019-12-04 07:06 | PDOC ---
Infectious Disease Note Subjective: Subjective Pt intubated Opens eyes Denies pain Vital Signs: Vital Signs Vital Signs Date Time Temp Pulse Resp B/P (MAP) Pulse Ox O2 Delivery O2 Flow Rate FiO2 12/04/19 06:00 78 21 154/65 (94) 99 Ventilator 12/04/19 04:00 99.0 99.0 Physical Exam: PHYSICAL EXAM GENERAL: Intubated, opens eyes, HEENT: Normocephalic, atraumatic. Anicteric. NG tube present NECK: Supple. LUNGS: Coarse breath sounds bilaterally. No wheezing. HEART: S1, S2 present. No murmurs. ABDOMEN: Soft, nontender, positive bowel sounds. EXTREMITIES: Edema present no cyanosis. DERMATOLOGIC: Warm and dry. No generalized rash. Mottled digits NEUROLOGIC: Awake PSYCHIATRIC: Unable to assess. Lines clean Medications: Inpatient Meds: Current Medications Medications (Trade) Dose Ordered Sig/Diego Start Time Stop Time Status Last Admin Dose Admin Ascorbic Acid (Vitamin C) 500 mg Q6HRS 11/11/19 12:00 11/25/19 09:21 DC 11/25/19 06:13 500 MG Bupivacaine HCl/ Epinephrine Bitart (Sensorcain-Epi 0.5%-1:274646 Mpf) 30 ml 1X ONCE 12/01/19 07:00 12/01/19 07:01 DC Ceftriaxone Sodium (Rocephin) 2 gm Q24H 11/14/19 10:00 11/24/19 09:55 DC 11/24/19 08:40 2 GM Citalopram Hydrobromide (CeleXA) 40 mg DAILY 11/11/19 09:00 12/03/19 08:07 40 MG Dexamethasone Sodium Phosphate (Decadron) 4 mg DAILY 11/26/19 09:00 11/29/19 09:00 DC 11/29/19 12:00 4 MG Dextrose (Dextrose 50%-Water Syringe) 12.5 gm PRN Q15MIN PRN 11/11/19 02:00 Enoxaparin Sodium (Lovenox 40mg Syringe) 40 mg Q12HR 11/11/19 09:00 12/03/19 21:43 40 MG Etomidate (Amidate) 20 mg STK-MED ONCE 11/10/19 23:00 11/11/19 12:49 DC Famotidine (Pepcid Vial) 20 mg BID 11/11/19 09:00 12/03/19 21:44 20 MG Fentanyl Citrate 55 ml @ 0 mls/hr CONT PRN PRN 11/15/19 01:00 11/28/19 16:32 1.98 MLS/HR Furosemide (Lasix) 40 mg DAILY 12/03/19 09:00 12/03/19 08:08 40 MG Haloperidol Lactate (Haldol Inj) 5 mg Q8HRS 11/12/19 14:00 11/19/19 10:06 DC 11/19/19 05:13 5 MG Hydralazine HCl (Apresoline) 25 mg TID 12/02/19 09:00 12/03/19 21:43 25 MG Influenza Virus Vaccine Quadrival (Fluzone Quad Syringe) 0.5 ml ONCE ONCE 11/16/19 09:00 11/16/19 09:01 DC Info (FLU VACCINE SCREEN per RX) 1 each 1X ONCE 11/11/19 04:45 11/11/19 04:46 UNV Insulin Human Lispro (HumaLOG) 0-5 UNITS Q6HRS 11/11/19 06:00 11/15/19 11:04 DC 11/14/19 17:39 2 UNITS Levofloxacin/ Dextrose 150 ml @ 100 mls/hr Q24H 11/11/19 20:00 11/14/19 09:35 DC 11/13/19 20:39 100 MLS/HR Levothyroxine Sodium (Synthroid) 100 mcg DAILY06 11/11/19 06:00 12/04/19 06:03 100 MCG Meropenem 500 mg/ Sodium Chloride 50 ml @ 100 mls/hr Q8HRS 11/24/19 14:00 12/04/19 06:03 100 MLS/HR Midazolam HCl 100 ml @ 0 mls/hr CONT PRN 11/29/19 18:00 12/01/19 06:31 5 MLS/HR Nifedipine (Procardia) 10 mg Q8HRS 11/11/19 06:00 11/17/19 08:47 DC 11/17/19 06:18 10 MG Non-Formulary Medication 1 ea/ Sodium Chloride 230 ml @ 460 mls/hr Q24H 11/12/19 16:00 11/20/19 16:29 DC 11/20/19 15:53 460 MLS/HR Pantoprazole Sodium (PROTONIX VIAL for IV PUSH) 40 mg Q12HR 11/11/19 21:00 11/13/19 09:20 DC 11/12/19 21:58 40 MG Potassium Bicarbonate (Potassium Effervescent Tablet) 40 meq 1X ONCE 12/02/19 11:15 12/02/19 11:17 DC 12/02/19 11:24 40 MEQ Potassium Chloride (Klor-Con) 40 meq 1X ONCE 12/02/19 11:00 12/02/19 11:01 UNV Propofol (Diprivan) 200 mg STK-MED ONCE 11/10/19 23:00 11/11/19 12:49 DC Sodium Chloride 1,000 ml @ 0 mls/hr Q0M 11/29/19 18:00 Sodium Chloride (Normal Saline Flush) 3 ml QSHIFT PRN 11/11/19 02:00 Succinylcholine Chloride (Anectine) 200 mg STK-MED ONCE 11/10/19 23:00 11/11/19 12:49 DC Sucralfate (Carafate) 1 gm QIDACHS 11/13/19 16:30 11/17/19 08:40 DC 11/17/19 07:21 1 GM Vancomycin HCl (Vanco Per Pharmacy) 1 each PRN DAILY PRN 11/11/19 02:00 11/12/19 08:09 DC 11/11/19 11:55 1 EACH Vancomycin HCl (Vancomycin Trough Level) 1 each 1X ONCE 11/12/19 18:30 11/12/19 08:09 DC Vancomycin HCl 1.5 gm/Sodium Chloride 500 ml @ 250 mls/hr Q12H 11/11/19 07:00 11/12/19 08:03 DC 11/12/19 06:23 250 MLS/HR Vecuronium [facility] (Norcuron Bolus) 6 mg PRN Q1HR PRN 11/16/19 22:00 11/19/19 02:31 6 MG Vitamin D (Vitamin D3) 2,000 unit DAILY 11/11/19 11:00 12/03/19 08:06 2,000 UNIT Zinc Sulfate (Orazinc) 220 mg DAILY 11/11/19 11:00 12/03/19 08:06 220 MG Labs: Lab Laboratory Tests Test 12/03/19 08:20 10/29/20 04:00 O2 Saturation 96 % (92-99) Arterial Blood pH 7.49 (7.35-7.45) Arterial Blood pCO2 at Patient Temp 34 mmHg (35-46) Arterial Blood pO2 at Patient Temp 86 mmHg (65-108) Arterial Blood HCO3 25 mmol/L (21-28) Arterial Blood Base Excess 2 mmol/L (-3-3) FiO2 40% vent White Blood Count 11.2 x10^3/uL (4.0-11.0) Red Blood Count 3.01 x10^6/uL (3.50-5.40) Hemoglobin 7.3 g/dL (12.0-15.5) Hematocrit 23.5 % (36.0-47.0) Mean Corpuscular Volume 78 fL (79-100) Mean Corpuscular Hemoglobin 24 pg (25-35) Mean Corpuscular Hemoglobin Concent 31 g/dL (31-37) Red Cell Distribution Width 18.4 % (11.5-14.5) Platelet Count 192 x10^3/uL (140-400) Sodium Level 136 mmol/L (136-145) Potassium Level 3.4 mmol/L (3.5-5.1) Chloride Level 100 mmol/L (98-107) Carbon Dioxide Level 29 mmol/L (21-32) Anion Gap 7 (6-14) Blood Urea Nitrogen 14 mg/dL (7-20) Creatinine 0.4 mg/dL (0.6-1.0) Estimated GFR (Cockcroft-Gault) 158.7 Glucose Level 130 mg/dL (70-99) Calcium Level 8.2 mg/dL (8.5-10.1) Objective: Assessment: 1. COVID-19 pneumonia. 2. Acute hypoxic respiratory failure, status post intubation. 3. Leukocytosis, likely from steroids. 4. Asthma. 5. History of systemic lupus erythematosus. 6. History of Raynaud's. 7. PCN,Sulfa and Clindamycin allergies per pharmacy pt has tolerated ceftriaxone well in the past 8. Bradycardia likely from sedation Plan: Plan of Care Continue supportive care. Plans are for extubation later today On steroids s/p Remdesivir 11/10 Status post convalescent plasma Continue meropenem Follow up labs and cultures. Critically ill Discussed with nursing staff. GEORGINA ARBOLEDA MD Dec 04, 2019 07:06
[2019-12-04] MEDS: CITALOPRAM 20 MG TABLET. PO SCH (07:55)
[2019-12-04] MEDS: ZINC SULFATE 220 MG CAPSULE. PO SCH (07:55)
[2019-12-04] MEDS: CHOLECALCIFEROL (VITAMIN D3) 1,000 UNIT TABLET PO SCH (07:55)
[2019-12-04] MEDS: ENOXAPARIN 40 MG/0.4 ML SYRINGE. SQ SCH ×2 (07:56→20:32)
[2019-12-04] MEDS: FAMOTIDINE 20 MG/2 ML VIAL IVP SCH ×2 (07:56→20:31)
[2019-12-04] MEDS: FUROSEMIDE 40 MG/4 ML VIAL. IVP SCH (07:56)
[2019-12-04] MEDS: hydrALAZINE 25 MG TABLET PO SCH ×3 (07:57→20:10)
[2019-12-04 08:01] LABS: BASE EXCESS ABG 4 mmol/L (-3-3); HCO3 ABG 27 mmol/L (21-28); PCO2 ABG 36 mmHg (35-46); PO2 ABG 79 mmHg (65-108); SAT O2 ABG 95 % (92-99)
[2019-12-04 08:03] LABS: FIO2 ABG 40
--- NOTE | 2019-12-04 09:06 | PDOC ---
PULMONARY PROGRESS NOTES DATE: 12/04/19 TIME: 09:06 Subjective Patient now on PS 5/5 tolerating well Planned for extubation today at 2:00 once family arrives No overnight concerns Vitals Vital Signs Date Time Temp Pulse Resp B/P (MAP) Pulse Ox O2 Delivery O2 Flow Rate FiO2 12/04/19 07:57 100 158/76 12/04/19 07:48 100 Ventilator 12/04/19 06:00 21 12/04/19 04:00 99.0 99.0 Comments Patient seen doing the COVID- pandemic, visual exam, on vent sedated bradycardia no accessory muscle use no rash Labs Laboratory Tests Test 12/03/19 05:10 12/03/19 08:20 12/04/19 04:00 12/04/19 07:55 Sodium Level 136 mmol/L (136-145) 136 mmol/L (136-145) Potassium Level 3.6 mmol/L (3.5-5.1) 3.4 mmol/L (3.5-5.1) Chloride Level 101 mmol/L (98-107) 100 mmol/L (98-107) Carbon Dioxide Level 28 mmol/L (21-32) 29 mmol/L (21-32) Anion Gap 7 (6-14) 7 (6-14) Blood Urea Nitrogen 11 mg/dL (7-20) 14 mg/dL (7-20) Creatinine 0.3 mg/dL (0.6-1.0) 0.4 mg/dL (0.6-1.0) Estimated GFR (Cockcroft-Gault) 221.2 158.7 Glucose Level 140 mg/dL (70-99) 130 mg/dL (70-99) Calcium Level 7.9 mg/dL (8.5-10.1) 8.2 mg/dL (8.5-10.1) Magnesium Level 1.6 mg/dL (1.8-2.4) O2 Saturation 96 % (92-99) 95 % (92-99) Arterial Blood pH 7.49 (7.35-7.45) 7.49 (7.35-7.45) Arterial Blood pCO2 at Patient Temp 34 mmHg (35-46) 36 mmHg (35-46) Arterial Blood pO2 at Patient Temp 86 mmHg (65-108) 79 mmHg (65-108) Arterial Blood HCO3 25 mmol/L (21-28) 27 mmol/L (21-28) Arterial Blood Base Excess 2 mmol/L (-3-3) 4 mmol/L (-3-3) FiO2 40% vent 40 White Blood Count 11.2 x10^3/uL (4.0-11.0) Red Blood Count 3.01 x10^6/uL (3.50-5.40) Hemoglobin 7.3 g/dL (12.0-15.5) Hematocrit 23.5 % (36.0-47.0) Mean Corpuscular Volume 78 fL (79-100) Mean Corpuscular Hemoglobin 24 pg (25-35) Mean Corpuscular Hemoglobin Concent 31 g/dL (31-37) Red Cell Distribution Width 18.4 % (11.5-14.5) Platelet Count 192 x10^3/uL (140-400) Laboratory Tests Test 12/04/19 04:00 12/04/19 07:55 White Blood Count 11.2 x10^3/uL (4.0-11.0) Red Blood Count 3.01 x10^6/uL (3.50-5.40) Hemoglobin 7.3 g/dL (12.0-15.5) Hematocrit 23.5 % (36.0-47.0) Mean Corpuscular Volume 78 fL (79-100) Mean Corpuscular Hemoglobin 24 pg (25-35) Mean Corpuscular Hemoglobin Concent 31 g/dL (31-37) Red Cell Distribution Width 18.4 % (11.5-14.5) Platelet Count 192 x10^3/uL (140-400) Sodium Level 136 mmol/L (136-145) Potassium Level 3.4 mmol/L (3.5-5.1) Chloride Level 100 mmol/L (98-107) Carbon Dioxide Level 29 mmol/L (21-32) Anion Gap 7 (6-14) Blood Urea Nitrogen 14 mg/dL (7-20) Creatinine 0.4 mg/dL (0.6-1.0) Estimated GFR (Cockcroft-Gault) 158.7 Glucose Level 130 mg/dL (70-99) Calcium Level 8.2 mg/dL (8.5-10.1) O2 Saturation 95 % (92-99) Arterial Blood pH 7.49 (7.35-7.45) Arterial Blood pCO2 at Patient Temp 36 mmHg (35-46) Arterial Blood pO2 at Patient Temp 79 mmHg (65-108) Arterial Blood HCO3 27 mmol/L (21-28) Arterial Blood Base Excess 4 mmol/L (-3-3) FiO2 40 Medications Active Scripts Medications Dose Route/Sig Max Daily Dose Days Date Category Tramadol Hcl 50 Mg Tablet 50 Mg PO Q8HRS PRN 11/11/19 Reported Carafate (Sucralfate) 1 Gm Tablet 1 Gm PO TIDACHC 11/11/19 Reported Prednisone (Prednisone) 10 Mg Tablet 10 Mg PO DAILY 11/11/19 Reported Pantoprazole Sodium (Pantoprazole Sodium) 40 Mg Tablet.dr 40 Mg PO BIDAC 11/11/19 Reported Zofran (Ondansetron Hcl) 4 Mg Tablet 1 Tab PO Q8HRS 11/11/19 Reported Nifedipine Er (Nifedipine) 30 Mg Tablet.er 30 Mg PO DAILY 11/11/19 Reported Methylprednisolone 4 Mg Tab.ds.pk 4 Mg PO DAILY 11/11/19 Reported Metformin Hcl 1,000 Mg Tablet 1,000 Mg PO BIDWMEALS 11/11/19 Reported Levothyroxine Sodium 100 Mcg Tablet 100 Mcg PO DAILYAC 11/11/19 Reported Famotidine 20 Mg Tablet 20 Mg PO BID 11/11/19 Reported Celexa (Citalopram Hydrobromide) 40 Mg Tablet 40 Mg PO DAILY 11/11/19 Reported Evoxac (Cevimeline Hcl) 30 Mg Capsule 30 Mg PO TID 11/11/19 Reported Comments Chest x-ray from 1026 improved Impression . IMPRESSION: 1. Acute hypoxemic respiratory failure secondary to COVID-19 viral pneumonia.-- continue to require vent support, 2. COVID-19 viral pneumonia. 3. Acute respiratory distress syndrome. 4. Leukocytosis-- worsening 5. History of systemic lupus erythematosus. 6. Raynaud's. 7. Abnormal cxr with bilateral infiltrates, 8. bradycardia suspect secondary to meds Plan . awake but follows no commands doing well on pressure support 06/09, plan to extubate today at 2 PM once family arrives Family wants to proceed with extubation in am even if its a palliative extubation, declined trach, As needed morphine for comfort Antibiotics per ID Status post convalescent plasma, finished course of remdesivir Finished full course of steroids Continue tube feeding for nutritional support DVT/GI prophylaxis: lovenox/pepcid Discussed with RN and RT Critical care time from [id number] MARITZA HAZEL MD Dec 04, 2019 09:06
--- NOTE | 2019-12-04 10:23 | PDOC ---
[employer] PROGRESS NOTE Date of Service DOS: DATE: 12/04/19 TIME: 10:23 Chief Complaint Chief Complaint Acute hypoxemic respiratory failure secondary to COVID-19 infection COVID-19 pneumonia ARDS Lupus Leukocytosis secondary to the above Microcytic anemia Hyponatremia Severe protein calorie malnutrition History of Present Illness History of Present Illness 12/03/2019 Patient seen in the [place] [id number] ICU She remains mechanically ventilated Assist-control/15/400/40 percent with 5 of PEEP OG feeds running On IV meropenem and IV fentanyl The plan is to extubate her in the morning with probable comfort care Discussed with case management Discussed with RN Chart reviewed 12/02/2019 Patient seen and examined in the [place] [address] ICU She remains on the vent Spontaneous respirations with pressure support currently Discussed with RN Discussed with case management Patient with OG feeds Currently not sedated We were going to do a trach yesterday but family refused She remains critically ill Blood pressures run high we will order as needed hydralazine 12/01/2019 Patient seen and examined in the [facility] [facility] [address] ICU She is on the vent Assist-control/15/400/40 percent with 5 of PEEP She is going for tracheostomy today Discussed with RN Patient on Versed drip and fentanyl drip for sedation Also receiving IV meropenem She is critically Ms Galicia is a 69-year-old female with past medical history of asthma Raynaud's phenomenon syncope history of systemic lupus erythematosus was in her usual state of health until couple days prior to her visit to the ER when she was diagnosed with COVID-19. Apparently the patient had attended a wedding and most likely is where they contracted the disease. Her is at our institution on the ventilator as well as reported by nursing staff. The patient at the time my evaluation is on mechanical ventilation and sedated. Most of this is from review of outside facility documentation. Bill the patient had described in the review of systems at the outside facility that she had some altered taste in her mouth she did not have any headache visual changes blurred vision double vision she did have some shortness of breath and chest discomfort in her chest whenever she took a deep breath otherwise no other complaints she did not have any diarrhea abdominal pain no neurological deficits were reported. Patient is being admitted for further evaluation and treatment 11/28, no much change, still on vent, supportive measure, wean as able, consider trach 11/29, still venting about the same, following, trach today? cont current other Vitals/I&O Vitals/I&O: Vital Signs Date Time Temp Pulse Resp B/P (MAP) Pulse Ox O2 Delivery O2 Flow Rate FiO2 12/04/19 09:00 90 25 131/58 (82) 97 Ventilator 12/04/19 08:00 98.8 98.8 I & O 12/03/19 12/03/19 12/04/19 15:00 23:00 07:00 Intake Total 400 ml 1360 ml 1066 ml Output Total 1800 ml 1650 ml 245 ml Balance -1400 ml -290 ml 821 ml Physical Exam Physical Exam: GENERAL: Intubated, opens eyes, HEENT: Normocephalic, atraumatic. Anicteric. NG tube present NECK: Supple. LUNGS: Coarse breath sounds bilaterally. No wheezing. HEART: S1, S2 present. No murmurs. ABDOMEN: Soft, nontender, positive bowel sounds. EXTREMITIES: Edema present no cyanosis. DERMATOLOGIC: Warm and dry. No generalized rash. Mottled digits NEUROLOGIC: Awake PSYCHIATRIC: Unable to assess. Lines clean General: No acute distress, Other (orally intubated) Heart: Normal S1, Normal S2 Abdomen: Soft Extremities: No clubbing Skin: No rashes Labs Labs: Laboratory Tests Test 12/04/19 04:00 12/04/19 07:55 White Blood Count 11.2 x10^3/uL (4.0-11.0) Red Blood Count 3.01 x10^6/uL (3.50-5.40) Hemoglobin 7.3 g/dL (12.0-15.5) Hematocrit 23.5 % (36.0-47.0) Mean Corpuscular Volume 78 fL (79-100) Mean Corpuscular Hemoglobin 24 pg (25-35) Mean Corpuscular Hemoglobin Concent 31 g/dL (31-37) Red Cell Distribution Width 18.4 % (11.5-14.5) Platelet Count 192 x10^3/uL (140-400) Sodium Level 136 mmol/L (136-145) Potassium Level 3.4 mmol/L (3.5-5.1) Chloride Level 100 mmol/L (98-107) Carbon Dioxide Level 29 mmol/L (21-32) Anion Gap 7 (6-14) Blood Urea Nitrogen 14 mg/dL (7-20) Creatinine 0.4 mg/dL (0.6-1.0) Estimated GFR (Cockcroft-Gault) 158.7 Glucose Level 130 mg/dL (70-99) Calcium Level 8.2 mg/dL (8.5-10.1) O2 Saturation 95 % (92-99) Arterial Blood pH 7.49 (7.35-7.45) Arterial Blood pCO2 at Patient Temp 36 mmHg (35-46) Arterial Blood pO2 at Patient Temp 79 mmHg (65-108) Arterial Blood HCO3 27 mmol/L (21-28) Arterial Blood Base Excess 4 mmol/L (-3-3) FiO2 40 Assessment and Plan Assessmemt and Plan Acute hypoxemic respiratory failure secondary to COVID-19 infection COVID-19 pneumonia ARDS Lupus Leukocytosis secondary to the above Microcytic anemia Hyponatremia Severe protein calorie malnutrition Status post convalescent plasma remdesivir and steroids Plan ICU monitoring Plan is to extubate later today and we will probably have to do comfort care but we will see how patient does For now continue the following She is partial code As needed hydralazine Steroids IV antibiotics Beta agonist Home meds DVT prophylaxis Appreciate subspecialist input She is critically ill Prognosis very guarded at best but probably terminal CC time 32 minutes Comment Review of Relevant I have reviewed the following items clive (where applicable) has been applied. Justifications for Admission Other Justification MODESTA WEEKS III DO Dec 04, 2019 10:23
--- NOTE | 2019-12-04 10:39 | PDOC ---
[employer] PROGRESS NOTE Date of Service DOS: DATE: 12/04/19 TIME: 10:38 Chief Complaint Chief Complaint Acute hypoxemic respiratory failure secondary to COVID-19 infection COVID-19 pneumonia ARDS Lupus Leukocytosis secondary to the above Microcytic anemia Hyponatremia Severe protein calorie malnutrition History of Present Illness History of Present Illness 12/04/2019 Patient seen in the [place] [address] ICU She remains critically ill Currently on assist-control 15/400/40 percent with 5 of PEEP Seems to nod appropriately and makes eye contact but cannot really move her extremities On IV meropenem and IV fentanyl Arnett to bedside drainage Discussed with nurse Chart reviewed Plan is to extubate later today 12/03/2019 Patient seen in the [place] [address] ICU She remains mechanically ventilated Assist-control/15/400/40 percent with 5 of PEEP OG feeds running On IV meropenem and IV fentanyl The plan is to extubate her in the morning with probable comfort care Discussed with case management Discussed with RN Chart reviewed 12/02/2019 Patient seen and examined in the [place] [address] ICU She remains on the vent Spontaneous respirations with pressure support currently Discussed with RN Discussed with case management Patient with OG feeds Currently not sedated We were going to do a trach yesterday but family refused She remains critically ill Blood pressures run high we will order as needed hydralazine 12/01/2019 Patient seen and examined in the [place] [address] ICU She is on the vent Assist-control/15/400/40 percent with 5 of PEEP She is going for tracheostomy today Discussed with RN Patient on Versed drip and fentanyl drip for sedation Also receiving IV meropenem She is critically Ms Galicia is a 69-year-old female with past medical history of asthma Raynaud's phenomenon syncope history of systemic lupus erythematosus was in her usual state of health until couple days prior to her visit to the ER when she was diagnosed with COVID-19. Apparently the patient had attended a wedding and most likely is where they contracted the disease. Her is at our institution on the ventilator as well as reported by nursing staff. The patient at the time my evaluation is on mechanical ventilation and sedated. Most of this is from review of outside facility documentation. Bill the patient had described in the review of systems at the outside facility that she had some altered taste in her mouth she did not have any headache visual changes blurred vision double vision she did have some shortness of breath and chest discomfort in her chest whenever she took a deep breath otherwise no other complaints she did not have any diarrhea abdominal pain no neurological deficits were reported. Patient is being admitted for further evaluation and treatment 11/28, no much change, still on vent, supportive measure, wean as able, consider trach 11/29, still venting about the same, following, trach today? cont current other Vitals/I&O Vitals/I&O: Vital Signs Date Time Temp Pulse Resp B/P (MAP) Pulse Ox O2 Delivery O2 Flow Rate FiO2 12/04/19 09:00 90 25 131/58 (82) 97 Ventilator 12/04/19 08:00 98.8 98.8 I & O 12/03/19 12/03/19 12/04/19 15:00 23:00 07:00 Intake Total 400 ml 1360 ml 1066 ml Output Total 1800 ml 1650 ml 245 ml Balance -1400 ml -290 ml 821 ml Physical Exam Physical Exam: GENERAL: Intubated, opens eyes, HEENT: Normocephalic, atraumatic. Anicteric. NG tube present NECK: Supple. LUNGS: Coarse breath sounds bilaterally. No wheezing. HEART: S1, S2 present. No murmurs. ABDOMEN: Soft, nontender, positive bowel sounds. EXTREMITIES: Edema present no cyanosis. DERMATOLOGIC: Warm and dry. No generalized rash. Mottled digits NEUROLOGIC: Awake PSYCHIATRIC: Unable to assess. Lines clean General: No acute distress, Other (orally intubated) Heart: Normal S1, Normal S2 Abdomen: Soft Extremities: No clubbing Skin: No rashes Labs Labs: Laboratory Tests Test 12/04/19 04:00 12/04/19 07:55 White Blood Count 11.2 x10^3/uL (4.0-11.0) Red Blood Count 3.01 x10^6/uL (3.50-5.40) Hemoglobin 7.3 g/dL (12.0-15.5) Hematocrit 23.5 % (36.0-47.0) Mean Corpuscular Volume 78 fL (79-100) Mean Corpuscular Hemoglobin 24 pg (25-35) Mean Corpuscular Hemoglobin Concent 31 g/dL (31-37) Red Cell Distribution Width 18.4 % (11.5-14.5) Platelet Count 192 x10^3/uL (140-400) Sodium Level 136 mmol/L (136-145) Potassium Level 3.4 mmol/L (3.5-5.1) Chloride Level 100 mmol/L (98-107) Carbon Dioxide Level 29 mmol/L (21-32) Anion Gap 7 (6-14) Blood Urea Nitrogen 14 mg/dL (7-20) Creatinine 0.4 mg/dL (0.6-1.0) Estimated GFR (Cockcroft-Gault) 158.7 Glucose Level 130 mg/dL (70-99) Calcium Level 8.2 mg/dL (8.5-10.1) O2 Saturation 95 % (92-99) Arterial Blood pH 7.49 (7.35-7.45) Arterial Blood pCO2 at Patient Temp 36 mmHg (35-46) Arterial Blood pO2 at Patient Temp 79 mmHg (65-108) Arterial Blood HCO3 27 mmol/L (21-28) Arterial Blood Base Excess 4 mmol/L (-3-3) FiO2 40 Assessment and Plan Assessmemt and Plan See prior progress note from 10:23 AM today Comment Review of Relevant I have reviewed the following items clive (where applicable) has been applied. Justifications for Admission Other Justification MODESTA WEEKS III DO Dec 04, 2019 10:39
[2019-12-04] MEDS ORDERED: MORPHINE SULFATE 2 MG/ML VIAL. IV PRN (12:45)
--- NOTE | 2019-12-04 15:30 | NUR ---
Son's Wilver and Eddie arrived at bedside with surgical masks on. Requesting pt to be extubated. Pt was extubated to 5LNC @ 1530. Oxygen saturation 94%. Pt remains DNR.
--- NOTE | 2019-12-04 16:23 | NUR ---
SS following up with discharge planning. SS assisting meeting/event planner. SS reviewed pt chart and discussed with pt RN. Pt extubated today. COVID19 positive. Pt on IV Meropenem. Pt accepted at [facility], ; fax [phone]. SS will continue to follow as needed.
--- NOTE | 2019-12-04 17:14 | NUR ---
Pt voiced to her sons "kill me now". Son's informed RN and would like to know what to do about that. RN informed sons that she will remain a DNR but that her vital signs are still remaining stable post extubation.
[2019-12-05] VITALS (16 sets, daily range): BP systolic 125–169; BP diastolic 49–89
[2019-12-05] MEDS: MEROPENEM 500 MG in IV NORMAL SALINE 50ML 50 ML IV SCH ×3 (05:45→22:19)
[2019-12-05] MEDS: LEVOTHYROXINE 100 MCG TABLET PO SCH (05:46)
[2019-12-05 05:47] LABS: CREATININE 0.4 mg/dL (0.6-1.0); GFR 158.7
[2019-12-05 05:50] LABS: POTASSIUM 2.8 mmol/L (3.5-5.1)
[2019-12-05] MEDS: POTASSIUM CHLORIDE 20MEQ 100 ML IV SCH ×3 (07:29→12:15)
--- NOTE | 2019-12-05 07:40 | PDOC ---
Infectious Disease Note Subjective: Subjective Patient extubated Currently on O2 by nasal cannula States feels tired Denies pain, fever, nausea, vomiting, chest pain Vital Signs: Vital Signs Vital Signs Date Time Temp Pulse Resp B/P (MAP) Pulse Ox O2 Delivery O2 Flow Rate FiO2 12/05/19 06:00 72 26 161/86 (111) 97 Nasal Cannula 5.0 12/05/19 04:30 99.2 99.2 Physical Exam: PHYSICAL EXAM GENERAL: Alert awake female on nasal O2 HEENT: Normocephalic, atraumatic. Anicteric. NECK: Supple. LUNGS: Creased breath sound at bases no wheezing HEART: S1, S2 present. No murmurs. ABDOMEN: Soft, nontender, positive bowel sounds. EXTREMITIES: Edema present no cyanosis. DERMATOLOGIC: Warm and dry. No generalized rash. NEUROLOGIC: Awake PSYCHIATRIC: Calm cooperative Lines clean Medications: Inpatient Meds: Current Medications Medications (Trade) Dose Ordered Sig/Diego Start Time Stop Time Status Last Admin Dose Admin Ascorbic Acid (Vitamin C) 500 mg Q6HRS 11/11/19 12:00 11/25/19 09:21 DC 11/25/19 06:13 500 MG Bupivacaine HCl/ Epinephrine Bitart (Sensorcain-Epi 0.5%-1:[id number] Mpf) 30 ml 1X ONCE 12/01/19 07:00 12/01/19 07:01 DC Ceftriaxone Sodium (Rocephin) 2 gm Q24H 11/14/19 10:00 11/24/19 09:55 DC 11/24/19 08:40 2 GM Citalopram Hydrobromide (CeleXA) 40 mg DAILY 11/11/19 09:00 12/04/19 07:55 40 MG Dexamethasone Sodium Phosphate (Decadron) 4 mg DAILY 11/26/19 09:00 11/29/19 09:00 DC 11/29/19 12:00 4 MG Dextrose (Dextrose 50%-Water Syringe) 12.5 gm PRN Q15MIN PRN 11/11/19 02:00 Enoxaparin Sodium (Lovenox 40mg Syringe) 40 mg Q12HR 11/11/19 09:00 12/04/19 20:32 40 MG Etomidate (Amidate) 20 mg STK-MED ONCE 11/10/19 23:00 11/11/19 12:49 DC Famotidine (Pepcid Vial) 20 mg BID 11/11/19 09:00 12/04/19 20:31 20 MG Fentanyl Citrate 55 ml @ 0 mls/hr CONT PRN PRN 11/15/19 01:00 11/28/19 16:32 1.98 MLS/HR Furosemide (Lasix) 40 mg DAILY 12/03/19 09:00 12/04/19 07:56 40 MG Haloperidol Lactate (Haldol Inj) 5 mg Q8HRS 11/12/19 14:00 11/19/19 10:06 DC 11/19/19 05:13 5 MG Hydralazine HCl (Apresoline) 25 mg TID 12/02/19 09:00 12/04/19 13:33 25 MG Influenza Virus Vaccine Quadrival (Fluzone Quad Syringe) 0.5 ml ONCE ONCE 11/16/19 09:00 11/16/19 09:01 DC Info (FLU VACCINE SCREEN per RX) 1 each 1X ONCE 11/11/19 04:45 11/11/19 04:46 UNV Insulin Human Lispro (HumaLOG) 0-5 UNITS Q6HRS 11/11/19 06:00 11/15/19 11:04 DC 11/14/19 17:39 2 UNITS Levofloxacin/ Dextrose 150 ml @ 100 mls/hr Q24H 11/11/19 20:00 11/14/19 09:35 DC 11/13/19 20:39 100 MLS/HR Levothyroxine Sodium (Synthroid) 100 mcg DAILY06 11/11/19 06:00 12/04/19 06:03 100 MCG Meropenem 500 mg/ Sodium Chloride 50 ml @ 100 mls/hr Q8HRS 11/24/19 14:00 12/05/19 05:45 100 MLS/HR Midazolam HCl 100 ml @ 0 mls/hr CONT PRN 11/29/19 18:00 12/01/19 06:31 5 MLS/HR Morphine Sulfate (Morphine Sulfate) 4 mg PRN Q2HR PRN 12/04/19 15:15 Nifedipine (Procardia) 10 mg Q8HRS 11/11/19 06:00 11/17/19 08:47 DC 11/17/19 06:18 10 MG Non-Formulary Medication 1 ea/ Sodium Chloride 230 ml @ 460 mls/hr Q24H 11/12/19 16:00 11/20/19 16:29 DC 11/20/19 15:53 460 MLS/HR Pantoprazole Sodium (PROTONIX VIAL for IV PUSH) 40 mg Q12HR 11/11/19 21:00 11/13/19 09:20 DC 11/12/19 21:58 40 MG Potassium Bicarbonate (Potassium Effervescent Tablet) 40 meq 1X ONCE 12/02/19 11:15 12/02/19 11:17 DC 12/02/19 11:24 40 MEQ Potassium Chloride/Water 100 ml @ 100 mls/hr Q1H 12/05/19 08:00 12/05/19 10:59 12/05/19 07:29 100 MLS/HR Potassium Chloride (Klor-Con) 40 meq 1X ONCE 12/02/19 11:00 12/02/19 11:01 UNV Propofol (Diprivan) 200 mg STK-MED ONCE 11/10/19 23:00 11/11/19 12:49 DC Sodium Chloride 1,000 ml @ 0 mls/hr Q0M 11/29/19 18:00 Sodium Chloride (Normal Saline Flush) 3 ml QSHIFT PRN 11/11/19 02:00 Succinylcholine Chloride (Anectine) 200 mg STK-MED ONCE 11/10/19 23:00 11/11/19 12:49 DC Sucralfate (Carafate) 1 gm QIDACHS 11/13/19 16:30 11/17/19 08:40 DC 11/17/19 07:21 1 GM Vancomycin HCl (Vanco Per Pharmacy) 1 each PRN DAILY PRN 11/11/19 02:00 11/12/19 08:09 DC 11/11/19 11:55 1 EACH Vancomycin HCl (Vancomycin Trough Level) 1 each 1X ONCE 11/12/19 18:30 11/12/19 08:09 DC Vancomycin HCl 1.5 gm/Sodium Chloride 500 ml @ 250 mls/hr Q12H 11/11/19 07:00 11/12/19 08:03 DC 11/12/19 06:23 250 MLS/HR Vecuronium [place] (Norcuron Bolus) 6 mg PRN Q1HR PRN 11/16/19 22:00 11/19/19 02:31 6 MG Vitamin D (Vitamin D3) 2,000 unit DAILY 11/11/19 11:00 12/04/19 07:55 2,000 UNIT Zinc Sulfate (Orazinc) 220 mg DAILY 11/11/19 11:00 12/04/19 07:55 220 MG Labs: Lab Laboratory Tests Test 12/04/19 07:55 12/05/19 05:15 O2 Saturation 95 % (92-99) Arterial Blood pH 7.49 (7.35-7.45) Arterial Blood pCO2 at Patient Temp 36 mmHg (35-46) Arterial Blood pO2 at Patient Temp 79 mmHg (65-108) Arterial Blood HCO3 27 mmol/L (21-28) Arterial Blood Base Excess 4 mmol/L (-3-3) FiO2 40 Sodium Level 137 mmol/L (136-145) Potassium Level 2.8 mmol/L (3.5-5.1) Chloride Level 101 mmol/L (98-107) Carbon Dioxide Level 28 mmol/L (21-32) Anion Gap 8 (6-14) Blood Urea Nitrogen 12 mg/dL (7-20) Creatinine 0.4 mg/dL (0.6-1.0) Estimated GFR (Cockcroft-Gault) 158.7 Glucose Level 96 mg/dL (70-99) Calcium Level 8.0 mg/dL (8.5-10.1) Objective: Assessment: 1. COVID-19 pneumonia. s/p Remdesivir 11/10 Status post convalescent plasma S/P steroids 2. Acute hypoxic respiratory failure, status post intubation. 3. Leukocytosis, likely from steroids. 4. Asthma. 5. History of systemic lupus erythematosus. 6. History of Raynaud's. 7. PCN,Sulfa and Clindamycin allergies per pharmacy pt has tolerated ceftriaxone well in the past Plan: Plan of Care Continue supportive care. Continue meropenem Follow up labs and cultures. Critically ill Discussed with nursing staff. GEORGINA ARBOLEDA MD Dec 05, 2019 07:40
[2019-12-05] MEDS ORDERED: ALTEPLASE 1MG SYRINGE. INT CAT ONE (08:15)
--- NOTE | 2019-12-05 08:24 | PDOC ---
PULMONARY PROGRESS NOTES DATE: 12/05/19 TIME: 08:24 Subjective Patient was extubated 12/04/2019, now on 4 L nasal cannula Afebrile overnight No overnight concerns from nursing Vitals Vital Signs Date Time Temp Pulse Resp B/P (MAP) Pulse Ox O2 Delivery O2 Flow Rate FiO2 12/05/19 08:00 70 20 147/73 (97) 96 Nasal Cannula 4.0 12/05/19 04:30 99.2 99.2 Comments Patient seen doing the pandemic, visual exam, on vent sedated bradycardia no accessory muscle use no rash Labs Laboratory Tests Test 12/04/19 04:00 12/04/19 07:55 12/05/19 05:15 White Blood Count 11.2 x10^3/uL (4.0-11.0) Red Blood Count 3.01 x10^6/uL (3.50-5.40) Hemoglobin 7.3 g/dL (12.0-15.5) Hematocrit 23.5 % (36.0-47.0) Mean Corpuscular Volume 78 fL (79-100) Mean Corpuscular Hemoglobin 24 pg (25-35) Mean Corpuscular Hemoglobin Concent 31 g/dL (31-37) Red Cell Distribution Width 18.4 % (11.5-14.5) Platelet Count 192 x10^3/uL (140-400) Sodium Level 136 mmol/L (136-145) 137 mmol/L (136-145) Potassium Level 3.4 mmol/L (3.5-5.1) 2.8 mmol/L (3.5-5.1) Chloride Level 100 mmol/L (98-107) 101 mmol/L (98-107) Carbon Dioxide Level 29 mmol/L (21-32) 28 mmol/L (21-32) Anion Gap 7 (6-14) 8 (6-14) Blood Urea Nitrogen 14 mg/dL (7-20) 12 mg/dL (7-20) Creatinine 0.4 mg/dL (0.6-1.0) 0.4 mg/dL (0.6-1.0) Estimated GFR (Cockcroft-Gault) 158.7 158.7 Glucose Level 130 mg/dL (70-99) 96 mg/dL (70-99) Calcium Level 8.2 mg/dL (8.5-10.1) 8.0 mg/dL (8.5-10.1) O2 Saturation 95 % (92-99) Arterial Blood pH 7.49 (7.35-7.45) Arterial Blood pCO2 at Patient Temp 36 mmHg (35-46) Arterial Blood pO2 at Patient Temp 79 mmHg (65-108) Arterial Blood HCO3 27 mmol/L (21-28) Arterial Blood Base Excess 4 mmol/L (-3-3) FiO2 40 Laboratory Tests Test 12/05/19 05:15 Sodium Level 137 mmol/L (136-145) Potassium Level 2.8 mmol/L (3.5-5.1) Chloride Level 101 mmol/L (98-107) Carbon Dioxide Level 28 mmol/L (21-32) Anion Gap 8 (6-14) Blood Urea Nitrogen 12 mg/dL (7-20) Creatinine 0.4 mg/dL (0.6-1.0) Estimated GFR (Cockcroft-Gault) 158.7 Glucose Level 96 mg/dL (70-99) Calcium Level 8.0 mg/dL (8.5-10.1) Medications Active Scripts Medications Dose Route/Sig Max Daily Dose Days Date Category Tramadol Hcl 50 Mg Tablet 50 Mg PO Q8HRS PRN 11/11/19 Reported Carafate (Sucralfate) 1 Gm Tablet 1 Gm PO TIDACHC 11/11/19 Reported Prednisone (Prednisone) 10 Mg Tablet 10 Mg PO DAILY 11/11/19 Reported Pantoprazole Sodium (Pantoprazole Sodium) 40 Mg Tablet.dr 40 Mg PO BIDAC 11/11/19 Reported Zofran (Ondansetron Hcl) 4 Mg Tablet 1 Tab PO Q8HRS 11/11/19 Reported Nifedipine Er (Nifedipine) 30 Mg Tablet.er 30 Mg PO DAILY 11/11/19 Reported Methylprednisolone 4 Mg Tab.ds.pk 4 Mg PO DAILY 11/11/19 Reported Metformin Hcl 1,000 Mg Tablet 1,000 Mg PO BIDWMEALS 11/11/19 Reported Levothyroxine Sodium 100 Mcg Tablet 100 Mcg PO DAILYAC 11/11/19 Reported Famotidine 20 Mg Tablet 20 Mg PO BID 11/11/19 Reported Celexa (Citalopram Hydrobromide) 40 Mg Tablet 40 Mg PO DAILY 11/11/19 Reported Evoxac (Cevimeline Hcl) 30 Mg Capsule 30 Mg PO TID 11/11/19 Reported Impression . IMPRESSION: 1. Acute hypoxemic respiratory failure secondary to COVID-19 viral pneumonia.-- continue to require vent support,-- improved 2. COVID-19 viral pneumonia. 3. Acute respiratory distress syndrome. 4. Leukocytosis-- worsening 5. History of systemic lupus erythematosus. 6. Raynaud's. 7. Abnormal cxr with bilateral infiltrates, 8. bradycardia suspect secondary to meds Plan . Patient extubated 12/04/2019, tolerated well, currently on 4 L nasal cannula, wean oxygen as tolerated to keep sats above 92% Antibiotics per ID Status post convalescent plasma, finished course of remdesivir Finished full course of steroids Continue tube feeding for nutritional support DVT/GI prophylaxis: lovenox/pepcid Discussed with RN and RT Stable to transfer out of ICU today if ok with other consults DNR MARITZA HAZEL MD Dec 05, 2019 08:24
[2019-12-05] MEDS: hydrALAZINE 25 MG TABLET PO SCH ×3 (09:00→21:00)
[2019-12-05] MEDS: CHOLECALCIFEROL (VITAMIN D3) 1,000 UNIT TABLET PO SCH (09:00)
[2019-12-05] MEDS: CITALOPRAM 20 MG TABLET. PO SCH (09:00)
[2019-12-05] MEDS: ZINC SULFATE 220 MG CAPSULE. PO SCH (09:00)
[2019-12-05] MEDS: ENOXAPARIN 40 MG/0.4 ML SYRINGE. SQ SCH ×2 (10:10→22:19)
--- NOTE | 2019-12-05 10:23 | PDOC ---
[employer] PROGRESS NOTE Date of Service DOS: DATE: 12/05/19 TIME: 10:20 Chief Complaint Chief Complaint Acute hypoxemic respiratory failure secondary to COVID-19 infection COVID-19 pneumonia ARDS Lupus Leukocytosis secondary to the above Microcytic anemia Hyponatremia Severe protein calorie malnutrition History of Present Illness History of Present Illness 12/05/2019 Patient seen and examined in the [place] [address] ICU She is finally successfully extubated after 23 days She is alert x1 or 2 Discussed with RN Chart reviewed We plan to hopefully send to the medical floor later today if she is stable 12/04/2019 Patient seen in the [place] [address] ICU She remains critically ill Currently on assist-control 15/400/40 percent with 5 of PEEP Seems to nod appropriately and makes eye contact but cannot really move her extremities On IV meropenem and IV fentanyl Arnett to bedside drainage Discussed with nurse Chart reviewed Plan is to extubate later today 12/03/2019 Patient seen in the [facility] [facility] [address] ICU She remains mechanically ventilated Assist-control/15/400/40 percent with 5 of PEEP OG feeds running On IV meropenem and IV fentanyl The plan is to extubate her in the morning with probable comfort care Discussed with case management Discussed with RN Chart reviewed 12/02/2019 Patient seen and examined in the [facility] [address] ICU She remains on the vent Spontaneous respirations with pressure support currently Discussed with RN Discussed with case management Patient with OG feeds Currently not sedated We were going to do a trach yesterday but family refused She remains critically ill Blood pressures run high we will order as needed hydralazine 12/01/2019 Patient seen and examined in the [facility] [place] [address] ICU She is on the vent Assist-control/15/400/40 percent with 5 of PEEP She is going for tracheostomy today Discussed with RN Patient on Versed drip and fentanyl drip for sedation Also receiving IV meropenem She is critically Ms Galicia is a 69-year-old female with past medical history of asthma Raynaud's phenomenon syncope history of systemic lupus erythematosus was in her usual state of health until couple days prior to her visit to the ER when she was diagnosed with COVID-19. Apparently the patient had attended a wedding and most likely is where they contracted the disease. Her is at our institution on the ventilator as well as reported by nursing staff. The patient at the time my evaluation is on mechanical ventilation and sedated. Most of this is from review of outside facility documentation. Bill the patient had described in the review of systems at the outside facility that she had some altered taste in her mouth she did not have any headache visual changes blurred vision double vision she did have some shortness of breath and chest discomfort in her chest whenever she took a deep breath otherwise no other complaints she did not have any diarrhea abdominal pain no neurological deficits were reported. Patient is being admitted for further evaluation and treatment 11/28, no much change, still on vent, supportive measure, wean as able, consider trach 11/29, still venting about the same, following, trach today? cont current other Vitals/I&O Vitals/I&O: Vital Signs Date Time Temp Pulse Resp B/P (MAP) Pulse Ox O2 Delivery O2 Flow Rate FiO2 12/05/19 08:00 70 20 147/73 (97) 96 Nasal Cannula 4.0 12/05/19 04:30 99.2 99.2 I & O 0 12/04/19 12/04/19 12/05/19 15:00 23:00 07:00 Intake Total 354.3 ml 773 ml 0 ml Output Total 1675 ml 500 ml 325 ml Balance -1320.7 ml 273 ml -325 ml Physical Exam Physical Exam: GENERAL: Alert awake female on nasal O2 HEENT: Normocephalic, atraumatic. Anicteric. NECK: Supple. LUNGS: Creased breath sound at bases no wheezing HEART: S1, S2 present. No murmurs. ABDOMEN: Soft, nontender, positive bowel sounds. EXTREMITIES: Edema present no cyanosis. DERMATOLOGIC: Warm and dry. No generalized rash. NEUROLOGIC: Awake PSYCHIATRIC: Calm cooperative Lines clean General: Cooperative, No acute distress, Other Heart: Normal S1, Normal S2 Lungs: Clear Abdomen: Soft Extremities: No clubbing Skin: No rashes Labs Labs: Laboratory Tests Test 12/05/19 05:15 Sodium Level 137 mmol/L (136-145) Potassium Level 2.8 mmol/L (3.5-5.1) Chloride Level 101 mmol/L (98-107) Carbon Dioxide Level 28 mmol/L (21-32) Anion Gap 8 (6-14) Blood Urea Nitrogen 12 mg/dL (7-20) Creatinine 0.4 mg/dL (0.6-1.0) Estimated GFR (Cockcroft-Gault) 158.7 Glucose Level 96 mg/dL (70-99) Calcium Level 8.0 mg/dL (8.5-10.1) Assessment and Plan Assessmemt and Plan Acute hypoxemic respiratory failure secondary to COVID-19 infection COVID-19 pneumonia ARDS Lupus Leukocytosis secondary to the above Microcytic anemia Hyponatremia Severe protein calorie malnutrition Status post convalescent plasma remdesivir and steroids Plan Hopefully plan to transfer out of the ICU later today if stable She is partial code Trend labs She needs speech therapy eval today so we can hopefully start a diet? Might need to eventually go to LTAC or [facility] rehab? As needed hydralazine Steroids IV antibiotics Beta agonist Home meds DVT prophylaxis Appreciate subspecialist input Prognosis is still very guarded as she is extremely weak Comment Review of Relevant I have reviewed the following items clive (where applicable) has been applied. Medications: Current Medications Medications (Trade) Dose Ordered Sig/Diego Route PRN Reason Start Time Stop Time Status Last Admin Dose Admin Potassium Chloride/Water 100 ml @ 100 mls/hr Q1H IV 12/05/19 08:00 12/05/19 10:59 12/05/19 10:08 Alteplase, Recombinant (Cathflo For Central Catheter Clearance) 1 mg 1X ONCE INT CAT 12/05/19 08:15 12/05/19 08:31 DC 12/05/19 10:07 Justifications for Admission Other Justification MODESTA WEEKS III DO Dec 05, 2019 10:23
--- NOTE | 2019-12-05 10:45 | RAD ---
EXAM: PORTABLE CHEST 1V INDICATION: Reason: RF/COVID PNEUMONIA / Spl. Instructions: / History: . TECHNIQUE: Single view COMPARISON: 11/25/2019 FINDINGS: Right jugular approach central venous catheter remains present with the tip in the right atrium. The enteric tube has since been removed. panel monitor leads overlie the chest. The heart size is borderline enlarged. Great vessels show aortic calcification and mild tortuosity. There is no hilar or mediastinal mass. Patchy bilateral airspace opacities remain present, similar to prior allowing for lower lung volumes in the interval. Blunting of the right costophrenic angle suggesting small right pleural effusion. There are no significant osseous abnormalities. IMPRESSION: Patchy bilateral airspace opacities remain present with interval enteric tube removal. No significant interval change otherwise noted. Electronically signed by: Asa Kulkarni MD (12/05/2019 10:42 AM) [id number]
[2019-12-05] MEDS: FAMOTIDINE 20 MG/2 ML VIAL IVP SCH ×2 (11:24→22:19)
[2019-12-05] MEDS: FUROSEMIDE 40 MG/4 ML VIAL. IVP SCH (11:24)
--- NOTE | 2019-12-05 14:41 | NUR ---
SS following up with discharge planning. SS assisting water conservationist. SS reviewed pt chart and discussed with pt RN. Pt is extubated and on nasal canula oxygen. Pt on IV Meropenem. COVID19 positive. PT/OT/ST ordered. Pt transferred to room 648. SS will continue to follow for discharge planning as needed.
[2019-12-05 17:32] LABS: CREATININE 0.3 mg/dL (0.6-1.0); GFR 221.2; POTASSIUM 3.6 mmol/L (3.5-5.1)
[2019-12-06 03:57] VITALS: BP 149/72
[2019-12-06] MEDS: LEVOTHYROXINE 100 MCG TABLET PO SCH (05:33)
[2019-12-06] MEDS: MEROPENEM 500 MG in IV NORMAL SALINE 50ML 50 ML IV SCH ×3 (06:11→22:59)
[2019-12-06 07:05] VITALS: BP 201/91
--- NOTE | 2019-12-06 07:54 | PDOC ---
PULMONARY PROGRESS NOTES DATE: 12/06/19 TIME: 07:53 Subjective Patient was extubated 12/04/2019, now on NRB mask is tired has cough sob dnr Afebrile overnight Vitals Vital Signs Date Time Temp Pulse Resp B/P (MAP) Pulse Ox O2 Delivery O2 Flow Rate FiO2 12/06/19 03:57 97.9 84 20 149/72 (97) 96 NonRebreather Mask 97.9 12/06/19 00:32 15.0 Comments Patient seen doing the ID- pandemic, visual exam, alert on NRB mask bradycardia no accessory muscle use no rash Labs Laboratory Tests Test 12/04/19 07:55 12/05/19 05:15 12/05/19 16:45 O2 Saturation 95 % (92-99) Arterial Blood pH 7.49 (7.35-7.45) Arterial Blood pCO2 at Patient Temp 36 mmHg (35-46) Arterial Blood pO2 at Patient Temp 79 mmHg (65-108) Arterial Blood HCO3 27 mmol/L (21-28) Arterial Blood Base Excess 4 mmol/L (-3-3) FiO2 40 Sodium Level 137 mmol/L (136-145) 137 mmol/L (136-145) Potassium Level 2.8 mmol/L (3.5-5.1) 3.6 mmol/L (3.5-5.1) Chloride Level 101 mmol/L (98-107) 100 mmol/L (98-107) Carbon Dioxide Level 28 mmol/L (21-32) 27 mmol/L (21-32) Anion Gap 8 (6-14) 10 (6-14) Blood Urea Nitrogen 12 mg/dL (7-20) 13 mg/dL (7-20) Creatinine 0.4 mg/dL (0.6-1.0) 0.3 mg/dL (0.6-1.0) Estimated GFR (Cockcroft-Gault) 158.7 221.2 Glucose Level 96 mg/dL (70-99) 91 mg/dL (70-99) Calcium Level 8.0 mg/dL (8.5-10.1) 8.0 mg/dL (8.5-10.1) Laboratory Tests Test 12/05/19 16:45 Sodium Level 137 mmol/L (136-145) Potassium Level 3.6 mmol/L (3.5-5.1) Chloride Level 100 mmol/L (98-107) Carbon Dioxide Level 27 mmol/L (21-32) Anion Gap 10 (6-14) Blood Urea Nitrogen 13 mg/dL (7-20) Creatinine 0.3 mg/dL (0.6-1.0) Estimated GFR (Cockcroft-Gault) 221.2 Glucose Level 91 mg/dL (70-99) Calcium Level 8.0 mg/dL (8.5-10.1) Medications Active Scripts Medications Dose Route/Sig Max Daily Dose Days Date Category Tramadol Hcl 50 Mg Tablet 50 Mg PO Q8HRS PRN 11/11/19 Reported Carafate (Sucralfate) 1 Gm Tablet 1 Gm PO TIDACHC 11/11/19 Reported Prednisone (Prednisone) 10 Mg Tablet 10 Mg PO DAILY 11/11/19 Reported Pantoprazole Sodium (Pantoprazole Sodium) 40 Mg Tablet.dr 40 Mg PO BIDAC 11/11/19 Reported Zofran (Ondansetron Hcl) 4 Mg Tablet 1 Tab PO Q8HRS 11/11/19 Reported Nifedipine Er (Nifedipine) 30 Mg Tablet.er 30 Mg PO DAILY 11/11/19 Reported Methylprednisolone 4 Mg Tab.ds.pk 4 Mg PO DAILY 11/11/19 Reported Metformin Hcl 1,000 Mg Tablet 1,000 Mg PO BIDWMEALS 11/11/19 Reported Levothyroxine Sodium 100 Mcg Tablet 100 Mcg PO DAILYAC 11/11/19 Reported Famotidine 20 Mg Tablet 20 Mg PO BID 11/11/19 Reported Celexa (Citalopram Hydrobromide) 40 Mg Tablet 40 Mg PO DAILY 11/11/19 Reported Evoxac (Cevimeline Hcl) 30 Mg Capsule 30 Mg PO TID 11/11/19 Reported Impression . IMPRESSION: 1. Acute hypoxemic respiratory failure secondary to COVID-19 viral pneumonia.-- now on NRB mask 2. COVID-19 viral pneumonia. 3. Acute respiratory distress syndrome. 4. Leukocytosis-- worsening 5. History of systemic lupus erythematosus. 6. Raynaud's. 7. Abnormal cxr with bilateral infiltrates, 8. bradycardia suspect secondary to meds Plan . Patient extubated 12/04/2019, now on NRB mask 02 titration to keep sat 92% add solumedrol 40 q 8hrs Antibiotics per ID Status post convalescent plasma, finished course of remdesivir Finished full course of steroids Continue tube feeding for nutritional support DVT/GI prophylaxis: lovenox/pepcid Discussed with RN DIEGOR CASIMIRO SHAW MD Dec 06, 2019 07:54
[2019-12-06 08:04] LABS: CALCIUM 8.2 mg/dL (8.5-10.1); CREATININE 0.4 mg/dL (0.6-1.0); GFR 158.7; POTASSIUM 3.6 mmol/L (3.5-5.1)
--- NOTE | 2019-12-06 08:30 | PDOC ---
Infectious Disease Note Subjective: Subjective Patient transferred out of ICU to medical floor yesterday Patient was on nasal O2 now back on nonrebreather Appears tired Remains afebrile Vital Signs: Vital Signs Vital Signs Date Time Temp Pulse Resp B/P (MAP) Pulse Ox O2 Delivery O2 Flow Rate FiO2 12/06/19 03:57 97.9 84 20 149/72 (97) 96 NonRebreather Mask 97.9 12/06/19 00:32 15.0 Physical Exam: PHYSICAL EXAM GENERAL: Awake female on O2 by nonrebreather HEENT: Normocephalic, atraumatic. Anicteric. NECK: Supple. LUNGS: Creased breath sound at bases no wheezing HEART: S1, S2 present. No murmurs. ABDOMEN: Soft, nontender, positive bowel sounds. EXTREMITIES: Edema present no cyanosis. DERMATOLOGIC: Warm and dry. No generalized rash. NEUROLOGIC: Awake lethargic PSYCHIATRIC: Calm cooperative Lines clean Medications: Inpatient Meds: Current Medications Medications (Trade) Dose Ordered Sig/Diego Start Time Stop Time Status Last Admin Dose Admin Alteplase, Recombinant (Cathflo For Central Catheter Clearance) 1 mg 1X ONCE 12/05/19 08:15 12/05/19 08:31 DC 12/05/19 10:07 1 MG Ascorbic Acid (Vitamin C) 500 mg Q6HRS 11/11/19 12:00 11/25/19 09:21 DC 11/25/19 06:13 500 MG Bupivacaine HCl/ Epinephrine Bitart (Sensorcain-Epi 0.5%-1:152222 Mpf) 30 ml 1X ONCE 12/01/19 07:00 12/01/19 07:01 DC Ceftriaxone Sodium (Rocephin) 2 gm Q24H 11/14/19 10:00 11/24/19 09:55 DC 11/24/19 08:40 2 GM Citalopram Hydrobromide (CeleXA) 40 mg DAILY 11/11/19 09:00 12/04/19 07:55 40 MG Dexamethasone Sodium Phosphate (Decadron) 4 mg DAILY 11/26/19 09:00 11/29/19 09:00 DC 11/29/19 12:00 4 MG Dextrose (Dextrose 50%-Water Syringe) 12.5 gm PRN Q15MIN PRN 11/11/19 02:00 Enoxaparin Sodium (Lovenox 40mg Syringe) 40 mg Q12HR 11/11/19 09:00 12/05/19 22:19 40 MG Etomidate (Amidate) 20 mg STK-MED ONCE 11/10/19 23:00 11/11/19 12:49 DC Famotidine (Pepcid Vial) 20 mg BID 11/11/19 09:00 12/05/19 22:19 20 MG Fentanyl Citrate 55 ml @ 0 mls/hr CONT PRN PRN 11/15/19 01:00 11/28/19 16:32 1.98 MLS/HR Furosemide (Lasix) 40 mg DAILY 12/03/19 09:00 12/05/19 11:24 40 MG Haloperidol Lactate (Haldol Inj) 5 mg Q8HRS 11/12/19 14:00 11/19/19 10:06 DC 11/19/19 05:13 5 MG Hydralazine HCl (Apresoline) 25 mg TID 12/02/19 09:00 12/04/19 13:33 25 MG Influenza Virus Vaccine Quadrival (Fluzone Quad Syringe) 0.5 ml ONCE ONCE 11/16/19 09:00 11/16/19 09:01 DC Info (FLU VACCINE SCREEN per RX) 1 each 1X ONCE 11/11/19 04:45 11/11/19 04:46 UNV Insulin Human Lispro (HumaLOG) 0-5 UNITS Q6HRS 11/11/19 06:00 11/15/19 11:04 DC 11/14/19 17:39 2 UNITS Levofloxacin/ Dextrose 150 ml @ 100 mls/hr Q24H 11/11/19 20:00 11/14/19 09:35 DC 11/13/19 20:39 100 MLS/HR Levothyroxine Sodium (Synthroid) 100 mcg DAILY06 11/11/19 06:00 12/04/19 06:03 100 MCG Meropenem 500 mg/ Sodium Chloride 50 ml @ 100 mls/hr Q8HRS 11/24/19 14:00 12/06/19 06:11 100 MLS/HR Midazolam HCl 100 ml @ 0 mls/hr CONT PRN 11/29/19 18:00 12/05/19 10:24 DC 12/01/19 06:31 5 MLS/HR Morphine Sulfate (Morphine Sulfate) 4 mg PRN Q2HR PRN 12/04/19 15:15 Nifedipine (Procardia) 10 mg Q8HRS 11/11/19 06:00 11/17/19 08:47 DC 11/17/19 06:18 10 MG Non-Formulary Medication 1 ea/ Sodium Chloride 230 ml @ 460 mls/hr Q24H 11/12/19 16:00 11/20/19 16:29 DC 11/20/19 15:53 460 MLS/HR Pantoprazole Sodium (PROTONIX VIAL for IV PUSH) 40 mg Q12HR 11/11/19 21:00 11/13/19 09:20 DC 11/12/19 21:58 40 MG Potassium Bicarbonate (Potassium Effervescent Tablet) 40 meq 1X ONCE 12/02/19 11:15 12/02/19 11:17 DC 12/02/19 11:24 40 MEQ Potassium Chloride/Water 100 ml @ 100 mls/hr Q1H 12/05/19 08:00 12/05/19 10:59 DC 12/05/19 12:15 100 MLS/HR Potassium Chloride (Klor-Con) 40 meq 1X ONCE 12/02/19 11:00 12/02/19 11:01 UNV Propofol (Diprivan) 200 mg STK-MED ONCE 11/10/19 23:00 11/11/19 12:49 DC Sodium Chloride 1,000 ml @ 0 mls/hr Q0M 11/29/19 18:00 Sodium Chloride (Normal Saline Flush) 3 ml QSHIFT PRN 11/11/19 02:00 Succinylcholine Chloride (Anectine) 200 mg STK-MED ONCE 11/10/19 23:00 11/11/19 12:49 DC Sucralfate (Carafate) 1 gm QIDACHS 11/13/19 16:30 11/17/19 08:40 DC 11/17/19 07:21 1 GM Vancomycin HCl (Vanco Per Pharmacy) 1 each PRN DAILY PRN 11/11/19 02:00 11/12/19 08:09 DC 11/11/19 11:55 1 EACH Vancomycin HCl (Vancomycin Trough Level) 1 each 1X ONCE 11/12/19 18:30 11/12/19 08:09 DC Vancomycin HCl 1.5 gm/Sodium Chloride 500 ml @ 250 mls/hr Q12H 11/11/19 07:00 11/12/19 08:03 DC 11/12/19 06:23 250 MLS/HR Vecuronium [place] (Norcuron Bolus) 6 mg PRN Q1HR PRN 11/16/19 22:00 12/05/19 10:24 DC 11/19/19 02:31 6 MG Vitamin D (Vitamin D3) 2,000 unit DAILY 11/11/19 11:00 12/04/19 07:55 2,000 UNIT Zinc Sulfate (Orazinc) 220 mg DAILY 11/11/19 11:00 12/04/19 07:55 220 MG Labs: Lab Laboratory Tests Test 12/05/19 16:45 12/06/19 07:35 Sodium Level 137 mmol/L (136-145) 138 mmol/L (136-145) Potassium Level 3.6 mmol/L (3.5-5.1) 3.6 mmol/L (3.5-5.1) Chloride Level 100 mmol/L (98-107) 100 mmol/L (98-107) Carbon Dioxide Level 27 mmol/L (21-32) 24 mmol/L (21-32) Anion Gap 10 (6-14) 14 (6-14) Blood Urea Nitrogen 13 mg/dL (7-20) 16 mg/dL (7-20) Creatinine 0.3 mg/dL (0.6-1.0) 0.4 mg/dL (0.6-1.0) Estimated GFR (Cockcroft-Gault) 221.2 158.7 Glucose Level 91 mg/dL (70-99) 107 mg/dL (70-99) Calcium Level 8.0 mg/dL (8.5-10.1) 8.2 mg/dL (8.5-10.1) Objective: Assessment: 1. COVID-19 pneumonia. s/p Remdesivir 11/10 Status post convalescent plasma S/P steroids 2. Acute hypoxic respiratory failure, status post intubation. 3. Leukocytosis, likely from steroids. 4. Asthma. 5. History of systemic lupus erythematosus. 6. History of Raynaud's. 7. PCN,Sulfa and Clindamycin allergies per pharmacy pt has tolerated ceftriaxone well in the past Plan: Plan of Care Continue supportive care. Continue meropenem Follow up labs and cultures. Continue aspiration precaution Discussed with nursing staff. GEORGINA ARBOLEDA MD Dec 06, 2019 08:30
[2019-12-06] MEDS: FAMOTIDINE 20 MG/2 ML VIAL IVP SCH ×2 (08:41→23:00)
[2019-12-06] MEDS: FUROSEMIDE 40 MG/4 ML VIAL. IVP SCH (08:41)
[2019-12-06] MEDS: ENOXAPARIN 40 MG/0.4 ML SYRINGE. SQ SCH ×2 (08:41→22:59)
[2019-12-06] MEDS: MORPHINE SULFATE 4 MG/ML VIAL. IV PRN ×2 (08:43→20:27)
[2019-12-06] MEDS: methylPREDNISolone SOD SUCC PF 40 MG/ML VIAL. IV SCH ×3 (08:47→23:00)
[2019-12-06] MEDS: CITALOPRAM 20 MG TABLET. PO SCH (09:00)
[2019-12-06] MEDS: CHOLECALCIFEROL (VITAMIN D3) 1,000 UNIT TABLET PO SCH (09:00)
[2019-12-06] MEDS: ZINC SULFATE 220 MG CAPSULE. PO SCH (09:00)
[2019-12-06] MEDS: hydrALAZINE 25 MG TABLET PO SCH ×3 (09:00→21:00)
--- NOTE | 2019-12-06 09:02 | PDOC ---
[facility] [facility] PROGRESS NOTE Date of Service DOS: DATE: 12/06/19 TIME: 08:54 Chief Complaint Chief Complaint Acute hypoxemic respiratory failure secondary to COVID-19 infection COVID-19 pneumonia ARDS Lupus Leukocytosis secondary to the above Microcytic anemia Hyponatremia Severe protein calorie malnutrition History of Present Illness History of Present Illness Ms Galicia is a 69-year-old female with past medical history of asthma Raynaud's phenomenon syncope history of systemic lupus erythematosus was in her usual state of health until couple days prior to her visit to the ER when she was diagnosed with COVID-19. Apparently the patient had attended a wedding and most likely is where they contracted the disease. Her is at our institution on the ventilator as well as reported by nursing staff. The patient at the time my evaluation is on mechanical ventilation and sedated. Most of this is from review of outside facility documentation. Bill the patient had described in the review of systems at the outside facility that she had some altered taste in her mouth she did not have any headache visual changes blurred vision double vision she did have some shortness of breath and chest discomfort in her chest whenever she took a deep breath otherwise no other complaints she did not have any diarrhea abdominal pain no neurological deficits were reported. Patient is being admitted for further evaluation and treatment 11/11: Patient requiring paralytics noted to allow vent to be synchronized with the patient is breathing. Critically ill. Remdesivir experimental therapy initiated 11/12: On vent, critically ill 11/13: Patient with no acute events reported overnight, patient seems better on the vent today. Prognosis guarded. 11/14: Patient remains hemodynamically stable still requiring quite a bit of ventilatory support with 8 of PEEP and FiO2 of 80% she had convalescent plasma. 11/15: On vent, critically ill. 11/16: On Vent, sedated. FiO2 80%, PEEP 8. On day 6 remdesivir. WBC 12.3, Hb 7.4 11/17: Sedated on vent FiO2 70%, PEEP 8. Status post remdesivir and convalescent plasma. Afebrile. Unfortunately her her on 11/17/2019. 11/18: Sedated on vent AC mode FiO2 70% PEEP of 8. Afebrile. Good urine output. ABG with pH 7.47. WBC 15.6. 11/19: Afebrile. Sedated on vent AC mode FiO2 70% PEEP of 8. ABG reviewed pH 7.4., PCO2 35, PO2 78. 11/20: Afebrile. Sedated on vent AC mode FiO2 70% PEEP of 8, ABG pH 7.39 PCO2 43 PO2 59. CXR bilateral patchy infiltrates. D-dimer 1.37. WBC up to 24.6 Hb stable at 7.9. 11/21: Afebrile sedated on vent AC mode 70% FiO2 PEEP of 8, ABG 7.4 pH PCO2 42 PO2 68. CXR stable, ET tube has been advanced. 11/22: Afebrile. Sedated on vent AC mode 70% FiO2 PEEP of 8, ABG pH 7.4 PCO2 42 PO2 95. D-dimer down to 0.96. WBC up to 24.6 Hb stable 7.9. 11/23: Afebrile bradycardic borderline low blood pressure. Sedated on vent AC mode 50% FiO2 PEEP of 6 ABG pH 747 PCO2 34 PO2 75. CXR about the same. 11/24: Afebrile, bradycardic, BP low not on pressors. Sedated on vent AC mode 50% FiO2 PEEP of 5 ABG 7.47/35/73. CXR unchanged. 11/28, no much change, still on vent, supportive measure, wean as able, consider trach 11/29, still venting about the same, following, trach today? cont current other 11/30: She is on the vent, Assist-control/15/400/40 percent with 5 of PEEP. On Versed drip and fentanyl drip for sedation, Receiving IV meropenem 12/01: Remains on the vent. Was planned for trach yesterday but family refused 12/02: Patient seen in the [facility] ICU. Remains mechanically ventilated, a ssist-control/15/400/40 percent with 5 of PEEP, OG feeds running 12/03: Seen in the COVID-19 ICU. Critically ill, on vent assist-control 15/400/40 percent with 5 of PEEP 12/04: Extubated after 23 days. She is alert x1 or 2. Transferred to medical floor. Sons informed her of her 's and she asked why she was on the vent and kept alive. Febrile to 100.7 F. Seen on facemask O2. She is communicative, very weak, unable to lift her hands. Mg 1.7. Vitals/I&O Vitals/I&O: Vital Signs Date Time Temp Pulse Resp B/P (MAP) Pulse Ox O2 Delivery O2 Flow Rate FiO2 12/06/19 08:43 NonRebreather Mask 15.0 12/06/19 03:57 97.9 84 20 149/72 (97) 96 97.9 I & O 12/05/19 12/05/19 12/06/19 15:00 23:00 07:00 Intake Total 550 ml 0 ml 0 ml Output Total 1648 ml 650 ml 350 ml Balance -1098 ml -650 ml -350 ml Physical Exam Physical Exam: GENERAL: Alert awake female on nasal O2 HEENT: Normocephalic, atraumatic. Anicteric. NECK: Supple. LUNGS: Creased breath sound at bases no wheezing HEART: S1, S2 present. No murmurs. ABDOMEN: Soft, nontender, positive bowel sounds. EXTREMITIES: Edema present no cyanosis. DERMATOLOGIC: Warm and dry. No generalized rash. NEUROLOGIC: Awake PSYCHIATRIC: Calm cooperative Lines clean General: Cooperative, No acute distress, Other Heart: Normal S1, Normal S2 Lungs: Clear Abdomen: Soft Extremities: No clubbing Skin: No rashes Labs Labs: Laboratory Tests Test 12/05/19 16:45 12/06/19 07:35 Sodium Level 137 mmol/L (136-145) 138 mmol/L (136-145) Potassium Level 3.6 mmol/L (3.5-5.1) 3.6 mmol/L (3.5-5.1) Chloride Level 100 mmol/L (98-107) 100 mmol/L (98-107) Carbon Dioxide Level 27 mmol/L (21-32) 24 mmol/L (21-32) Anion Gap 10 (6-14) 14 (6-14) Blood Urea Nitrogen 13 mg/dL (7-20) 16 mg/dL (7-20) Creatinine 0.3 mg/dL (0.6-1.0) 0.4 mg/dL (0.6-1.0) Estimated GFR (Cockcroft-Gault) 221.2 158.7 Glucose Level 91 mg/dL (70-99) 107 mg/dL (70-99) Calcium Level 8.0 mg/dL (8.5-10.1) 8.2 mg/dL (8.5-10.1) Comment Review of Relevant I have reviewed the following items clive (where applicable) has been applied. Medications: Current Medications Medications (Trade) Dose Ordered Sig/Diego Route PRN Reason Start Time Stop Time Status Last Admin Dose Admin Methylprednisolone Sodium Succinate (SOLU-Medrol 40MG VIAL) 40 mg Q8HRS IV 12/06/19 08:45 12/06/19 08:47 Justifications for Admission Other Justification HANY AMIN MD Dec 06, 2019 09:02
[2019-12-06 11:05] VITALS: BP 171/81
[2019-12-06] MEDS ORDERED: POTASSIUM CHLORIDE 20MEQ 100 ML IV ONE (14:45)
[2019-12-06] MEDS ORDERED: MAGNESIUM SULFATE 2GM 50 ML IV ONE (14:45)
[2019-12-06 15:05] VITALS: BP 170/93
[2019-12-06 19:00] VITALS: BP 164/100
[2019-12-06 23:00] VITALS: BP 161/77
[2019-12-07] MEDS: MORPHINE SULFATE 4 MG/ML VIAL. IV PRN ×5 (02:17→12:58)
[2019-12-07 03:00] VITALS: BP 154/76
[2019-12-07] MEDS: MEROPENEM 500 MG in IV NORMAL SALINE 50ML 50 ML IV SCH (05:47)
[2019-12-07] MEDS: methylPREDNISolone SOD SUCC PF 40 MG/ML VIAL. IV SCH (05:47)
[2019-12-07] MEDS: LEVOTHYROXINE 100 MCG TABLET PO SCH (06:00)
[2019-12-07 07:00] VITALS: BP 155/88
[2019-12-07 07:57] LABS: CALCIUM 8.7 mg/dL (8.5-10.1); CREATININE 0.4 mg/dL (0.6-1.0); GFR 158.7; POTASSIUM 3.4 mmol/L (3.5-5.1)
--- NOTE | 2019-12-07 08:23 | PDOC ---
[employer] PROGRESS NOTE Date of Service DOS: DATE: 12/07/19 TIME: 08:23 Chief Complaint Chief Complaint A/P: Acute hypoxemic respiratory failure secondary to COVID-19 infection COVID-19 pneumonia ARDS Lupus Leukocytosis secondary to the above Microcytic anemia Hyponatremia Severe protein calorie malnutrition FEN History of Present Illness History of Present Illness Ms Galicia is a 69 yo F w/ PMHx asthma Raynaud's phenomenon syncope history of systemic lupus erythematosus was in her usual state of health until couple days prior to her visit to the ER when she was diagnosed with COVID-19. Apparently the patient had attended a wedding and most likely is where they contracted the disease. Her is at our institution on the ventilator as well as reported by nursing staff. The patient at the time my evaluation is on mechanical ventilation and sedated. Most of this is from review of outside fac ility documentation. Bill the patient had described in the review of systems at the outside facility that she had some altered taste in her mouth she did not have any headache visual changes blurred vision double vision she did have some shortness of breath and chest discomfort in her chest whenever she took a deep breath otherwise no other complaints she did not have any diarrhea abdominal pain no neurological deficits were reported. Patient is being admitted for further evaluation and treatment 11/11: Patient requiring paralytics noted to allow vent to be synchronized with the patient is breathing. Critically ill. Remdesivir experimental therapy initiated 11/12: On vent, critically ill 11/13: Patient with no acute events reported overnight, patient seems better on the vent today. Prognosis guarded. 11/14: Patient remains hemodynamically stable still requiring quite a bit of ventilatory support with 8 of PEEP and FiO2 of 80% she had convalescent plasma. 11/15: On vent, critically ill. 11/16: On Vent, sedated. FiO2 80%, PEEP 8. On day 6 remdesivir. WBC 12.3, Hb 7.4 11/17: Sedated on vent FiO2 70%, PEEP 8. Status post remdesivir and convalescent plasma. Afebrile. Unfortunately her her on 11/17/2019. 11/18: Sedated on vent AC mode FiO2 70% PEEP of 8. Afebrile. Good urine output. ABG with pH 7.47. WBC 15.6. 11/19: Afebrile. Sedated on vent AC mode FiO2 70% PEEP of 8. ABG reviewed pH 7.4., PCO2 35, PO2 78. 11/20: Afebrile. Sedated on vent AC mode FiO2 70% PEEP of 8, ABG pH 7.39 PCO2 43 PO2 59. CXR bilateral patchy infiltrates. D-dimer 1.37. WBC up to 24.6 Hb stable at 7.9. 11/21: Afebrile sedated on vent AC mode 70% FiO2 PEEP of 8, ABG 7.4 pH PCO2 42 PO2 68. CXR stable, ET tube has been advanced. 11/22: Afebrile. Sedated on vent AC mode 70% FiO2 PEEP of 8, ABG pH 7.4 PCO2 42 PO2 95. D-dimer down to 0.96. WBC up to 24.6 Hb stable 7.9. 11/23: Afebrile bradycardic borderline low blood pressure. Sedated on vent AC mode 50% FiO2 PEEP of 6 ABG pH 747 PCO2 34 PO2 75. CXR about the same. 11/24: Afebrile, bradycardic, BP low not on pressors. Sedated on vent AC mode 50% FiO2 PEEP of 5 ABG 7.47/35/73. CXR unchanged. 11/28: No much change, still on vent, supportive measure, wean as able, consider trach 11/29: Still venting about the same, following, trach today? cont current other 11/30: She is on the vent, Assist-control/15/400/40 percent with 5 of PEEP. On Versed drip and fentanyl drip for sedation, Receiving IV meropenem 12/01: Remains on the vent. Was planned for trach yesterday but family refused 12/02: Patient seen in the [facility]- ICU. Remains mechanically ventilated, assist-control/15/400/40 percent with 5 of PEEP, OG feeds running 12/03: Seen in the [facility]- ICU. Critically ill, on vent assist-control 15/400/40 percent with 5 of PEEP 12/04: Extubated after 23 days. She is alert x1 or 2. Transferred to medical floor. Sons informed her of her 's and she asked why she was on the vent and kept alive. 12/05: Febrile to 100.7 F. Seen on facemask O2. She is communicative, very weak, unable to lift her hands. Mg 1.7. More confused, profoundly hypoxic 87% on 15 L facemask O2. Afebrile. After discussion with her son Eddie he spoke with her yesterday afternoon and notes she was still asking them to let her . He has made it clear if she continues to be uncomfortable with her respiratory rate he would like referral to inpatient hospice. I will reach out to inpatient hospice and discontinue antibiotics and steroids move toward comfort measures. Vitals/I&O Vitals/I&O: Vital Signs Date Time Temp Pulse Resp B/P (MAP) Pulse Ox O2 Delivery O2 Flow Rate FiO2 12/07/19 07:46 35 85 NonRebreather Mask 15.0 12/07/19 03:00 98.5 92 154/76 (102) 98.5 I & O 12/06/19 12/06/19 12/07/19 15:00 23:00 07:00 Intake Total 0 ml 0 ml Output Total 1300 ml 500 ml 650 ml Balance -1300 ml -500 ml -650 ml Physical Exam Physical Exam: GENERAL: Awake female on O2 by nonrebreather HEENT: Normocephalic, atraumatic. Anicteric. NECK: Supple. LUNGS: Creased breath sound at bases no wheezing HEART: S1, S2 present. No murmurs. ABDOMEN: Soft, nontender, positive bowel sounds. EXTREMITIES: Edema present no cyanosis. DERMATOLOGIC: Warm and dry. No generalized rash. NEUROLOGIC: Awake lethargic PSYCHIATRIC: Calm cooperative Lines clean General: Cooperative, No acute distress, Other Heart: Normal S1, Normal S2 Abdomen: Soft Extremities: No clubbing Skin: No rashes Labs Labs: Laboratory Tests Test 12/07/19 06:00 Sodium Level 140 mmol/L (136-145) Potassium Level 3.4 mmol/L (3.5-5.1) Chloride Level 102 mmol/L (98-107) Carbon Dioxide Level 23 mmol/L (21-32) Anion Gap 15 (6-14) Blood Urea Nitrogen 21 mg/dL (7-20) Creatinine 0.4 mg/dL (0.6-1.0) Estimated GFR (Cockcroft-Gault) 158.7 Glucose Level 136 mg/dL (70-99) Calcium Level 8.7 mg/dL (8.5-10.1) Comment Review of Relevant I have reviewed the following items clive (where applicable) has been applied. Medications: Current Medications Medications (Trade) Dose Ordered Sig/Diego Route PRN Reason Start Time Stop Time Status Last Admin Dose Admin Methylprednisolone Sodium Succinate (SOLU-Medrol 40MG VIAL) 40 mg Q8HRS IV 12/06/19 08:45 12/07/19 05:47 Potassium Chloride/Water 100 ml @ 100 mls/hr 1X ONCE IV 12/06/19 14:45 12/06/19 15:44 DC 12/06/19 16:52 Magnesium Sulfate 50 ml @ 25 mls/hr 1X ONCE IV 12/06/19 14:45 12/06/19 16:44 DC 12/06/19 16:52 Justifications for Admission Other Justification HANY AMIN MD Dec 07, 2019 08:23
[2019-12-07] MEDS: POTASSIUM CHLORIDE 20MEQ 100 ML IV SCH ×2 (08:30→09:30)
--- NOTE | 2019-12-07 08:35 | PDOC ---
Infectious Disease Note Subjective: Subjective Patient respiratory status further deteriorated Confused Remains on nonrebreather Vital Signs: Vital Signs Vital Signs Date Time Temp Pulse Resp B/P (MAP) Pulse Ox O2 Delivery O2 Flow Rate FiO2 12/07/19 07:46 35 85 NonRebreather Mask 15.0 12/07/19 03:00 98.5 92 154/76 (102) 98.5 Physical Exam: PHYSICAL EXAM GENERAL: Obtunded patient on O2 by nonrebreather, looks pale HEENT: Normocephalic, atraumatic. Anicteric. NECK: Supple. LUNGS: Coarse breath sounds bilaterally HEART: S1, S2 present. No murmurs. ABDOMEN: Soft, nontender, positive bowel sounds. EXTREMITIES: Edema present no cyanosis. DERMATOLOGIC: Warm and dry. No generalized rash. NEUROLOGIC: Obtunded Medications: Inpatient Meds: Current Medications Medications (Trade) Dose Ordered Sig/Diego Start Time Stop Time Status Last Admin Dose Admin Alteplase, Recombinant (Cathflo For Central Catheter Clearance) 1 mg 1X ONCE 12/05/19 08:15 12/05/19 08:31 DC 12/05/19 10:07 1 MG Ascorbic Acid (Vitamin C) 500 mg Q6HRS 11/11/19 12:00 11/25/19 09:21 DC 11/25/19 06:13 500 MG Bupivacaine HCl/ Epinephrine Bitart (Sensorcain-Epi 0.5%-1:415197 Mpf) 30 ml 1X ONCE 12/01/19 07:00 12/01/19 07:01 DC Ceftriaxone Sodium (Rocephin) 2 gm Q24H 11/14/19 10:00 11/24/19 09:55 DC 11/24/19 08:40 2 GM Citalopram Hydrobromide (CeleXA) 40 mg DAILY 11/11/19 09:00 12/04/19 07:55 40 MG Dexamethasone Sodium Phosphate (Decadron) 4 mg DAILY 11/26/19 09:00 11/29/19 09:00 DC 11/29/19 12:00 4 MG Dextrose (Dextrose 50%-Water Syringe) 12.5 gm PRN Q15MIN PRN 11/11/19 02:00 Enoxaparin Sodium (Lovenox 40mg Syringe) 40 mg Q12HR 11/11/19 09:00 12/06/19 22:59 40 MG Etomidate (Amidate) 20 mg STK-MED ONCE 11/10/19 23:00 11/11/19 12:49 DC Famotidine (Pepcid Vial) 20 mg BID 11/11/19 09:00 12/06/19 23:00 20 MG Fentanyl Citrate 55 ml @ 0 mls/hr CONT PRN PRN 11/15/19 01:00 12/06/19 15:11 DC 11/28/19 16:32 1.98 MLS/HR Furosemide (Lasix) 40 mg DAILY 12/03/19 09:00 12/06/19 08:41 40 MG Haloperidol Lactate (Haldol Inj) 5 mg Q8HRS 11/12/19 14:00 11/19/19 10:06 DC 11/19/19 05:13 5 MG Hydralazine HCl (Apresoline) 25 mg TID 12/02/19 09:00 12/04/19 13:33 25 MG Influenza Virus Vaccine Quadrival (Fluzone Quad Syringe) 0.5 ml ONCE ONCE 11/16/19 09:00 11/16/19 09:01 DC Info (FLU VACCINE SCREEN per RX) 1 each 1X ONCE 11/11/19 04:45 11/11/19 04:46 UNV Insulin Human Lispro (HumaLOG) 0-5 UNITS Q6HRS 11/11/19 06:00 11/15/19 11:04 DC 11/14/19 17:39 2 UNITS Levofloxacin/ Dextrose 150 ml @ 100 mls/hr Q24H 11/11/19 20:00 11/14/19 09:35 DC 11/13/19 20:39 100 MLS/HR Levothyroxine Sodium (Synthroid) 100 mcg DAILY06 11/11/19 06:00 12/04/19 06:03 100 MCG Magnesium Sulfate 50 ml @ 25 mls/hr 1X ONCE 12/06/19 14:45 12/06/19 16:44 DC 12/06/19 16:52 25 MLS/HR Meropenem 500 mg/ Sodium Chloride 50 ml @ 100 mls/hr Q8HRS 11/24/19 14:00 12/07/19 05:47 100 MLS/HR Methylprednisolone Sodium Succinate (SOLU-Medrol 40MG VIAL) 40 mg Q8HRS 12/06/19 08:45 12/07/19 05:47 40 MG Midazolam HCl 100 ml @ 0 mls/hr CONT PRN 11/29/19 18:00 12/05/19 10:24 DC 12/01/19 06:31 5 MLS/HR Morphine Sulfate (Morphine Sulfate) 4 mg PRN Q2HR PRN 12/04/19 15:15 12/07/19 07:46 4 MG Nifedipine (Procardia) 10 mg Q8HRS 11/11/19 06:00 11/17/19 08:47 DC 11/17/19 06:18 10 MG Non-Formulary Medication 1 ea/ Sodium Chloride 230 ml @ 460 mls/hr Q24H 11/12/19 16:00 11/20/19 16:29 DC 11/20/19 15:53 460 MLS/HR Pantoprazole Sodium (PROTONIX VIAL for IV PUSH) 40 mg Q12HR 11/11/19 21:00 11/13/19 09:20 DC 11/12/19 21:58 40 MG Potassium Bicarbonate (Potassium Effervescent Tablet) 40 meq 1X ONCE 12/02/19 11:15 12/02/19 11:17 DC 12/02/19 11:24 40 MEQ Potassium Chloride/Water 100 ml @ 100 mls/hr Q1H 12/07/19 08:30 12/07/19 10:29 Potassium Chloride (Klor-Con) 40 meq 1X ONCE 12/02/19 11:00 12/02/19 11:01 UNV Propofol (Diprivan) 200 mg STK-MED ONCE 11/10/19 23:00 11/11/19 12:49 DC Sodium Chloride 1,000 ml @ 0 mls/hr Q0M 11/29/19 18:00 Sodium Chloride (Normal Saline Flush) 3 ml QSHIFT PRN 11/11/19 02:00 Succinylcholine Chloride (Anectine) 200 mg STK-MED ONCE 11/10/19 23:00 11/11/19 12:49 DC Sucralfate (Carafate) 1 gm QIDACHS 11/13/19 16:30 11/17/19 08:40 DC 11/17/19 07:21 1 GM Vancomycin HCl (Vanco Per Pharmacy) 1 each PRN DAILY PRN 11/11/19 02:00 11/12/19 08:09 DC 11/11/19 11:55 1 EACH Vancomycin HCl (Vancomycin Trough Level) 1 each 1X ONCE 11/12/19 18:30 11/12/19 08:09 DC Vancomycin HCl 1.5 gm/Sodium Chloride 500 ml @ 250 mls/hr Q12H 11/11/19 07:00 11/12/19 08:03 DC 11/12/19 06:23 250 MLS/HR Vecuronium [place] (Norcuron Bolus) 6 mg PRN Q1HR PRN 11/16/19 22:00 12/05/19 10:24 DC 11/19/19 02:31 6 MG Vitamin D (Vitamin D3) 2,000 unit DAILY 11/11/19 11:00 12/04/19 07:55 2,000 UNIT Zinc Sulfate (Orazinc) 220 mg DAILY 11/11/19 11:00 12/04/19 07:55 220 MG Labs: Lab Laboratory Tests Test 12/07/19 06:00 Sodium Level 140 mmol/L (136-145) Potassium Level 3.4 mmol/L (3.5-5.1) Chloride Level 102 mmol/L (98-107) Carbon Dioxide Level 23 mmol/L (21-32) Anion Gap 15 (6-14) Blood Urea Nitrogen 21 mg/dL (7-20) Creatinine 0.4 mg/dL (0.6-1.0) Estimated GFR (Cockcroft-Gault) 158.7 Glucose Level 136 mg/dL (70-99) Calcium Level 8.7 mg/dL (8.5-10.1) Objective: Assessment: 1. COVID-19 pneumonia. s/p Remdesivir 11/10 Status post convalescent plasma S/P steroids 2. Acute hypoxic respiratory failure, status post intubation. 3. Leukocytosis, likely from steroids. 4. Asthma. 5. History of systemic lupus erythematosus. 6. History of Raynaud's. 7. PCN,Sulfa and Clindamycin allergies per pharmacy pt has tolerated ceftriaxone well in the past Plan: Plan of Care Patient being transitioned to comfort measures Call us if any questions Discussed with nursing staff GEORGINA ARBOLEDA MD Dec 07, 2019 08:35
[2019-12-07] MEDS: CHOLECALCIFEROL (VITAMIN D3) 1,000 UNIT TABLET PO SCH (09:00)
--- NOTE | 2019-12-07 09:09 | PDOC ---
PULMONARY PROGRESS NOTES DATE: 12/07/19 TIME: 09:08 Subjective Patient was extubated 12/04/2019, now on NRB mask sat in 80s confused Afebrile overnight Vitals Vital Signs Date Time Temp Pulse Resp B/P (MAP) Pulse Ox O2 Delivery O2 Flow Rate FiO2 12/07/19 08:22 85 NonRebreather Mask 15.0 12/07/19 07:46 35 12/07/19 07:00 98.4 91 155/88 (110) 98.4 Comments Patient seen doing the pandemic, visual exam, alert on NRB mask bradycardia no accessory muscle use no rash Labs Laboratory Tests Test 12/05/19 16:45 12/06/19 07:35 12/07/19 06:00 Sodium Level 137 mmol/L (136-145) 138 mmol/L (136-145) 140 mmol/L (136-145) Potassium Level 3.6 mmol/L (3.5-5.1) 3.6 mmol/L (3.5-5.1) 3.4 mmol/L (3.5-5.1) Chloride Level 100 mmol/L (98-107) 100 mmol/L (98-107) 102 mmol/L (98-107) Carbon Dioxide Level 27 mmol/L (21-32) 24 mmol/L (21-32) 23 mmol/L (21-32) Anion Gap 10 (6-14) 14 (6-14) 15 (6-14) Blood Urea Nitrogen 13 mg/dL (7-20) 16 mg/dL (7-20) 21 mg/dL (7-20) Creatinine 0.3 mg/dL (0.6-1.0) 0.4 mg/dL (0.6-1.0) 0.4 mg/dL (0.6-1.0) Estimated GFR (Cockcroft-Gault) 221.2 158.7 158.7 Glucose Level 91 mg/dL (70-99) 107 mg/dL (70-99) 136 mg/dL (70-99) Calcium Level 8.0 mg/dL (8.5-10.1) 8.2 mg/dL (8.5-10.1) 8.7 mg/dL (8.5-10.1) Magnesium Level 1.7 mg/dL (1.8-2.4) Laboratory Tests Test 12/07/19 06:00 Sodium Level 140 mmol/L (136-145) Potassium Level 3.4 mmol/L (3.5-5.1) Chloride Level 102 mmol/L (98-107) Carbon Dioxide Level 23 mmol/L (21-32) Anion Gap 15 (6-14) Blood Urea Nitrogen 21 mg/dL (7-20) Creatinine 0.4 mg/dL (0.6-1.0) Estimated GFR (Cockcroft-Gault) 158.7 Glucose Level 136 mg/dL (70-99) Calcium Level 8.7 mg/dL (8.5-10.1) Medications Active Scripts Medications Dose Route/Sig Max Daily Dose Days Date Category Tramadol Hcl 50 Mg Tablet 50 Mg PO Q8HRS PRN 11/11/19 Reported Carafate (Sucralfate) 1 Gm Tablet 1 Gm PO TIDACHC 11/11/19 Reported Prednisone (Prednisone) 10 Mg Tablet 10 Mg PO DAILY 11/11/19 Reported Pantoprazole Sodium (Pantoprazole Sodium) 40 Mg Tablet.dr 40 Mg PO BIDAC 11/11/19 Reported Zofran (Ondansetron Hcl) 4 Mg Tablet 1 Tab PO Q8HRS 11/11/19 Reported Nifedipine Er (Nifedipine) 30 Mg Tablet.er 30 Mg PO DAILY 11/11/19 Reported Methylprednisolone 4 Mg Tab.ds.pk 4 Mg PO DAILY 11/11/19 Reported Metformin Hcl 1,000 Mg Tablet 1,000 Mg PO BIDWMEALS 11/11/19 Reported Levothyroxine Sodium 100 Mcg Tablet 100 Mcg PO DAILYAC 11/11/19 Reported Famotidine 20 Mg Tablet 20 Mg PO BID 11/11/19 Reported Celexa (Citalopram Hydrobromide) 40 Mg Tablet 40 Mg PO DAILY 11/11/19 Reported Evoxac (Cevimeline Hcl) 30 Mg Capsule 30 Mg PO TID 11/11/19 Reported Impression . IMPRESSION: 1. Acute hypoxemic respiratory failure secondary to COVID-19 viral pneumonia.-- now on NRB mask 2. COVID-19 viral pneumonia. 3. Acute respiratory distress syndrome. 4. Leukocytosis-- worsening 5. History of systemic lupus erythematosus. 6. Raynaud's. 7. Abnormal cxr with bilateral infiltrates, 8. bradycardia suspect secondary to meds Plan . Patient extubated 12/04/2019, now on NRB mask 02 titration to keep sat 92% add nc 02 solumedrol 40 q 8hrs she is worse prognosis family aware Antibiotics per ID Status post convalescent plasma, finished course of remdesivir Finished full course of steroids Continue tube feeding for nutritional support DVT/GI prophylaxis: lovenox/pepcid Discussed with RN, dr demarco DNR CASIMIRO SHAW MD Dec 07, 2019 09:09
[2019-12-07] MEDS: FUROSEMIDE 40 MG/4 ML VIAL. IVP SCH (10:11)
[2019-12-07] MEDS: ENOXAPARIN 40 MG/0.4 ML SYRINGE. SQ SCH (10:11)
[2019-12-07] MEDS: FAMOTIDINE 20 MG/2 ML VIAL IVP SCH (10:11)
[2019-12-07 11:00] VITALS: BP 146/71
[2019-12-07] MEDS ORDERED: 0.9 % SODIUM CHLORIDE 10 ML DISP.SYRIN. IV PRN (11:00)
[2019-12-07] MEDS ORDERED: HALOPERIDOL LACTATE 5 MG/ML VIAL. IVP PRN ×2 (11:00)
[2019-12-07] MEDS ORDERED: ONDANSETRON PF 4 MG/2 ML VIAL. IVP PRN (11:00)
[2019-12-07] MEDS ORDERED: PROCHLORPERAZINE 10 MG/2 ML VIAL. IVP PRN (11:00)
[2019-12-07] MEDS ORDERED: BISACODYL 10 MG SUPP.RECT. PR PRN (11:00)
[2019-12-07] MEDS ORDERED: ACETAMINOPHEN 650 MG SUPP.RECT. PR PRN (11:00)
[2019-12-07] MEDS ORDERED: MORPHINE SULFATE 2 MG/ML VIAL. IVP PRN (11:00)
[2019-12-07] MEDS ORDERED: MORPHINE SULFATE 20 MG/ML CONC SOLUTION. PO/SL PRN (11:00)
[2019-12-07] MEDS ORDERED: SCOPOLAMINE 1.5MG PATCH. TD PRN (11:00)
[2019-12-07 15:00] VITALS: BP 166/77
--- NOTE | 2019-12-07 18:28 | PDOC3 ---
Discharge Summary Visit Information Date of Admission: Nov 10, 2019 Date of Discharge: Dec 07, 2019 Admitting Diagnosis: Acute hypoxic respiratory failure Final Diagnosis COVID 19 pneumonia Brief Hospital Course Allergies Allergies Coded Allergies Type Severity Reaction Last Updated Verified Penicillins Allergy Intermediate 11/17/19 Yes Sulfa (Sulfonamide Antibiotics) Allergy Intermediate 11/13/19 Yes clindamycin Allergy Intermediate 11/13/19 Yes Vital Signs Vital Signs Date Time Temp Pulse Resp B/P (MAP) Pulse Ox O2 Delivery O2 Flow Rate FiO2 12/07/19 17:04 38 85 NonRebreather Mask 15.0 12/07/19 15:00 97.5 99 166/77 (106) 97.5 Lab Results Laboratory Tests Test 12/06/19 07:35 12/07/19 06:00 Sodium Level 138 mmol/L (136-145) 140 mmol/L (136-145) Potassium Level 3.6 mmol/L (3.5-5.1) 3.4 mmol/L (3.5-5.1) Chloride Level 100 mmol/L (98-107) 102 mmol/L (98-107) Carbon Dioxide Level 24 mmol/L (21-32) 23 mmol/L (21-32) Anion Gap 14 (6-14) 15 (6-14) Blood Urea Nitrogen 16 mg/dL (7-20) 21 mg/dL (7-20) Creatinine 0.4 mg/dL (0.6-1.0) 0.4 mg/dL (0.6-1.0) Estimated GFR (Cockcroft-Gault) 158.7 158.7 Glucose Level 107 mg/dL (70-99) 136 mg/dL (70-99) Calcium Level 8.2 mg/dL (8.5-10.1) 8.7 mg/dL (8.5-10.1) Magnesium Level 1.7 mg/dL (1.8-2.4) 2.2 mg/dL (1.8-2.4) Laboratory Tests Test 12/07/19 06:00 Sodium Level 140 mmol/L (136-145) Potassium Level 3.4 mmol/L (3.5-5.1) Chloride Level 102 mmol/L (98-107) Carbon Dioxide Level 23 mmol/L (21-32) Anion Gap 15 (6-14) Blood Urea Nitrogen 21 mg/dL (7-20) Creatinine 0.4 mg/dL (0.6-1.0) Estimated GFR (Cockcroft-Gault) 158.7 Glucose Level 136 mg/dL (70-99) Calcium Level 8.7 mg/dL (8.5-10.1) Magnesium Level 2.2 mg/dL (1.8-2.4) Brief Hospital Course Ms Galicia is a 69 yo F w/ PMHx asthma Raynaud's phenomenon syncope history of systemic lupus erythematosus was in her usual state of health until couple days prior to her visit to the ER when she was diagnosed with COVID-19. Apparently the patient had attended a wedding of cousins and most likely is where they contracted the disease. Her was also hospitalized at our institution on the ventilator as well as reported by nursing staff. Before intubation she had some altered taste, some shortness of breath and chest discomfort. She did not have any diarrhea abdominal pain no neurological deficits were reported. Patient admitted for further evaluation and treatment to ICU on ventilator 11/11: Patient requiring paralytics noted to allow vent to be synchronized with the patient is breathing. Critically ill. Remdesivir experimental therapy initiated 11/12: On vent, critically ill 11/13: Patient with no acute events reported overnight, patient seems better on the vent today. Prognosis guarded. 11/14: Patient remains hemodynamically stable still requiring quite a bit of ventilatory support with 8 of PEEP and FiO2 of 80% she had convalescent plasma. 11/15: On vent, critically ill. 11/16: On Vent, sedated. FiO2 80%, PEEP 8. On day 6 remdesivir. WBC 12.3, Hb 7.4 11/17: Sedated on vent FiO2 70%, PEEP 8. Status post remdesivir and convalescent plasma. Afebrile. Unfortunately her her on 11/17/2019. 11/18: Sedated on vent AC mode FiO2 70% PEEP of 8. Afebrile. Good urine output. ABG with pH 7.47. WBC 15.6. 11/19: Afebrile. Sedated on vent AC mode FiO2 70% PEEP of 8. ABG reviewed pH 7.4., PCO2 35, PO2 78. 11/20: Afebrile. Sedated on vent AC mode FiO2 70% PEEP of 8, ABG pH 7.39 PCO2 43 PO2 59. CXR bilateral patchy infiltrates. D-dimer 1.37. WBC up to 24.6 Hb stable at 7.9. 11/21: Afebrile sedated on vent AC mode 70% FiO2 PEEP of 8, ABG 7.4 pH PCO2 42 PO2 68. CXR stable, ET tube has been advanced. 11/22: Afebrile. Sedated on vent AC mode 70% FiO2 PEEP of 8, ABG pH 7.4 PCO2 42 PO2 95. D-dimer down to 0.96. WBC up to 24.6 Hb stable 7.9. 11/23: Afebrile bradycardic borderline low blood pressure. Sedated on vent AC mode 50% FiO2 PEEP of 6 ABG pH 747 PCO2 34 PO2 75. CXR about the same. 11/24: Afebrile, bradycardic, BP low not on pressors. Sedated on vent AC mode 50% FiO2 PEEP of 5 ABG 7.47/35/73. CXR unchanged. 11/28: No much change, still on vent, supportive measure, wean as able, consider trach 11/29: Still venting about the same, following, trach today? cont current other 11/30: She is on the vent, Assist-control/15/400/40 percent with 5 of PEEP. On Versed drip and fentanyl drip for sedation, Receiving IV meropenem 12/01: Remains on the vent. Was planned for trach yesterday but family refused 12/02: Patient seen in the [facility]- ICU. Remains mechanically ventilated, assist-control/15/400/40 percent with 5 of PEEP, OG feeds running 12/03: Seen in the [facility]- ICU. Critically ill, on vent assist-control 15/400/40 percent with 5 of PEEP 12/04: Extubated after 23 days. She is alert x1 or 2. Transferred to medical floor. Sons informed her of her 's and she asked why she was on the vent and kept alive. 12/05: Febrile to 100.7 F. Seen on facemask O2. She is communicative, very weak, unable to lift her hands. Mg 1.7. More confused, profoundly hypoxic 87% on 15 L facemask O2. Afebrile. After discussion with her son Eddie he spoke with her yesterday afternoon and notes she was still asking them to let her . He has made it clear if she continues to be uncomfortable with her respiratory rate he would like referral to inpatient hospice. After discussion with Eddie and Jeffery patient was discharged and admitted to inpatient hospice on comfort measures. Consults: ID, Pulmonology, General surgery Problem list: Acute hypoxemic respiratory failure secondary to COVID-19 infection COVID-19 pneumonia ARDS Lupus Sepsis secondary to the above Microcytic anemia Hyponatremia Severe protein calorie malnutrition Critical illness myopathy Hypokalemia Hyperglycemia Greater than 30 minutes spent on discharge to inpatient hospice. Discharge Information Condition at Discharge: Comment (Critically ill) Disposition/Orders: Other (Discharge and readmit to hospice) Scheduled Cevimeline Hcl (Evoxac) 30 Mg Capsule, 30 MG PO TID for Saliva production stimulator, (Reported) Entered as Reported by: GWEN MCCRAY on 11/11/19149 Last Taken: Unknown Dose on Unknown Date & Time Last Action: New Order on 11/11/19149 by GWEN MCCRAY Citalopram Hydrobromide (Celexa) 40 Mg Tablet, 40 MG PO DAILY for depression, (Reported) Entered as Reported by: GWEN MCCRAY on 11/11/19149 Last Taken: Unknown Dose on Unknown Date & Time Last Action: Converted on 11/11/19151 by GWEN MCCRAY Famotidine (Famotidine) 20 Mg Tablet, 20 MG PO BID for GERD, (Reported) Entered as Reported by: GWEN MCCRAY on 11/11/19149 Last Taken: Unknown Dose on Unknown Date & Time Last Action: New Order on 11/11/19149 by GWEN MCCRAY Levothyroxine Sodium (Levothyroxine Sodium) 100 Mcg Tablet, 100 MCG PO DAILYAC for THYROID SUPPLEMENT, #30 Ref 0 (Reported) Entered as Reported by: GWEN MCCRAY on 11/11/19149 Last Taken: Unknown Dose on Unknown Date & Time Last Action: Continued on 11/11/19151 by GWEN MCCRAY Metformin Hcl (Metformin Hcl) 1,000 Mg Tablet, 1,000 MG PO BIDWMEALS for diabetes, (Reported) Entered as Reported by: GWEN MCCRAY on 11/11/19149 Last Taken: Unknown Dose on Unknown Date & Time Last Action: New Order on 11/11/19149 by GWEN MCCRAY Methylprednisolone (Methylprednisolone) 4 Mg Tab.ds.pk, 4 MG PO DAILY for Lupus, (Reported) Entered as Reported by: GWEN MCCRAY on 11/11/19149 Last Taken: Unknown Dose on 11/10/19 0613 Last Action: New Order on 11/11/19149 by GWEN MCCRAY Nifedipine (Nifedipine Er) 30 Mg Tablet.er, 30 MG PO DAILY for HTN, (Reported) Entered as Reported by: GWEN MCCRAY on 11/11/19149 Last Taken: Unknown Dose on 11/10/19 0825 Last Action: New Order on 11/11/19149 by GWEN MCCRAY Ondansetron Hcl (Zofran) 4 Mg Tablet, 1 TAB PO Q8HRS for nausea, #30 (Reported) Entered as Reported by: GWEN MCCRAY on 11/11/19149 Last Taken: Unknown Dose on Unknown Date & Time Last Action: New Order on 11/11/19149 by GWEN MCCRAY Pantoprazole Sodium (Pantoprazole Sodium ) 40 Mg Tablet.dr, 40 MG PO BIDAC for GERD, (Reported) Entered as Reported by: GWEN MCCRAY on 11/11/19149 Last Taken: Unknown Dose on 11/10/19 0824 Last Action: New Order on 11/11/19149 by GWEN MCCRAY Prednisone (Prednisone ) 10 Mg Tablet, 10 MG PO DAILY for LUPUS, Ref 0 (Reported) Entered as Reported by: GWEN MCCRAY on 11/11/19149 Last Taken: Unknown Dose on Unknown Date & Time Last Action: New Order on 11/11/19149 by GWEN MCCRAY Sucralfate (Carafate) 1 Gm Tablet, 1 GM PO TIDACHC for GERD, (Reported) Entered as Reported by: GWEN MCCRAY on 11/11/19149 Last Taken: Unknown Dose on 11/10/19 165 Last Action: Continued on 11/11/19151 by GWEN MCCRAY Scheduled PRN Tramadol Hcl (Tramadol Hcl) 50 Mg Tablet, 50 MG PO Q8HRS PRN for PAIN, (Reported) Entered as Reported by: GWEN MCCRAY on 11/11/19149 Last Taken: Unknown Dose on 11/09/19 175 Last Action: New Order on 11/11/19 0150 by GWEN MCCRAY Justicifation of Admission Dx: Justifications for Admission: Justification of Admission Dx: Yes Respiratory Failure: Mechanical Ventilation HANY AMIN MD Dec 07, 2019 18:28
== END 2019-12-07 17:00 | disposition hospice, inpatient (51) | DRG 870 ==
LOC: 1 WEST ICU 22:50 → EDSEX 22:50 → 6 SOUTH 12-05 12:08
PROVIDERS: ADMIT Family Medicine; ATTEND Family Medicine
PROC: 5A1955Z Respiratory Ventilation, Greater than 96 Consecutive Hours (ICD-10-PCS; principal; 2019-11-10)
PROC: 0BH17EZ Insertion of Endotracheal Airway into Trachea, Via Natural or Artificial Opening (ICD-10-PCS; 2019-11-10)
PROC: 02H633Z Insertion of Infusion Device into Right Atrium, Percutaneous Approach (ICD-10-PCS; 2019-11-11)
PROC: XW033E5 Introduction of Remdesivir Anti-infective into Peripheral Vein, Percutaneous Approach, New Technology Group 5 (ICD-10-PCS; 2019-11-11)
PROC: XW13325 Transfusion of Convalescent Plasma (Nonautologous) into Peripheral Vein, Percutaneous Approach, New Technology Group 5 (ICD-10-PCS; 2019-11-11)
DX: A41.89 Other specified sepsis (principal); U07.1 COVID-19; J96.01 Acute respiratory failure with hypoxia; E43 Unspecified severe protein-calorie malnutrition; J12.89 Other viral pneumonia; E87.1 Hypo-osmolality and hyponatremia; G72.81 Critical illness myopathy; Z68.41 Body mass index [BMI] 40.0-44.9, adult; D50.9 Iron deficiency anemia, unspecified; E11.65 Type 2 diabetes mellitus with hyperglycemia; E87.6 Hypokalemia; F32.9 Major depressive disorder, single episode, unspecified; I10 Essential (primary) hypertension; I73.00 Raynaud's syndrome without gangrene; J45.909 Unspecified asthma, uncomplicated; K21.9 Gastro-esophageal reflux disease without esophagitis; M32.9 Systemic lupus erythematosus, unspecified; T38.0X5A Adverse effect of glucocorticoids and synthetic analogues, initial encounter; Z51.5 Encounter for palliative care; Z66 Do not resuscitate; Z79.84 Long term (current) use of oral hypoglycemic drugs; Z79.899 Other long term (current) drug therapy; Z87.01 Personal history of pneumonia (recurrent); M19.90 Unspecified osteoarthritis, unspecified site; Z88.0 Allergy status to penicillin; Z88.2 Allergy status to sulfonamides
CPT/HCPCS: 36415; 36600; 71045; 80048; 80053; 80202; 82565; 82728; 82805; 82962; 83735; 84100; 84145; 85007; 85025; 85027; 85379; 85384; 87070; 87205; 94002; 94003; 94640; C9113; J0330; J0696; J1100; J1630; J1650; J1815; J1940; J1956; J2185; J2250; J2270; J2704; J2920; J2997; J3010; J3370; J3475; J3480; J3490; J7030; J7040; G0378